=== PATIENT | female | born 1955 | race Caucasian/White ===

== ENCOUNTER 2018-04-15 09:19 | Outpatient (CLI) | payer MEDICARE, MEDICAID, SELFPAY ==
[2018-04-15 10:59] LABS: VALPROIC ACID 54.8 ug/mL (50-100)
[2018-04-16 16:45] LABS: Lamotrigine 11.2 mcg/mL (2.5 - 15.0)
== END 2018-04-15 09:39 ==
PROVIDERS: PCP Internal Medicine; Visit Provider Internal Medicine
DX: G40.909 Epilepsy, unspecified, not intractable, without status epilepticus (principal); Z51.81 Encounter for therapeutic drug level monitoring
CPT/HCPCS: 36415; 80175; 80164

== ENCOUNTER 2018-04-30 10:49 | Outpatient (CLI) | payer MEDICARE, MEDICAID, SELFPAY | END 2018-04-30 11:09 | PROVIDERS: PCP Internal Medicine; Visit Provider Orthopaedic Surgery | DX: M25.562 Pain in left knee (principal); M17.12 Unilateral primary osteoarthritis, left knee | CPT/HCPCS: 20610; 99213; J1040 ==

== ENCOUNTER 2018-04-30 13:37 | Outpatient (CLI) | payer MEDICARE, MEDICAID, SELFPAY ==
--- NOTE | 2018-04-30 11:13 | DI.RAD_ITS ---
SYMPTOM/DIAGNOSIS: LT KNEE PAIN, ? DJD LEFT KNEE: Three views. Comparison is made with 02/01/16. There is marked narrowing of the medial femoral tibial joint space. Subchondral sclerosis and small osteophytes are seen in the medial femorotibial joint. There are small osteophytes seen in the posterior patella. The bones are intact and normally mineralized. The soft tissues are unremarkable. IMPRESSION: Moderately severe degenerative changes of the left knee, most marked in the medial femoral tibial joint.
== END 2018-04-30 13:57 ==
PROVIDERS: PCP Internal Medicine; Visit Provider Orthopaedic Surgery
DX: M25.562 Pain in left knee (principal); M17.12 Unilateral primary osteoarthritis, left knee
CPT/HCPCS: 20610; 73562; 99213; J1040

== ENCOUNTER 2018-05-21 12:32 | Outpatient (CLI) | payer MEDICARE, MEDICAID, SELFPAY | END 2018-05-21 12:52 | PROVIDERS: PCP Internal Medicine; Visit Provider Orthopaedic Surgery | DX: M17.12 Unilateral primary osteoarthritis, left knee (principal); M25.562 Pain in left knee | CPT/HCPCS: 20610; 99213; J1040 ==

== ENCOUNTER 2018-08-17 09:14 | Outpatient (CLI) | payer MEDICARE, MEDICAID, SELFPAY | END 2018-08-17 09:34 | PROVIDERS: PCP Internal Medicine; Visit Provider Orthopaedic Surgery | DX: R69 Illness, unspecified (principal) ==

== ENCOUNTER 2018-08-17 10:18 | Outpatient (CLI) | payer MEDICARE, MEDICAID, SELFPAY ==
[2018-08-17 11:41] LABS: Abs Immature Grans 0.02 k/cumm (0.0-0.09); Absolute Basophil Count 0.07 k/cumm (0.0-0.2); Absolute Eosinophil Count 0.07 k/cumm (0.0-0.7); Absolute Lymphocyte Count 3.02 k/cumm (1.2-3.4); Absolute Monocyte Count 0.59 k/cumm (0.11-0.7); HCT 44.1 % (36.0-46.0); HGB 14.9 g/dL (12.0-15.5); Immature Grans % 0.3; Lymphocytes % 42.7; Mean Corp. HGB Concentration 33.8 g/dL (32.0-36.0); Mean Corpuscular Hemoglobin 32.4 pg (27.0-33.0); Mean Corpuscular Volume 95.9 fL (80-95); Mean Platelet Volume 12.1 fL (8.0-11.0); Monocytes % 8.3; Neutrophils % 46.7; Platelet Count 194 x1000/uL (130-400); RBC Distribution Width 15.2 % (11.7-14.6); White Blood Cell Count 7.07 k/cumm (4.4-10.8)
[2018-08-17 11:54] LABS: Bilirubin Negative (Negative); Blood Small (Negative); Clarity Clear; Glucose Negative (Negative); Ketones Negative (Negative); Leukocyte Esterase Small (Negative); Nitrite Negative (Negative); Urobilinogen 0.2 EU/dL (Up TO 0.2)
[2018-08-17 12:07] LABS: Bacteria Rare HPF (Negative); C & S Indicated? Yes; Casts Negative LPF (Negative); Crystals Negative HPF (Negative); Epithelial Cells Few HPF (Negative); Mucus Negative (Negative); Other Cells Few Renal (Negative)
[2018-08-17 12:37] LABS: Anion Gap 13.6 mmol/L (3-11); BUN 16 mg/dL (7-18); CO2 26.4 mmol/L (21.0-32.0); CREATININE 0.87 mg/dL (0.55-1.02); Chloride 103 mmol/L (98-107); Glucose 96 mg/dL (70-100); Potassium 4.4 mmol/L (3.5-5.1); Sodium 143 mmol/L (136-145)
== END 2018-08-17 10:38 ==
PROVIDERS: PCP Internal Medicine; Visit Provider Orthopaedic Surgery
DX: M25.562 Pain in left knee (principal); M17.12 Unilateral primary osteoarthritis, left knee; Z13.1 Encounter for screening for diabetes mellitus; Z01.818 Encounter for other preprocedural examination; G40.909 Epilepsy, unspecified, not intractable, without status epilepticus; Z79.899 Other long term (current) drug therapy
CPT/HCPCS: 36415; 80051; 82947; 84520; NC OV; 81003; 81015; 82565; 85025; 87086; 93005; 93010

== ENCOUNTER 2018-08-26 05:39 | Inpatient (IN) | payer MEDICARE, MEDICAID, SELFPAY ==
--- NOTE | 2018-08-17 14:07 | PDOC.CMPRO ---
- If Service Date Differs Date of service: 08/17/18 Time of Service: 14:07 Care Management Progress Note Eloise is a 62 year old female that is having a left total knee on 08/26/2018. CM met with Eloise at her preop appointment. Eloise is alert and engaged during CM assessment. Eloise likes to walk in the summer she has been unable to enjoy walking as much due to discomfort in her left knee. Eloise states she has family and friend support when she is discharged. She has had both outpatient PT at [facility], and home health PT in the past she is not sure which one she will choose post surgery. She uses [facility] for transportation and will need transportation coordinated at time of discharge. She lives in a basement floor apartment with no stairs. She does not have a walker she states she is unsure that a walker could be navigated in and out of the bathroom in her apartment. Eloise does not have advance directives she would like to complete them while she is inpatient. Of note Eloise reports that she has epilepsy and on on anticonvulsants medications.
[2018-08-26] VITALS (13 sets, daily range): BP systolic 84–113; BP diastolic 48–69; PULSE 63–87; RESP 16–18; TEMP 35.3–37.8; O2SAT 93–100
[2018-08-26] MEDS: Lactated Ringers 1,000 ML 80 ML IV ×3 (06:39→11:05)
[2018-08-26] MEDS: Bupivacaine LIPOSOME/PF 133 MG/10 ML VIAL IJ (07:22)
[2018-08-26] MEDS: Bupivacaine 0.5% Pres-Free 30 ML VIAL (07:22)
[2018-08-26] MEDS: Hydrogen Peroxide 3% 480 ML BTL (09:35)
--- NOTE | 2018-08-26 11:43 | ROE_ITS ---
REPORT OF OPERATIVE PROCEDURE DATE OF PROCEDURE August 26, 2018 PREOPERATIVE DIAGNOSES Osteoarthritis of the left knee, medial compartment arthritis. POSTOPERATIVE DIAGNOSES Osteoarthritis of the left knee, medial compartment arthritis. PROCEDURE Left total knee arthroplasty, cemented. SURGEON Bob Turner M.D. SHEET CATCHER Jenn Porter PA-C ANESTHETIC Left femoral nerve blockade, followed by spinal by Chrissie Riojas CRNA PREP ChloraPrep. INDICATIONS This patient is well known to me. She is status post previous left hip hemiarthroplasty for femoral n rona fracture. She was treated for medial compartment arthritis of her left knee. She did not respond to conservative treatment including corticosteroid injections, as well as viscosupplementation. Radi ographs showed primarily medial compartment arthritis. Because of failure of conservative treatment, I recommended total knee arthroplasty. The patient does not drive and has to be able to ambulate to et her groceries and for her activities of daily living. She does not have any stairs to climb at [facility]. I reviewed with the patient the planned procedure, including the risks and benefits, and she under stood and wished to proceed. DESCRIPTION OF PROCEDURE The patient was seen in the Day Surgery area, and the procedure was reviewed with her and she underst ood and wished to proceed. I marked her left leg. She had no questions. She had no family members colleen t she wished I contact after the surgery. The patient underwent a left femoral nerve blockade by Keri Riojas CRNA, followed by spinal anesthesia, both were done without difficulty. A Cody catheter was inserted under sterile technique. Her urine was grossly clear. She received 1 gram of Ancef as a prophylactic antibiotic. A pneumatic tourniquet was applied to the left proximal thigh. After preppin g and draping the entire lower extremity from the toes to the groin, the tourniquet was inflated afte r application of sterile bandages and elevation of the limb for 2 minutes for gravity drainage. The t ourniquet was inflated to 360 mmHg. The standard anterior approach for total knee arthroplasty was used. The skin and subcutaneous tissue s were incised and hemostasis was controlled by electrocautery. Incision was carried down through th e knee, and a medial parapatellar arthrotomy was performed. A copious amount of joint fluid was encou ntered. The patella was everted and the knee flexed 90 degrees. There was arthritis of the medial com partment down to subchondral bone. There were medial osteophytes along the medial tibial plateau and the medial femoral condyle. There were early osteophytes forming over the lateral femoral condyle. Th e patellofemoral joint just showed some moderate chondromalacia. Because of the patient's relatively small stature, I was concerned that I would not be able to get a press fit condylar size 2 prosthesis in her because her bones might be too small. This was based on evaluation of preoperative x-rays. Carlos rojas, I was able to verify the size of the tibial plateau with a sterile ruler and compared that to the prosthesis and it looked like that would fit; this was shown to be the case. However, in order to make sure that the components would fit the tibial cut was made first. This was done using an truck manager al alignment jig after doing the subperiosteal release of the medial collateral ligament for the mild varus deformity. I then used a 3-degree posterior sloped cutting guide on the tibia after using the external alignment jig and resected the proximal tibia. I was able to fit the size 2 tibial plateau p rosthesis in place in its trial form and it showed good containment by bone and no overlap. I then pr oceeded with standard Pressfit condylar arthroplasty using distal femoral resection using the intrame dullary guide jessy and a 6-degree valgus bushing on the femur. Approximately 9 mm of distal femur wer e resected. The size 2 component had the most appropriate fit. Anterior and posterior cuts were made, as well as chamfer cuts. The cuts were adjusted slightly and the trial prosthesis fit well. Prior t o making the femoral cuts, the ACL had been resected. Medial and lateral menisci were also resected. Next, trial tibial components were placed and instrumentation was used to create a channel in the sup erior surface of the tibial plateau for the rotating platform. Trial reduction was done with some dif ficulty and minor adjustments in the tension of the PCL and the medial collateral ligament, but I was satisfied with the stability with a size 2 femoral component, size 2 tibial rotating platform compon ent and 10-mm rotating platform polyethylene component. The patella was measured with a caliper and its maximum thickness was 21 millimeters. Combination of a cutting guide and freehand technique was used to resect the articular surface of the patella. It wa s felt that a 32-mm tripronged patellar component would have the most appropriate fit. Fixation lug h oles were drilled in the patella and trial reduction was satisfactory restoring patellar thickness to 21.5 millimeters. All extraneous debris was removed from the knee and the tibial plateau was irrigat ed with pulsatile jet lavage saline. Peroxide soaked sponges were then placed. of Methylmethacrylate containing gentamicin was mixed in a vacuum chamber and the size 2 tibial rotating platform tray was placed. Standard pressurization techniques were utilized and extraneous cement was removed. Cement wa s allowed to cure with the trial femoral and tibial poly eth trays placed. After making sure there wa s no extraneous cement, a second batch of Methylmethacrylate was mixed after the first batch cured a nd the femoral and patellar components were cemented in place. Again, standard pressurization techniq ues were employed and extraneous cement was removed. After the second batch of Methylmethacrylate cur ed, search was made to make sure that there was no extraneous cement or extravasation of cement in th e posterior aspect of the knee. Final components were then placed to make sure that the knee was stab le. This was again a size 2 femur, size 2 tibial plateau and a 10-mm rotating platform tibial tray wi th a 32-mm patellar component. At this point, the tourniquet was deflated. Hemostasis was under contr ol. The wound was then irrigated with a Betadine irrigation protocol using dilute Betadine 17.5 cc a nd 500 cc of saline was placed in the knee. This was done over the course of 3 minutes. The wound was then irrigated with 1000 cc of sterile saline and pulsatile jet lavage technique. The medial parapat ellar arthrotomy was closed with the quad tendon closed in two layers. This was accomplished with sut ures of #1-Vicryl. The peritenon was repaired with #2-0 Vicryl. Subcutaneous tissues were repaired wi th #2-0 Vicryl. Tranexamic acid 3 grams and 100 cc of saline were placed intraarticularly into the kn ee to minimize blood loss. Subcutaneous closure was accomplished with #2-0 Vicryl stitches and then s taples. Estimated blood loss was 50 cc. No blood was replaced intraoperatively. The wound was dressed with Xe roform gauze, 4x4s, ABD Pad, a 6-inch conforming gauze bandage, followed by two 6-inch Hakeem wraps, a C frida/Cuff and a commercial knee immobilizer. The patient had good capillary refill and no evidence of any neurovascular complications. She was taken to the Recovery Room in satisfactory condition tolerat ing the procedure well.
--- NOTE | 2018-08-26 11:47 | DI.RAD_ITS ---
SYMPTOMS/DIAGNOSIS: LT TKA ARTHROPLASTY FOR MEDIAL COMPARTMENT ARTHRO PORTABLE LEFT KNEE: The patient is status post placement of a total left knee prosthesis. The lateral view is somewhat limited due to overlying soft tissues and knee brace. The alignment appears satisfactory. Anterior skin kamari are seen.
[2018-08-26] MEDS: POTASSIUM CHLORIDE/0.9% NACL 1,000 ML 100 MEQ IV (12:26)
--- NOTE | 2018-08-26 13:36 | NUR.NOTE ---
Nursing Note: 1121: pt arrives from pacu via stretcher to room 212. pt moved via hover mat to bed. pt is alert/oriented. pt has cryo cuff with knee immobilizer in place. pt had spinal; area benign at this time. pt hr is regular, LS are clear, active bs at this time. pt reports bm this am. pt scds in place. teds in place. iv in RH patent. perry draining clear yellow urine. see vs for further information
[2018-08-26] MEDS: HYDROcodone 5/Acetaminophen 325 TAB PO ×2 (14:26→19:45)
[2018-08-26] MEDS: Divalproex 250 MG TABEC PO (19:45)
[2018-08-26] MEDS: lamoTRIgine 100 MG TAB PO (19:45)
[2018-08-26] MEDS: Normal Saline Flush 10 ML SYR IV (23:11)
[2018-08-27] VITALS (8 sets, daily range): BP systolic 101–146; BP diastolic 59–73; PULSE 66–78; RESP 17–18; TEMP 37.3–37.9; O2SAT 92–95
[2018-08-27] MEDS: Normal Saline Flush 10 ML SYR IV (01:44)
[2018-08-27] MEDS: POTASSIUM CHLORIDE/0.9% NACL 1,000 ML 75 MEQ IV ×2 (01:45→17:49)
[2018-08-27] MEDS: HYDROcodone 5/Acetaminophen 325 TAB PO ×5 (03:09→21:19)
[2018-08-27 06:47] LABS: HCT 35.3 % (36.0-46.0); HGB 12.1 g/dL (12.0-15.5); Mean Corp. HGB Concentration 34.3 g/dL (32.0-36.0); Mean Corpuscular Hemoglobin 32.6 pg (27.0-33.0); Mean Corpuscular Volume 95.1 fL (80-95); Mean Platelet Volume 12.5 fL (8.0-11.0); Platelet Count 153 x1000/uL (130-400); RBC 3.71 m/cumm (4.00-5.20); RBC Distribution Width 14.8 % (11.7-14.6); White Blood Cell Count 8.53 k/cumm (4.4-10.8)
[2018-08-27 07:00] LABS: Anion Gap 9.5 mmol/L (3-11); BUN 9 mg/dL (7-18); CO2 24.5 mmol/L (21.0-32.0); CREATININE 0.62 mg/dL (0.55-1.02); Calcium 7.8 mg/dL (8.5-10.1); Chloride 101 mmol/L (98-107); Glucose 113 mg/dL (70-100); Potassium 4.1 mmol/L (3.5-5.1); Sodium 135 mmol/L (136-145)
--- NOTE | 2018-08-27 08:02 | W.PM.PROGNOT ---
Date of Service Date of service: 08/27/18 Time of Service: 08:02 Assessment and Plan (1) Primary osteoarthritis of left knee: Current visit: No Status: Chronic Status post left total knee arthroplasty. Findings reviewed with the patient in detail. Pain control is an issue we will add ibuprofen to her pain medication. Despite her complaints of pain she does not appear in significant distress. Her blood count and electrolytes are satisfactory. Lovenox therapy will begin today Subjective Interval history since last seen: Nursing staff had difficulty in controlling the patient's pain last night despite morphine and oral hydrocodone. No chest pain pressure shortness of breath no nausea vomiting patient was unable to tolerate the CPM machine Exam Extrem Other: No neurovascular deficits noted of the left foot. Objective Objective Clinical Data: Abnormal lab results 08/27/18 08/27/18 Range/Units 06:25 06:25 RBC 3.71 L (4.00-5.20) m/cumm Hct 35.3 L (36.0-46.0) % MCV 95.1 H (80-95) fL RDW 14.8 H (11.7-14.6) % MPV 12.5 H (8.0-11.0) fL Sodium 135 L (136-145) mmol/L Glucose 113 H (70-100) mg/dL Calcium 7.8 L (8.5-10.1) mg/dL Vital Signs Temperature 99.5 F 08/27/18 03:30 Temperature Source Tympanic 08/27/18 03:30 Pulse 73 08/27/18 03:30 Pulse Rhythm Regular 08/27/18 00:15 Respiratory Rate 18 08/27/18 03:30 Respiratory Effort Non-Labored 08/27/18 00:15 Respiratory Depth Normal 08/27/18 00:15 Respiratory Pattern Normal 08/27/18 00:15 Blood Pressure 101/59 L 08/27/18 03:30 Pulse Oximetry 95 08/27/18 03:30 Respiratory End-tidal CO2 30 08/26/18 11:10 Oxygen Delivery Method Room Air 08/27/18 03:30 Oxygen Flow Rate 0 08/27/18 03:30 Pain Level 10 08/27/18 03:09 Intake & Output 08/26/18 08/26/18 08/27/18 11:59 23:59 11:59 Intake Total 1928.666 / 3438.666 1510 / 3438.666 730 / 730 Output Total 100 / 1500 1400 / 1500 1000 / 1000 Balance 1828.666 / 1938.666 110 / 1938.666 -270 / -270 Weight 94 lb 9.253 oz Intake: IV 1728.666 / 2698.666 970 / 2698.666 330 / 330 Oral 200 / 740 540 / 740 400 / 400 Output: Urine 100 / 1500 1400 / 1500 1000 / 1000 Other: Urine Color Yellow Yellow Urine Appearance Clear Clear Emesis Description None Laboratory Results WBC 8.53 k/cumm (4.4-10.8) 08/27/18 06:25 RBC 3.71 m/cumm (4.00-5.20) L 08/27/18 06:25 Hgb 12.1 g/dL (12.0-15.5) 08/27/18 06:25 Hct 35.3 % (36.0-46.0) L 08/27/18 06:25 MCV 95.1 fL (80-95) H 08/27/18 06:25 MCH 32.6 pg (27.0-33.0) 08/27/18 06:25 MCHC 34.3 g/dL (32.0-36.0) 08/27/18 06:25 RDW 14.8 % (11.7-14.6) H 08/27/18 06:25 Plt Count 153 x1000/uL (130-400) 08/27/18 06:25 MPV 12.5 fL (8.0-11.0) H 08/27/18 06:25 Sodium 135 mmol/L (136-145) L 08/27/18 06:25 Potassium 4.1 mmol/L (3.5-5.1) 08/27/18 06:25 Chloride 101 mmol/L (98-107) 08/27/18 06:25 Carbon Dioxide 24.5 mmol/L (21.0-32.0) 08/27/18 06:25 Anion Gap 9.5 mmol/L (3-11) 08/27/18 06:25 BUN 9 mg/dL (7-18) 08/27/18 06:25 Creatinine 0.62 mg/dL (0.55-1.02) 08/27/18 06:25 Estimated GFR/1.73 m2 >= 60.00 (mL/min/1.73m2) 08/27/18 06:25 Glucose 113 mg/dL (70-100) H 08/27/18 06:25 Calcium 7.8 mg/dL (8.5-10.1) L 08/27/18 06:25
--- NOTE | 2018-08-27 08:17 | PT.INIE ---
Date of service: 08/27/18 Time of Service: 07:45 PT Notes Inpatient Physical Therapy Evaluation Date: August Referring Doctor: Dr. Turner PT Orders: PT CONSULT: s/p left total knee arthroplasty. CPM and cryocuff protocols. Up in chair today, weight bearing as tolerated left with walker. Precautions: Fall Precautions Patient Profile/Admitting Diagnosis: Patient is a 62-year-old female who underwent left total knee replacement performed by Dr. Turner August 26. Orders received today for up in chair, weightbearing as tolerated with walker. CPM and Cryo/Cuff protocols. PMHX: Left total hip replacement, left total shoulder replacement, osteoporosis, history of epilepsy with last seizure July 2017. Social History/Home Situation: Lives alone single level dwelling with no stairs entering or no stairs in the dwelling. Current Functional Limitations: Ambulation, squatting, bed mobility, transfers sit to stand, limitations with sleep due to pain Equipment Owned/DME: None. Patient reports she will unlikely be able to use a walker at home due to the outline of her home particularly with her hallway being narrow. She did discuss preoperatively with case management utilization of crutches. At this point we will focus on front wheeled walker training progressing towards crutch training as tolerable. Subjective: Patient reports that she is holding up fairly well. Had a difficult night last night secondary to pain in her left knee. She is agreeable to PT consult. Finds a Cryo/Cuff to be annoying. Is looking forward to getting up out of bed. Admits she has not use the CPM very much secondary to pain. Objective: General Observation: Pleasant female who has compression garments on her right lower extremity, IV in the dorsum of her right hand and catheter. Seen lying in bed with head of bed at 30 degrees. She has Hakeem wrap around the left lower extremity mid thigh to mid jolley. Incision is not inspected. Mental Status: Alert and orientated x3 Person Pl. and time Pain: 10/10. Locates her pain to be globally throughout the knee primarily anterior and medially. ROM: Right Upper Extremity: Right glenohumeral joint upper extremity flexion and abduction grossly full pain-free. Elbow flexion extension within normal limits wrist and hand within normal limits. Left Upper Extremity: Significantly limited glenohumeral joint range of motion status post total shoulder replacement. Active flexion 45-50 degrees active assistive lead to 60. Abduction 35 degrees active, 45 active assistive. Elbow flexion extension, wrist and hand active range of motion within normal limits Right Lower Extremity: Right hip and knee active range of motion within normal limits in all planes pain-free. Range of motion within normal limits Left Lower Extremity: Left hip flexion 100 degrees tested in sitting. Active assistive abduction in supine 35-40 degrees. Knee extension lacks 15 degrees. Knee flexion 35-40 degrees with pain, active assistive to 50 degrees. Ankle inversion, eversion, plantar and dorsiflexion within functional limits. Strength: Right Upper Extremity: Grossly 4+/5 throughout right upper extremity glenohumeral joint flexion, abduction, bicep and tricep. 5/5 frame changer. Left Upper Extremity: Glenohumeral joint flexion and abduction 3-/5. Elbow flexion and extension 4/5. 5/5 frame changer. Right Lower Extremity: Flexion and abduction 4/5. She is able to perform a straight leg raise with 0 degree lag. Quads 4+/5, hamstrings 4/5. Ankle inversion and eversion 4/5, plantar flexion and dorsiflexion 4+/5. Left Lower Extremity: Patient is able to perform straight leg raise with 15 degree lag. Hip flexion 4-/5 hip abduction 4/5. Quadriceps resistance strength test not performed. Hamstring 3+/5 with pain. Sensation: Patient reports intact sensation light touch throughout bilateral lower extremities Bed Mobility/Transfers: Supine to sit: Head of bed 30 degrees min assist x1 Sit to stand: Min assist x1 to front wheeled walker. Verbal cues needed for hand placement avoiding grabbing front wheeled walker for transfer to stand. Stand to sit: Min assist x1 from front wheeled walker with verbal cues for hand placement on chair and assistance with left lower extremity. Bed mobility: Min assist x1 for assistance of left lower extremity Gait: Patient ambulated 5 feet with contact-guard in front wheeled walker. Verbal cues necessary for walker placement particularly with changing directions turning to sit in chair. Weightbearing as tolerated by patient's was hesitant to apply weight through her left lower extremity with toe-touch positioning. Verbal cues offered for flat foot initial contact. Following ambulation with transfer to chair evaluation was completed with patient left in chair eating her breakfast. Nursing was notified. Ther-Ex: Patient instructed in ankle pumps, glutes sets, quad sets and importance of range of motion to be done independently throughout the day when not in PT for flexion and extension with intolerance. Balance: Static Sitting: Normal Dynamic Sitting: Normal Static Standing: Fair Dynamic Standing: Fair Special Tests: Mobility Limitations Standardized Measure [facility] AM-PAC 6 clicks Basic Mobility Inpatient Short Form: Raw Score: 13 Standardized Score: 36.74 CMS Score: 64.91% CMS Modifier: CL Informed Consent/Education: Patient instructed in purpose of PT consult and plan of care. Assessment: Patient is a 62 year old female referred to physical therapy services with the diagnosis of status post left total knee replacement with history of ldft total shoulder replacement and left total hip replacement. Patient presents with clinical signs and symptoms consistent with this diagnosis, as demonstrated by the following impairment level findings: Mobility, motor function, muscle performance, range of motion, gait and functional mobility associated with left total knee replacement. Patient will require front wheeled walker for community ambulation purposes and functional transfers due to impaired balance and gait limitations. She has mobility limitation that impairs her ability to do activities related to daily living and puts the patient at further risk of injury. Will also require axillary crutches for in-home ambulation due to construct of dwelling limiting use of walker for ambulation short distances in her home. Impairments are contributing to the following functional limitations: AMPAC score. 64.91% Patient is assessed as a [] Low 03575 X Moderate 12791 [] High 35160 complexity based on the following: History: As per PMH Examination: As listed above Presentation: evolving Decision Making: moderate based on AMPAC score of 64.91% Goals: Goals X1 week 1. Supine-Sit: SBA 2. Sit-Supine: SBA 3. Sit-Stand: SBA to FWW 4. Stand-Sit: SBA from FWW 5. Bed-Chair: SBA with FWW 6. Chair-Bed: SBA with FWW 7. Gait: 150 feet standby assist with FWW 8. Independent with home exercise program Plan of Care/Treatment Plan: 1-2x/day, 7 days/week x 1 week. Plan of care has been reviewed with the PAD EXTRACTOR TENDER providing the service under Physical Therapy direction. Initiate Physical Therapy intervention for strengthening, bed mobility, transfers, gait, stairs, balance training, use of assistive device. DISCHARGE RECOMMENDATIONS: Discharge to home with home health PT services. TREATMENT CODE/TIME: Minutes direct one-on-one care for initial evaluation. 7:45. G Codes in the area mobility of walking and moving around: current status [id number] CL; projected status GP [id number]. Discharge status (if discharging) GP [id number] CL. Christian Chandra PT, DPT
--- NOTE | 2018-08-27 08:21 | IN_ITS ---
Date of service: 08/27/18 Time of Service: 07:45 PT Notes Inpatient Physical Therapy Evaluation Date: August Referring Doctor: Dr. Turner PT Orders: PT CONSULT: s/p left total knee arthroplasty. CPM and cryocuff protocols. Up in chair today, weight bearing as tolerated left with walker. Precautions: Fall Precautions Patient Profile/Admitting Diagnosis: Patient is a 62-year-old female who underwent left total knee replacement performed by Dr. Turner August 26. Orders received today for up in chair, weightbearing as tolerated with walker. CPM and Cryo/Cuff protocols. PMHX: Left total hip replacement, left total shoulder replacement, osteoporosis, history of epilepsy with last seizure July 2017. Social History/Home Situation: Lives alone single level dwelling with no stairs entering or no stairs in the dwelling. Current Functional Limitations: Ambulation, squatting, bed mobility, transfers sit to stand, limitations with sleep due to pain Equipment Owned/DME: None. Patient reports she will unlikely be able to use a walker at home due to the outline of her home particularly with her hallway being narrow. She did discuss preoperatively with case management utilization of crutches. At this point we will focus on front wheeled walker training progressing towards crutch training as tolerable. Subjective: Patient reports that she is holding up fairly well. Had a difficult night last night secondary to pain in her left knee. She is agreeable to PT consult. Finds a Cryo/Cuff to be annoying. Is looking forward to getting up out of bed. Admits she has not use the CPM very much secondary to pain. Objective: General Observation: Pleasant female who has compression garments on her right lower extremity, IV in the dorsum of her right hand and catheter. Seen lying in bed with head of bed at 30 degrees. She has Hakeem wrap around the left lower extremity mid thigh to mid jolley. Incision is not inspected. Mental Status: Alert and orientated x3 Person Pl. and time Pain: 10/10. Locates her pain to be globally throughout the knee primarily anterior and medially. ROM: Right Upper Extremity: Right glenohumeral joint upper extremity flexion and abduction grossly full pain-free. Elbow flexion extension within normal limits wrist and hand within normal limits. Left Upper Extremity: Significantly limited glenohumeral joint range of motion status post total shoulder replacement. Active flexion 45-50 degrees active assistive lead to 60. Abduction 35 degrees active, 45 active assistive. Elbow flexion extension, wrist and hand active range of motion within normal limits Right Lower Extremity: Right hip and knee active range of motion within normal limits in all planes pain-free. Range of motion within normal limits Left Lower Extremity: Left hip flexion 100 degrees tested in sitting. Active assistive abduction in supine 35-40 degrees. Knee extension lacks 15 degrees. Knee flexion 35-40 degrees with pain, active assistive to 50 degrees. Ankle inversion, eversion, plantar and dorsiflexion within functional limits. Strength: Right Upper Extremity: Grossly 4+/5 throughout right upper extremity glenohumeral joint flexion, abduction, bicep and tricep. 5/5 paper sales manager. Left Upper Extremity: Glenohumeral joint flexion and abduction 3-/5. Elbow flexion and extension 4/5. 5/5 paper sales manager. Right Lower Extremity: Flexion and abduction 4/5. She is able to perform a straight leg raise with 0 degree lag. Quads 4+/5, hamstrings 4/5. Ankle inversion and eversion 4/5, plantar flexion and dorsiflexion 4+/5. Left Lower Extremity: Patient is able to perform straight leg raise with 15 degree lag. Hip flexion 4-/5 hip abduction 4/5. Quadriceps resistance strength test not performed. Hamstring 3+/5 with pain. Sensation: Patient reports intact sensation light touch throughout bilateral lower extremities Bed Mobility/Transfers: Supine to sit: Head of bed 30 degrees min assist x1 Sit to stand: Min assist x1 to front wheeled walker. Verbal cues needed for hand placement avoiding grabbing front wheeled walker for transfer to stand. Stand to sit: Min assist x1 from front wheeled walker with verbal cues for hand placement on chair and assistance with left lower extremity. Bed mobility: Min assist x1 for assistance of left lower extremity Gait: Patient ambulated 5 feet with contact-guard in front wheeled walker. Verbal cues necessary for walker placement particularly with changing directions turning to sit in chair. Weightbearing as tolerated by patient's was hesitant to apply weight through her left lower extremity with toe-touch positioning. Verbal cues offered for flat foot initial contact. Following ambulation with transfer to chair evaluation was completed with patient left in chair eating her breakfast. Nursing was notified. Ther-Ex: Patient instructed in ankle pumps, glutes sets, quad sets and importance of range of motion to be done independently throughout the day when not in PT for flexion and extension with intolerance. Balance: Static Sitting: Normal Dynamic Sitting: Normal Static Standing: Fair Dynamic Standing: Fair Special Tests: Mobility Limitations Standardized Measure [facility] AM-PAC 6 clicks Basic Mobility Inpatient Short Form: Raw Score: 13 Standardized Score: 36.74 CMS Score: 64.91% CMS Modifier: CL Informed Consent/Education: Patient instructed in purpose of PT consult and plan of care. Assessment: Patient is a 62 year old female referred to physical therapy services with the diagnosis of status post left total knee replacement with history of ldft total shoulder replacement and left total hip replacement. Patient presents with clinical signs and symptoms consistent with this diagnosis, as demonstrated by the following impairment level findings: Mobility, motor function, muscle performance, range of motion, gait and functional mobility associated with left total knee replacement. Patient will require front wheeled walker for community ambulation purposes and functional transfers due to impaired balance and gait limitations. She has mobility limitation that impairs her ability to do activities related to daily living and puts the patient at further risk of injury. Will also require axillary crutches for in-h ome ambulation due to construct of dwelling limiting use of walker for ambulation short distances in her home. Impairments are contributing to the following functional limitations: AMPAC score. 64.91% Patient is assessed as a [] Low 55321 X Moderate 42829 [] High 59022 complexity based on the following: History: As per PMH Examination: As listed above Presentation: evolving Decision Making: moderate based on AMPAC score of 64.91% Goals: Goals X1 week 1. Supine-Sit: SBA 2. Sit-Supine: SBA 3. Sit-Stand: SBA to FWW 4. Stand-Sit: SBA from FWW 5. Bed-Chair: SBA with FWW 6. Chair-Bed: SBA with FWW 7. Gait: 150 feet standby assist with FWW 8. Independent with home exercise program Plan of Care/Treatment Plan: 1-2x/day, 7 days/week x 1 week. Plan of care has been reviewed with the GLASS CHECKER providing the service under Physical Therapy direction. Initiate Physical Therapy intervention for strengthening, bed mobility, transfers, gait, stairs, balance training, use of assistive device. DISCHARGE RECOMMENDATIONS: Discharge to home with home health PT services. TREATMENT CODE/TIME: Minutes direct one-on-one care for initial evaluation. 7:45. G Codes in the area mobility of walking and moving around: current status [id number] CL; projected status GP [id number]. Discharge status (if discharging) GP [id number] CL. Christian Chandra PT, DPT
[2018-08-27] MEDS: Thiamine 100 MG TAB PO (08:38)
[2018-08-27] MEDS: lamoTRIgine 100 MG TAB PO ×2 (08:38→19:56)
[2018-08-27] MEDS: Enoxaparin 30 MG/0.3 ML SYR SC ×2 (08:38→19:56)
[2018-08-27] MEDS: Pantoprazole 40 MG TABCR PO (08:38)
[2018-08-27] MEDS: Multivitamin w/Minerals TAB 1 TAB PO (08:38)
[2018-08-27] MEDS: Divalproex 250 MG TABEC PO ×2 (08:38→19:56)
[2018-08-27] MEDS: Docusate Sodium 100 MG CAP PO (08:38)
--- NOTE | 2018-08-27 11:24 | PHARADMIT ---
Addendum entered by Riaz Beltre III 08/28/18 14:16: Pharmacy Note Subjective Post-op day#2 total knee, weight bearing, shower, working with PT. Objective VS-OK pain:05/20, Labs-WNL, No BM yet Assessment Using [place] for pain Plan Working with PT towards discharge. Original Note: Admission Pharmacy Clinical Review DJD (L) KNEE Code Status Full Code Current Weight wgt-42.9 kg Renally Cleared and Narrow Therapeutic Index Meds CrCl~ 50 mL/min Meds-OK QTc Value / Action Taken QTc-388 na BP Control, Fever BP- 103/61 Tmax_ 37.8C Electrolytes reviewed Na- 135 K+4.1 DVT Prophylaxis Lovenox Opiate Usage / Scheduled Bowel Regimen Ordered Yes Yes Plt/SCr for Heparin / Enoxaparin Plts- 153 SCr-0.62 INR for Warfarin NA H/H stable, WBC/Bands H&H- 12.1/35.3 WBC- 8.53 Antibiotic appropriateness Ancef Cultures and Sensitivities NONE Surgical ABX d/c within 24 hr Yes DM control / Insulin Dosing BG- 113 Heart Failure (Check EF%) (SAHIL's, B-Block, Diuretics) NONE IV to PO Switch No Home Meds Reviewed Yes Home Meds Not Ordered B-Complex, Pediatric Gummies Comments
--- NOTE | 2018-08-27 12:23 | PDOC.CMIN ---
- If Service Date Differs Date of service: 08/27/18 Time of Service: 12:23 Care Management Initial Assess REASON FOR HOSPITALIZATION:: Total L Knee PAST MEDICAL HISTORY/PAST SURGICAL HISTORY:: Seizure disorder, HPV, osteoporosis, repaired left hip fracture, depressive disorder, atrophic vaginitis, alcohol abuse, seizure disorder, malnutrition, frequent falls, left humerus fracture, osteopenia, depression. 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 She states she has family and friends that are very supportive. She is normally independent with ADLs, she does not drive she lives in town in [place] and walks to her destinations. CURRENT FUNCTIONAL STATUS:: Eloise is alert and engaged with CM during assessment. She states she did have increased pain overnight however feels improved this morning. She does continue to have a Cody in place and IV. PT complete an initial assessment. ADVANCE DIRECTIVES:: None on file forms provided patient to review. Has patient been provided with information about the portal?: Yes Did the patient sign up for the portal?: No CODE STATUS:: Full Code INSURANCE COVERAGE / FINANCIAL ISSUES:: Medicare and Medicaid CURRENT HOME/COMMUNITY SERVICES/EQUIPMENT:: No current services at home, she does have a neurologist for epilepsy. PRIMARY CARE PHYSICIAN:: Dr.Susan Ramon POTENTIAL DISCHARGE NEEDS:: Follow-up appointment with provider, home health PT OT she will need a new [id number]. Eloise is requesting crutches not a FWW. This was communicated to PT PATIENT/FAMILY EDUCATION NEEDS:: Discharge education, follow-up plan of care, limitations, medications, self-management and asked me 3 discussion ANTICIPATED BARRIERS TO DISCHARGE:: None identified at this time TRANSPORTATION:: Via private car with friend vs RCT PLAN:: Eloise will remain inpatient postoperatively until medically ready to be discharged per provider. She will need a new [id number] for home health PT and OT. She will continue to receive services through PT and OT while inpatient. CM to continue to provide support to patient discharge planning.
--- NOTE | 2018-08-27 12:33 | INITIAL_ITS ---
- If Service Date Differs Date of service: 08/27/18 Time of Service: 12:23 Care Management Initial Assess REASON FOR HOSPITALIZATION:: Total L Knee PAST MEDICAL HISTORY/PAST SURGICAL HISTORY:: Seizure disorder, HPV, osteoporosis, repaired left hip fracture, depressive disorder, atrophic vaginitis, alcohol abuse, seizure disorder, malnutrition, frequent falls, left humerus fracture, osteopenia, depression. 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 She states she has family and friends that are very supportive. She is normally independent with ADLs, she does not drive she lives in town in [place] and walks to her destinations. CURRENT FUNCTIONAL STATUS:: Eloise is alert and engaged with CM during assessment. She states she did have increased pain overnight however feels improved this morning. She does continue to have a Cody in place and IV. PT complete an initial assessment. ADVANCE DIRECTIVES:: None on file forms provided patient to review. Has patient been provided with information about the portal?: Yes Did the patient sign up for the portal?: No CODE STATUS:: Full Code INSURANCE COVERAGE / FINANCIAL ISSUES:: Medicare and Medicaid CURRENT HOME/COMMUNITY SERVICES/EQUIPMENT:: No current services at home, she does have a neurologist for epilepsy. PRIMARY CARE PHYSICIAN:: Dr.Susan Ramon POTENTIAL DISCHARGE NEEDS:: Follow-up appointment with provider, home health PT OT she will need a new jzei-ie-nqan. Eloise is requesting crutches not a FWW. This was communicated to PT PATIENT/FAMILY EDUCATION NEEDS:: Discharge education, follow-up plan of care, limitations, medications, self-management and asked me 3 discussion ANTICIPATED BARRIERS TO DISCHARGE:: None identified at this time TRANSPORTATION:: Via private car with friend vs RCT PLAN:: Eloise will remain inpatient postoperatively until medically ready to be discharged per provider. She will need a new evao-jg-zady for home health PT and OT. She will continue to receive services through PT and OT while inpatient. CM to continue to provide support to patient discharge planning.
[2018-08-27] MEDS: Ibuprofen 400 MG TAB PO (13:52)
--- NOTE | 2018-08-27 15:12 | PT.INTREAT ---
Date of service: 08/27/18 Time of Service: 15:12 PT Notes Inpatient Physical Therapy Treatment Note [facility] Date: 08/27/18 PRECAUTIONS:Fall SUBJECTIVE: Eloise reports that she is experiencing numbness through her left lower extremity, she believes that the knee immobilizer is strapped on too tight. OBJECTIVE: After checking patient's knee immobilizer, I determined that the knee immobilizer was fitted properly to the patient and not too tight. Patient able to perform ankle pumps and coloring is noted to be normal and foot. Patient also indicates no numbness in foot. Nursing was alerted to patient complaint of lower extremity numbness. PAIN: Patient complained of 6 significant pain in left lower extremity with transfers and ther ex. BED MOBILITY/TRANSFERS Supine-sit: SBA with HOB at 40 degrees Sit-stand: CGA Stand-sit: CGA Bed-Chair: CGA GAIT Assistive Device: FWW Weight bearing: WBAT L Assist: CGA Distance: 10' + 20' x2 THEREX: Patient completed a lower extremity strengthening and stabilization program, as per flow sheet. Patient ends with cryocuff to left knee. ASSESSMENT: Patient tolerated session with complaints of significant left lower extremity pain. Patient was able to tolerate a progression in gait distance with FWW support and CGA. Patient would benefit from continued gait and transfer training as well as strengthening for improved mobility. PLAN: Continue with PTs POC TREATMENT CODE/TIME: 30 minutes; (9711 0 x 1, 9753 0 x 1)
[2018-08-28 05:16] VITALS: BP 122/71; PULSE 83; RESP 18; TEMP 37.6; O2SAT 95
[2018-08-28 07:01] LABS: HCT 35.1 % (36.0-46.0); Mean Corp. HGB Concentration 34.2 g/dL (32.0-36.0); Mean Corpuscular Hemoglobin 32.4 pg (27.0-33.0); Mean Corpuscular Volume 94.9 fL (80-95); Mean Platelet Volume 12.8 fL (8.0-11.0); Platelet Count 147 x1000/uL (130-400); RBC Distribution Width 14.7 % (11.7-14.6); White Blood Cell Count 9.66 k/cumm (4.4-10.8)
[2018-08-28] MEDS: POTASSIUM CHLORIDE/0.9% NACL 1,000 ML 75 MEQ IV (07:03)
[2018-08-28 07:12] LABS: Anion Gap 10.8 mmol/L (3-11); BUN 7 mg/dL (7-18); CO2 24.2 mmol/L (21.0-32.0); CREATININE 0.63 mg/dL (0.55-1.02); Calcium 8.7 mg/dL (8.5-10.1); Chloride 101 mmol/L (98-107); Glucose 97 mg/dL (70-100); Potassium 4.1 mmol/L (3.5-5.1); Sodium 136 mmol/L (136-145)
[2018-08-28] MEDS: HYDROcodone 5/Acetaminophen 325 TAB PO ×2 (07:47→12:22)
[2018-08-28] MEDS: Ibuprofen 400 MG TAB PO ×3 (07:48→20:43)
[2018-08-28 08:35] VITALS: BP 119/71; PULSE 78; RESP 20; TEMP 37.4; O2SAT 95
[2018-08-28] MEDS: Enoxaparin 30 MG/0.3 ML SYR SC ×2 (08:42→20:44)
[2018-08-28] MEDS: lamoTRIgine 100 MG TAB PO ×2 (08:43→20:44)
[2018-08-28] MEDS: Divalproex 250 MG TABEC PO ×2 (08:43→20:44)
[2018-08-28] MEDS: Multivitamin w/Minerals TAB 1 TAB PO (08:43)
[2018-08-28] MEDS: Pantoprazole 40 MG TABCR PO (08:43)
[2018-08-28] MEDS: Thiamine 100 MG TAB PO (08:43)
--- NOTE | 2018-08-28 09:24 | W.PM.PROGNOT ---
Date of Service Date of service: 08/28/18 Time of Service: 09:24 Assessment and Plan (1) Primary osteoarthritis of left knee: Current visit: No Status: Chronic 48 hours status post left cemented total knee arthroplasty with no apparent complications the patient has noticed already that when she is weightbearing the medial pain that she had before surgery is gone she does have the incisional pain that is still present she is eating well enough that I think we can safely discontinue her Cody catheter in her IV. She is encouraged to take in oral fluids. I think she can have a shower this afternoon this is reviewed and discussed with the patient and with the physical therapy who will supervise her shower. Her CBC is unremarkable and her electrolytes are also normal. Subjective Interval history since last seen: Patient seems to be in much less pain this morning. She is smiling. She seems happy that she could validate the source of her pain with her brother but by review of the intra-articular photographs of her knee arthritis. She has had reasonably good night she is eating her breakfast without difficulty. Exam Extrem Other: Left knee wound is carefully examined. The previous postoperative bandages are removed. There is some mild to moderate swelling. There is no evidence of any significant hemarthrosis. Suture line is intact with the kamari intact. There are no fracture blisters. New sterile bandages are applied. The Cryo/Cuff is recharged with ice water and we will continue with dynamic compression stockings along with the Cryo/Cuff. Objective Objective Clinical Data: Abnormal lab results 08/28/18 Range/Units 06:30 RBC 3.70 L (4.00-5.20) m/cumm Hct 35.1 L (36.0-46.0) % RDW 14.7 H (11.7-14.6) % MPV 12.8 H (8.0-11.0) fL Vital Signs Temperature 99.3 F 08/28/18 08:35 Temperature Source Tympanic 08/28/18 08:35 Pulse 78 08/28/18 08:35 Pulse Rhythm Regular 08/27/18 19:50 Respiratory Rate 20 08/28/18 08:35 Respiratory Effort Non-Labored 08/27/18 19:50 Respiratory Depth Normal 08/27/18 19:50 Respiratory Pattern Normal 08/27/18 19:50 Blood Pressure 119/71 08/28/18 08:35 Pulse Oximetry 95 08/28/18 08:35 Respiratory End-tidal CO2 30 08/26/18 11:10 Oxygen Delivery Method Room Air 08/28/18 08:35 Oxygen Flow Rate 0 08/28/18 08:35 Pain Level 3 08/28/18 08:43 Comment 08/27/18 07:45 Intake & Output 08/27/18 08/27/18 08/28/18 11:59 23:59 11:59 Intake Total 980 / 1980 1000 / 1980 992.5 / 992.5 Output Total 1150 / 2750 1600 / 2750 2300 / 2300 Balance -170 / -770 -600 / -770 -1307.5 / -1307.5 Intake: IV 330 / 1330 1000 / 1330 992.5 / 992.5 Oral 650 / 650 Output: Urine 1150 / 2750 1600 / 2750 2300 / 2300 Other: Urine Color Yellow Pale Pale Yellow Urine Appearance Clear Clear Clear Urine Odor None Voiding Methods Indwelling Catheter Laboratory Results WBC 9.66 k/cumm (4.4-10.8) 08/28/18 06:30 RBC 3.70 m/cumm (4.00-5.20) L 08/28/18 06:30 Hgb 12.0 g/dL (12.0-15.5) 08/28/18 06:30 Hct 35.1 % (36.0-46.0) L 08/28/18 06:30 MCV 94.9 fL (80-95) 08/28/18 06:30 MCH 32.4 pg (27.0-33.0) 08/28/18 06:30 MCHC 34.2 g/dL (32.0-36.0) 08/28/18 06:30 RDW 14.7 % (11.7-14.6) H 08/28/18 06:30 Plt Count 147 x1000/uL (130-400) 08/28/18 06:30 MPV 12.8 fL (8.0-11.0) H 08/28/18 06:30 Sodium 136 mmol/L (136-145) 08/28/18 06:30 Potassium 4.1 mmol/L (3.5-5.1) 08/28/18 06:30 Chloride 101 mmol/L (98-107) 08/28/18 06:30 Carbon Dioxide 24.2 mmol/L (21.0-32.0) 08/28/18 06:30 Anion Gap 10.8 mmol/L (3-11) 08/28/18 06:30 BUN 7 mg/dL (7-18) 08/28/18 06:30 Creatinine 0.63 mg/dL (0.55-1.02) 08/28/18 06:30 Estimated GFR/1.73 m2 >= 60.00 (mL/min/1.73m2) 08/28/18 06:30 Glucose 97 mg/dL (70-100) 08/28/18 06:30 Calcium 8.7 mg/dL (8.5-10.1) 08/28/18 06:30
--- NOTE | 2018-08-28 10:59 | PT.INTREAT ---
Date of service: 08/28/18 Time of Service: 10:59 PT Notes Inpatient Physical Therapy Treatment Note [facility] Date: 08/28/18 PRECAUTIONS: WBAT L, fall SUBJECTIVE: Patient reports that she is feeling better this morning, and that she is willing to participate in PT. OBJECTIVE: PAIN: Patient complained of left knee pain with ther ex BED MOBILITY/TRANSFERS Supine-sit: S Sit-stand: SBA Stand-sit: SBA GAIT Assistive Device: FWW Weight bearing: WBAT L Assist: CGA Distance: 120' Deviation: Cueing for FWW mechanics THEREX: Patient completed a lower extremity strengthening and stabilization program, as per flow sheet. ASSESSMENT: Patient tolerated session well, with complaints of left knee pain with ther ex only. Patient was able to tolerate a progression in gait distance with FWW support requiring cueing for FWW mechanics. Patient would benefit from continued gait and transfer training as well as strengthening for improved mobility and ability to perform daily functional tasks at a more independent level. PLAN: Continue with PTs POC TREATMENT CODE/TIME: 30 minutes; (9711 0 x 1, 9753 0 x 1)
--- NOTE | 2018-08-28 11:03 | PTTR_ITS ---
Date of service: 08/28/18 Time of Service: 10:59 PT Notes Inpatient Physical Therapy Treatment Note [facility] Date: 08/28/18 PRECAUTIONS: WBAT L, fall SUBJECTIVE: Patient reports that she is feeling better this morning, and that s he is willing to participate in PT. OBJECTIVE: PAIN: Patient complained of left knee pain with ther ex BED MOBILITY/TRANSFERS Supine-sit: S Sit-stand: SBA Stand-sit: SBA GAIT Assistive Device: FWW Weight bearing: WBAT L Assist: CGA Distance: 120' Deviation: Cueing for FWW mechanics THEREX: Patient completed a lower extremity strengthening and stabilization program, as per flow sheet. ASSESSMENT: Patient tolerated session well, with complaints of left knee pain with ther ex only. Patient was able to tolerate a progression in gait distance with FWW support requiring cueing for FWW mechanics. Patient would benefit from continued gait and transfer training as well as strengthening for improved mobility and ability to perform daily functional tasks at a more independent level. PLAN: Continue with PTs POC TREATMENT CODE/TIME: 30 minutes; (9711 0 x 1, 9753 0 x 1)
[2018-08-28 12:02] VITALS: BP 158/77; PULSE 84; RESP 20; TEMP 37.2; O2SAT 97
--- NOTE | 2018-08-28 14:14 | PDOC.CMPRO ---
- If Service Date Differs Date of service: 08/28/18 Time of Service: 14:14 Care Management Progress Note S/O: Eloise has been out of bed today she is ambulating with the assistance of a FWW. She states her pain is more manageable today. Per provider indwelling cath and IV will be removed today. Anticipate she may be discharged in the next 48 hours if she continues to progress with goals. She states her friend will bring her home at time of discharge. She wants RCT used as the last resort. A: Eloise is a 62 year old female admitted for total left knee. P:Eloise will remain inpatient postoperatively until medically ready to be discharged per provider.PT and OT recomends home health for PT/OT at time of discharge. She will need a new htzv-fu-jeqm for home health PT and OT. She will continue to receive services through PT and OT while inpatient. CM to continue to provide support to patient discharge planning.
--- NOTE | 2018-08-28 14:18 | CMPROGNOTE_ITS ---
- If Service Date Differs Date of service: 08/28/18 Time of Service: 14:14 Care Management Progress Note S/O: Eloise has been out of bed today she is ambulating with the assistance of a FWW. She states her pain is more manageable today. Per provider indwelling cath and IV will be removed today. Anticipate she may be discharged in the next 48 hours if she continues to progress with goals. She states her friend will bring her home at time of discharge. She wants RCT used as the last resort. A: Eloise is a 62 year old female admitted for total left knee. P:Eloise will remain inpatient postoperatively until medically ready to be discharged per provider.PT and OT recomends home health for PT/OT at time of discharge. She will need a new [id number]-[id number] for home health PT and OT. She will continue to receive services through PT and OT while inpatient. CM to continue to provide support to patient discharge planning.
[2018-08-28 15:24] VITALS: BP 121/68; PULSE 73; RESP 18; TEMP 37.4; O2SAT 97
--- NOTE | 2018-08-28 15:28 | PT.INTREAT ---
Date of service: 08/28/18 Time of Service: 15:28 PT Notes Inpatient Physical Therapy Treatment Note [facility] Date: 08/28/18 PRECAUTIONS: Fall, WBAT L SUBJECTIVE: Eloise reports that her knee is feeling sore this afternoon. OBJECTIVE: PAIN: Patient complains of left knee discomfort with ther ex and transfers. BED MOBILITY/TRANSFERS Supine-sit: I Sit-supine: I Sit-stand: SBA Stand-sit: SBA GAIT Assistive Device: FWW Weight bearing: WBAT L Assist: SBA Distance: 60' x2 Deviation: Cueing for FWW mechanics THEREX: Patient completed a an open chain lower extremity strengthening and stabilization program, as per flow sheet. Patient was able to perform active SLR x10. Patient's AAROM is 8-80 degrees with moderate overpressure into extension. ASSESSMENT: Patient tolerated session well with minimal c/o pain in L knee with ther ex and transfers. She was able to demonstrate active SLR exercise without knee immobilizer at this time. She would benefit from continued gait and transfer training as well as strengthening for improved mobility at a more independent level. PLAN: Crutch training tomorrow for at home use. TREATMENT CODE/TIME: 40 minutes; (01901b5, [id number])
[2018-08-28 19:05] VITALS: BP 121/73; PULSE 85; RESP 18; TEMP 37.2; O2SAT 94
[2018-08-29] VITALS (7 sets, daily range): BP systolic 101–133; BP diastolic 57–77; PULSE 82–100; RESP 16–18; TEMP 36.8–37.8; O2SAT 95–97
[2018-08-29] MEDS: HYDROcodone 5/Acetaminophen 325 TAB PO ×3 (04:10→18:29)
--- NOTE | 2018-08-29 08:16 | W.PM.PROGNOT ---
Date of Service Date of service: 08/29/18 Time of Service: 08:16 Assessment and Plan (1) Primary osteoarthritis of left knee: Current visit: No Status: Chronic Left total knee arthroplasty doing well. The patient is can be trying crutches today anticipate discharge in 48 hours. She has no other complaints we will continue with Lovenox DVT prophylaxis. We will switch to baby aspirin on discharge . Subjective Interval history since last seen: Patient is generally feeling well pain is become minimal. She has been able to ambulate with her walker and is ready to try crutches today. Exam Extrem Other: She has a mild effusion of her left knee. She has a scant amount of dried serous fluid on her gauze bandage. She seems comfortable. She is alert and oriented and pleased with her results thus far Objective Objective Clinical Data: Vital Signs Temperature 98.2 F 08/29/18 03:50 Temperature Source Tympanic 08/29/18 03:50 Pulse 88 08/29/18 03:50 Pulse Rhythm Regular 08/29/18 00:05 Respiratory Rate 16 08/29/18 03:50 Respiratory Effort Non-Labored 08/29/18 00:05 Respiratory Depth Normal 08/29/18 00:05 Respiratory Pattern Normal 08/29/18 00:05 Blood Pressure 120/77 08/29/18 03:50 Pulse Oximetry 95 08/29/18 03:50 Respiratory End-tidal CO2 30 08/26/18 11:10 Oxygen Delivery Method Room Air 08/29/18 03:50 Oxygen Flow Rate 0 08/29/18 03:50 Pain Level 0 08/29/18 03:50 Comment 08/27/18 07:45 Intake & Output 08/28/18 08/28/18 08/29/18 11:59 23:59 11:59 Intake Total 1351.25 / 1711.25 360 / 1711.25 Output Total 2950 / 3600 650 / 3600 300 / 300 Balance -1598.75 / -1888.75 -290 / -1888.75 -300 / -300 Intake: IV 1101.25 / 1101.25 Oral 250 / 610 360 / 610 Output: Urine 2950 / 3600 650 / 3600 300 / 300 Other: Urine Color Yellow Light Cara Urine Appearance Clear Clear Urine Odor None Comment voiding well in toilet Stool Size Moderate Stool Characteristics Soft Formed Brown Voiding Methods Toilet Toilet Laboratory Results WBC 9.66 k/cumm (4.4-10.8) 08/28/18 06:30 RBC 3.70 m/cumm (4.00-5.20) L 08/28/18 06:30 Hgb 12.0 g/dL (12.0-15.5) 08/28/18 06:30 Hct 35.1 % (36.0-46.0) L 08/28/18 06:30 MCV 94.9 fL (80-95) 08/28/18 06:30 MCH 32.4 pg (27.0-33.0) 08/28/18 06:30 MCHC 34.2 g/dL (32.0-36.0) 08/28/18 06:30 RDW 14.7 % (11.7-14.6) H 08/28/18 06:30 Plt Count 147 x1000/uL (130-400) 08/28/18 06:30 MPV 12.8 fL (8.0-11.0) H 08/28/18 06:30 Sodium 136 mmol/L (136-145) 08/28/18 06:30 Potassium 4.1 mmol/L (3.5-5.1) 08/28/18 06:30 Chloride 101 mmol/L (98-107) 08/28/18 06:30 Carbon Dioxide 24.2 mmol/L (21.0-32.0) 08/28/18 06:30 Anion Gap 10.8 mmol/L (3-11) 08/28/18 06:30 BUN 7 mg/dL (7-18) 08/28/18 06:30 Creatinine 0.63 mg/dL (0.55-1.02) 08/28/18 06:30 Estimated GFR/1.73 m2 >= 60.00 (mL/min/1.73m2) 08/28/18 06:30 Glucose 97 mg/dL (70-100) 08/28/18 06:30 Calcium 8.7 mg/dL (8.5-10.1) 08/28/18 06:30
[2018-08-29] MEDS: Divalproex 250 MG TABEC PO ×2 (09:17→19:32)
[2018-08-29] MEDS: Pantoprazole 40 MG TABCR PO (09:17)
[2018-08-29] MEDS: Enoxaparin 30 MG/0.3 ML SYR SC ×2 (09:17→19:32)
[2018-08-29] MEDS: Multivitamin w/Minerals TAB 1 TAB PO (09:17)
[2018-08-29] MEDS: lamoTRIgine 100 MG TAB PO ×2 (09:18→19:32)
[2018-08-29] MEDS: Thiamine 100 MG TAB PO (09:18)
[2018-08-29] MEDS: Ibuprofen 400 MG TAB PO ×2 (09:18→18:29)
--- NOTE | 2018-08-29 12:56 | PT.INTREAT ---
Date of service: 08/29/18 Time of Service: 12:56 PT Notes Inpatient Physical Therapy Treatment Note [facility] Date: 08/29/18 PRECAUTIONS:Fall, WBAT L LE SUBJECTIVE: Pt reports that she is somewhat nervous about using the crutches. OBJECTIVE: Supine-sit: SBA Sit-supine: SBA Sit-stand: CGA Stand-sit: CGA GAIT Assistive Device: Crutches Weight bearing: WBAT L LE Assist: CGA with vc's Distance: Bed to door x2 THEREX: Pt completed LE strengthening as per flow sheet in the supine and seated positions. Pt received PROM of the LE into knee flexion and extension. Pt was able to achieve approx 80-85 degrees knee flexion. ASSESSMENT: Pt tolerated today's session fairly well. Pt was nervous when ambulating with the crutches and somewhat shaky. Pt required mod vc's with ambulation. PLAN: Cont as per PT POC. TREATMENT CODE/TIME: 9:25-9:55 (30) RHONDA PASTOR
[2018-08-30] MEDS: HYDROcodone 5/Acetaminophen 325 TAB PO (02:18)
[2018-08-30 05:32] VITALS: BP 114/82; PULSE 99; RESP 18; TEMP 36.4; O2SAT 94
[2018-08-30 07:30] VITALS: BP 113/73; PULSE 92; RESP 20; TEMP 37.3; O2SAT 94
[2018-08-30] MEDS: Divalproex 250 MG TABEC PO ×2 (07:40→23:33)
[2018-08-30] MEDS: Ibuprofen 400 MG TAB PO (07:40)
[2018-08-30] MEDS: Docusate Sodium 100 MG CAP PO (07:40)
[2018-08-30] MEDS: Thiamine 100 MG TAB PO (07:40)
[2018-08-30] MEDS: lamoTRIgine 100 MG TAB PO ×2 (07:41→23:33)
[2018-08-30] MEDS: Enoxaparin 30 MG/0.3 ML SYR SC ×2 (07:41→23:33)
[2018-08-30] MEDS: Pantoprazole 40 MG TABCR PO (07:41)
[2018-08-30] MEDS: Multivitamin w/Minerals TAB 1 TAB PO (07:41)
--- NOTE | 2018-08-30 09:25 | W.PM.PROGNOT ---
Date of Service Date of service: 08/30/18 Time of Service: 09:25 Assessment and Plan (1) Primary osteoarthritis of left knee: Current visit: No Status: Chronic Total knee arthroplasty left side doing well. No unusual tell of elevation of temperature or blood pressure. Anticipate discharge home tomorrow Subjective Interval history since last seen: Currently doing well. She is walking the hallway with crutches and handling them well patient achieved 86 degrees of knee flexion yesterday Exam Extrem Other: No drainage on the bandage. No unusual swelling about the knee which has one single layer of gauze on it Objective Objective Clinical Data: Vital Signs Temperature 99.1 F 08/30/18 07:30 Temperature Source Tympanic 08/30/18 07:30 Pulse 92 H 08/30/18 07:30 Pulse Rhythm Regular 08/30/18 07:46 Respiratory Rate 20 08/30/18 07:30 Respiratory Effort Non-Labored 08/30/18 07:46 Respiratory Depth Normal 08/30/18 07:46 Respiratory Pattern Normal 08/30/18 07:46 Blood Pressure 113/73 08/30/18 07:30 Pulse Oximetry 94 L 08/30/18 07:30 Respiratory End-tidal CO2 30 08/26/18 11:10 Oxygen Delivery Method Room Air 08/30/18 07:30 Oxygen Flow Rate 0 08/30/18 07:30 Pain Level 2 08/30/18 07:40 Comment 08/27/18 07:45 Intake & Output 08/29/18 08/29/18 08/30/18 11:59 23:59 11:59 Intake Total 600 / 600 Output Total 300 / 700 400 / 700 775 / 775 Balance -300 / -100 200 / -100 -775 / -775 Intake: IV 0 / 0 Oral 600 / 600 Output: Urine 300 / 700 400 / 700 775 / 775 Other: Urine Color Yellow Pale Straw Urine Appearance Clear Clear Urine Odor Strong Comment reports voinding w/o difficulty hat in toilet for collection. Voiding Methods Toilet Toilet Laboratory Results WBC 9.66 k/cumm (4.4-10.8) 08/28/18 06:30 RBC 3.70 m/cumm (4.00-5.20) L 08/28/18 06:30 Hgb 12.0 g/dL (12.0-15.5) 08/28/18 06:30 Hct 35.1 % (36.0-46.0) L 08/28/18 06:30 MCV 94.9 fL (80-95) 08/28/18 06:30 MCH 32.4 pg (27.0-33.0) 08/28/18 06:30 MCHC 34.2 g/dL (32.0-36.0) 08/28/18 06:30 RDW 14.7 % (11.7-14.6) H 08/28/18 06:30 Plt Count 147 x1000/uL (130-400) 08/28/18 06:30 MPV 12.8 fL (8.0-11.0) H 08/28/18 06:30 Sodium 136 mmol/L (136-145) 08/28/18 06:30 Potassium 4.1 mmol/L (3.5-5.1) 08/28/18 06:30 Chloride 101 mmol/L (98-107) 08/28/18 06:30 Carbon Dioxide 24.2 mmol/L (21.0-32.0) 08/28/18 06:30 Anion Gap 10.8 mmol/L (3-11) 08/28/18 06:30 BUN 7 mg/dL (7-18) 08/28/18 06:30 Creatinine 0.63 mg/dL (0.55-1.02) 08/28/18 06:30 Estimated GFR/1.73 m2 >= 60.00 (mL/min/1.73m2) 08/28/18 06:30 Glucose 97 mg/dL (70-100) 08/28/18 06:30 Calcium 8.7 mg/dL (8.5-10.1) 08/28/18 06:30
--- NOTE | 2018-08-30 11:17 | PT.INTREAT ---
Date of service: 08/30/18 Time of Service: 08:30 PT Notes Inpatient Physical Therapy Treatment Note [facility] Date: 08/30/18 PRECAUTIONS:Fall, WBAT L LE SUBJECTIVE: Pt reports that she is feeling well. OBJECTIVE: Supine-sit: Independent Sit-supine: Independent Sit-stand: SBA Stand-sit: SBA GAIT Assistive Device: Crutches Weight bearing: WBAT L LE Assist: CGA with max cues for equipment management Distance: 100' THEREX: Pt completed LE strengthening as per flow sheet in the supine and seated positions. Pt received PROM of the LE into knee flexion and extension. Pt was able to achieve approx 80 degrees knee flexion. Introduced passive knee extension, which patient tolerated for 3 minutes. She was instructed in independent completion. ASSESSMENT: Patient was educated regarding positioning of the right knee, particularly to avoid sustained knee flexion when lying in bed. She demonstrated improved tolerance with ambulation with crutches today. PLAN: Cont as per PT POC. TREATMENT CODE/TIME: (30 minutes) 81716, [id number]
[2018-08-30 12:29] VITALS: BP 110/74; PULSE 80; RESP 18; TEMP 37.2; O2SAT 97
--- NOTE | 2018-08-30 15:25 | PDOC.CMPRO ---
- If Service Date Differs Date of service: 08/29/18 Care Management Progress Note S/O: Ambulating in hallway with walker. States he pain is under control. Shared before and after pictures of her knee. Talkative and in good spirits. A: Eloise is a 62 year old female admitted for total left knee. P: Eloise will return home with new services for PT/OT when medically cleared for discharge. Friend or [facility] to transport. Would prefer to have friend drive her home.
--- NOTE | 2018-08-30 15:27 | PDOC.CMPRO ---
Care Management Progress Note S/O: Eloise is resting in bed , watching TV. States she will go home using her crutches and not a walker because her hallway to the bathroom is too narrow for it to fit. Feels confident that she can manage the crutches. States he pain is under control. Will use ice packs instead of the cryocuff because it is too heavy for her to fill and carry at home. A: Eloise is a 62 year old female admitted for total left knee. P: Eloise will return home and said today that she would like to go to [facility] as an outpatient rather than have PT/OT. Sates she went there when her shoulder was repaired and will use [facility] to get to her appointments.
[2018-08-30 16:01] VITALS: BP 119/65; PULSE 101; RESP 17; TEMP 37.5; O2SAT 97
[2018-08-30 19:11] VITALS: BP 134/68; PULSE 99; RESP 18; TEMP 37.8; O2SAT 94
[2018-08-30 23:24] VITALS: BP 114/70; PULSE 98; RESP 18; TEMP 38; O2SAT 97
[2018-08-31 03:49] VITALS: BP 118/68; PULSE 95; RESP 18; TEMP 37.7; O2SAT 96
[2018-08-31] MEDS: Ibuprofen 400 MG TAB PO (03:52)
[2018-08-31 07:55] VITALS: BP 100/65; PULSE 92; RESP 18; TEMP 37; O2SAT 96
--- NOTE | 2018-08-31 09:01 | W.PM.PROGNOT ---
Date of Service Date of service: 08/31/18 Time of Service: 09:01 Assessment and Plan (1) Primary osteoarthritis of left knee: Current visit: No Status: Chronic Total knee arthroplasty left lower extremity doing well mild elevated temperature last night was down to 98.6 this morning. I do not see any signs to suggest an infection. Patient will be discharged home with home health nursing and aide services but will go to [facility] she will receive transportation via [facility]. Subjective Interval history since last seen: Patient is feeling well she is very anxious to go home she has had physical therapy this morning and has done well with that she is independently ambulatory with crutches because a walker would not fit in her hallway in her apartment she is going to go to [facility] for her PT. She will have home health looking in on her to make sure she is able to adapt to activities of daily living Exam Extrem Other: Patient has had no drainage from her knee incision. She has a very mild effusion. She has resolving ecchymosis about her proximal tibia which is normal. She has no cellulitis. Objective Objective Clinical Data: Vital Signs Temperature 98.6 F 08/31/18 07:55 Temperature Source Tympanic 08/31/18 07:55 Pulse 92 H 08/31/18 07:55 Pulse Rhythm Regular 08/31/18 01:20 Respiratory Rate 18 08/31/18 07:55 Respiratory Effort 08/31/18 01:20 Respiratory Depth Normal 08/31/18 01:20 Respiratory Pattern Normal 08/31/18 01:20 Blood Pressure 100/65 08/31/18 07:55 Pulse Oximetry 96 08/31/18 07:55 Respiratory End-tidal CO2 30 08/26/18 11:10 Oxygen Delivery Method Room Air 08/31/18 07:55 Oxygen Flow Rate 0 08/31/18 07:55 Pain Level 0 08/31/18 04:52 Comment 08/27/18 07:45 Intake & Output 08/30/18 08/30/18 08/31/18 11:59 23:59 11:59 Intake Total 240 / 480 240 / 480 Output Total 775 / 1725 950 / 1725 250 / 250 Balance -535 / -1245 -710 / -1245 -250 / -250 Intake: Oral 240 / 480 240 / 480 Output: Urine 775 / 1725 950 / 1725 250 / 250 Other: Urine Color Pale Straw Yellow Urine Appearance Clear Clear Voiding Methods Toilet Toilet Toilet Laboratory Results WBC 9.66 k/cumm (4.4-10.8) 08/28/18 06:30 RBC 3.70 m/cumm (4.00-5.20) L 08/28/18 06:30 Hgb 12.0 g/dL (12.0-15.5) 08/28/18 06:30 Hct 35.1 % (36.0-46.0) L 08/28/18 06:30 MCV 94.9 fL (80-95) 08/28/18 06:30 MCH 32.4 pg (27.0-33.0) 08/28/18 06:30 MCHC 34.2 g/dL (32.0-36.0) 08/28/18 06:30 RDW 14.7 % (11.7-14.6) H 08/28/18 06:30 Plt Count 147 x1000/uL (130-400) 08/28/18 06:30 MPV 12.8 fL (8.0-11.0) H 08/28/18 06:30 Sodium 136 mmol/L (136-145) 08/28/18 06:30 Potassium 4.1 mmol/L (3.5-5.1) 08/28/18 06:30 Chloride 101 mmol/L (98-107) 08/28/18 06:30 Carbon Dioxide 24.2 mmol/L (21.0-32.0) 08/28/18 06:30 Anion Gap 10.8 mmol/L (3-11) 08/28/18 06:30 BUN 7 mg/dL (7-18) 08/28/18 06:30 Creatinine 0.63 mg/dL (0.55-1.02) 08/28/18 06:30 Estimated GFR/1.73 m2 >= 60.00 (mL/min/1.73m2) 08/28/18 06:30 Glucose 97 mg/dL (70-100) 08/28/18 06:30 Calcium 8.7 mg/dL (8.5-10.1) 08/28/18 06:30
--- NOTE | 2018-08-31 09:05 | W.PM.HP.N ---
PFSH Medical History Abnormal Pap smear of cervix Osteoporosis Tobacco use Surgical History Arthroplasty of knee (06/07/16) Family History Mother Essential hypertension Hyperlipidemia Father CAD (coronary artery disease) Brother Essential hypertension Social History Smoking/Tobacco Use Status: Current every day Meds Home Medications Medication Instructions Recorded Confirmed Type calcium carbonate-vitamin D3 1 ea PO DAILY 02/25/14 08/26/18 History ibuprofen [Advil Liqui-Gel] 200 - 400 mg PO PRN PRN 06/03/16 08/17/18 History B complex-vitamin C-folic acid 400 mcg PO DAILY #60 cap 08/20/17 08/26/18 Rx pediatric multivitamin no.30 1 ea PO BID #100 tab.chew 08/20/17 08/26/18 Rx [Gummies Children Multivitamin] thiamine HCl (vitamin B1) 100 mg PO DAILY #60 cap 08/20/17 08/26/18 Rx divalproex [Depakote] 250 mg PO BID #180 tab-cap 04/10/18 08/26/18 Rx lamotrigine 100 mg tablet 100 mg PO BID #180 tab-cap 05/20/18 08/26/18 Rx Allergies Allergy/AdvReac Type Severity Reaction Status Date / Time No Known Allergies Allergy Unverified 08/26/18 06:12 Results Labs : 08/28/18 06:30 08/28/18 06:30 Last Vital Signs Temp 98.6 F 08/31/18 07:55 Pulse 92 H 08/31/18 07:55 Resp 18 08/31/18 07:55 BP 100/65 08/31/18 07:55 Pulse Ox 96 08/31/18 07:55
--- NOTE | 2018-08-31 09:08 | W.PM.DS.N ---
DS: Diagnosis Discharge Diagnosis (1) Primary osteoarthritis of left knee: Status: Chronic Discharge Plan Disposition Patient Disposition: HOME W/HOME HEALTH SERVICE Condition: Improving Discharge Details Reason For Visit: DJD (L) KNEE Admit Date/Time: 08/26/18 05:39 Admit Provider: Bob Turner Attending Provider: Bob Turner Primary Care Provider: Katerina Ramon Hospital Course Hospital Course: Patient's postoperative course was unremarkable. She was maintained on prophylactic intravenous antibiotics for 24 hours. She showed no evidence of a urinary tract infection even though her pre-operative UA was suggestive of some contamination. She was started on physical therapy weightbearing as tolerated on the left with a walker she did not tolerate the CPM for very long and this was discontinued. She made steady progress with physical therapy throughout her hospital course. Her Cody catheter was removed at 48 hours she had no dysuria or difficulty voiding she was able to shower at 48 hours without problems she was started on Lovenox prophylaxis against DVT 30 mg subcu twice daily. She had stable hemoglobin hematocrit and electrolyte studies postoperative. She will have home health nursing and home health aide services in her apartment she will go to [facility] for physical therapy Home Meds and New Rx's Prescriptions: New hydrocodone-acetaminophen 5-325 mg tablet 1 - 2 tab PO Q6H Qty: 18 RF: 0 No Action calcium carbonate-vitamin D3 1 EACH tablet 1 ea PO DAILY RF: 0 Gummies Children Multivitamin 1 EACH tablet,chewable 1 ea PO BID Qty: 100 RF: 6 B complex-vitamin C-folic acid 400 MCG tablet 400 mcg PO DAILY Qty: 60 RF: 0 thiamine HCl (vitamin B1) 100 MG tablet 100 mg PO DAILY Qty: 60 RF: 4 divalproex [Depakote] 250 MG tablet,delayed release (DR/EC) 250 mg PO BID Qty: 180 RF: 3 lamotrigine [Lamictal] 100 mg tablet 100 mg PO BID Qty: 180 RF: 4 ibuprofen [Advil Liqui-Gel] 200 MG capsule 200 - 400 mg PO PRN PRNRF: 0 Discharge Instructions Instructions: Total Knee Discharge Instructions Additional Instructions: Use your new knee. You may place her full weight upon it and use crutches for balance and prevent falls physical therapy will let you know when it safe to go without her crutches and use a cane in your right hand. Several times a day place a pillow underneath her right heel to promote extension and straightening of your left knee. Do your exercises on your own in addition to performing them with physical therapy. You may get your incision wet in the shower with soap and water. Pat it dry and and cover with gauze only as needed. Use ice as needed for pain control. Follow-up with physical therapy later this week had [facility]. Home health will be checking on you to make sure he has no questions about your medications or your wound. Follow-up with Dr. Turner in 1 week for staple removal. Take a baby aspirin (81 mg) twice daily for the next 2 weeks to prevent blood clot. Take Tylenol and ibuprofen for milder pain Tylenol can be taken at the same time as ibuprofen as they are are metabolized differently and are not crossed toxic. Take norco (hydrocodone 5/325mg) 1-2 every 4-6 hours for more serious pain. [facility] [place] amount [place]co that can be prescribed to 18 tablets. Care Plan Goals: New home health PT and OT. Please complete a face to face for new services. Stand Alone Forms: Nursing Discharge Form Referrals: ENZO Wood [OTHER] - 09/02/18 (Patient known to you s/p left total knee 08/26/18) Bob Turner MD [ [facility] STAFF PHYSICIAN] - 09/08/18 8:40 am Activity:: Activity as Tolerated Equipment/Supplies:: Crutches Diet:: As Tolerated Discharge Orders Discharge Orders: Discharge Order (Routine); Ordered 08/31/18 Ordered By: Bob Turner DS: Data Vitals/I&O Vitals and I&O: Vital Signs Temperature 98.6 F 08/31/18 07:55 Temperature Source Tympanic 08/31/18 07:55 Pulse 92 H 08/31/18 07:55 Pulse Rhythm Regular 08/31/18 01:20 Respiratory Rate 18 08/31/18 07:55 Respiratory Effort 08/31/18 01:20 Respiratory Depth Normal 08/31/18 01:20 Respiratory Pattern Normal 08/31/18 01:20 Blood Pressure 100/65 08/31/18 07:55 Pulse Oximetry 96 08/31/18 07:55 Respiratory End-tidal CO2 30 08/26/18 11:10 Oxygen Delivery Method Room Air 08/31/18 07:55 Oxygen Flow Rate 0 08/31/18 07:55 Pain Level 0 08/31/18 04:52 Comment 08/27/18 07:45 Intake & Output 08/30/18 08/30/18 08/31/18 11:59 23:59 11:59 Intake Total 240 / 480 240 / 480 Output Total 775 / 1725 950 / 1725 250 / 250 Balance -535 / -1245 -710 / -1245 -250 / -250 Intake: Oral 240 / 480 240 / 480 Output: Urine 775 / 1725 950 / 1725 250 / 250 Other: Urine Color Pale Straw Yellow Urine Appearance Clear Clear Voiding Methods Toilet Toilet Toilet PFSH Medical History Abnormal Pap smear of cervix Osteoporosis Tobacco use Surgical History Arthroplasty of knee (06/07/16) Family History Mother Essential hypertension Hyperlipidemia Father CAD (coronary artery disease) Brother Essential hypertension Social History Smoking/Tobacco Use Status: Current every day
--- NOTE | 2018-08-31 09:23 | PDOC.CMDIS ---
LACE Index Scoring Tool - Questions: Length of Stay (in days): 4 - 6 Acuity (Admit via E.D.?): No E.D. Visits: 2 - Answers: Total Score: 6 Risk of Readmission: Low Risk Care Management Discharge Reason for Hospitalization: Total L Knee Discharge Plan: Eloise will return home when ready per MD-she will have new orders for [facility]/RN/PT/OT. Eloise will follow up with surgical services as well as her other current providers in the community. She will transport via private vehicle with her niece. Patient/Family Education Needs: Review of discharge instructions, discuss Ask Me Three. Services Needed at Discharge: Home Health Care Services, Occupational Therapy, Physical Therapy
--- NOTE | 2018-08-31 09:26 | CMDISCH_ITS ---
LACE Index Scoring Tool - Questions: Length of Stay (in days): 4 - 6 Acuity (Admit via E.D.?): No E.D. Visits: 2 - Answers: Total Score: 6 Risk of Readmission: Low Risk Care Management Discharge Reason for Hospitalization: Total L Knee Discharge Plan: Eloise will return home when ready per MD-she will have new orders for [facility]/RN/PT/OT. Eloise will follow up with surgical services as well as her other current providers in the community. She will transport via private vehicle with her niece. Patient/Family Education Needs: Review of discharge instructions, discuss Ask Me Three. Services Needed at Discharge: Home Health Care Services, Occupational Therapy, Physical Therapy
[2018-08-31] MEDS: Enoxaparin 30 MG/0.3 ML SYR SC (09:39)
[2018-08-31] MEDS: Thiamine 100 MG TAB PO (09:40)
[2018-08-31] MEDS: Pantoprazole 40 MG TABCR PO (09:40)
[2018-08-31] MEDS: lamoTRIgine 100 MG TAB PO (09:40)
[2018-08-31] MEDS: Multivitamin w/Minerals TAB 1 TAB PO (09:40)
[2018-08-31] MEDS: Divalproex 250 MG TABEC PO (09:40)
--- NOTE | 2018-08-31 10:06 | HHF2F_ITS ---
1. Encounter Date and Reason I certify that LOIS TAY was seen by Bob Turner MD on 08/31/18 and that I had a [id number] encounter with this patient that meets the physician face to face encounter requirements. 2. Clinical Findings Supporting Skilled Need and Homebound Status I certify that home health services are medically necessary, include either intermittent intermediate and/or physical/speech therapy, and that this patient is homebound in that absences from the home require considerable and taxing effort and are infrequent or of short duration, or are attributable to the need to receive medical care. [X] (a) Attached documentation from encounter provides clinical findings supporting skilled need and homebound status (including what assistance patient requires to leave the home). The encounter with the patient was in whole, or in part, for the following medical condition, which is the primary reason for home health care: DJD (L) KNEE Residential:Thin white female with seizure disorder s/p left total knee arthroplasty 08/26/18 Patient prefers to begin physical therapy at [facility] check on safety at home and ADL's. Physical Therapy: Speech Therapy: Homebound: 3. Certification and Authentication I certify that I composed the above information based on my clinical judgement relating to this patient's medical condition and, if applicable, clinical findings communicated to me by the NPP or inpatient physician who performed the Home Health Referral. All further orders will be obtained through (Community Based Physician - PCP)
--- NOTE | 2018-08-31 10:25 | PT.INTREAT ---
Date of service: 08/31/18 Time of Service: 10:25 PT Notes Inpatient Physical Therapy Treatment Note [facility] Date: 08/31/18 PRECAUTIONS: Fall, WBAT L SUBJECTIVE: Patient states that she is feeling more comfortable using the crutches, she feels that she is at a point that she could discharged home safely. OBJECTIVE: PAIN: No complaints of pain BED MOBILITY/TRANSFERS Supine-sit: I with HOB flat Sit-stand: S Stand-sit: S GAIT Assistive Device: B axillary crutches Weight bearing: WBAT L Assist: CGA?SBA Distance: 150' Deviation: Cueing for crutches mechanics THEREX: Patient completed a LE strengthening and stabilization program, as per flow sheet. ASSESSMENT: Patient tolerated session well without complaint. She was able to tolerate a progression in gait distance with B axillary crutches, requiring cueing for safe mechanics and gait sequence. She would benefit from continued gait training and strengthening for improved gait duration tolerance. PLAN: As per primary PT TREATMENT CODE/TIME: 30 minutes; (31166x7, [id number])
--- NOTE | 2018-08-31 10:30 | PTTR_ITS ---
Date of service: 08/31/18 Time of Service: 10:25 PT Notes Inpatient Physical Therapy Treatment Note [facility] Date: 08/31/18 PRECAUTIONS: Fall, WBAT L SUBJECTIVE: Patient states that she is feeling more comfortable using the crutc hes, she feels that she is at a point that she could discharged home safely. OBJECTIVE: PAIN: No complaints of pain BED MOBILITY/TRANSFERS Supine-sit: I with HOB flat Sit-stand: S Stand-sit: S GAIT Assistive Device: B axillary crutches Weight bearing: WBAT L Assist: CGA?SBA Distance: 150' Deviation: Cueing for crutches mechanics THEREX: Patient completed a LE strengthening and stabilization program, as per flow sheet. ASSESSMENT: Patient tolerated session well without complaint. She was able to tolerate a progression in gait distance with B axillary crutches, requiring cueing for safe mechanics and gait sequence. She would benefit from continued gait training and strengthening for improved gait duration tolerance. PLAN: As per primary PT TREATMENT CODE/TIME: 30 minutes; ([id number], [id number])
[2018-08-31 12:00] VITALS: BP 138/51; PULSE 118; RESP 17; TEMP 37.2; O2SAT 98
--- NOTE | 2018-09-01 11:31 | PT.INDS ---
Date of service: 08/31/18 Time of Service: 11:31 PT Notes Date: September 01, 2018 Referring Doctor: Dr. Turner PT Orders: PT CONSULT: s/p left total knee arthroplasty. CPM and cryocuff protocols. Up in chair today, weight bearing as tolerated left with walker. Precautions: Fall Precautions Treatment Dates: 08/27/18 - 08/31/18 THIS DOCUMENT SERVES A SUMMARY OF CARE. NO PT SERVICES WERE PROVIDED ON THIS DATE. Patient Profile/Admitting Diagnosis: Patient is a 62-year-old female who underwent left total knee replacement performed by Dr. Turner August 26. Orders received today for up in chair, weightbearing as tolerated with walker. CPM and Cryo/Cuff protocols. She participated in skilled PT intervention 1-2x/day for 5 days, making gains in mobility and safety sufficient to allow for safe transition back home. PMHX: Left total hip replacement, left total shoulder replacement, osteoporosis, history of epilepsy with last seizure July 2017. Social History/Home Situation: Lives alone single level dwelling with no stairs entering or no stairs in the dwelling. Current Functional Limitations: Ambulation, squatting, bed mobility, transfers sit to stand, limitations with sleep due to pain Equipment Owned/DME: None. Patient reports she will unlikely be able to use a walker at home due to the outline of her home particularly with her hallway being narrow. She did discuss preoperatively with case management utilization of crutches. At this point we will focus on front wheeled walker training progressing towards crutch training as tolerable. Subjective: unable to obtain Objective: ROM: Right Upper Extremity: Right glenohumeral joint upper extremity flexion and abduction grossly full pain-free. Elbow flexion extension within normal limits wrist and hand within normal limits. Left Upper Extremity: Significantly limited glenohumeral joint range of motion status post total shoulder replacement. Active flexion 45-50 degrees active assistive lead to 60. Abduction 35 degrees active, 45 active assistive. Elbow flexion extension, wrist and hand active range of motion within normal limits Right Lower Extremity: Right hip and knee active range of motion within normal limits in all planes pain-free. Range of motion within normal limits Left Lower Extremity: Left hip flexion 100 degrees tested in sitting. Active assistive abduction in supine 35-40 degrees. Knee extension lacks 5 degrees. Knee flexion 80 degrees with pain. Ankle inversion, eversion, plantar and dorsiflexion within functional limits. Strength: Right Upper Extremity: Grossly 4+/5 throughout right upper extremity glenohumeral joint flexion, abduction, bicep and tricep. 5/5 clinical dental technician. Left Upper Extremity: Glenohumeral joint flexion and abduction 3-/5. Elbow flexion and extension 4/5. 5/5 clinical dental technician. Right Lower Extremity: Flexion and abduction 4/5. She is able to perform a straight leg raise with 0 degree lag. Quads 4+/5, hamstrings 4/5. Ankle inversion and eversion 4/5, plantar flexion and dorsiflexion 4+/5. Left Lower Extremity: Patient is able to perform straight leg raise without extension lag. Hip flexion 4-/5 hip abduction 4/5. Quadriceps resistance strength test not performed. Hamstring 3+/5 with pain. Bed Mobility/Transfers: Supine to sit: independent with HOB flat Sit to stand:supervision Stand to sit: supervision Bed mobility: supervision Gait: Patient ambulated 150' with bilat axillary crutches and SBA. Balance: Static Sitting: Normal Dynamic Sitting: Normal Static Standing: Fair Dynamic Standing: Fair Assessment: Patient is a 62 year old female referred to physical therapy services with the diagnosis of status post left total knee replacement with history of ldft total shoulder replacement and left total hip replacement. Patient participated in skilled PT intervention 1-2 times per day for 5 days, making significant gains in functional mobility, safety and independence. All rehab goals are met, patient was safe to return home. She was discharged home with home health PT 08/31/2018. Goals: Goals X1 week 1. Supine-Sit: SBA (MET) 2. Sit-Supine: SBA(MET) 3. Sit-Stand: SBA to FWW(MET) 4. Stand-Sit: SBA from FWW(MET) 5. Bed-Chair: SBA with FWW(MET) 6. Chair-Bed: SBA with FWW(MET) 7. Gait: 150 feet standby assist with FWW(MET with crutches) 8. Independent with home exercise program (MET) Plan of Care/Treatment Plan: d/c home with HH services DISCHARGE RECOMMENDATIONS: Discharge to home with home health PT services.
--- NOTE | 2018-09-01 11:38 | INDS_ITS ---
Date of service: 08/31/18 Time of Service: 11:31 PT Notes Date: September 01, 2018 Referring Doctor: Dr. Turner PT Orders: PT CONSULT: s/p left total knee arthroplasty. CPM and cryocuff protocols. Up in chair today, weight bearing as tolerated left with walker. Precautions: Fall Precautions Treatment Dates: 08/27/18 - 08/31/18 THIS DOCUMENT SERVES A SUMMARY OF CARE. NO PT SERVICES WERE PROVIDED ON THIS DATE. Patient Profile/Admitting Diagnosis: Patient is a 62-year-old female who underwent left total knee replacement performed by Dr. Turner August 26. Orders received today for up in chair, weightbearing as tolerated with walker. CPM and Cryo/Cuff protocols. She participated in skilled PT intervention 1-2x/day for 5 days, making gains in mobility and safety sufficient to allow for safe transition back home. PMHX: Left total hip replacement, left total shoulder replacement, osteoporosis, history of epilepsy with last seizure July 2017. Social History/Home Situation: Lives alone single level dwelling with no stairs entering or no stairs in the dwelling. Current Functional Limitations: Ambulation, squatting, bed mobility, transfers sit to stand, limitations with sleep due to pain Equipment Owned/DME: None. Patient reports she will unlikely be able to use a w alker at home due to the outline of her home particularly with her hallway being narrow. She did discuss preoperatively with case management utilization of crutches. At this point we will focus on front wheeled walker training progressing towards crutch training as tolerable. Subjective: unable to obtain Objective: ROM: Right Upper Extremity: Right glenohumeral joint upper extremity flexion and abduction grossly full pain-free. Elbow flexion extension within normal limits wrist and hand within normal limits. Left Upper Extremity: Significantly limited glenohumeral joint range of motion status post total shoulder replacement. Active flexion 45-50 degrees active assistive lead to 60. Abduction 35 degrees active, 45 active assistive. Elbow flexion extension, wrist and hand active range of motion within normal limits Right Lower Extremity: Right hip and knee active range of motion within normal limits in all planes pain-free. Range of motion within normal limits Left Lower Extremity: Left hip flexion 100 degrees tested in sitting. Active assistive abduction in supine 35-40 degrees. Knee extension lacks 5 degrees. Knee flexion 80 degrees with pain. Ankle inversion, eversion, plantar and dorsiflexion within functional limits. Strength: Right Upper Extremity: Grossly 4+/5 throughout right upper extremity glenohumeral joint flexion, abduction, bicep and tricep. 5/5 windows desktop engineer. Left Upper Extremity: Glenohumeral joint flexion and abduction 3-/5. Elbow flexion and extension 4/5. 5/5 windows desktop engineer. Right Lower Extremity: Flexion and abduction 4/5. She is able to perform a straight leg raise with 0 degree lag. Quads 4+/5, hamstrings 4/5. Ankle inversion and eversion 4/5, plantar flexion and dorsiflexion 4+/5. Left Lower Extremity: Patient is able to perform straight leg raise without extension lag. Hip flexion 4-/5 hip abduction 4/5. Quadriceps resistance strength test not performed. Hamstring 3+/5 with pain. Bed Mobility/Transfers: Supine to sit: independent with HOB flat Sit to stand:supervision Stand to sit: supervision Bed mobility: supervision Gait: Patient ambulated 150' with bilat axillary crutches and SBA. Balance: Static Sitting: Normal Dynamic Sitting: Normal Static Standing: Fair Dynamic Standing: Fair Assessment: Patient is a 62 year old female referred to physical therapy services with the diagnosis of status post left total knee replacement with history of ldft total shoulder replacement and left total hip replacement. Patient participated in skilled PT intervention 1-2 times per day for 5 days, making significant gains in functional mobility, safety and independence. All rehab goals are met, patient was safe to return home. She was discharged home with home health PT 08/31/2018. Goals: Goals X1 week 1. Supine-Sit: SBA (MET) 2. Sit-Supine: SBA(MET) 3. Sit-Stand: SBA to FWW(MET) 4. Stand-Sit: SBA from FWW(MET) 5. Bed-Chair: SBA with FWW(MET) 6. Chair-Bed: SBA with FWW(MET) 7. Gait: 150 feet standby assist with FWW(MET with crutches) 8. Independent with home exercise program (MET) Plan of Care/Treatment Plan: d/c home with HH services DISCHARGE RECOMMENDATIONS: Discharge to home with home health PT services.
== END 2018-08-31 11:50 | disposition home health service (06) | DRG 470 ==
LOC: PDS 10:31 → MS 10:54
PROVIDERS: Admitting Provider Orthopaedic Surgery; PCP Internal Medicine; Visit Provider Orthopaedic Surgery
PROC: 0SRD0J9 Replacement of Left Knee Joint with Synthetic Substitute, Cemented, Open Approach (ICD-10-PCS; CPT 27447; principal; 2018-08-26 07:30)
DX: M17.12 Unilateral primary osteoarthritis, left knee (principal); M25.562 Pain in left knee; Z96.652 Presence of left artificial knee joint; G89.18 Other acute postprocedural pain; F17.210 Nicotine dependence, cigarettes, uncomplicated; G40.909 Epilepsy, unspecified, not intractable, without status epilepticus
CPT/HCPCS: 27447; 36415; 76942; 80048; 85027; 97110; 97162; 97530; NC; 73560; E0114; J0690; J1650; J1885; J2250; J2405; J3010; L1830

== ENCOUNTER → 2018-09-08 08:43 | Outpatient (BNVA) | payer MEDICARE, MEDICAID, SELFPAY | PROVIDERS: PCP Internal Medicine; Referring Provider Internal Medicine; Visit Provider Orthopaedic Surgery | DX: Z47.1 Aftercare following joint replacement surgery (principal); Z96.652 Presence of left artificial knee joint; M17.12 Unilateral primary osteoarthritis, left knee | CPT/HCPCS: 99211 ==

== ENCOUNTER → 2018-10-01 10:12 | Outpatient (BNVA) | payer MEDICARE, MEDICAID, SELFPAY | PROVIDERS: PCP Internal Medicine; Referring Provider Internal Medicine; Visit Provider Orthopaedic Surgery | DX: Z47.1 Aftercare following joint replacement surgery (principal); Z96.652 Presence of left artificial knee joint; M17.12 Unilateral primary osteoarthritis, left knee ==

== ENCOUNTER → 2018-12-31 13:52 | Outpatient (BNVA) | payer MEDICARE, MEDICAID, SELFPAY | PROVIDERS: PCP Internal Medicine; Referring Provider Internal Medicine; Visit Provider Orthopaedic Surgery | DX: Z47.1 Aftercare following joint replacement surgery (principal); Z96.652 Presence of left artificial knee joint | CPT/HCPCS: 99211; 99212 ==

== ENCOUNTER 2019-02-24 01:00 | Outpatient (CLI) | payer MEDICARE, MEDICAID, SELFPAY ==
[2019-02-24 12:35] LABS: Abs Immature Grans 0.01 k/cumm (0.0-0.09); Absolute Basophil Count 0.09 k/cumm (0.0-0.2); Absolute Eosinophil Count 0.12 k/cumm (0.0-0.7); Absolute Lymphocyte Count 3.56 k/cumm (1.2-3.4); Absolute Monocyte Count 0.55 k/cumm (0.11-0.7); Absolute Neutrophil Count 4.43 k/cumm (1.2-6.7); Eosinophils % 1.4; HCT 42.2 % (36.0-46.0); HGB 14.3 g/dL (12.0-15.5); Immature Grans % 0.1; Lymphocytes % 40.6; Mean Corp. HGB Concentration 33.9 g/dL (32.0-36.0); Mean Corpuscular Hemoglobin 32.1 pg (27.0-33.0); Mean Corpuscular Volume 94.8 fL (80-95); Mean Platelet Volume 12.3 fL (8.0-11.0); Monocytes % 6.3; Neutrophils % 50.6; Platelet Count 225 x1000/uL (130-400); RBC 4.45 m/cumm (4.00-5.20); RBC Distribution Width 15.2 % (11.7-14.6); White Blood Cell Count 8.76 k/cumm (4.4-10.8)
[2019-02-24 12:39] LABS: VALPROIC ACID 67.6 ug/mL (50-100)
[2019-02-24 13:14] LABS: ALT 18 U/L (12-78); AST 14 U/L (15-37); Albumin 3.9 g/dL (3.4-5.0); Alkaline Phosphatase 77 U/L (46-116); Anion Gap 11.1 mmol/L (3-11); BUN 16 mg/dL (7-18); Bilirubin, Total 0.3 mg/dL (0.2-1.0); CO2 26.9 mmol/L (21.0-32.0); CREATININE 0.74 mg/dL (0.55-1.02); Calcium 9.6 mg/dL (8.5-10.1); Chloride 103 mmol/L (98-107); Glucose 95 mg/dL (70-100); Potassium 4.5 mmol/L (3.5-5.1); Sodium 141 mmol/L (136-145); Total Protein 7.1 g/dL (6.4-8.2)
[2019-02-25 16:20] LABS: Lamotrigine 14.2 mcg/mL (2.5 - 15.0)
== END 2019-02-24 01:20 ==
PROVIDERS: PCP Internal Medicine; Visit Provider Internal Medicine
DX: G40.909 Epilepsy, unspecified, not intractable, without status epilepticus (principal); Z51.81 Encounter for therapeutic drug level monitoring; Z79.899 Other long term (current) drug therapy; M81.0 Age-related osteoporosis without current pathological fracture
CPT/HCPCS: 36415; 80053; 80175; 80164; 85025

== ENCOUNTER 2019-03-04 01:27 | Outpatient (CLI) | payer MEDICARE, MEDICAID, SELFPAY ==
--- NOTE | 2019-03-04 12:07 | DI.RAD_ITS ---
SYMPTOMS/DIAGNOSIS: OSTEOPOROSIS, M81.0 DEXA SCAN WITH NAFISA: Comparison is made with exams from 2012 and 2016. The NAFISA image shows no evidence of compression fractures. The bone mineral density measurements of the lumbar spine correspond to a total T score of -1.8, consistent with osteopenia. This corresponds to a 4.2% increase when compared with 2016 and a 2.5% decrease when compared with 2011. The bone mineral density measurements of the right hip correspond to a total T score of -2.4 and a femoral neck T score of -3.0, in the osteoporotic range. This is a slight decrease of 3.5%. The bone mineral density measurements of the left forearm correspond to a T score of the distal third of -1.5. The total T score is -2.7. There has been no significant change in forearm bone density when compared with 2016; however, there has been an 11.6% decrease when compared with 2011. IMPRESSION: Osteopenia of the lumbar spine and left forearm. Osteoporosis of the right hip.
== END 2019-03-04 01:47 ==
PROVIDERS: PCP Internal Medicine; Visit Provider Internal Medicine
DX: M81.0 Age-related osteoporosis without current pathological fracture (principal); M85.832 Other specified disorders of bone density and structure, left forearm; M85.88 Other specified disorders of bone density and structure, other site
CPT/HCPCS: 77080

== ENCOUNTER 2020-02-16 03:28 | Outpatient (CLI) | payer MEDICARE, MEDICAID, SELFPAY ==
[2020-02-16 12:36] LABS: Abs Immature Grans 0.01 k/cumm (0.0-0.09); Absolute Basophil Count 0.08 k/cumm (0.0-0.2); Absolute Lymphocyte Count 3.38 k/cumm (1.2-3.4); Absolute Monocyte Count 0.69 k/cumm (0.11-0.7); Absolute Neutrophil Count 3.49 k/cumm (1.2-6.7); Eosinophils % 1.3; HCT 44.8 % (36.0-46.0); Immature Grans % 0.1 %; Lymphocytes % 43.6; Mean Corp. HGB Concentration 33.5 g/dL (32.0-36.0); Mean Corpuscular Hemoglobin 31.3 pg (27.0-33.0); Mean Corpuscular Volume 93.3 fL (80-95); Mean Platelet Volume 12.4 fL (8.0-11.0); Monocytes % 8.9; Neutrophils % 45.1; Platelet Count 257 x1000/uL (130-400); RBC Distribution Width 14.8 % (11.7-14.6); White Blood Cell Count 7.75 k/cumm (4.4-10.8)
[2020-02-16 12:48] LABS: ALT 17 U/L (14-59); AST 23 U/L (15-37); Albumin 4.2 g/dL (3.4-5.0); Alkaline Phosphatase 90 U/L (46-116); Anion Gap 17.8 mmol/L (3-11); BUN 15 mg/dL (7-18); Bilirubin, Total 0.5 mg/dL (0.2-1.0); CO2 21.2 mmol/L (21.0-32.0); CREATININE 1.03 mg/dL (0.55-1.02); Calcium 10.2 mg/dL (8.5-10.1); Chloride 102 mmol/L (98-107); Estimated GFR 54.12 (mL/min/1.73m2); Glucose 84 mg/dL (74-106); Sodium 141 mmol/L (136-145); Total Protein 7.3 g/dL (6.4-8.2)
[2020-02-16 12:50] LABS: VALPROIC ACID 76.2 ug/mL (50-100)
[2020-02-17 16:20] LABS: Lamotrigine 15.3 mcg/mL (2.5 - 15.0)
== END 2020-02-16 03:48 ==
PROVIDERS: PCP Nurse Practitioner; Visit Provider Nurse Practitioner
DX: R50.9 Fever, unspecified (principal); G40.909 Epilepsy, unspecified, not intractable, without status epilepticus; Z51.81 Encounter for therapeutic drug level monitoring; Z79.899 Other long term (current) drug therapy
CPT/HCPCS: 36415; 80053; 80175; 80164; 85025

== ENCOUNTER 2020-03-13 09:54 | Outpatient (REF) | payer MEDICARE, MEDICAID, SELFPAY ==
--- NOTE | 2020-03-13 09:45 | PAPFT_PTH ---
PATIENT: Eloise Mata LOC: [facility] U#:[id number] AGE/SX: 64/F ROOM: RE03/13/[address]: Foster Courtney MD : 1955 BED: DIS: 03/13/2020 SPEC #: [id number] RECD: 03/13/20 12:55 STATUS: CHAVEZ MERCEDES #: [id number] OLIVIA: 03/13/20 09:[address]: Foster Courtney DEPT: [facility] Cytology RECD BY: Yue Charlton ENTERED: 03/13/20 12:57 SP TYPE: PAPFT OTHR DR: Jessica Choudhary, PhD BROADCAST PRODUCER Tissues: 1 - CX/ENDOCX FOR PAP SMEARS Procedures: PAP THIN PREP/UVM Screening HPV DNA PROBE Comments: [id number]
== END 2020-03-13 10:14 ==
LOC: LBN 09:54
PROVIDERS: PCP Nurse Practitioner; Visit Provider Obstetrics & Gynecology
DX: R87.810 Cervical high risk human papillomavirus (HPV) DNA test positive (principal)
CPT/HCPCS: 88142; 87624

== ENCOUNTER 2020-03-16 13:51 | Outpatient (REF) | payer MEDICARE, MEDICAID, SELFPAY ==
[2020-03-16 19:47] LABS: Calculated LDL 158 mg/dL (<100); Cholesterol 245 mg/dL (<200); HDL Cholesterol 66 mg/dL (40-60); Triglyceride 109 mg/dL (<150)
== END 2020-03-16 14:11 ==
LOC: LBN 13:51
PROVIDERS: PCP Nurse Practitioner; Visit Provider Nurse Practitioner
DX: E46 Unspecified protein-calorie malnutrition (principal)
CPT/HCPCS: 80061

== ENCOUNTER 2021-03-22 16:15 | Outpatient (REF) | payer MEDICARE, MEDICAID, SELFPAY ==
--- NOTE | 2021-03-22 16:00 | PAPFT_PTH ---
PATIENT: Eloise Mata LOC: [facility] U#:[id number] AGE/SX: 65/F ROOM: RE03/22/[address]: Aubree Monterroso : 1955 BED: DIS: 03/22/2021 SPEC #: [id number] RECD: 03/22/21 17:29 STATUS: CHAVEZ LONG #: [id number] OLIVIA: 03/22/21 16:[address]: Aubree Monterroso DEPT: [facility] Cytology RECD BY: Yue Charlton ENTERED: 03/22/21 17:30 SP TYPE: PAPFT OTHR DR: Jessica Choudhary, PhD MACHINE STEMMER Tissues: 1 - CX/ENDOCX FOR PAP SMEARS Procedures: PAP THIN PREP/UVM Screening HPV DNA PROBE Comments: [id number]
== END 2021-03-22 16:16 | disposition home or self-care (01) ==
LOC: LBN 16:15
PROVIDERS: PCP Nurse Practitioner; Visit Provider Obstetrics & Gynecology Gynecology
DX: Z12.4 Encounter for screening for malignant neoplasm of cervix (principal); Z87.42 Personal history of other diseases of the female genital tract; Z11.51 Encounter for screening for human papillomavirus (HPV); Z01.419 Encounter for gynecological examination (general) (routine) without abnormal findings
CPT/HCPCS: 88142; 87624

== ENCOUNTER 2021-05-03 13:19 | Emergency (ER) | payer MEDICARE, MEDICAID, SELFPAY ==
[2021-05-03 13:31] VITALS: BP 108/68; PULSE 79; RESP 14; TEMP 37.1; O2SAT 98
--- NOTE | 2021-05-03 13:45 | DI.CT_ITS ---
Exam(s) CT HEAD WO EXAM: CT HEAD WO CLINICAL HISTORY: seizure, frontal headache, ?hit head during seizur. TECHNIQUE: Imaging Protocol: Axial computed tomography images with coronal and sagittal reformatted images were created and reviewed COMPARISON: CT HEAD WITHOUT CONTRAST from 08/08/2017 FINDINGS: There are no skull fractures nor fluid in the visualized paranasal sinuses. There is no evidence of intracranial hemorrhage, mass effect, or shift of midline structures. There are no extra-axial fluid collections. The ventricles are not enlarged or shifted and there is no blo od within the ventricular system nor within the basal cisterns. Again noted is impressive symmetrical atrophy of the cerebellar hemispheres, unchanged. Milder atrop hy in the supra tentorial region is unchanged. IMPRESSION: Atrophy as described above. This is most prominent in the posterior fossa-cerebellar hemispheres, si milar to previous. No acute intracranial findings. No significant change compared to the prior CT scan of July 2017 . RADIATION DOSE DELIVERED: 579.49mGy.cm Total DLP DATA REPOSITORY: All CT scans at this facility are submitted to the National Radiology Data Registry (NRDR) Dose Index Registry (DIR) with the [employer] ([employer]). RADIATION OPTIMIZATION: All CT scans at this facility use at least one of these dose optimization te chniques: automated exposure control; mA and/or kV adjustment per patient size (includes targeted exa ms where dose is matched to clinical indication); or iterative reconstruction.
[2021-05-03 14:04] LABS: Abs Immature Grans 0.03 10^3/uL (0.0-0.06); Absolute Eosinophil Count 0.06 10^3/uL (0.0-0.7); Absolute Lymphocyte Count 2.17 10^3/uL (1.2-3.4); Absolute Monocyte Count 0.76 10^3/uL (0.1-0.8); Basophils % 0.9; Eosinophils % 0.5; HGB 13.6 g/dL (11.2-15.7); Immature Grans % 0.3; Lymphocytes % 18.7; MCH 31.8 pg (27.0-33.0); MCHC 33.2 % (32.0-36.0); MCV 95.8 fL (80-95); MPV 11.4 fL (8.0-11.0); Monocytes % 6.5; Neutrophils % 73.1; Nucleated RBC 0 %; Platelet Count 230 10^3/uL (130-400); RBC 4.28 10^6/uL (3.93-5.22); RDW 14.5 % (11.7-14.6); RDW-SD 50.8 fL; WBC 11.63 10^3/uL (4.4-10.8)
[2021-05-03 14:16] LABS: ALT 19 U/L (14-59); AST 19 U/L (15-37); Albumin 3.6 g/dL (3.4-5.0); Alkaline Phosphatase 81 U/L (46-116); Anion Gap 10.6 mmol/L (3-11); BUN 20 mg/dL (7-18); Bilirubin, Total 0.2 mg/dL (0.2-1.0); CO2 25.4 mmol/L (21.0-32.0); CREATININE 0.9 mg/dL (0.55-1.02); Calcium 8.9 mg/dL (8.5-10.1); Chloride 107 mmol/L (98-107); Glucose 101 mg/dL (74-106); Potassium 4.1 mmol/L (3.5-5.1); Sodium 143 mmol/L (136-145); Total Protein 7.2 g/dL (6.4-8.2)
[2021-05-03 14:17] LABS: VALPROIC ACID 34.5 ug/mL
[2021-05-03] MEDS: Acetaminophen 325 MG TAB 650 MG PO (14:18)
[2021-05-03] MEDS: Divalproex 250 MG TABEC PO (16:02)
--- NOTE | 2021-05-03 16:15 | W.ED.GENAD ---
Discharge Plan Disposition Patient Disposition: HOME Condition: Stable Discharge Details Clinical Impression: Seizure, Hematuria Primary Care Provider: Jessica Choudhary ED Provider: Reinaldo Kurtz Home Meds and New Rx's Prescriptions: New nitrofurantoin monohyd/m-cryst [Macrobid] 100 mg capsule 100 mg PO Q12H 5 Days Qty: 9 RF: 0 Continued cyanocobalamin (vitamin B-12) [Vitamin B-12] 500 mcg tablet 500 mcg PO DAILY RF: 0 divalproex [Depakote] 250 mg tablet,delayed release (DR/EC) 250 mg PO BID Qty: 180 RF: 4 lamotrigine [Lamictal] 100 mg tablet 100 mg PO BID Qty: 180 RF: 4 calcium carbonate-vitamin D3 1 EACH tablet 1 ea PO DAILY RF: 0 thiamine HCl (vitamin B1) 100 MG tablet 100 mg PO DAILY Qty: 60 RF: 4 ibuprofen [Advil Liqui-Gel] 200 MG capsule 200 - 400 mg PO PRN PRNRF: 0 Discharge Instructions Instructions: Urinary Tract Infection in Women (ED), Hematuria (ED), Recurrent Seizures in Adults (ED) Additional Instructions: Your urinalysis had 10-20 red blood cells and 5-10 white blood cells. You have been started on macorbid (antibiotic) to treat for possible urinary tract infection. Please followup with your doctor for followup testing. Be sure to discuss results from ED visit today. Please follow-up with your neurologist tomorrow. Your valproic acid level (depakote level) is low at 34.5. Be sure to discuss this with your doctor. Return to the ER immediately for any worsening or new concerning symptoms. Do not operate motorvehicle or heavy machinery until cleared by your doctor. Referrals: Jessica Choudhary, NEIL [Primary Care Provider] - Discharge Data Discharge Date/Time-TO BE ENTERED AT DEPARTURE: 05/03/21 18:00 Medical Decision Making 65-year-old female with history of epilepsy here after generalized tonic-clonic seizure. Patient now mentating well with no neurologic deficits. Patient states that she has been compliant with her medication and seizure disorder has been well controlled. Her last seizure was over a year ago. She does follow with neurology at [facility]. Patient did hit her head presumably on the counter which she was seated does have some mild frontal headache. CT the head was obtained to assess for acute traumatic injury and interpreted by radiology no acute process. Labs reviewed and Depakote level noted be subtherapeutic. She was given additional dose of Depakote 250mg. Patient observed in the emergency department and had no recurrent seizure activity. She remained stable. I spoke with on-call neurologist at [facility] and discussed ED presentation course and question of medication dosing adjustments should be made. She did not feel medication should be adjusted at this time and recommended outpatient follow-up. Urinalysis was reviewed to assess for urinary tract infection as recommended by neurology. Urinalysis does reveal 10-20 RBCs and 5-10 WBCs with trace leukocyte esterase. I will initiate treatment with nitrofurantoin for possible UTI. Plan was discussed with the patient. She was instructed to not drive or operate machinery until cleared to do so. Discharge instructions were reviewed with the patient. Lab Data Lab results reviewed: Yes I reviewed the patient's lab results. HPI General Mode of arrival: EMS. Date/Time Provider Initiated Documentation: 05/03/21 13:46. Limitations to Documentation: no limitations. Information obtained by: patient and EMS. HPI Narrative: 65-year-old female with history of epilepsy here after seizure. Patient was at the [employer] had an unprovoked witnessed generalized tonic-clonic seizure just prior to arrival. Patient notes she is compliant with her medications. No recent fever. She drinks alcohol socially twice a week. History limited secondary to patient inability to recall seizure. She remembers coming to with EMS. Patient does note mild frontal headache and believes she hit her head on a counter where she was seated during seizure. Related Data Home Medications Medication Instructions Recorded Confirmed calcium carbonate-vitamin D3 1 ea PO DAILY 02/25/14 05/03/21 ibuprofen [Advil Liqui-Gel] 200 - 400 mg PO PRN PRN 06/03/16 05/03/21 thiamine HCl (vitamin B1) 100 mg PO DAILY #60 cap 08/20/17 05/03/21 cyanocobalamin (vitamin B-12) 500 500 mcg PO DAILY 02/27/21 05/03/21 mcg tablet divalproex 250 mg tablet,delayed 250 mg PO BID #180 tab-cap 02/27/21 05/03/21 release lamotrigine 100 mg tablet 100 mg PO BID #180 tab-cap 02/27/21 05/03/21 nitrofurantoin monohyd/m-cryst 100 mg PO Q12H 5 Days #9 cap 05/03/21 [Macrobid] Previous Rx's Medication Instructions Recorded thiamine HCl (vitamin B1) 100 mg PO DAILY #60 cap 08/20/17 divalproex 250 mg tablet,delayed 250 mg PO BID #180 tab-cap 02/27/21 release lamotrigine 100 mg tablet 100 mg PO BID #180 tab-cap 02/27/21 nitrofurantoin monohyd/m-cryst 100 mg PO Q12H 5 Days #9 cap 05/03/21 [Macrobid] Allergies Allergy/AdvReac Type Severity Reaction Status Date / Time No Known Allergies Allergy Verified 05/03/21 14:14 General Stated Complaint: Seizure MARISABEL: 3 Review of Systems All systems reviewed & are unremarkable except as noted in HPI and below Constitutional Constitutional: Denies fever(s) and Denies headache(s) ENT Ears, Nose, Mouth, and Throat: Denies vertigo and Denies headache(s) Musculoskeletal Musculoskeletal: Denies numbness and Denies tingling Neurologic Neurologic: Denies abnormal speech, Denies vertigo, Denies headache(s), Denies numbness, Denies sensory deficit and Denies tingling [facility] Medical History (Updated 05/03/21 @ 17:34 by Reinaldo Kurtz MD) Alcohol abuse (07/30/13) Alcoholism stopped drinking 2017 Cervical high 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 Hx of + HPV with nl Pap. 2014. Colpo ECC ? LGSIL. 2020. Pap/HPV. Nl/Neg. Recommended repeat in 2021. Hip fracture, left (01/27/14) 2013 Osteoporosis Seizure disorder Diagnosed at age 8, on two antiseizue medications. We will check her levels of antiseizure medication. No seizure for 2 years. Tobacco use several Fx from falls. DEXA -2.3 Surgical History Arthroplasty of knee (06/07/16) LEFT/DR. HORTON History of left hip replacement History of left shoulder replacement Family History Mother , 81 Essential hypertension Hyperlipidemia Father , 61 CAD (coronary artery disease) Brother Essential hypertension Social History (Updated 04/08/21 @ 10:07 by Aubree Monterroso MD) Smoking/Tobacco Use Status: Current every day Tobacco Type: cigarettes Quit status: not considering quitting Second Hand Exposure: Yes Smoking risk assessment performed?: Yes Alcohol Intake: former Drug use: Never Caregiver/Support person: No Household members: none and other Details: not in relationship Housing: apartment Number of Children: 0 Communication Needs: None Do you need help understanding health information?: Rarely Pets and animals: No Sexually active: No Do you think of yourself as: straight/heterosexual Current gender identity: female What is your relationship status?: How often do you talk on the phone with friends or family?: once per week Panel score (0-1 are the most socially isolated patients): 0 What type of physical activity do you participate in: walking Duration: > 90 minutes/day Frequency: daily Seatbelt use: always Drive intox or ride w/intox meals on wheels driver: No Do you feel safe in your relationship?: Yes Exam Const General: cooperative and no acute distress HENMT Head: normocephalic and atraumatic Mouth: moist mucous membranes Eyes Alignment and Position: alignment normal Conjunctivae: normal conjunctivae Sclera: normal sclerae Pupils: PERRL EOM: EOM intact bilaterally Neck Neck: full ROM, trachea midline and supple Resp Auscultation: clear to auscultation bilaterally, no rales, no rhonchi and no wheezes Cardio Rate: regular rate and not tachycardic Rhythm: regular rhythm GI Palpation: soft, not firm, no guarding, no masses, not rigid and nontender Back/Spine/Pelvis Cervical Spine: normal cervical lordosis, cervical ROM normal and No cervical spinal tenderness Skin General skin exam: no rashes or lesions noted Neuro General: patient alert, patient awake, patient oriented x3 and tone normal Cranial Nerves: PERRL, accommodation normal, EOM intact bilaterally, no nystagmus, facial strength normal, tongue midline, able to rotate head bilaterally and able to elevate shoulders bilaterally Cognition: normal cognition Speech: speech normal Gait: normal gait Motor: strength 5/5 throughout Sensory Exam: no sensory deficits noted Extrem General: no edema Psych Appearance: grossly normal Mental Status: mental status grossly normal Speech and Movement: speech and movement normal Course Vital Signs Vital signs: Vital Signs Temperature 37.1 C 05/03/21 13:31 Pulse 79 05/03/21 13:31 Respiratory Rate 14 05/03/21 13:31 Blood Pressure 108/68 05/03/21 13:31 Pulse Oximetry 98 05/03/21 13:31 Temperature 37.1 C 05/03/21 13:31 Temperature Source Skin 05/03/21 13:31 Pulse 79 05/03/21 13:31 Respiratory Rate 14 05/03/21 13:31 Respiratory Effort Non-Labored 05/03/21 14:19 Respiratory Depth Normal 05/03/21 14:19 Respiratory Pattern Normal 05/03/21 14:19 Blood Pressure 108/68 05/03/21 13:31 Blood Pressure Position Supine 05/03/21 13:31 Pulse Oximetry 98 05/03/21 13:31 Oxygen Delivery Method Room Air 05/03/21 13:31 Oxygen Flow Rate 0 05/03/21 13:31 Pain Level 7 05/03/21 13:31 Lab/Test Results Lab/Test Results: Laboratory Tests Range/Units 05/03/21 05/03/21 05/03/21 13:50 13:50 13:50 WBC (4.4-10.8) 10^3/uL 11.63 H RBC (3.93-5.22) 10^6/uL 4.28 Hgb (11.2-15.7) g/dL 13.6 Hct (36.0-46.0) % 41.0 MCV (80-95) fL 95.8 H MCH (27.0-33.0) pg 31.8 MCHC (32.0-36.0) % 33.2 RDW (11.7-14.6) % 14.5 Plt Count (130-400) 10^3/uL 230 MPV (8.0-11.0) fL 11.4 H Immature Gran % 0.3 Neutrophils % 73.1 Lymphocytes % 18.7 Monocytes % 6.5 Eosinophils % 0.5 Basophils % 0.9 Nucleated RBC % % 0 Absolute Neutrophils (1.2-6.7) 10^3/uL 8.50 H Absolute Lymphocytes (1.2-3.4) 10^3/uL 2.17 Absolute Monocytes (0.1-0.8) 10^3/uL 0.76 Absolute Eosinophils (0.0-0.7) 10^3/uL 0.06 Absolute Basophils (0.0-0.2) 10^3/uL 0.10 Sodium (136-145) mmol/L 143 Potassium (3.5-5.1) mmol/L 4.1 Chloride (98-107) mmol/L 107 Carbon Dioxide (21.0-32.0) mmol/L 25.4 Anion Gap (3-11) mmol/L 10.6 BUN (7-18) mg/dL 20 H Creatinine (0.55-1.02) mg/dL 0.9 Estimated GFR/1.73 m2 (mL/min/1.73m2) >= 60.00 Glucose (74-106) mg/dL 101 Calcium (8.5-10.1) mg/dL 8.9 Total Bilirubin (0.2-1.0) mg/dL 0.2 AST (15-37) U/L 19 ALT (14-59) U/L 19 Alkaline Phosphatase (46-116) U/L 81 Total Protein (6.4-8.2) g/dL 7.2 Albumin (3.4-5.0) g/dL 3.6 Valproic Acid ( - 150) ug/mL 34.5
[2021-05-03 17:12] LABS: Bilirubin Negative (Negative); Blood Moderate (Negative); Clarity Clear (Clear); Glucose Negative (Negative); Ketones Negative (Negative); Leukocyte Esterase Trace (Negative); Nitrite Negative (Negative); Specific Gravity >= 1.030 (1.005-1.025); Urobilinogen 0.2 EU/dL (Up TO 0.2); pH 5.5 (5-8)
[2021-05-03 17:19] LABS: Bacteria Moderate HPF (Negative); C & S Indicated? Yes; Casts Negative LPF (Negative); Crystals Negative HPF (Negative); Epithelial Cells Few HPF (Negative); Mucus Negative (Negative)
[2021-05-03] MEDS: MacroBID 100 MG CAP PO (17:49)
[2021-05-03 17:58] VITALS: BP 113/65; PULSE 66; RESP 17; TEMP 37.2; O2SAT 93
[2021-05-05 17:03] LABS: Lamotrigine 7.6 mcg/mL (2.5 - 15.0)
== END 2021-05-03 18:00 | disposition home or self-care (01) ==
PROVIDERS: Emergency Provider Student in an Organized Health Care Education/Training Program; PCP Nurse Practitioner
DX: G40.802 Other epilepsy, not intractable, without status epilepticus (principal); R51.9 Headache, unspecified; R31.9 Hematuria, unspecified
CPT/HCPCS: 36415; 80053; 80175; 99284; 70450; 80164; 81003; 81015; 85025; 87086; 99285

== ENCOUNTER 2021-06-07 01:16 | Outpatient (CLI) | payer MEDICARE, MEDICAID, SELFPAY ==
--- NOTE | 2021-06-07 09:30 | DI.DEXA_ITS ---
Exam(s) XR DEXA BONE DENSITY W/WO NAFISA EXAM: XR DEXA BONE DENSITY W/WO NAFISA CLINICAL HISTORY: OSTEOPOROSIS, M81.0 TECHNIQUE: Routine DEXA evaluation of the lumbar spine, hip, or forearm. COMPARISON: Prior DEXA scan February 2019 FINDINGS: Performed on a HoloEmbanet unit. Lateral image: No compression fracture evident. Lumbar Spine total T-score: -1.8 . This is identical to the February 2019 reading Hip total T-score:-2.4 . This also identical to the February 2019 reading Independent reading at the level of the femoral neck yields at T-score of -3.2.Minus 3.2. I note colleen t she had a fracture in the opposite-left hip in 2012 Forearm total T-score: -3.4 IMPRESSION: Bone mineral density measures in the osteoporosis range. Fracture risk is high. Note: Any spine fracture indicates 5x risk for subsequent spine fracture and 2x risk for subsequent h ip fracture. World Health Organization criteria for BMD interpretation classify patients: Normal...... T- Score at or above -1.0 Osteopenic... T- Score between -1.0 and -2.5 Osteoporosis... T-Score at or below -2.5
== END 2021-06-07 01:36 ==
PROVIDERS: PCP Nurse Practitioner; Visit Provider Nurse Practitioner
DX: M81.0 Age-related osteoporosis without current pathological fracture (principal); Z13.820 Encounter for screening for osteoporosis
CPT/HCPCS: 77080

== ENCOUNTER → 2022-03-04 02:00 | Outpatient (CLI) | payer MEDICARE, MEDICAID, SELFPAY ==
--- NOTE | 2022-03-04 07:45 | DI.RAD_ITS ---
Exam(s) XR HIP RT COMPLETE AP PELVIS EXAM: XR HIP RT COMPLETE AP PELVIS CLINICAL HISTORY: hip pain RT, M25.551. TECHNIQUE: 2D digital imaging was performed. COMPARISON: CR THORACIC SPINE from 01/02/2018 FINDINGS: Two views No evidence of pelvic nor hip fracture. Left hip prosthesis noted. Advanced degenerative changes in the right hip. Moderate-advanced narrowing of the hip joint space. Also marginal osteophytes in th e femoral head. Bone density is normal. No osseous lesions IMPRESSION: Degenerative changes right hip. DATA REPOSITORY: RADIATION DOSE DELIVERED:
== END ==
PROVIDERS: PCP Nurse Practitioner; Visit Provider Nurse Practitioner
DX: M25.551 Pain in right hip (principal); M16.11 Unilateral primary osteoarthritis, right hip
CPT/HCPCS: 73502

== ENCOUNTER 2022-06-18 11:10 | Emergency (ER) | payer MEDICARE, MEDICAID, SELFPAY ==
[2022-06-18] VITALS (23 sets, daily range): BP systolic 123–133; BP diastolic 66–80; PULSE 64–81; RESP 14–21; TEMP 36.8; O2SAT 92–99
--- NOTE | 2022-06-18 11:30 | DI.CT_ITS ---
Exam(s) CT HEAD FACIAL WO EXAM: CT HEAD FACIAL WO CLINICAL HISTORY: fall, lac left maxilla. TECHNIQUE: Imaging Protocol: Axial computed tomography images with coronal and sagittal reformatted images were created and reviewed COMPARISON: CT CT HEAD WO from 05/03/2021 FINDINGS: The examination is limited due to patient motion artifact. CT Head: Ventricles and Extra axial spaces: Normal in size and morphology for the patient's age. Hemorrhage: None. Cerebral parenchyma: No acute territorial infarct. There is an unchanged right basal gangliar calcif ication. Midline shift: None. Brainstem/Cerebellum: Normal. Calvarium: Normal. Visualized Paranasal sinuses/Mastoids: Clear. Soft Tissues: Mild soft tissue swelling is seen overlying the left frontal bone. CT Face: Facial Bones: No definite fracture is noted in facial bones. Sinuses and Mastoids: Unremarkable. Globes, extraocular muscles, optic nerves and retrobulbar fat: Normal. Upper aerodigestive tract: Normal. Mandible and bilateral temporomandibular joints: Normal. Soft tissues: There is soft tissue swelling over the left face and forehead. IMPRESSION: 1. No acute intracranial process. 2. No acute facial fracture. 3. Findings were discussed with Dr. Kurtz at 12:35 p.m. on 06/18/2022. RADIATION DOSE DELIVERED: 1,065.59mGy.cm Total DLP DATA REPOSITORY: All CT scans at this facility are submitted to the National Radiology Data Registry (NRDR) Dose Index Registry (DIR) with the [employer] (ACR). RADIATION OPTIMIZATION: All CT scans at this facility use at least one of these dose optimization te chniques: automated exposure control; mA and/or kV adjustment per patient size (includes targeted exa ms where dose is matched to clinical indication); or iterative reconstruction.
--- NOTE | 2022-06-18 11:30 | DI.RAD_ITS ---
Exam(s) XR SHOULDER LT COMPLETE 2+V EXAM: XR SHOULDER LT COMPLETE 2+V CLINICAL HISTORY: trauma, fall. TECHNIQUE: 2D digital imaging was performed of the left shoulder. Four images were obtained. AP, G rashey, Y-view and axillary views were obtained. COMPARISON: CR LEFT SHOULDER COMPLETE from 06/21/2014 CR LEFT SHOULDER 1 VIEW from 07/15/2014 CR RIGHT SHOULDER COMPLETE from 08/16/2014 FINDINGS: BONES: No acute fracture is present. No bony destructive lesion is seen. JOINTS: The patient has a left shoulder prosthesis. There is again seen superior subluxation of the head of the prosthesis relative to the glenoid. This was present on the examination from 08/16/2014. There is an old healed proximal humeral fracture. Degenerative changes are seen at the acromioclavic ular joint. SOFT TISSUE: Normal. IMPRESSION: 1. No acute abnormality. 2. Findings were discussed with Dr. Kurtz at 12:35 p.m. on 06/18/2022. DATA REPOSITORY: RADIATION DOSE DELIVERED:
--- NOTE | 2022-06-18 11:35 | ED.GENADUL_ITS ---
Discharge Plan Disposition Patient Disposition: HOME Condition: Stable Discharge Details Clinical Impression: Seizure, Face lacerations, Abrasion of face, Contusion of left shoulder Primary Care Provider: Kandice Olvera ED Provider: Reinaldo Kurtz Home Meds and New Rx's Prescriptions: New divalproex 500 mg tablet,delayed release (DR/EC) 500 mg PO BID Qty: 30 0RF Continued lamotrigine [Lamictal] 100 mg tablet 100 mg PO BID Qty: 180 4RF calcium carbonate-vitamin D3 1 EACH tablet 1 ea PO DAILY thiamine HCl (vitamin B1) 100 MG tablet 100 mg PO DAILY Qty: 60 4RF Discontinued divalproex [Depakote] 250 mg tablet,delayed release (DR/EC) 250 mg PO BID Qty: 180 4RF Discharge Instructions Instructions: Skin Adhesive Care (ED), Recurrent Seizures in Adults (ED), Facial Laceration (ED) Additional Instructions: Please follow-up with your neurologist. Call today to schedule timely follow- up. No driving or operating heavy machinery until cleared by your neurologist. Your divalproex dose should be increased to 500 mg twice a day. Your next dose should be this evening. You should have a trough valproic acid level drawn on Friday, June 21, 2022. Be sure to discuss this level with your neurologist. Please contact your primary care physician to arrange follow-up. Return to the ER immediately for any worsening or new concerning symptoms. Medical Decision Making 1207 --66-year-old female with history of epilepsy here after loss of consciousness and fall, presents secondary to seizure, with trauma to her face and left shoulder. Patient has been taking antiepileptics as prescribed. I will send Depakote and lamotrigine levels. Consider acute life-threatening intracranial traumatic hemorrhage and facial fracture. Plan to obtain CT imaging. Consider left shoulder fracture.-Pain x- ray. Nursing to cleanse wounds and I will reassess -patient may need primary closure. Tetanus up-to-date. 1345 -- Labs reviewed Depakote level subtherapeutic. Plan to give additional dose of divalproex 250 mg. I will call in consult with the patient's neurologist, Dr. Avila. CT of the head and facial bones interpreted by radiology as negative. Shoulder x-ray interpreted by radiology as negative for acute injury, no change from prior. Suspect facial and left shoulder contusions. I recommended left shoulder sling and patient declined noting she has sling at home and plans to use. 1429 --I spoke with [place] [facility] [place] course, she recommends increasing dose of divalproex to 500mg BID. She recommends having trough level drawn in a few days and following up with Dr. Avila. All results were discussed with the patient. Patient was encouraged to follow- up with neurology. She was instructed to not operate heavy machinery or drive until cleared we discussed need for follow-up outpatient labs. Usual customary discharge instructions were otherwise reviewed with the patient. Lab Data Lab results reviewed: Yes I reviewed the patient's lab results. Labs: Laboratory Tests Range/Units 06/18/22 06/18/22 06/18/22 11:45 11:45 11:45 WBC (4.4-10.8) 10^3/uL 11.35 H RBC (3.93-5.22) 10^6/uL 4.81 Hgb (11.2-15.7) g/dL 15.3 Hct (36.0-46.0) % 46.2 H MCV (80-95) fL 96 H MCH (27.0-33.0) pg 31.8 MCHC (32.0-36.0) % 33.1 RDW (11.7-14.6) % 13.5 Plt Count (130-400) 10^3/uL 220 MPV (8.0-11.0) fL 11.4 H Sodium (136-145) mmol/L 140 Potassium (3.5-5.1) mmol/L 3.8 Chloride (98-107) mmol/L 105 Carbon Dioxide (21.0-32.0) mmol/L 23.7 Anion Gap (3-11) mmol/L 11.3 H BUN (7-18) mg/dL 13 Creatinine (0.55-1.02) mg/dL 0.7 Est GFR (CKD-EPI 2020) (mL/min/1.73m2) 95.92 Glucose (74-106) mg/dL 102 Calcium (8.5-10.1) mg/dL 9.4 Total Bilirubin (0.2-1.0) mg/dL 0.3 AST (15-37) U/L 29 ALT (14-59) U/L 16 Alkaline Phosphatase (46-116) U/L 119 H Troponin I (<or=60) ng/L Total Protein (6.4-8.2) g/dL 7.8 Albumin (3.4-5.0) g/dL 3.9 Valproic Acid ( - 150) ug/mL 4.5 Range/Units 06/18/22 11:45 WBC (4.4-10.8) 10^3/uL RBC (3.93-5.22) 10^6/uL Hgb (11.2-15.7) g/dL Hct (36.0-46.0) % MCV (80-95) fL MCH (27.0-33.0) pg MCHC (32.0-36.0) % RDW (11.7-14.6) % Plt Count (130-400) 10^3/uL MPV (8.0-11.0) fL Sodium (136-145) mmol/L Potassium (3.5-5.1) mmol/L Chloride (98-107) mmol/L Carbon Dioxide (21.0-32.0) mmol/L Anion Gap (3-11) mmol/L BUN (7-18) mg/dL Creatinine (0.55-1.02) mg/dL Est GFR (CKD-EPI 2020) (mL/min/1.73m2) Glucose (74-106) mg/dL Calcium (8.5-10.1) mg/dL Total Bilirubin (0.2-1.0) mg/dL AST (15-37) U/L ALT (14-59) U/L Alkaline Phosphatase (46-116) U/L Troponin I (<or=60) ng/L < 50 Total Protein (6.4-8.2) g/dL Albumin (3.4-5.0) g/dL Valproic Acid ( - 150) ug/mL HPI General Mode of arrival: ambulatory . Date/Time Provider Initiated Documentation: 06/18/22 11:33 . Limitations to Documentation: no limitations and altered mental status . Information obtained by: patient . HPI Narrative: 66-year-old female with history of epilepsy presents with chief complaint of left shoulder pain after syncopal episode with fall presumed secondary to seizure. History limited secondary to altered mental status during the episode. Patient notes she was feeling fine and lost consciousness and fell to the ground striking her face and left shoulder. This occurred earlier this morning. She is unsure how long she was unconscious. Patient denies neck pain. Denies chest pain, pelvic pain and abdominal pain. Related Data Home Medications Medication Instructions Recorded Confirmed calcium carbonate 600 mg-vitamin 1 ea PO DAILY 02/25/14 06/18/22 D3 5 mcg (200 unit) tablet thiamine HCl (vitamin B1) 100 mg 100 mg PO DAILY #60 caps 08/20/17 06/18/22 tablet lamotrigine 100 mg tablet 100 mg PO BID #180 tab-caps 02/27/21 06/18/22 (Lamictal) divalproex 500 mg tablet,delayed 500 mg PO BID #30 tabs 06/18/22 release Previous Rx's Medication Instructions Recorded thiamine HCl (vitamin B1) 100 mg 100 mg PO DAILY #60 caps 08/20/17 tablet lamotrigine 100 mg tablet 100 mg PO BID #180 tab-caps 02/27/21 (Lamictal) divalproex 500 mg tablet,delayed 500 mg PO BID #30 tabs 06/18/22 release Allergies Allergy/AdvReac Type Severity Reaction Status Date / Time No Known Allergies Allergy Verified 06/18/22 11:20 General Stated Complaint: Trauma MARISABEL: 2 Review of Systems All systems reviewed & are unremarkable except as noted in HPI and below Constitutional Constitutional: Denies headache(s) ENT Ears, Nose, Mouth, and Throat: Denies headache(s) Cardiovascular Cardiovascular: Denies chest pain Gastrointestinal Gastrointestinal: Denies abdominal pain Musculoskeletal Musculoskeletal: Reports as per HPI Neurologic Neurologic: Denies headache(s) PFSH All Active Problems (Updated 06/18/22 @ 13:50 by Reinaldo Kurtz MD) Seizure (Acute) Face lacerations (Acute) Abrasion of face (Acute) Contusion of left shoulder (Acute) Right hip pain (Acute) 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 Hx of + HPV with nl Pap. 2015. Colpo ECC ? LGSIL. 2020. Pap/HPV. Nl/Neg. Recommended repeat in 2021. Seizure disorder (Chronic) Diagnosed at age 8, on two antiseizure medications. [place] [facility] [place]. stable but with breakthrough seizure 2020 Osteoporosis (Acute 01/27/14) 2013 T score -2.3 left hip 2019 R hip osteoporosis. Osteopenia spine + wrist. Depressive disorder (Acute 07/30/13) Underweight (Chronic) BMI 17 to 18. Tobacco use disorder (Chronic) From age 14 until present, greater than 50 pack years. Falls frequently (Chronic) Medical History (Updated 06/18/22 @ 13:50 by Reinaldo Kurtz MD) Alcohol abuse (07/30/13) Alcoholism stopped drinking 2017 Atrophic vaginitis (02/07/14) Hip fracture, left (01/27/14) 2013 Osteoporosis Tobacco use several Fx from falls. DEXA -2.3 Surgical History Arthroplasty of knee (06/07/16) LEFT/DR. HORTON History of left hip replacement History of left shoulder replacement Family History Mother , 81 Essential hypertension Hyperlipidemia Father , 61 CAD (coronary artery disease) Brother Essential hypertension Social History (Updated 04/08/21 @ 10:07 by Aubree Monterrsoo MD) Smoking/Tobacco Use Status: Current every day Tobacco Type: cigarettes Quit status: not considering quitting Second Hand Exposure: Yes Smoking risk assessment performed?: Yes Alcohol Intake: former Drug use: Never Caregiver/Support person: No Household members: none and other Details: not in relationship Housing: apartment Number of Children: 0 Communication Needs: None Do you need help understanding health information?: Rarely Pets and animals: No Sexually active: No Do you think of yourself as: straight/heterosexual Current gender identity: female What is your relationship status?: How often do you talk on the phone with friends or family?: once per week Panel score (0-1 are the most socially isolated patients): 0 What type of physical activity do you participate in: walking Duration: > 90 minutes/day Frequency: daily Seatbelt use: always Drive intox or ride w/intox food mobile driver: No Do you feel safe at home: Yes Do you feel safe in your relationship?: Yes Exam Const General: cooperative HENMT Face and sinus: abrasion (nose and left cheek), no crepitus, laceration (laceration infraorbital, left forehead with no active bleeding) and tenderness on the left maxilla Mouth: moist mucous membranes Eyes Pupils: PERRL EOM: EOM intact bilaterally Neck Neck: trachea midline, supple and nontender Resp Auscultation: clear to auscultation bilaterally, no rales, no rhonchi and no wheezes Cardio Rate: regular rate and not tachycardic Rhythm: regular rhythm GI Palpation: soft, not firm, no guarding, no masses, not rigid and nontender Skin General skin exam: no rashes or lesions noted Neuro General: patient alert, patient awake and tone normal Cognition: normal cognition Speech: speech normal Motor: strength 5/5 throughout Sensory Exam: no sensory deficits noted Extrem General: no edema Psych Appearance: grossly normal Mental Status: mental status grossly normal Course Vital Signs Vital signs: Vital Signs Temperature 36.8 C 06/18/22 11:15 Pulse 80 06/18/22 11:15 Respiratory Rate 18 06/18/22 11:15 Blood Pressure 123/79 06/18/22 11:15 Pulse Oximetry 96 06/18/22 11:15 Temperature 36.8 C 06/18/22 11:15 Temperature Source Oral 06/18/22 11:15 Pulse 80 06/18/22 11:15 Respiratory Rate 18 06/18/22 11:15 Respiratory Effort Non-Labored 06/18/22 11:21 Blood Pressure 123/79 06/18/22 11:15 Blood Pressure Position Sitting 06/18/22 11:15 Pulse Oximetry 96 06/18/22 11:15 Oxygen Delivery Method Room Air 06/18/22 11:15 Oxygen Flow Rate 0 06/18/22 11:15 Pain Level 2 06/18/22 11:15
[2022-06-18 11:54] LABS: HCT 46.2 % (36.0-46.0); HGB 15.3 g/dL (11.2-15.7); MCH 31.8 pg (27.0-33.0); MCHC 33.1 % (32.0-36.0); MCV 96 fL (80-95); MPV 11.4 fL (8.0-11.0); Platelet Count 220 10^3/uL (130-400); RBC 4.81 10^6/uL (3.93-5.22); RDW 13.5 % (11.7-14.6); RDW-SD 48.3 fL; WBC 11.35 10^3/uL (4.4-10.8)
--- NOTE | 2022-06-18 12:00 | RT.EKG_ITS ---
APPROVED REPORT Exam: Resting ECG Reason for Exam: syncope Patient Location: E HR:65 bpm ECG Measurements Heart Rate 65 AXIS OK 138 P 59 QRSd 59 QRS 65 QT 384 T 63 QTc 400 Conclusion Sinus arrhythmia...V-rate 53- 77, variation>10% Anteroseptal infarct, age indeterminate...Q >35mS, T neg, V1-V2
[2022-06-18 12:10] LABS: ALT 16 U/L (14-59); AST 29 U/L (15-37); Albumin 3.9 g/dL (3.4-5.0); Alkaline Phosphatase 119 U/L (46-116); Anion Gap 11.3 mmol/L (3-11); BUN 13 mg/dL (7-18); Bilirubin, Total 0.3 mg/dL (0.2-1.0); CO2 23.7 mmol/L (21.0-32.0); CREATININE 0.7 mg/dL (0.55-1.02); Calcium 9.4 mg/dL (8.5-10.1); Chloride 105 mmol/L (98-107); Estimated GFR 95.92 (mL/min/1.73m2); Glucose 102 mg/dL (74-106); Potassium 3.8 mmol/L (3.5-5.1); Sodium 140 mmol/L (136-145); Total Protein 7.8 g/dL (6.4-8.2)
[2022-06-18 12:11] LABS: VALPROIC ACID 4.5 ug/mL
[2022-06-18] MEDS: Divalproex 250 MG TABEC PO (13:04)
[2022-06-18 13:26] LABS: Troponin I < 50 ng/L (<or=60)
[2022-06-20 13:22] LABS: Lamotrigine 2.7 mcg/mL (3.0-15.0)
== END 2022-06-18 14:47 | disposition home or self-care (01) ==
PROVIDERS: Emergency Provider Student in an Organized Health Care Education/Training Program; PCP Nurse Practitioner Family
DX: S00.31XA Abrasion of nose, initial encounter (principal); S01.112A Laceration without foreign body of left eyelid and periocular area, initial encounter; S40.012A Contusion of left shoulder, initial encounter; G40.909 Epilepsy, unspecified, not intractable, without status epilepticus; W19.XXXA Unspecified fall, initial encounter
CPT/HCPCS: 80053; 80175; 85027; 93005; 99284; 70450; 70486; 73030; 80164; 84484; 93010; 99285

== ENCOUNTER 2022-06-21 11:00 | Outpatient (CLI) | payer MEDICARE, MEDICAID, SELFPAY ==
[2022-06-21 11:51] LABS: VALPROIC ACID < 3 ug/mL
== END 2022-06-21 11:01 | disposition home or self-care (01) ==
LOC: LBO 11:02
PROVIDERS: PCP Nurse Practitioner Family; Visit Provider Student in an Organized Health Care Education/Training Program
DX: R56.9 Unspecified convulsions (principal); Z79.899 Other long term (current) drug therapy; Z51.81 Encounter for therapeutic drug level monitoring
CPT/HCPCS: 36415; 80164

== ENCOUNTER → 2022-09-09 14:45 | Outpatient (BNVA) | payer MEDICARE, MEDICAID, SELFPAY | PROVIDERS: PCP Nurse Practitioner Family; Referring Provider Nurse Practitioner; Visit Provider Student in an Organized Health Care Education/Training Program | DX: M16.11 Unilateral primary osteoarthritis, right hip (principal) | CPT/HCPCS: 99213 ==

== ENCOUNTER 2022-09-12 01:58 | Outpatient (CLI) | payer MEDICARE, MEDICAID, SELFPAY ==
--- NOTE | 2022-09-12 08:15 | DI.RAD_ITS ---
Exam(s) RF JOINT INJECTION FLUORO GUID EXAM: RF JOINT INJECTION FLUORO GUID CLINICAL HISTORY: R HIP INJ UNDER FLUORO,rt hip pain, m25.551. TECHNIQUE: 2D and realtime digital imaging was performed. COMPARISON: No exams were available for comparison FINDINGS: Fluoroscopy was provided for Dr. Upton for guidance with performing a right hip injection. Please see procedure note for details. Fluoro time: 7seconds RADIATION DOSE DELIVERED: geeta Chavez=0.258 mGy
[2022-09-12] MEDS: Bupivacaine 0.5% Pres-Free 10 ML VIAL IJ (15:18)
[2022-09-12] MEDS: methylPREDNISolone ACETATE 80 MG/ML VIAL IM (15:18)
--- NOTE | 2022-09-12 15:27 | W.PROCNOTE ---
Date of service: 09/12/22 Time of Service: 15:27 Procedure Note Date of procedure: 09/12/22 Procedure: Right Hip Injection with Fluoroscopic Guidance Surgeon/Proceduralist/Physician: Castro Upton Procedure Diagnosis: Right Hip Osteoarthritis Procedure Indications: eloise has had persistent pain of the RIGHT hip and groin. Noninvasive measures have been tried. To serve as both diagnostic and therapeutic, an injection under fluoroscopy was recommended. I had discussed the risks of the procedure and the patient elected to proceed. Procedure Description: Eloise was greeted in the flouroscopy room. The correct side was identified and the consent was reviewed with the patient and signed. The patient was then placed in the supine position on the fluoroscopy table. The RIGHT hip was then prepped with Chloraprep. The anterolateral injection starting point was identiifed by bony landmarks and fluoroscopy. The skin and soft tissue in the tract of the injection was anesthetized with 1% Lidocaine. A spinal needle was then inserted deep into the hip joint at the level of the lateral femoral neck under fluoroscopic guidance. A small amount of Omnipaque solution was injected to confirm intraarticular placement. Once confirmed, the hip was injected with 5cc of 0.5% Bupivicaine and 80mg of Depo-Medrol. A bandaid was placed on the injection site. The patient tolerated the procedure well and noted improvement in pre-injection pain.
== END 2022-09-12 02:18 ==
LOC: DI 01:58
PROVIDERS: PCP Nurse Practitioner Family; Visit Provider Student in an Organized Health Care Education/Training Program
DX: M25.551 Pain in right hip (principal)
CPT/HCPCS: 20610; 77002; J1040

== ENCOUNTER → 2022-10-21 15:07 | Outpatient (BNVA) | payer MEDICARE, MEDICAID, SELFPAY | PROVIDERS: PCP Nurse Practitioner Family; Referring Provider Nurse Practitioner Family; Visit Provider Student in an Organized Health Care Education/Training Program | DX: M16.11 Unilateral primary osteoarthritis, right hip (principal) | CPT/HCPCS: 99213 ==

== ENCOUNTER 2022-11-03 17:30 | Inpatient (IN) | payer MEDICARE, MEDICAID, SELFPAY ==
[2022-11-03] VITALS (33 sets, daily range): BP systolic 66–101; BP diastolic 30–77; PULSE 79–139; RESP 11–37; TEMP 37.1; O2SAT 91–99
--- NOTE | 2022-11-03 17:30 | RT.EKG_ITS ---
APPROVED REPORT Exam: Resting ECG Reason for Exam: altered Mental Status Patient Location: E HR:97 bpm ECG Measurements Heart Rate 97 AXIS MI 133 P 77 QRSd 60 QRS 75 QT 342 T 74 QTc 434 Conclusion Sinus rhythm...normal P axis, V-rate 60- 99 Ventricular premature complex...V complex w/ short R-R interval Aberrant conduction of SV complex(es)...aberrant shape, MI 80-220 Anteroseptal infarct, age indeterminate...Q >35mS, T neg, V1-V2
--- NOTE | 2022-11-03 18:00 | DI.CT_ITS ---
Exam(s) CT HEAD CERVICAL SPINE WO EXAM: CT HEAD CERVICAL SPINE WO CLINICAL HISTORY: altered mental status, found at bottom of stairs. TECHNIQUE: Imaging Protocol: Axial computed tomography images with coronal and sagittal reformatted images were created and reviewed COMPARISON: CT CT HEAD FACIAL WO from 06/18/2022 FINDINGS: Head CT Ventricles and Extra axial spaces: Normal in size and morphology for the patient's age. Hemorrhage: None. Cerebral parenchyma: Mild atrophy. Mild white matter changes of small vessel disease. Midline shift: None. Brainstem/Cerebellum: Cerebellar atrophy. Calvarium: Normal. Visualized Paranasal sinuses/Mastoids: Clear. Cervical Spine CT BONES: Vertebral body heights are maintained. Scoliosis versus patient positioning. There is no evid ence of acute fracture. 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 Severe degenerative disc changes and facet degenerative changes are seen . SOFT TISSUES: No paraspinal hematoma. The airway appears intact. No pneumothorax is seen at the lung apices. IMPRESSION: Head CT: No acute abnormality. C-spine CT: Degenerative changes, no acute abnormality. RADIATION DOSE DELIVERED: 1,109.7mGy.cm Total DLP DATA REPOSITORY: All CT scans at this facility are submitted to the National Radiology Data Registry (NRDR) Dose Index Registry (DIR) with the [employer] (ACR). RADIATION OPTIMIZATION: All CT scans at this facility use at least one of these dose optimization te chniques: automated exposure control; mA and/or kV adjustment per patient size (includes targeted exa ms where dose is matched to clinical indication); or iterative reconstruction.
[2022-11-03] MEDS: Normal Saline 500 ML IV (18:06)
[2022-11-03] MEDS: levETIRAcetam 1,000 MG in Normal Saline 100 ML 400 MG IVPB (18:10)
[2022-11-03 18:15] LABS: Abs Immature Grans 0.13 10^3/uL (0.0-0.06); Absolute Neutrophil Count 19.35 10^3/uL (1.2-6.7); Basophils % 0.6; Eosinophils % 1.4; HCT 47.6 % (36.0-46.0); HGB 15.9 g/dL (11.2-15.7); Immature Grans % 0.6; Lymphocytes % 4.6; MCHC 33.4 % (32.0-36.0); MCV 93 fL (80-95); MPV 12.1 fL (8.0-11.0); Monocytes % 4.1; Neutrophils % 88.7; Platelet Count 231 10^3/uL (130-400); RBC 5.13 10^6/uL (3.93-5.22); RDW 14.3 % (11.7-14.6); RDW-SD 49.3 fL; WBC 21.81 10^3/uL (4.4-10.8)
[2022-11-03 18:20] LABS: Absolute Basophil Count 0.13 10^3/uL (0.0-0.2); Absolute Eosinophil Count 0.31 10^3/uL (0.0-0.7); Absolute Monocyte Count 0.89 10^3/uL (0.1-0.8)
--- NOTE | 2022-11-03 18:20 | ED.GENADUL_ITS ---
Discharge Plan Disposition Patient Disposition: Admit to [facility] Discharge Details Chief Complaint: AMS/LOC Clinical Impression: Seizure, Postictal confusion, Pneumonitis, Acute dehydration, DYLAN (acute kidney injury), Acute hypernatremia, Lactic acidosis Primary Care Provider: Kandice Olvera ED Provider: Reinaldo Kurtz Home Meds and New Rx's Prescriptions: No Action lamotrigine [Lamictal] 100 mg tablet 100 mg PO BID Qty: 180 4RF calcium carbonate-vitamin D3 1 EACH tablet 1 ea PO DAILY thiamine HCl (vitamin B1) 100 MG tablet 100 mg PO DAILY Qty: 60 4RF divalproex 500 mg tablet,delayed release (DR/EC) 500 mg PO BID Qty: 30 0RF Medical Decision Making 1911 --66-year-old female with history of epilepsy, prior history of alcoholism, found altered at the bottom of her stairs. Patient remains altered at this time. No signs of trauma. Patient is hypotensive. She appears hypovolemic. I am administering IV fluid bolus. Consider acute life-threatening intracranial traumatic hemorrhage. Plan to obtain CT of the head. Given altered mental status, unreliable exam, potential for significant mechanism of injury, will obtain CT of the chest, abdomen pelvis to assess for acute intra-abdominal and intrathoracic traumatic injury. Suspect generalized seizure and now postictal state. Patient has been noncompliant with antiepileptics in the past. Per medical record, patient is supposed to be taking lamotrigine and valproic acid. Valproic acid level noted to be subtherapeutic. I have given Keppra 1 g IV. Patient having involuntary dry heaving. I will give Zofran 4 mg IV and Ativan 0.5 mg IV. Screening EKG was reviewed and interpreted by me: Please see report, sinus rhythm 97 bpm, some artifact is noted, nondiagnostic. Labs reviewed: Leukocytosis noted. Elevated lactate. Suspect secondary to seizure but consider infectious etiology. Urinalysis is negative. Patient denies headache. Patient is afebrile. I will check blood cultures and obtain CT chest. -- CT of the chest was interpreted by radiology: FINDINGS: Lungs: Minor multilobar ground-glass opacities most pronounced in the lower lobes. Subcentimeter left upper lobe pulmonary nodule. Follow-up as per institutional protocol. Pleural spaces: No pneumothorax. No pleural effusion. Heart: No cardiomegaly. No pericardial effusion. Lymph nodes: No enlarged lymph nodes. Vasculature: No aortic aneurysm.? Bones/joints: Left glenohumeral arthroplasty, intact as visualized. Soft tissues: No suspicious lesions.? IMPRESSION: 1. ? No acute findings. 2. ? Minor multilobar ground-glass opacities most pronounced in the lower lobes.? Consider pneumonitis, a minor atypical infection or other endobronchial process. 3. ? Additional findings as described. -- CT of the abdomen and pelvis was interpreted by radiology: FINDINGS: Liver: No mass. Gallbladder and bile ducts: No calcified stones. No ductal dilation. Pancreas: No ductal dilation. No masses.? Spleen: No splenomegaly or focal lesions. Adrenal glands: Thickened adrenal glands without measurable nodules, likely hypertrophy. Kidneys and ureters: Benign-appearing renal cysts and probable cysts. No renal masses or hydronephrosis bilaterally. Stomach and bowel: No obstruction. No mucosal thickening. Appendix: No evidence of appendicitis. Intraperitoneal space: No free air. No significant fluid collection. Vasculature: Atherosclerosis. No aortic aneurysm. Lymph nodes: No significantly enlarged lymph nodes. Urinary bladder: The urinary bladder is distended. No urinary bladder wall thickening. Reproductive: Unremarkable as visualized. Bones/joints: Left hip hemiarthroplasty, intact as visualized. Benign-appearing probable bone island in the right ischium. No acute fracture or subluxation. Soft tissues: No suspicious lesions.? IMPRESSION: 1. ? No acute findings. 2. ? Additional findings as described. -- CT of the head was interpreted by radiology: IMPRESSION: No acute intracranial findings. -- CT of the cspine was interpreted by radiology: IMPRESSION: No cervical spine fracture. --Patient was reassessed and hemodynamically slightly improved after 1L IV fluid. Heart rate in the 90s. Systolic blood pressure in the 90s. Patient remains altered. Plan to hospitalize for altered mental status, concern for seizure secondary to epilepsy and noncompliance with antiepileptic therapy. Consider also pneumonia given leukocytosis and CT findings. Patient is afebrile but does have low supplemental oxygen need. Patient saturating in the low to mid 90s RA. We will send blood cultures. Initiate coverage for possible pneumonia with ceftriaxone 1 g and azithromycin 500 mg IV. I called and spoke with the hospitalist, Dr. Lacey, discussed ED presentation and course, he will admit the patient. Lab Data Lab results reviewed: Yes I reviewed the patient's lab results. Labs: 11/03/22 19:10 Blood Blood Culture - Pending 11/03/22 19:00 Blood Blood Culture - Pending Laboratory Tests Range/Units 11/03/22 11/03/22 11/03/22 17:40 17:40 17:40 WBC (4.4-10.8) 10^3/uL 21.81 H RBC (3.93-5.22) 10^6/uL 5.13 Hgb (11.2-15.7) g/dL 15.9 H Hct (36.0-46.0) % 47.6 H MCV (80-95) fL 93 MCH (27.0-33.0) pg 31.0 MCHC (32.0-36.0) % 33.4 RDW (11.7-14.6) % 14.3 Plt Count (130-400) 10^3/uL 231 MPV (8.0-11.0) fL 12.1 H Immature Gran % 0.6 Neutrophils % 88.7 Lymphocytes % 4.6 Monocytes % 4.1 Eosinophils % 1.4 Basophils % 0.6 Nucleated RBC % (0.0-0.3) % 0.0 Absolute Neutrophils (1.2-6.7) 10^3/uL 19.35 H Absolute Lymphocytes (1.2-3.4) 10^3/uL 1.00 L Absolute Monocytes (0.1-0.8) 10^3/uL 0.89 H Absolute Eosinophils (0.0-0.7) 10^3/uL 0.31 Absolute Basophils (0.0-0.2) 10^3/uL 0.13 VBG Lactate (0.6-1.4) mmol/L Sodium (136-145) mmol/L 146 H Potassium (3.5-5.1) mmol/L 3.9 Chloride (98-107) mmol/L 108 H Carbon Dioxide (21.0-32.0) mmol/L 22.5 Anion Gap (3-11) mmol/L 15.5 H BUN (7-18) mg/dL 16 Creatinine (0.55-1.02) mg/dL 1.2 H Est GFR (CKD-EPI 2020) (mL/min/1.73m2) 50.23 Glucose (74-106) mg/dL 113 H Calcium (8.5-10.1) mg/dL 9.5 Total Bilirubin (0.2-1.0) mg/dL 0.3 AST (15-37) U/L 30 ALT (14-59) U/L 22 Alkaline Phosphatase (46-116) U/L 155 H Total Protein (6.4-8.2) g/dL 7.9 Albumin (3.4-5.0) g/dL 3.9 TSH (0.36-3.74) uIU/mL 2.14 Urine Color (Yellow) Urine Clarity (Clear) Urine pH (5-8) Ur Specific [place] (1.005-1.025) Urine Protein (Negative) mg/dL Urine Ketones (Negative) mg/dL Urine Blood (Negative) Urine Nitrite (Negative) Urine Bilirubin (Negative) Urine Urobilinogen (Up to 0.2) mg/dL Ur Leukocyte Esterase (Negative) Urine RBC (0-2) HPF Urine WBC (0-5) HPF Ur Epithelial Cells (Negative) HPF Urine Crystals (Negative) HPF Urine Bacteria (Negative) HPF Urine Mucus (Negative) Ur Culture Indicated? Urine Glucose (Negative) mg/dL Urine Opiates Screen (Negative) Urine Methadone Screen (Negative) Ur Barbiturates Screen (Negative) Valproic Acid ( - 150) ug/mL < 3 Ur Tricyclics Screen (Negative) Ur Amphetamines Screen (Negative) U Benzodiazepines Scrn (Negative) Urine Cocaine Screen (Negative) Ur THC Screen (Negative) Ethyl Alcohol (<10) mg/dL < 3.0 COVID-19 Source SARS-CoV-2 (PCR) (Negative) Patient ABO/Rh Antibody Screen Range/Units 11/03/22 11/03/22 11/03/22 18:25 18:25 18:40 WBC (4.4-10.8) 10^3/uL RBC (3.93-5.22) 10^6/uL Hgb (11.2-15.7) g/dL Hct (36.0-46.0) % MCV (80-95) fL MCH (27.0-33.0) pg MCHC (32.0-36.0) % RDW (11.7-14.6) % Plt Count (130-400) 10^3/uL MPV (8.0-11.0) fL Immature Gran % Neutrophils % Lymphocytes % Monocytes % Eosinophils % Basophils % Nucleated RBC % (0.0-0.3) % Absolute Neutrophils (1.2-6.7) 10^3/uL Absolute Lymphocytes (1.2-3.4) 10^3/uL Absolute Monocytes (0.1-0.8) 10^3/uL Absolute Eosinophils (0.0-0.7) 10^3/uL Absolute Basophils (0.0-0.2) 10^3/uL VBG Lactate (0.6-1.4) mmol/L 2.3 H* Sodium (136-145) mmol/L Potassium (3.5-5.1) mmol/L Chloride (98-107) mmol/L Carbon Dioxide (21.0-32.0) mmol/L Anion Gap (3-11) mmol/L BUN (7-18) mg/dL Creatinine (0.55-1.02) mg/dL Est GFR (CKD-EPI 2020) (mL/min/1.73m2) Glucose (74-106) mg/dL Calcium (8.5-10.1) mg/dL Total Bilirubin (0.2-1.0) mg/dL AST (15-37) U/L ALT (14-59) U/L Alkaline Phosphatase (46-116) U/L Total Protein (6.4-8.2) g/dL Albumin (3.4-5.0) g/dL TSH (0.36-3.74) uIU/mL Urine Color (Yellow) Yellow Urine Clarity (Clear) Clear Urine pH (5-8) 6.0 Ur Specific [place] (1.005-1.025) >= 1.030 H Urine Protein (Negative) mg/dL 100 H Urine Ketones (Negative) mg/dL Negative Urine Blood (Negative) Moderate H Urine Nitrite (Negative) Negative Urine Bilirubin (Negative) Negative Urine Urobilinogen (Up to 0.2) mg/dL 0.2 Ur Leukocyte Esterase (Negative) Negative Urine RBC (0-2) HPF 5-10 H Urine WBC (0-5) HPF 0-2 Ur Epithelial Cells (Negative) HPF Rare Urine Crystals (Negative) HPF Negative Urine Bacteria (Negative) HPF Rare Urine Mucus (Negative) Trace Ur Culture Indicated? No Urine Glucose (Negative) mg/dL Negative Urine Opiates Screen (Negative) Negative Urine Methadone Screen (Negative) Negative Ur Barbiturates Screen (Negative) Negative Valproic Acid ( - 150) ug/mL Ur Tricyclics Screen (Negative) Negative Ur Amphetamines Screen (Negative) Negative U Benzodiazepines Scrn (Negative) Negative Urine Cocaine Screen (Negative) Negative Ur THC Screen (Negative) Negative Ethyl Alcohol (<10) mg/dL COVID-19 Source SARS-CoV-2 (PCR) (Negative) Patient ABO/Rh Antibody Screen Range/Units 11/03/22 11/03/22 18:40 20:17 WBC (4.4-10.8) 10^3/uL RBC (3.93-5.22) 10^6/uL Hgb (11.2-15.7) g/dL Hct (36.0-46.0) % MCV (80-95) fL MCH (27.0-33.0) pg MCHC (32.0-36.0) % RDW (11.7-14.6) % Plt Count (130-400) 10^3/uL MPV (8.0-11.0) fL Immature Gran % Neutrophils % Lymphocytes % Monocytes % Eosinophils % Basophils % Nucleated RBC % (0.0-0.3) % Absolute Neutrophils (1.2-6.7) 10^3/uL Absolute Lymphocytes (1.2-3.4) 10^3/uL Absolute Monocytes (0.1-0.8) 10^3/uL Absolute Eosinophils (0.0-0.7) 10^3/uL Absolute Basophils (0.0-0.2) 10^3/uL VBG Lactate (0.6-1.4) mmol/L Sodium (136-145) mmol/L Potassium (3.5-5.1) mmol/L Chloride (98-107) mmol/L Carbon Dioxide (21.0-32.0) mmol/L Anion Gap (3-11) mmol/L BUN (7-18) mg/dL Creatinine (0.55-1.02) mg/dL Est GFR (CKD-EPI 2020) (mL/min/1.73m2) Glucose (74-106) mg/dL Calcium (8.5-10.1) mg/dL Total Bilirubin (0.2-1.0) mg/dL AST (15-37) U/L ALT (14-59) U/L Alkaline Phosphatase (46-116) U/L Total Protein (6.4-8.2) g/dL Albumin (3.4-5.0) g/dL TSH (0.36-3.74) uIU/mL Urine Color (Yellow) Urine Clarity (Clear) Urine pH (5-8) Ur Specific [place] (1.005-1.025) Urine Protein (Negative) mg/dL Urine Ketones (Negative) mg/dL Urine Blood (Negative) Urine Nitrite (Negative) Urine Bilirubin (Negative) Urine Urobilinogen (Up to 0.2) mg/dL Ur Leukocyte Esterase (Negative) Urine RBC (0-2) HPF Urine WBC (0-5) HPF Ur Epithelial Cells (Negative) HPF Urine Crystals (Negative) HPF Urine Bacteria (Negative) HPF Urine Mucus (Negative) Ur Culture Indicated? Urine Glucose (Negative) mg/dL Urine Opiates Screen (Negative) Urine Methadone Screen (Negative) Ur Barbiturates Screen (Negative) Valproic Acid ( - 150) ug/mL Ur Tricyclics Screen (Negative) Ur Amphetamines Screen (Negative) U Benzodiazepines Scrn (Negative) Urine Cocaine Screen (Negative) Ur THC Screen (Negative) Ethyl Alcohol (<10) mg/dL COVID-19 Source Nasal/Nares SARS-CoV-2 (PCR) (Negative) Negative Patient ABO/Rh A Positive Antibody Screen NEGATIVE HPI General Mode of arrival: EMS . Date/Time Provider Initiated Documentation: 11/03/22 17:47 . Limitations to Documentation: altered mental status . Information obtained by: patient and EMS . HPI Narrative: 66-year-old female with history of epilepsy, alcoholism noted in the past, here with altered mental status. History review of systems limited secondary to altered mental status. Patient apparently found by bystander at the base of her stairs. EMS were called and found the patient altered. IV was established by EMS and Zofran 4 mg IV was given. EMS note patient has remained alert and minimally responsive. Related Data Home Medications Medication Instructions Recorded Confirmed calcium carbonate 600 mg-vitamin 1 ea PO DAILY 02/25/14 10/22/22 D3 5 mcg (200 unit) tablet thiamine HCl (vitamin B1) 100 mg 100 mg PO DAILY #60 caps 08/20/17 10/22/22 tablet lamotrigine 100 mg tablet 100 mg PO BID #180 tab-caps 02/27/21 10/22/22 (Lamictal) divalproex 500 mg tablet,delayed 500 mg PO BID #30 tabs 06/18/22 10/22/22 release Previous Rx's Medication Instructions Recorded thiamine HCl (vitamin B1) 100 mg 100 mg PO DAILY #60 caps 08/20/17 tablet lamotrigine 100 mg tablet 100 mg PO BID #180 tab-caps 02/27/21 (Lamictal) divalproex 500 mg tablet,delayed 500 mg PO BID #30 tabs 06/18/22 release Allergies Allergy/AdvReac Type Severity Reaction Status Date / Time No Known Allergies Allergy Verified 10/21/22 15:20 General Stated Complaint: AMS/LOC MARISBAEL: 3 Review of Systems Unobtainable due to mental status PFSH All Active Problems Degenerative joint disease of right hip (Acute) Intra-articular injection: 09/12/2022 Right hip pain (Acute) 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 Hx of + HPV with nl Pap. 2014. Colpo ECC ? LGSIL. 2020. Pap/HPV. Nl/Neg. Recommended repeat in 2021. Seizure disorder (Chronic) Diagnosed at age 8, on two antiseizure medications. [place] [facility] [place]. stable but with breakthrough seizure 2020 Osteoporosis (Acute 01/27/14) 2013 T score -2.3 left hip 2018 R hip osteoporosis. Osteopenia spine + wrist. Depressive disorder (Acute 07/30/13) Underweight (Chronic) BMI 17 to 18. Tobacco use disorder (Chronic) From age 14 until present, greater than 50 pack years. Falls frequently (Chronic) Medical History Alcohol abuse (07/30/13) Alcoholism stopped drinking 2017 Atrophic vaginitis (02/07/14) Hip fracture, left (01/27/14) 2013 Osteoporosis Tobacco use several Fx from falls. DEXA -2.3 Surgical History Arthroplasty of knee (06/07/16) LEFT/DR. HORTON History of left hip replacement History of left shoulder replacement Family History Mother , 81 Essential hypertension Hyperlipidemia Father , 61 CAD (coronary artery disease) Brother Essential hypertension Social History Smoking/Tobacco Use Status: Current every day Tobacco Type: cigarettes Quit status: not considering quitting Second Hand Exposure: Yes Smoking risk assessment performed?: Yes Alcohol Intake: former Drug use: Never Caregiver/Support person: No Household members: none and other Details: not in relationship Housing: apartment Number of Children: 0 Communication Needs: None Do you need help understanding health information?: Rarely Pets and animals: No Sexually active: No Do you think of yourself as: straight/heterosexual Current gender identity: female What is your relationship status?: How often do you talk on the phone with friends or family?: once per week Panel score (0-1 are the most socially isolated patients): 0 What type of physical activity do you participate in: walking Duration: > 90 minutes/day Frequency: daily Seatbelt use: always 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 Do you feel safe at home: Yes Do you feel safe in your relationship?: Yes Exam Const General: cooperative and disheveled Nutritional Appearance: cachectic Orientation: awake Limitations: altered mental status [facility] Head: normocephalic and atraumatic Mouth: mucous membranes dry Eyes Conjunctivae: normal conjunctivae Sclera: normal sclerae Neck Neck: trachea midline and supple Resp Auscultation: clear to auscultation bilaterally, no rales, no rhonchi and no wheezes Cardio Rate: regular rate and not tachycardic Rhythm: regular rhythm GI Palpation: soft, not firm, no guarding, no masses, not rigid and nontender Auscultation: normal bowel sounds Skin General skin exam: no rashes or lesions noted Neuro General: patient alert, patient awake and tone normal Cognition: abnormal cognition Speech: other (slurred) Motor: other (Inna) Other: following commands Extrem General: no edema Psych Appearance: grossly normal Course Vital Signs Vital signs: Vital Signs Temperature 37.1 C 11/03/22 17:39 Pulse 90 11/03/22 17:39 Respiratory Rate 20 11/03/22 17:39 Blood Pressure 101/56 L 11/03/22 17:39 Pulse Oximetry 99 11/03/22 17:39 Temperature 37.1 C 11/03/22 17:39 Temperature Source Tympanic 11/03/22 17:39 Pulse 90 11/03/22 17:39 Respiratory Rate 20 11/03/22 18:02 Respiratory Effort Normal 11/03/22 18:02 Respiratory Depth Normal 11/03/22 18:02 Respiratory Pattern Normal 11/03/22 18:02 Blood Pressure 101/56 L 11/03/22 17:39 Blood Pressure Position Supine 11/03/22 17:39 Pulse Oximetry 99 11/03/22 17:39 Oxygen Delivery Method Nasal Cannula 11/03/22 17:39 Oxygen Flow Rate 4 11/03/22 17:39
[2022-11-03] MEDS: Ondansetron 4 MG/2 ML VIAL IVP (18:27)
--- NOTE | 2022-11-03 18:30 | DI.CT_ITS ---
Exam(s) CT CHEST/ABD/PEL W EXAM: CT CHEST/ABD/PEL W CLINICAL HISTORY: ? trauma, altered at bottom of stairs, ?seizure. TECHNIQUE: Imaging Protocol: Axial computed tomography images with coronal and sagittal reformatted images were created and reviewed CONTRAST MATERIAL: Intravenous: Omnipaque 350 Contrast volume:100 ml Oral: / no COMPARISON: CR THORACIC SPINE from 01/02/2018 CR XR HIP RT AP LAT ONLY from 11/04/2022 FINDINGS: Exam is limited by respiratory motion and patient arm placement, creating artifact. CHEST: Tracheobronchial tree: Patent where visualized. Pulmonary parenchyma: Patchy ground-glass opacities greater at the lung bases. 4 millimeter maximal dimension left upper lobe nodule peripherally. Likely granuloma. No consolidation or dominant measu rable mass. Pleura: No effusion or pneumothorax. Lymph nodes: Within normal limits. Aorta: Thoracic portion non-dilated. Heart: Normal size. No pericardial effusion. Bones: Unremarkable for age. Left shoulder prosthesis. No lytic or blastic lesions.No compression f ractures. No visible rib fractures. ABDOMEN: Liver: Normal density. No measurable mass. Gallbladder and biliary tract: No radiodense calculus or dilation. Pancreas: Normal density, no abnormal calcifications or inflammatory process. Spleen: Normal. Kidneys: Normal size, contour and axis. No radiodense stones or obstructive uropathy. Renal cysts. No follow-up recommended. No suspicious masses seen. Adrenal glands: Thickened adrenal glands, consistent with adrenal hypertrophy. Aorta: Abdominal portion non-dilated. Lymph nodes: Within normal limits. Soft tissues: Unremarkable. PELVIS: Bladder: Symmetric distention, no gross wall thickening. Bowel: No obstruction or bowel wall thickening. Peritoneal cavity: No ascites, collection or mesenteric inflammatory response. Bones: Left hip prosthesis. Advanced degenerative changes right hip. Reproductive organs: Within normal limits. IMPRESSION: Bilateral ground-glass opacities consistent with pneumonitis. No posttraumatic abnormalities identif ied. No acute abnormality in the abdomen or pelvis.. RADIATION DOSE DELIVERED: 726.71mGy.cm Total DLP DATA REPOSITORY: All CT scans at this facility are submitted to the National Radiology Data Registry (NRDR) Dose Index Registry (DIR) with the [employer] (ACR). RADIATION OPTIMIZATION: All CT scans at this facility use at least one of these dose optimization te chniques: automated exposure control; mA and/or kV adjustment per patient size (includes targeted exa ms where dose is matched to clinical indication); or iterative reconstruction.
[2022-11-03 18:33] LABS: Bilirubin Negative (Negative); Blood Moderate (Negative); Clarity Clear (Clear); Glucose Negative (Negative); Ketones Negative (Negative); Leukocyte Esterase Negative (Negative); Nitrite Negative (Negative); Specific Gravity >= 1.030 (1.005-1.025); Urobilinogen 0.2 mg/dL (Up to 0.2)
[2022-11-03 18:34] LABS: VALPROIC ACID < 3 ug/mL
[2022-11-03] MEDS: LORazepam 2 MG/ML VIAL 0.5 MG IVP (18:36)
[2022-11-03] MEDS: Normal Saline 500 ML 1000 ML IV (18:37)
[2022-11-03 18:40] LABS: Bacteria Rare HPF (Negative); C & S Indicated? No; Crystals Negative HPF (Negative); Epithelial Cells Rare HPF (Negative); Mucus Trace (Negative); WBC 0-2 HPF (0-5)
[2022-11-03 18:41] LABS: ALT 22 U/L (14-59); AST 30 U/L (15-37); Albumin 3.9 g/dL (3.4-5.0); Alkaline Phosphatase 155 U/L (46-116); Anion Gap 15.5 mmol/L (3-11); BUN 16 mg/dL (7-18); Bilirubin, Total 0.3 mg/dL (0.2-1.0); CO2 22.5 mmol/L (21.0-32.0); CREATININE 1.2 mg/dL (0.55-1.02); Calcium 9.5 mg/dL (8.5-10.1); Chloride 108 mmol/L (98-107); Estimated GFR 50.23 (mL/min/1.73m2); Glucose 113 mg/dL (74-106); Potassium 3.9 mmol/L (3.5-5.1); Sodium 146 mmol/L (136-145); TSH (W/Ref FT4) 2.14 uIU/mL (0.36-3.74); Total Protein 7.9 g/dL (6.4-8.2)
[2022-11-03 18:44] LABS: *AMPHETAMINES SCREEN URINE Negative (Negative); *BARBITURATES SCREEN URINE Negative (Negative); *BENZODIAZEPINES SCREEN URINE Negative (Negative); Cannabinoids THC Negative (Negative); Cocaine Screen,Urine Negative (Negative); METHADONE URINE SCREEN Negative (Negative); OPIATES URINE SCREEN Negative (Negative)
[2022-11-03 18:48] LABS: Tricyclic Antidepressants Negative (Negative)
[2022-11-03 18:49] LABS: Lactate 2.3 mmol/L (0.6-1.4)
[2022-11-03 19:01] LABS: ETHANOL BLOOD < 3.0 mg/dL (<10)
[2022-11-03] MEDS: Normal Saline - Diluent 50 ML VIAL IJ (19:07)
[2022-11-03] MEDS: Omnipaque 350 MG/ML 100 ML BTL IJ (19:07)
--- NOTE | 2022-11-03 19:48 | DI.VRAD_ITS ---
PROCEDURE INFORMATION: Exam: CT Head Without Contrast Exam date and time: 11/03/2022 7:09 PM Age: 66 years old Clinical indication: Altered mental status/memory loss; Patient HX: AMS, found at bottom of stairs, ? trauma, ? seizure TECHNIQUE: Imaging protocol: Computed tomography of the head without contrast. COMPARISON: CT HEAD FACIAL WO 06/18/2022 12:05 PM FINDINGS: Brain: Atrophy and chronic appearing white matter changes. No edema or hemorrhage. Cerebral ventricles: Ex vacuo dilation of the ventricular system. Paranasal sinuses: No acute sinusitis. Mastoid air cells: No mastoid effusion. Bones/joints: No acute fracture. Soft tissues: No suspicious lesions. IMPRESSION: No acute intracranial findings. PROCEDURE INFORMATION: Exam: CT Cervical Spine Without Contrast Exam date and time: 11/03/2022 7:09 PM Age: 66 years old Clinical indication: Altered mental status/memory loss; Patient HX: AMS, found at bottom of stairs, ? trauma, ? seizure TECHNIQUE: Imaging protocol: Computed tomography of the cervical spine without contrast. COMPARISON: CT CERVICAL SPINE WITHOUT CONTRA 01/02/2018 2:17 PM FINDINGS: Bones/joints: The bones appear mildly demineralized for age. No acute fracture or subluxation. Chronic ankylosis at C4-C5 levels. Multilevel degenerative changes with multilevel neural foraminal and central canal stenosis. Lungs: No consolidation. Soft tissues: No suspicious lesions. IMPRESSION: No cervical spine fracture. Dictated and Authenticated by: Victorina Dey MD. Ordering:FABBY Najera MD
--- NOTE | 2022-11-03 20:04 | DI.VRAD_ITS ---
PROCEDURE INFORMATION: Exam: CT Chest With Contrast; Diagnostic Exam date and time: 11/03/2022 7:28 PM Age: 66 years old Clinical indication: Other: ? Trauma, found at bottom of stairs; Patient HX: ? Trauma, altered at bottom of stairs, ? seizure TECHNIQUE: Imaging protocol: Diagnostic computed tomography of the chest with contrast. 3D rendering (Not supervised by radiologist): MIP and/or 3D reconstructed images were created by the technologist. COMPARISON: [place] PORTABLE CHEST ONE VIEW 08/08/2017 4:23 PM FINDINGS: Lungs: Minor multilobar ground-glass opacities most pronounced in the lower lobes. Subcentimeter left upper lobe pulmonary nodule. Follow-up as per institutional protocol. Pleural spaces: No pneumothorax. No pleural effusion. Heart: No cardiomegaly. No pericardial effusion. Lymph nodes: No enlarged lymph nodes. Vasculature: No aortic aneurysm. Bones/joints: Left glenohumeral arthroplasty, intact as visualized. Soft tissues: No suspicious lesions. IMPRESSION: 1. No acute findings. 2. Minor multilobar ground-glass opacities most pronounced in the lower lobes. Consider pneumonitis, a minor atypical infection or other endobronchial process. 3. Additional findings as described. PROCEDURE INFORMATION: Exam: CT Abdomen And Pelvis With Contrast Exam date and time: 11/03/2022 7:28 PM Age: 66 years old Clinical indication: Other: ? Trauma, found at bottom of stairs; Patient HX: ? Trauma, altered at bottom of stairs, ? seizure TECHNIQUE: Imaging protocol: Computed tomography of the abdomen and pelvis with contrast. 3D rendering (Not supervised by radiologist): MIP and/or 3D reconstructed images were created by the technologist. COMPARISON: CR XR HIP RT COMPLETE AP PELVIS 03/04/2022 10:44 AM FINDINGS: Liver: No mass. Gallbladder and bile ducts: No calcified stones. No ductal dilation. Pancreas: No ductal dilation. No masses. Spleen: No splenomegaly or focal lesions. Adrenal glands: Thickened adrenal glands without measurable nodules, likely hypertrophy. Kidneys and ureters: Benign-appearing renal cysts and probable cysts. No renal masses or hydronephrosis bilaterally. Stomach and bowel: No obstruction. No mucosal thickening. Appendix: No evidence of appendicitis. Intraperitoneal space: No free air. No significant fluid collection. Vasculature: Atherosclerosis. No aortic aneurysm. Lymph nodes: No significantly enlarged lymph nodes. Urinary bladder: The urinary bladder is distended. No urinary bladder wall thickening. Reproductive: Unremarkable as visualized. Bones/joints: Left hip hemiarthroplasty, intact as visualized. Benign-appearing probable bone island in the right ischium. No acute fracture or subluxation. Soft tissues: No suspicious lesions. IMPRESSION: 1. No acute findings. 2. Additional findings as described. Dictated and Authenticated by: Victorina Dey MD. Ordering:FABBY Najera MD
[2022-11-03 20:22] LABS: Source Nasal/Nares
[2022-11-03 20:57] LABS: COVID-19 PCR Negative (Negative)
[2022-11-03] MEDS: cefTRIAXone 1 GM/50 ML BAG IVPB (21:37)
[2022-11-03] MEDS: AZITHROMYCIN 500 MG in Normal Saline 250 ML 250 MG IVPB (21:50)
--- NOTE | 2022-11-03 22:21 | NUR.NOTE ---
Nursing Note: Pt awake, a/ox1 (name only), pt yelling help repeatedly. Pt attempting to sit up and climb out of bed. Admission physician at bedside for evaluation.
--- NOTE | 2022-11-03 22:41 | HPE_ITS ---
Date of service: 11/03/22 Time of Service: 22:41 Assessment and Plan Assessment and plan (1) Seizure disorder: Start date: 10/06/22 Status: Chronic Assessment and plan: This is a 66-year-old lady who appears to be noncompliant with her medical therapy with low levels of medications and her bloodstream and a negative urine drug screen with a history of alcohol use though this is not on her problem list but this was obtained by ED physician. She denies recent drinking. She was postictal for an extended period of time in the ED and appeared dehydrated with pneumonia. She did respond to IV hydration and started to awaken and has had no further seizure activity. She was given 1 g of Keppra IV. She is a full code. She will be observed as inpatient with reinitiation of antiseptics and treated for her acute problems. (2) Pneumonia: Start date: 11/03/22 Status: Acute Assessment and plan: Seen on CT of the chest bibasilar groundglass appearing infiltrates with patient on IV Rocephin and Zithromax for community-acquired pneumonia. She is hypoxic but has no fever. She does have an elevated WBC but was not severely the hypotensive or tachycardic. She did not appear septic. She will be converted to oral therapy for treatment of this problem prior to discharge. (3) Acute hypernatremia: Start date: 11/03/22 Status: Acute Assessment and plan: Mild hyponatremia with patient appears dehydrated with slightly elevated creatinine from baseline. IV fluid resuscitation with D5 half-normal now after receiving normal saline boluses in the ED. Follow-up lab. Adjust IV fluid to lab and encourage oral hydration. (4) Tobacco use disorder: Status: Chronic Assessment and plan: Nicotine supplement to be offered to patient. Nebulizers as needed. Follow-up imaging as indicated. History of Present Illness History of Present Illness Chief Complaint: Patient found at home by a neighbor with altered mental status Narrative: This is a 66-year-old female patient who lives alone but has family who lives locally and have not been seeing her recently with patient brought to the ED after being found by neighbor at the bottom of her stairs near her apartment with no apparent injury but having altered mental status and confused. She does have history of seizure disorder and was not having active seizures at the time she was found but was apparently postictal and remained so in the ED through most of her evaluation. When I saw the patient she awakened and asked where she was and seemed slightly confused but appeared to be coming around. She does smoke tobacco and states that she does take her meds but does not remember taking her meds or eating a meal on the day of admission. She does complain of pain but has not focalizing and there were no apparent injuries by physical exam performed by the ED physician and nurse in the ED. Imaging was negative for any acute fractures though she does have a left shoulder and left knee replacement with well-healed scars. She is very thin and appears malnourished and at the time of exam and appeared dry with some lab indicating some dehydration with e levated sodium and creatinine from her baseline. The patient was awake and wanting to eat and drink and will be given her meals. Her levels for measurable serum levels of her seizure medications appeared to be low. There is a question of compliance. There is also question of whether the patient drinks alcohol routinely though her liver functions were not elevated and she did have a negative alcohol screen and as well as denies alcohol recently. She will be observed for withdrawal because of this history. She is a full code with no other indication of CODE STATUS with no documentation of COLST on her chart. Review of Systems Narrative: 13 point review of systems otherwise unrevealing or unobtainable with patient slightly confused and just coming out of postictal state. 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 Hx of + HPV with nl Pap. 2015. [facility] ECC ? LGSIL. 2020. Pap/HPV. Nl/Neg. Recommended repeat in 2021. Seizure disorder (Chronic) Diagnosed at age 8, on two antiseizure medications. [place] [facility] [place]. stable but with breakthrough seizure 2020 Osteoporosis (Acute 01/27/14) 2013 T score -2.3 left hip 2019 R hip osteoporosis. Osteopenia spine + wrist. Depressive disorder (Acute 07/30/13) Underweight (Chronic) BMI 17 to 18. Tobacco use disorder (Chronic) From age 14 until present, greater than 50 pack years. Falls frequently (Chronic) Medical History Alcohol abuse (07/30/13) Alcoholism stopped drinking 2017 Atrophic vaginitis (02/07/14) Hip fracture, left (01/27/14) 2012 Osteoporosis Tobacco use several Fx from falls. DEXA -2.3 Surgical History Arthroplasty of knee (06/07/16) LEFT/DR. HORTON History of left hip replacement History of left shoulder replacement Family History Mother , 81 Essential hypertension Hyperlipidemia Father , 61 CAD (coronary artery disease) Brother Essential hypertension Social History Smoking/Tobacco Use Status: Current every day Tobacco Type: cigarettes Quit status: not considering quitting Second Hand Exposure: Yes Smoking risk assessment performed?: Yes Alcohol Intake: former Drug use: Never Caregiver/Support person: No Household members: none and other Details: not in relationship Housing: apartment Number of Children: 0 Communication Needs: None Do you need help understanding health information?: Rarely Pets and animals: No Sexually active: No Do you think of yourself as: straight/heterosexual Current gender identity: female What is your relationship status?: How often do you talk on the phone with friends or family?: once per week Panel score (0-1 are the most socially isolated patients): 0 What type of physical activity do you participate in: walking Duration: > 90 minutes/day Frequency: daily Seatbelt use: always 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 Do you feel safe at home: Yes Do you feel safe in your relationship?: Yes Meds Allergies and Home Medications Allergies Allergy/AdvReac Type Severity Reaction Status Date / Time No Known Allergies Allergy Verified 10/21/22 15:20 Home Medications Medication Instructions Recorded Confirmed Type calcium carbonate 600 mg-vitamin 1 ea PO DAILY 02/25/14 10/22/22 History D3 5 mcg (200 unit) tablet thiamine HCl (vitamin B1) 100 mg 100 mg PO DAILY #60 caps 08/20/17 10/22/22 Rx tablet lamotrigine 100 mg tablet 100 mg PO BID #180 tab-caps 02/27/21 10/22/22 Rx (Lamictal) divalproex 500 mg tablet,delayed 500 mg PO BID #30 tabs 06/18/22 10/22/22 Rx release Exam Narrative Exam Narrative: General: Patient appears older than stated age, cachectic appearing, alert and oriented at least to person and place but not to time or purpose. She is in no acute distress. She does intermittently state that she is in pain but is not able to focalize where she hurts. HEENT: Normocephalic, eyes with pupils equal and react to light symmetrically, extraocular movement tact and sclera anicteric. Oropharynx with dry mucosa and patient appears edentulous. Neck: Supple without JVD. Back: Kyphotic without CVA tenderness but patient not cooperating with full exam. Lungs: Fair aeration with decreased aeration at both bases but no focalizing rales or rhonchi. No expiratory wheeze. No increased expiratory phase. Breast: Exam deferred. Heart: Regular rate and rhythm with distant heart sounds. No murmurs or gallops appreciated. No rubs. Abdomen: Scaphoid contour with no palpable hepatosplenomegaly. Bowel sounds positive all quadrants. No focalizing tenderness or guarding. Genitalia/rectal: Exam deferred. Extremities: Well-healed scar over left shoulder and left knee from previous arthroplasties. Patient has bony enlargement as with osteoarthritis but no joint swelling and no redness or increased warmth to touch of the joints. Fair range of motion. Muscle wasting diffusely. Good capillary refill. No clubbing or cyanosis. No peripheral edema. Skin: Pale, warm and dry with decreased turgor. Neuro: Cranial nerves II through XII gross intact, no focalizing motor deficits. No tremor. No seizure activity and tone appears normal. Psych: Flattened affect with depressed mood. No abnormal thought processes. Remote and recent memory not testable with patient only intermittently able to focus being postictal and just starting to awaken. Results Imaging Imaging Studies: Exam: CT Chest With Contrast; Diagnostic Exam date and time: 11/03/2022 7:28 PM Age: 66 years old Clinical indication: Other: ? Trauma, found at bottom of stairs; Patient HX: ? Trauma, altered at bottom of stairs, ? seizure TECHNIQUE: Imaging protocol: Diagnostic computed tomography of the chest with contrast. 3D rendering (Not supervised by radiologist): MIP and/or 3D reconstructed images were created by the technologist. COMPARISON: DE PORTABLE CHEST ONE VIEW 08/08/2017 4:23 PM FINDINGS: Lungs: Minor multilobar ground-glass opacities most pronounced in the lower lobes. Subcentimeter left upper lobe pulmonary nodule. Follow-up as per institutional protocol. Pleural spaces: No pneumothorax. No pleural effusion. Heart: No cardiomegaly. No pericardial effusion. Lymph nodes: No enlarged lymph nodes. Vasculature: No aortic aneurysm.? Bones/joints: Left glenohumeral arthroplasty, intact as visualized. Soft tissues: No suspicious lesions.? IMPRESSION: 1. ? No acute findings. 2. ? Minor multilobar ground-glass opacities most pronounced in the lower lobes.? Consider pneumonitis, a minor atypical infection or other endobronchial process. 3. ? Additional findings as described. Exam: CT Abdomen And Pelvis With Contrast Exam date and time: 11/03/2022 7:28 PM Age: 66 years old Clinical indication: Other: ? Trauma, found at bottom of stairs; Patient HX: ? Trauma, altered at bottom of stairs, ? seizure TECHNIQUE: Imaging protocol: Computed tomography of the abdomen and pelvis with contrast. 3D rendering (Not supervised by radiologist): MIP and/or 3D reconstructed images were created by the technologist. COMPARISON: CR XR HIP RT COMPLETE AP PELVIS 03/04/2022 10:44 AM FINDINGS: Liver: No mass. Gallbladder and bile ducts: No calcified stones. No ductal dilation. Pancreas: No ductal dilation. No masses.? Spleen: No splenomegaly or focal lesions. Adrenal glands: Thickened adrenal glands without measurable nodules, likely hypertrophy. Kidneys and ureters: Benign-appearing renal cysts and probable cysts. No renal masses or hydronephrosis bilaterally. Stomach and bowel: No obstruction. No mucosal thickening. Appendix: No evidence of appendicitis. Intraperitoneal space: No free air. No significant fluid collection. Vasculature: Atherosclerosis. No aortic aneurysm. Lymph nodes: No significantly enlarged lymph nodes. Urinary bladder: The urinary bladder is distended. No urinary bladder wall thickening. Reproductive: Unremarkable as visualized. Bones/joints: Left hip hemiarthroplasty, intact as visualized. Benign-appearing probable bone island in the right ischium. No acute fracture or subluxation. Soft tissues: No suspicious lesions.? IMPRESSION: 1. ? No acute findings. 2. ? Additional findings as described. Dictated and Authenticated by: Victorina Dey MD. Exam: CT Head Without Contrast Exam date and time: 11/03/2022 7:09 PM Age: 66 years old Clinical indication: Altered mental status/memory loss; Patient HX: AMS, found at bottom of stairs, ? trauma, ? seizure TECHNIQUE: Imaging protocol: Computed tomography of the head without contrast. COMPARISON: CT HEAD FACIAL WO 06/18/2022 12:05 PM FINDINGS: Brain: Atrophy and chronic appearing white matter changes. No edema or hemorrhage. Cerebral ventricles: Ex vacuo dilation of the ventricular system. Paranasal sinuses: No acute sinusitis. Mastoid air cells: No mastoid effusion. Bones/joints: No acute fracture. Soft tissues: No suspicious lesions.? IMPRESSION: No acute intracranial findings. Exam: CT Cervical Spine Without Contrast Exam date and time: 11/03/2022 7:09 PM Age: 66 years old Clinical indication: Altered mental status/memory loss; Patient HX: AMS, found at bottom of stairs, ? trauma, ? seizure TECHNIQUE: Imaging protocol: Computed tomography of the cervical spine without contrast. COMPARISON: CT CERVICAL SPINE WITHOUT CONTRA 01/02/2018 2:17 PM FINDINGS: Bones/joints: The bones appear mildly demineralized for age. No acute fracture or subluxation. Chronic ankylosis at C4-C5 levels. Multilevel degenerative changes with multilevel neural foraminal and central canal stenosis. Lungs: No consolidation.? Soft tissues: No suspicious lesions.? IMPRESSION: No cervical spine fracture. Dictated and Authenticated by: Victorina Dey MD. Labs 11/03/22 17:40 11/03/22 17:40 Labs: Laboratory Results - last 24 hr 11/03/22 11/03/22 11/03/22 17:40 17:40 17:40 WBC 21.81 H RBC 5.13 Hgb 15.9 H Hct 47.6 H MCV 93 MCH 31.0 MCHC 33.4 RDW 14.3 Plt Count 231 MPV 12.1 H Immature Gran % 0.6 Neutrophils % 88.7 Lymphocytes % 4.6 Monocytes % 4.1 Eosinophils % 1.4 Basophils % 0.6 Nucleated RBC % 0.0 Absolute Neutrophils 19.35 H Absolute Lymphocytes 1.00 L Absolute Monocytes 0.89 H Absolute Eosinophils 0.31 Absolute Basophils 0.13 VBG Lactate Sodium 146 H Potassium 3.9 Chloride 108 H Carbon Dioxide 22.5 Anion Gap 15.5 H BUN 16 Creatinine 1.2 H Est GFR (CKD-EPI 2020) 50.23 Glucose 113 H Calcium 9.5 Total Bilirubin 0.3 AST 30 ALT 22 Alkaline Phosphatase 155 H Total Protein 7.9 Albumin 3.9 TSH 2.14 Urine Color Urine Clarity Urine pH Ur Specific Crosby Urine Protein Urine Ketones Urine Blood Urine Nitrite Urine Bilirubin Urine Urobilinogen Ur Leukocyte Esterase Urine RBC Urine WBC Ur Epithelial Cells Urine Crystals Urine Bacteria Urine Mucus Ur Culture Indicated? Urine Glucose Urine Opiates Screen Urine Methadone Screen Ur Barbiturates Screen Valproic Acid < 3 Ur Tricyclics Screen Ur Amphetamines Screen U Benzodiazepines Scrn Urine Cocaine Screen Ur THC Screen Ethyl Alcohol < 3.0 COVID-19 Source SARS-CoV-2 (PCR) Patient ABO/Rh Antibody Screen 11/03/22 11/03/22 11/03/22 18:25 18:25 18:40 WBC RBC Hgb Hct MCV MCH MCHC RDW Plt Count MPV Immature Gran % Neutrophils % Lymphocytes % Monocytes % Eosinophils % Basophils % Nucleated RBC % Absolute Neutrophils Absolute Lymphocytes Absolute Monocytes Absolute Eosinophils Absolute Basophils VBG Lactate 2.3 H* Sodium Potassium Chloride Carbon Dioxide Anion Gap BUN Creatinine Est GFR (CKD-EPI 2020) Glucose Calcium Total Bilirubin AST ALT Alkaline Phosphatase Total Protein Albumin TSH Urine Color Yellow Urine Clarity Clear Urine pH 6.0 Ur Specific Crosby >= 1.030 H Urine Protein 100 H Urine Ketones Negative Urine Blood Moderate H Urine Nitrite Negative Urine Bilirubin Negative Urine Urobilinogen 0.2 Ur Leukocyte Esterase Negative Urine RBC 5-10 H Urine WBC 0-2 Ur Epithelial Cells Rare Urine Crystals Negative Urine Bacteria Rare Urine Mucus Trace Ur Culture Indicated? No Urine Glucose Negative Urine Opiates Screen Negative Urine Methadone Screen Negative Ur Barbiturates Screen Negative Valproic Acid Ur Tricyclics Screen Negative Ur Amphetamines Screen Negative U Benzodiazepines Scrn Negative Urine Cocaine Screen Negative Ur THC Screen Negative Ethyl Alcohol COVID-19 Source SARS-CoV-2 (PCR) Patient ABO/Rh Antibody Screen 11/03/22 11/03/22 18:40 20:17 WBC RBC Hgb Hct MCV MCH MCHC RDW Plt Count MPV Immature Gran % Neutrophils % Lymphocytes % Monocytes % Eosinophils % Basophils % Nucleated RBC % Absolute Neutrophils Absolute Lymphocytes Absolute Monocytes Absolute Eosinophils Absolute Basophils VBG Lactate Sodium Potassium Chloride Carbon Dioxide Anion Gap BUN Creatinine Est GFR (CKD-EPI 2020) Glucose Calcium Total Bilirubin AST ALT Alkaline Phosphatase Total Protein Albumin TSH Urine Color Urine Clarity Urine pH Ur Specific Crosby Urine Protein Urine Ketones Urine Blood Urine Nitrite Urine Bilirubin Urine Urobilinogen Ur Leukocyte Esterase Urine RBC Urine WBC Ur Epithelial Cells Urine Crystals Urine Bacteria Urine Mucus Ur Culture Indicated? Urine Glucose Urine Opiates Screen Urine Methadone Screen Ur Barbiturates Screen Valproic Acid Ur Tricyclics Screen Ur Amphetamines Screen U Benzodiazepines Scrn Urine Cocaine Screen Ur THC Screen Ethyl Alcohol COVID-19 Source Nasal/Nares SARS-CoV-2 (PCR) Negative Patient ABO/Rh A Positive Antibody Screen NEGATIVE Last Vital Signs Temp 37.1 C 11/03/22 17:39 Pulse 90 11/03/22 19:00 Resp 12 11/03/22 19:03 BP 98/56 L 11/03/22 19:00 Pulse Ox 95 11/03/22 19:10 Time Spent Time spent with Patient: >75 minutes Time was spent: preparing to see the patient(eg.review tests), obtaining and/or reviewing separately otained hiistory, ordering medications,tests, procedures, referring, communicating with other health interior plant caretaker, indepentently interpreting results and care coordination
[2022-11-04] VITALS (87 sets, daily range): BP systolic 83–113; BP diastolic 45–88; PULSE 64–98; RESP 9–32; TEMP 37.2–37.3; O2SAT 87–99
--- NOTE | 2022-11-04 | DI.RAD_ITS ---
Exam(s) XR HIP RT AP LAT ONLY EXAM: XR HIP RT AP LAT ONLY CLINICAL HISTORY: hip pain and gait disturbance.. TECHNIQUE: 2D digital imaging was performed. Two views COMPARISON: CR XR DEXA BONE DENSITY W/WO NAFISA from 06/07/2021 CR XR HIP RT COMPLETE AP PELVIS from 03/04/2022 FINDINGS: BONES: No acute fracture is present. No bony destructive lesion is seen. JOINTS: No dislocation present. Severe degenerative changes of the hip with joint space narrowing an d prominent periarticular spurring. SOFT TISSUE: Contrast in urinary bladder related to CT scan from the previous day. IMPRESSION: Advanced degenerative changes of the right hip.. DATA REPOSITORY: RADIATION DOSE DELIVERED:
[2022-11-04 00:36] LABS: PHOSPHORUS 3.9 mg/dL (2.6-4.7)
[2022-11-04 01:13] LABS: Anion Gap 10.6 mmol/L (3-11); BUN 12 mg/dL (7-18); CO2 23.4 mmol/L (21.0-32.0); Calcium 8.3 mg/dL (8.5-10.1); Chloride 109 mmol/L (98-107); Estimated GFR 62.52 (mL/min/1.73m2); Glucose 99 mg/dL (74-106); Potassium 3.8 mmol/L (3.5-5.1); Sodium 143 mmol/L (136-145)
[2022-11-04] MEDS: Acetaminophen 325 MG TAB PO (01:14)
[2022-11-04] MEDS: LORazepam 1 MG TAB PO/SL ×2 (01:15→13:23)
[2022-11-04] MEDS: DEXTROSE 5%-0.45% SALINE 1,000 ML 125 ML IV ×3 (01:19→17:24)
[2022-11-04 06:50] LABS: HCT 38.4 % (36.0-46.0); MCHC 33.9 % (32.0-36.0); MCV 92 fL (80-95); MPV 11.5 fL (8.0-11.0); Platelet Count 204 10^3/uL (130-400); RBC 4.19 10^6/uL (3.93-5.22); RDW 14.4 % (11.7-14.6); RDW-SD 48.6 fL; WBC 12.91 10^3/uL (4.4-10.8)
[2022-11-04 06:58] LABS: Prothrombin Time 10.3 sec (9.3-11.0)
[2022-11-04 07:21] LABS: ALT 26 U/L (14-59); AST 69 U/L (15-37); Albumin 2.9 g/dL (3.4-5.0); Alkaline Phosphatase 105 U/L (46-116); Anion Gap 8.2 mmol/L (3-11); BUN 11 mg/dL (7-18); Bilirubin, Total 0.4 mg/dL (0.2-1.0); CO2 23.8 mmol/L (21.0-32.0); CREATININE 0.8 mg/dL (0.55-1.02); Calcium 8.1 mg/dL (8.5-10.1); Chloride 109 mmol/L (98-107); Estimated GFR 81.72 (mL/min/1.73m2); Glucose 109 mg/dL (74-106); Magnesium 1.9 mg/dL (1.8-2.4); Potassium 3.3 mmol/L (3.5-5.1); Sodium 141 mmol/L (136-145); Total Protein 5.9 g/dL (6.4-8.2)
[2022-11-04] MEDS: Enoxaparin 40 MG/0.4 ML SYR SC (10:13)
[2022-11-04] MEDS: Divalproex 500 MG TABEC PO (12:03)
[2022-11-04] MEDS: lamoTRIgine 100 MG TAB PO (12:05)
[2022-11-04] MEDS: Thiamine 100 MG TAB PO (12:06)
[2022-11-04] MEDS: Multivitamin TAB 1 TAB PO (12:06)
[2022-11-04] MEDS: Folic Acid 1 MG TAB PO (12:08)
--- NOTE | 2022-11-04 15:17 | PGE_ITS ---
Date of Service Date of service: 11/04/22 Time of Service: 15:17 Assessment and Plan Assessment and plan (1) Seizure disorder: Start date: 10/06/22 Status: Chronic Assessment and plan: This is a 66-year-old lady who appears to be noncompliant with her medical therapy. Negative urine drug screen including alcohol. She has a history of alcohol use though this is not on her problem list but this was obtained by ED physician. She endorses drinking beer but doesn't quantify how much or how often. She was thought to be possibly post-ictal in the ED. She is still fatigued appearing and scoring up to 12 on CIWA protocol. Questionably in alcohol withdrawal. She was given keppra in the ED. She will now be continued on Depakote and Lamictal without addition of keppra. No EEG available today, or Fri. No seizure activity noted since admission. (2) Pneumonia: Start date: 11/03/22 Status: Acute Assessment and plan: Seen on CT of the chest bibasilar groundglass appearing infiltrates. Cont IV Rocephin and Zithromax for community-acquired pneumonia. She is no longer hypoxic. Afebrile. WBC count improved from 21 to 12. (3) Acute hypernatremia: Start date: 11/03/22 Status: Acute Assessment and plan: IV fluid resuscitation with D5 half-normal initiated after receiving normal saline boluses in the ED. Now corrected. (4) Tobacco use disorder: Status: Chronic Assessment and plan: Nicotine supplement to be offered to patient. Nebulizers as needed. (5) Right hip pain: Status: Acute Assessment and plan: H/O left hip hemiarthroplasty. Now has right hip pain. CT abd/pelvis in ED did not show any fx but did not image distally enough to see enough of the femur. Plain films or right hip ordered. Toradol 15mg IV x 1. Acetaminophen prn. (6) Alcoholism: Assessment and plan: Pt is currently a very poor historian. Her chart states she stopped drinking in 2018. Today, she states she drinks beer. Doesn't quantify or say how often Cont CIWA protocol. Lowered the Ativan doses given for moderate scores. Cont thiamine and folate. (7) Hypokalemia: Status: Acute Assessment and plan: Replete and monitor. Subjective Subjective Patient reports: afebrile; denies diarrhea, vomiting or shortness of breath Interval history since last seen: Pt is fatigued appearing. Looks at me when I speak but doesn't answer questions this AM. Later in the day she was more alert and would answer simple questions with delayed response. When walking to the commode she favored the right LE, limped and c/o hip pain. Exam Narrative Exam Narrative: General: Patient appears older than stated age, cachectic appearing. Groans intermittently this AM but would not indicate if she was in pain. Late in day, stated right pain hurt. HEENT: Normocephalic, eyes with pupils equal. Sclera clear. Lungs: Doesn't take deep breaths on demand. Clear. Nonlaboed. Heart: Regular rate and rhythm with distant heart sounds. No murmurs Abdomen: NT, ND. +BS Extremities: Well-healed scar over left shoulder and left knee from previous arthroplasties. Patient has bony enlargement as with osteoarthritis but no joint swelling and no redness or increased warmth to touch of the joints. Fair range of motion. Muscle wasting diffusely. Good capillary refill. No clubbing or cyanosis. No peripheral edema. Skin: Pale, warm and dry with decreased turgor. No rashes. Neuro: Cranial nerves II through XII gross intact, no focalizing motor deficits. No tremor. No seizure activity and tone appears normal. Psych: Flattened affect Objective Last Vital Signs Temp 37.3 C 11/04/22 08:15 Pulse 84 11/04/22 11:31 Resp 23 11/04/22 11:32 BP 85/64 L 11/04/22 11:31 Pulse Ox 99 11/04/22 11:29 Laboratory Results - last 24 hr 11/03/22 11/03/22 11/03/22 17:40 17:40 17:40 WBC 21.81 H RBC 5.13 Hgb 15.9 H Hct 47.6 H MCV 93 MCH 31.0 MCHC 33.4 RDW 14.3 Plt Count 231 MPV 12.1 H Immature Gran % 0.6 Neutrophils % 88.7 Lymphocytes % 4.6 Monocytes % 4.1 Eosinophils % 1.4 Basophils % 0.6 Nucleated RBC % 0.0 Absolute Neutrophils 19.35 H Absolute Lymphocytes 1.00 L Absolute Monocytes 0.89 H Absolute Eosinophils 0.31 Absolute Basophils 0.13 PT INR VBG Lactate Sodium 146 H Potassium 3.9 Chloride 108 H Carbon Dioxide 22.5 Anion Gap 15.5 H BUN 16 Creatinine 1.2 H Est GFR (CKD-EPI 2020) 50.23 Glucose 113 H Calcium 9.5 Phosphorus Magnesium Total Bilirubin 0.3 AST 30 ALT 22 Alkaline Phosphatase 155 H Troponin I Total Protein 7.9 Albumin 3.9 TSH 2.14 Urine Color Urine Clarity Urine pH Ur Specific [place] Urine Protein Urine Ketones Urine Blood Urine Nitrite Urine Bilirubin Urine Urobilinogen Ur Leukocyte Esterase Urine RBC Urine WBC Ur Epithelial Cells Urine Crystals Urine Bacteria Urine Mucus Ur Culture Indicated? Urine Glucose Urine Opiates Screen Urine Methadone Screen Ur Barbiturates Screen Valproic Acid < 3 Ur Tricyclics Screen Ur Amphetamines Screen U Benzodiazepines Scrn Urine Cocaine Screen Ur THC Screen Ethyl Alcohol < 3.0 COVID-19 Source SARS-CoV-2 (PCR) Patient ABO/Rh Antibody Screen 11/03/22 11/03/22 11/03/22 18:25 18:25 18:40 WBC RBC Hgb Hct MCV MCH MCHC RDW Plt Count MPV Immature Gran % Neutrophils % Lymphocytes % Monocytes % Eosinophils % Basophils % Nucleated RBC % Absolute Neutrophils Absolute Lymphocytes Absolute Monocytes Absolute Eosinophils Absolute Basophils PT INR VBG Lactate 2.3 H* Sodium Potassium Chloride Carbon Dioxide Anion Gap BUN Creatinine Est GFR (CKD-EPI 2020) Glucose Calcium Phosphorus Magnesium Total Bilirubin AST ALT Alkaline Phosphatase Troponin I Total Protein Albumin TSH Urine Color Yellow Urine Clarity Clear Urine pH 6.0 Ur Specific [place] >= 1.030 H Urine Protein 100 H Urine Ketones Negative Urine Blood Moderate H Urine Nitrite Negative Urine Bilirubin Negative Urine Urobilinogen 0.2 Ur Leukocyte Esterase Negative Urine RBC 5-10 H Urine WBC 0-2 Ur Epithelial Cells Rare Urine Crystals Negative Urine Bacteria Rare Urine Mucus Trace Ur Culture Indicated? No Urine Glucose Negative Urine Opiates Screen Negative Urine Methadone Screen Negative Ur Barbiturates Screen Negative Valproic Acid Ur Tricyclics Screen Negative Ur Amphetamines Screen Negative U Benzodiazepines Scrn Negative Urine Cocaine Screen Negative Ur THC Screen Negative Ethyl Alcohol COVID-19 Source SARS-CoV-2 (PCR) Patient ABO/Rh Antibody Screen 11/03/22 11/03/22 11/04/22 18:40 20:17 00:16 WBC RBC Hgb Hct MCV MCH MCHC RDW Plt Count MPV Immature Gran % Neutrophils % Lymphocytes % Monocytes % Eosinophils % Basophils % Nucleated RBC % Absolute Neutrophils Absolute Lymphocytes Absolute Monocytes Absolute Eosinophils Absolute Basophils PT INR VBG Lactate Sodium 143 Potassium 3.8 Chloride 109 H Carbon Dioxide 23.4 Anion Gap 10.6 BUN 12 Creatinine 1.0 Est GFR (CKD-EPI 2020) 62.52 Glucose 99 Calcium 8.3 L Phosphorus Magnesium Total Bilirubin AST ALT Alkaline Phosphatase Troponin I Total Protein Albumin TSH Urine Color Urine Clarity Urine pH Ur Specific [place] Urine Protein Urine Ketones Urine Blood Urine Nitrite Urine Bilirubin Urine Urobilinogen Ur Leukocyte Esterase Urine RBC Urine WBC Ur Epithelial Cells Urine Crystals Urine Bacteria Urine Mucus Ur Culture Indicated? Urine Glucose Urine Opiates Screen Urine Methadone Screen Ur Barbiturates Screen Valproic Acid Ur Tricyclics Screen Ur Amphetamines Screen U Benzodiazepines Scrn Urine Cocaine Screen Ur THC Screen Ethyl Alcohol COVID-19 Source Nasal/Nares SARS-CoV-2 (PCR) Negative Patient ABO/Rh A Positive Antibody Screen NEGATIVE 11/04/22 11/04/22 11/04/22 00:16 06:35 06:35 WBC 12.91 H RBC 4.19 Hgb 13.0 D Hct 38.4 MCV 92 MCH 31.0 MCHC 33.9 RDW 14.4 Plt Count 204 MPV 11.5 H Immature Gran % Neutrophils % Lymphocytes % Monocytes % Eosinophils % Basophils % Nucleated RBC % Absolute Neutrophils Absolute Lymphocytes Absolute Monocytes Absolute Eosinophils Absolute Basophils PT INR VBG Lactate Sodium 141 Potassium 3.3 L Chloride 109 H Carbon Dioxide 23.8 Anion Gap 8.2 BUN 11 Creatinine 0.8 Est GFR (CKD-EPI 2020) 81.72 Glucose 109 H Calcium 8.1 L Phosphorus 3.9 Magnesium 1.9 Total Bilirubin 0.4 AST 69 H ALT 26 Alkaline Phosphatase 105 Troponin I Total Protein 5.9 L Albumin 2.9 L TSH Urine Color Urine Clarity Urine pH Ur Specific [place] Urine Protein Urine Ketones Urine Blood Urine Nitrite Urine Bilirubin Urine Urobilinogen Ur Leukocyte Esterase Urine RBC Urine WBC Ur Epithelial Cells Urine Crystals Urine Bacteria Urine Mucus Ur Culture Indicated? Urine Glucose Urine Opiates Screen Urine Methadone Screen Ur Barbiturates Screen Valproic Acid Ur Tricyclics Screen Ur Amphetamines Screen U Benzodiazepines Scrn Urine Cocaine Screen Ur THC Screen Ethyl Alcohol COVID-19 Source SARS-CoV-2 (PCR) Patient ABO/Rh Antibody Screen 11/04/22 11/04/22 06:35 14:17 WBC RBC Hgb Hct MCV MCH MCHC RDW Plt Count MPV Immature Gran % Neutrophils % Lymphocytes % Monocytes % Eosinophils % Basophils % Nucleated RBC % Absolute Neutrophils Absolute Lymphocytes Absolute Monocytes Absolute Eosinophils Absolute Basophils PT 10.3 INR 1.0 VBG Lactate Sodium Potassium Chloride Carbon Dioxide Anion Gap BUN Creatinine Est GFR (CKD-EPI 2020) Glucose Calcium Phosphorus Magnesium Total Bilirubin AST ALT Alkaline Phosphatase Troponin I Cancelled Total Protein Albumin TSH Urine Color Urine Clarity Urine pH Ur Specific [place] Urine Protein Urine Ketones Urine Blood Urine Nitrite Urine Bilirubin Urine Urobilinogen Ur Leukocyte Esterase Urine RBC Urine WBC Ur Epithelial Cells Urine Crystals Urine Bacteria Urine Mucus Ur Culture Indicated? Urine Glucose Urine Opiates Screen Urine Methadone Screen Ur Barbiturates Screen Valproic Acid Ur Tricyclics Screen Ur Amphetamines Screen U Benzodiazepines Scrn Urine Cocaine Screen Ur THC Screen Ethyl Alcohol COVID-19 Source SARS-CoV-2 (PCR) Patient ABO/Rh Antibody Screen Time Spent with Patient Time Spent with Patient: 35-49 minutes Time was spent: preparing to see the patient(eg.review tests), obtaining and/or reviewing separately otained hiistory, ordering medications,tests, procedures, referring, communicating with other health career representative and indepentently interpreting results
[2022-11-04] MEDS: Ketorolac 15 MG/ML VIAL IVP (15:47)
[2022-11-04] MEDS: Normal Saline 500 ML IV (15:48)
[2022-11-04] MEDS: Normal Saline Flush 10 ML SYR IVP (15:48)
--- NOTE | 2022-11-04 16:40 | PHA.REVIEW2 ---
Pharmacy Admission Review - Admission Clinical Review (Last Reviewed 11/04/22 @ 00:17 by Jeanmarie Lacey) Hypokalemia (Acute) Acute hypernatremia (Acute) Pneumonia (Acute 08/21/13) Right hip pain (Acute) No Known Allergies Allergy (Verified 10/21/22 15:20) Resuscitation Status Full Code Height 5 ft Weight 37 kg - Renal Dosing Renal Dosing: BUN 11 mg/dL (7-18) 11/04/22 06:35 Creatinine 0.8 mg/dL (0.55-1.02) 11/04/22 06:35 Medications needing adjustments: Reviewed (Crcl ~32.3 mL/min current meds okay) - Anticoagulation Anticoagulation: Hgb 13.0 g/dL (11.2-15.7) D 11/04/22 06:35 Hct 38.4 % (36.0-46.0) 11/04/22 06:35 Plt Count 204 10^3/uL (130-400) 11/04/22 06:35 INR 1.0 (0.9-1.1) 11/04/22 06:35 Creatinine 0.8 mg/dL (0.55-1.02) 11/04/22 06:35 DVT Prophylaxis: Reviewed Medications: Enoxaparin Therapeutic Anticoagulation: N/A - Opiate Usage Evaluate Pain Scale/Pains Meds: N/A - Relevant Labs Sodium 141 mmol/L (136-145) 11/04/22 06:35 Potassium 3.3 mmol/L (3.5-5.1) L 11/04/22 06:35 Chloride 109 mmol/L (98-107) H 11/04/22 06:35 Phosphorus 3.9 mg/dL (2.6-4.7) 11/04/22 00:16 Magnesium 1.9 mg/dL (1.8-2.4) 11/04/22 06:35 Electrolytes, C-Reactive P, ESR: Reviewed (K+ 3.3 no replacement ordered yet but provider is aware) - DM Control DM Control: Glucose 109 mg/dL (74-106) H 11/04/22 06:35 DM Control: N/A (No DM noted in pt's medical history, no A1c on file.) - Cardiac Review Cardiac Review: Troponin I Cancelled 11/04/22 14:17 BP, HR, EF%: Reviewed (BP has been a bit low most of admission so far) - Qtc Review QTc: Reviewed (QTc 434) - IV to PO Switch IV Medications: Reviewed - Home Meds Home Med List reviewed: Reviewed (home meds have not been verified. Two are OTC the other two are from prescriptions entered by a [facility] provider and filled within the past 4 months, but concern for non-compliance noted in ED note.) Relevent Home Meds Not ordered & why?: all meds listed on home med list are currently ordered - Current meds Current Medication Order Review: Reviewed - Comments Comments/Follow Ups: Watch BP, K+, labs, culture results and for med changes (possible renal dose adjustments) Antibiotic Review - Pharmacy Antibiotic Review Pharmacy Antibiotic Activity: C/S review (BC pending), Reviewed, no change (Ceftriaxone and azithromycin ordered for pneumonia.)
--- NOTE | 2022-11-04 16:53 | PDOC.CMIN ---
- If Service Date Differs Date of service: 11/04/22 Time of Service: 16:53 Care Management Initial Assess REASON FOR HOSPITALIZATION:: Seizure disorder uncontrolled, pneumonia PAST MEDICAL HISTORY/PAST SURGICAL HISTORY:: Medical History . Alcohol abuse (07/30/13). Alcoholism. stopped drinking 2017. Atrophic vaginitis (02/07/14). Hip fracture, left (01/27/14). 2012. Osteoporosis. Tobacco use. several Fx from falls. DEXA -2.3. Surgical History . Arthroplasty of knee (06/07/16). LEFT/DR. HORTON. History of left hip replacement. 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 She states she has family and friends that are very supportive. She is normally independent with ADLs, she does not drive she lives in town in [place] and walks to her destinations. CURRENT FUNCTIONAL STATUS:: Remains on CIWA protocol for ETOH withdrawal; confused. Has patient been provided with info about the portal/API?: Yes Did the patient sign up for the portal?: No CODE STATUS:: Full Code INSURANCE COVERAGE / FINANCIAL ISSUES:: Medicare. Medicaid PRIMARY CARE PHYSICIAN:: Kandice Olvera ANTICIPATED BARRIERS TO DISCHARGE:: None identified at this time. TRANSPORTATION:: Via private vehicle with family. PLAN:: Eloise continues to be closely monitored and treated per MD. She remains on CIWA protocol, CM continues to follow.
[2022-11-04] MEDS: cefTRIAXone 1 GM/50 ML BAG IVPB (21:38)
[2022-11-04] MEDS: AZITHROMYCIN 500 MG in Normal Saline 250 ML 250 MG IVPB (22:14)
[2022-11-05 00:01] VITALS: BP 91/49; PULSE 66; PULSE 68; RESP 21
[2022-11-05] MEDS: Divalproex 500 MG TABEC PO ×2 (00:30→08:03)
[2022-11-05] MEDS: lamoTRIgine 100 MG TAB PO ×2 (00:30→08:03)
[2022-11-05] MEDS: DEXTROSE 5%-0.45% SALINE 1,000 ML 125 ML IV (04:37)
[2022-11-05] MEDS: Normal Saline 500 ML IV (04:45)
[2022-11-05 05:29] LABS: Abs Immature Grans 0.02 10^3/uL (0.0-0.06); Absolute Basophil Count 0.07 10^3/uL (0.0-0.2); Absolute Eosinophil Count 0.07 10^3/uL (0.0-0.7); Absolute Lymphocyte Count 2.75 10^3/uL (1.2-3.4); Absolute Monocyte Count 0.45 10^3/uL (0.1-0.8); Absolute Neutrophil Count 2.37 10^3/uL (1.2-6.7); Basophils % 1.2; Eosinophils % 1.2; HCT 36.5 % (36.0-46.0); HGB 12.2 g/dL (11.2-15.7); Immature Grans % 0.3; Lactate 1.4 mmol/L (0.6-1.4); MCH 31.1 pg (27.0-33.0); MCHC 33.4 % (32.0-36.0); MCV 93 fL (80-95); MPV 11.9 fL (8.0-11.0); Monocytes % 7.9; Neutrophils % 41.4; Platelet Count 160 10^3/uL (130-400); RBC 3.92 10^6/uL (3.93-5.22); RDW 14.6 % (11.7-14.6); RDW-SD 50.5 fL; WBC 5.73 10^3/uL (4.4-10.8)
[2022-11-05 05:48] LABS: ALT 28 U/L (14-59); AST 84 U/L (15-37); Albumin 2.2 g/dL (3.4-5.0); Alkaline Phosphatase 82 U/L (46-116); Anion Gap 7.8 mmol/L (3-11); BUN 5 mg/dL (7-18); Bilirubin, Total 0.2 mg/dL (0.2-1.0); CO2 22.2 mmol/L (21.0-32.0); CREATININE 0.7 mg/dL (0.55-1.02); Calcium 7.7 mg/dL (8.5-10.1); Chloride 114 mmol/L (98-107); Estimated GFR 95.92 (mL/min/1.73m2); Glucose 79 mg/dL (74-106); Potassium 3.6 mmol/L (3.5-5.1); Sodium 144 mmol/L (136-145); Total Protein 4.9 g/dL (6.4-8.2)
[2022-11-05] MEDS: Thiamine 100 MG TAB PO (08:03)
[2022-11-05] MEDS: Acetaminophen 500 MG TAB PO ×2 (08:03→13:35)
[2022-11-05] MEDS: Multivitamin TAB 1 TAB PO (08:03)
[2022-11-05] MEDS: Folic Acid 1 MG TAB PO (08:03)
[2022-11-05] MEDS: Calcium 600mg/Vit D 200U TAB 1 TAB PO (08:03)
[2022-11-05] MEDS: Lidocaine 5% Patch 1 PATCH TP (08:04)
--- NOTE | 2022-11-05 08:20 | PDOC.CMPRO ---
- If Service Date Differs Date of service: 11/05/22 Time of Service: 08:20 Care Management Progress Note S/O: Eloise remains in the ICU on CIWA protocol for ETOH withdrawal, CM continues to follow. A: 66 year old female admitted to [facility] 11/03/22 for seizure disorder uncontrolled, pneumonia P: Eloise continues to be closely monitored and treated per MD. She remains on CIWA protocol, CM continues to follow.
[2022-11-05] MEDS: Enoxaparin 40 MG/0.4 ML SYR SC (09:48)
--- NOTE | 2022-11-05 10:20 | W.NUTCONSULT ---
Date of service: 11/05/22 Time of Service: 10:20 Nutritional Consult ASSESSMENT: Eloise admitted to ICU with PNA, alcohol withdrawl, hx of etoh and tobacco abuse, seizure disorder and malnutrition. BMI:15.9 appears to be baseline for her per medical chart review. Started on regular meal plan today, completed 100% of breakfast. Estimated Needs: [id number] kcal, 45-55 g protein, 1600 ml fluid Currently meeting nutrient needs for weight regain. NUTRITIONAL DIAGNOSIS: chronic malnutrition as evidenced by baseline weight and BMI > 16 INTERVENTION: continue regular meal plan MONITORING AND EVALUATION: po intake, labs, weight Time Spent in Nutritional Counseling and Treatment: 0
[2022-11-05 10:50] VITALS: BP 122/72; PULSE 72; RESP 20; TEMP 36.2; O2SAT 96
[2022-11-05 10:55] VITALS: PULSE 72
--- NOTE | 2022-11-05 12:51 | PT.INIE ---
Date of service: 11/05/22 Time of Service: 11:13 PT Notes Visit Reasons: Seizure Disorder Uncontrolled, Pneumonia Physical Therapy Inpatient Initial Evaluation Date: Referring Doctor: Terry Spears MD PT Orders: PT CONSULT: Eval/Treat Precautions: Fall. Standard. Activity as tolerated. Seizure precautions. Patient Profile/Admitting Diagnosis: Eloise is a 66-year-old female who presented to the ED on 11/03/2022 with [id number] mental status. She is admitted to the ICu for monitoringof seizure disorder, PNA, acute hyponatremia, and tobacco use disorder. PMHX: All Active Problems? 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 Hx of + HPV with nl Pap. 2014. Colpo ECC ? LGSIL. 2020. Pap/HPV. Nl/Neg. Recommended repeat in 2021. Seizure disorder (Chronic) Diagnosed at age 8, on two antiseizure medications. [place] [facility] [place]. Treviño. stable but with breakthrough seizure 2020 Osteoporosis (Acute 01/27/14) 2013 T score -2.3 left hip 2019 R hip osteoporosis. Osteopenia spine + wrist. Depressive disorder (Acute 07/30/13) Underweight (Chronic) BMI 17 to 18.Tobacco use disorder (Chronic) From age 14 until present, greater than 50 pack years. Falls frequently (Chronic) Medical History? Alcohol abuse (07/30/13) Alcoholism stopped drinking 2018Atrophic vaginitis (02/07/14) Hip fracture, left (01/27/14) 2013 Osteoporosis Tobacco use several Fx from falls. DEXA -2.3 Surgical History? Arthroplasty of knee (06/07/16) LEFT/DR. HORTON History of left hip replacement History of left shoulder replacement Social History/Home Situation: Lives lone in a private home. Unsure of accuracy of home situation report due to persistent confusion. Equipment Owned/DME: has emergency alert device. Patient states that she has canes and crutches at home that she can use. Adamant about not needing the walker eventhough she appeared unstable without it. Subjective: Anxious about what happened with her glasses and her emergency alert device. Objective: General Observation: Seated on bedside chair. On telemetry monitoring. Nurse student Crystal and Kvng present during evaluation. Mental Status: Alert and oriented as to person and place. Report of home situation and responses to interview questions are conflicting and inconsistent. Pain: minimal L shoulder pain with overhead activities Vital Signs: WNL as closely monitored via tele ROM: Right Upper Extremity: Shoulder Flexion WFL. Shoulder abduction WFL. Elbow flexion WFL. Wrist flexion WFL. Functional opening and closing of hand WFL. Left Upper Extremity: Shoulder Flexion allows up to 90 degrees only due to chronic LOM from shoulder arthroplasty. Shoulder abduction allows up to 90 degrees only due to chronic LOM from shoulder arthroplasty. Elbow flexion WFL. Wrist flexion WFL. Functional opening and closing of hand WFL. Right Lower Extremity: Hip flexion WFL. Hip abduction WFL. Knee flexion WFL. Ankle dorsiflexion WFL. Ankle plantarflexion WFL. Left Lower Extremity: Hip flexion WFL. Hip abduction WFL. Knee flexion WFL. Ankle dorsiflexion WFL. Ankle plantarflexion WFL. Strength: Right Upper Extremity: Shoulder flexors 4-/5. Shoulder abductors 4-/5. Elbow flexors 4-/5. Elbow extensors 4-/5. Regulatory Associate strong. Left Upper Extremity: Shoulder flexors 3-/5. Shoulder abductors 3-/5. Elbow flexors 4-/5. Elbow extensors 4-/5. Regulatory Associate strong. Right Lower Extremity: Hip flexors 4-/5. Hip abductors 4-/5. Knee flexors 4-/5. Knee extensors 4-/5. Ankle dorsiflexors 4-/5. Ankle plantarflexors 4-/5. Left Lower Extremity: Hip flexors 4-/5. Hip abductors 4-/5. Knee flexors 4-/5. Knee extensors 4-/5. Ankle dorsiflexors 4-/5. Ankle plantarflexors 4-/5. Bed Mobility/Transfers: Sit to stand contact guard assist Stand to sit contact guard assist Gait: Instructed patient with level surface ambulation of 300 feet requiring stand by assist. Perla decreased. Step height decreased. Step length decreased. A lot more stable with the FWW than without it. MOderate to maximal verbal cueing needed for walker management and safe gait mechanics. Balance: Static Sitting: Normal Dynamic Sitting: Normal Static Standing: Fair Dynamic Standing: Fair Special Tests: Mobility Limitations Standardized Measure [facility] AM-PAC 6 clicks Basic Mobility Inpatient Short Form: Raw Score: 22 CMS Score: 21% deficit Informed Consent/Education: Patient was instructed in purpose of PT consult and plan of care. Agreeable to proceed with established PT POC to achieve personal goals. Assessment: Unsure of what patient has for baseline cognitively. Refusing the FWW stating that she does not have enough space fot it at home. Patient presents with clinical signs and symptoms consistent with current/admitting diagnoses that have resulted to mobility limitations, gait instability, generalized weakness, and overall ADL decline as demonstrated by the following impairment level findings: 1. Decreased strength to L shoulder major muscle groups (chronic) 2. Impaired sitting/standing balance 3. Impaired activity tolerance 4. Limitation of joint range of motion in L shoulder (chronic) 5. Impulsive 6. Impaired safety awareness Impairments are contributing to the following functional limitations: 1. Difficulty with ambulation without assistive device 2. Increased completion time for mobility ADL performance 3. Increased risk for falls Patient is assessed as a [id number] moderate complexity based on the following: History: [id number] with past medical history as indicated above Examination: Demonstrable impairment in strength, balance, and mobility level with underlying impairments and functional limitations as exhibited above as well as deficit score of % utilizing the [facility] Mobility Inpatient Short Form Presentation: Evolving Decision Makin moderate complexity Goals: N/A. Patient to be discharged this afternoon with community services available as she is admant about going home. Plan of Care/Treatment Plan: N/A. Patient to be discharged this afternoon with community services available as she is admant about going home. DISCHARGE RECOMMENDATIONS: [] Home with no services [] [] Home with services [specify] [] Home with outpatient PT [] [] SNF for continued rehabilitation [] [] Regulatory Consultant Care [] [] SNF versus LTC based on ability to participate and progress [] [X] PT vs SNF based on availability of community resources due to patient's impaired safety awareness TREATMENT CODE/TIME: 84988 x 20 minutes, 35034 x 21 minutes beginning at 11:13 AM. Thank you for the opportunity to participate in the care of this patient. Tiffany Conway PT, DPT, CLT [facility] [place], [place]
--- NOTE | 2022-11-05 14:19 | DSE_ITS ---
Date of service: 11/05/22 Time of Service: 14:19 DS: Diagnosis Discharge Diagnosis (1) Seizure disorder: Status: Chronic Asessment and Plan: The day after admission patient gradually became more alert and was able to take her medications. Her lamictal level was pending at time of d/c. She had no seizure activity during this admission. Will continue her usual home meds. (2) Pneumonia: Status: Acute Asessment and Plan: She received 2 doses of Rocephin and azithromycin. She requires no supplemental O2. No dyspnea. Minimal cough. No fever. WBC count normalized. Home on cefpodoxime 200mg BID for 5 more days. (3) Acute hypernatremia: Status: Acute Asessment and Plan: Resolved with hydration. (4) Tobacco use disorder: Status: Chronic Asessment and Plan: Nicotine replacement product administered. (5) Right hip pain: Status: Acute Asessment and Plan: Xray showed significant degenerative arthritic changes. She has had a right hip hemiarthroplasty by Dr Upton. Suggested she make an appt with him if her pain persists. (6) Alcoholism: Asessment and Plan: She endorses drinking beer but doesn't quantify how much. She did score on CIWA monitoring. Her presentation may not have been secondary to a seizure and pneumonia but possibly pneumonia and Etoh withdrawal. She will be receiving nursing and they can monitor for signs/symptoms of alcohol abuse disorder. (7) Hypokalemia: Status: Acute Asessment and Plan: Corrected. Discharge Plan Disposition Patient Disposition: Home W/Home Health Services Condition: Improving Discharge Details Reason For Visit: Seizure Disorder Uncontrolled, Pneumonia Admit Date/Time: 11/03/22 23:01 Admit Provider: Jeanmarie Lacey Attending Provider: Jeanmarie Lacey Primary Care Provider: Kandice Olvera Hospital Course Hospital Course: This is a 66-year-old female patient who lives alone but has family who lives locally and have not been seeing her recently with patient brought to the ED after being found by neighbor at the bottom of her stairs near her apartment w ith no apparent injury but having altered mental status / confused.? She does have history of seizure disorder and was not having active seizures at the time she was found and was possibly postictal and remained so in the ED through most of her evaluation.? When hospitalist saw the patient she awakened and asked where she was and seemed slightly confused but appeared to be coming around.? She does smoke tobacco and states that she does take her meds but does not remember taking her meds or eating a meal on the day of admission.? She does complain of pain but has not focalizing and there were no apparent injuries by physical exam performed by the ED physician and nurse in the ED.? Imaging was negative for any acute fractures though she does have a left shoulder and left knee replacement with well-healed scars.? She is very thin and appears malnourished and at the time of exam and appeared dry with some lab indicating some dehydration with elevated sodium and creatinine from her baseline.? The patient was awake and wanting to eat and drink and will be given her meals.?There is also question of whether the patient drinks alcohol routinely though her liver functions were not elevated and she did have a negative alcohol screen and as well as denies alcohol recently.? She will be observed for withdrawal because of this history.? She is a full code with no other indication of CODE STATUS with no documentation of COLST on her chart. See Diagnosis PCP f/u in 1 week Home Meds and New Rx's Prescriptions: New cefpodoxime 200 mg tablet 200 mg PO BID Qty: 10 0RF Rx Instructions: must administer with a meal/food First dose 11/06/22 Continued lamotrigine [Lamictal] 100 mg tablet 100 mg PO BID Qty: 180 4RF calcium carbonate-vitamin D3 1 EACH tablet 1 ea PO DAILY thiamine HCl (vitamin B1) 100 MG tablet 100 mg PO DAILY Qty: 60 4RF divalproex 500 mg tablet,delayed release (DR/EC) 500 mg PO BID Qty: 30 0RF Discharge Instructions Activity:: Activity as Tolerated Equipment/Supplies:: Has cane Diet:: As Tolerated DS: Summary Time Spent with Patient providing and/or coordinating discharge services: Greater than 30 minutes Status at Discharge Functional status at discharge: uses cane/walker Overall status at discharge: patient is progressing back to baseline Mental Status: mental status grossly normal Speech and Movement: speech clear Mood: congruent mood Affect: normal affect Exam Narrative Exam Narrative: General: Patient appears older than stated age. Sitting in chair eating breakfast. HEENT: Normocephalic, eyes with pupils equal. Sclera clear. Lungs: Clear. Nonlabored. Heart: Regular rate and rhythm with distant heart sounds. No murmurs Abdomen: NT, ND. +BS Extremities: Mild left foot with nonpitting edema of dorsum. No calf tenderness. Skin: No rashes/lesions. Neuro: Cranial nerves II through XII gross intact, no focalizing motor deficits. No tremor. No seizure activity and tone appears normal. Psych: Affect appropriate. Verbally slow to respond. Fund of knowledge limited. Psych Mental Status: mental status grossly normal Speech and Movement: speech clear Mood: congruent mood Affect: normal affect DS: Data Vitals/I&O Vitals and I&O: Vital Signs Temperature 36.2 C L 11/05/22 10:50 Temperature Source Temporal Artery Scan 11/05/22 10:50 Pulse 72 11/05/22 10:55 Pulse Rhythm Regular 11/05/22 09:37 Pulse 68 11/05/22 00:01 Respiratory Rate 20 11/05/22 10:50 Respiratory Effort Normal 11/05/22 09:37 Respiratory Depth Normal 11/05/22 09:37 Respiratory Pattern Normal 11/05/22 09:37 Blood Pressure 122/72 11/05/22 10:50 Blood Pressure Mean 59 11/05/22 00:01 Blood Pressure Position Supine 11/04/22 00:50 Pulse Oximetry 96 11/05/22 10:50 Oxygen Delivery Method Room Air 11/05/22 10:50 Oxygen Flow Rate 0 11/05/22 10:50 Pain Level 0 11/05/22 10:50 Intake & Output 11/04/22 11/05/22 11/05/22 23:59 11:59 23:59 Intake Total 2028.167 / 4634.167 1800.833 / 1800.833 Output Total 1575 / 1575 Balance 2028.167 / 4334.167 225.833 / 225.833 Intake: IV 2028.167 / 4414.167 1420.833 / 1420.833 Oral 380 / 380 Output: Urine 1575 / 1575 Other: Urine Color Yellow Urine Appearance Clear Clear Urine Odor Normal Voiding Methods Bedside Commode Data Completed and Pending Labs on day of discharge: Labs from last 24 hours 11/05/22 11/05/22 11/05/22 05:15 05:15 05:15 WBC 5.73 RBC 3.92 L Hgb 12.2 Hct 36.5 MCV 93 MCH 31.1 MCHC 33.4 RDW 14.6 Plt Count 160 MPV 11.9 H Immature Gran % 0.3 Neutrophils % 41.4 Lymphocytes % 48.0 Monocytes % 7.9 Eosinophils % 1.2 Basophils % 1.2 Nucleated RBC % 0.0 Absolute Neutrophils 2.37 Absolute Lymphocytes 2.75 Absolute Monocytes 0.45 Absolute Eosinophils 0.07 Absolute Basophils 0.07 VBG Lactate 1.4 Sodium 144 Potassium 3.6 Chloride 114 H Carbon Dioxide 22.2 Anion Gap 7.8 BUN 5 L Creatinine 0.7 Est GFR (CKD-EPI 2020) 95.92 Glucose 79 Calcium 7.7 L Total Bilirubin 0.2 AST 84 H ALT 28 Alkaline Phosphatase 82 Troponin I Total Protein 4.9 L Albumin 2.2 L 11/04/22 14:17 WBC RBC Hgb Hct MCV MCH MCHC RDW Plt Count MPV Immature Gran % Neutrophils % Lymphocytes % Monocytes % Eosinophils % Basophils % Nucleated RBC % Absolute Neutrophils Absolute Lymphocytes Absolute Monocytes Absolute Eosinophils Absolute Basophils VBG Lactate Sodium Potassium Chloride Carbon Dioxide Anion Gap BUN Creatinine Est GFR (CKD-EPI 2020) Glucose Calcium Total Bilirubin AST ALT Alkaline Phosphatase Troponin I Cancelled Total Protein Albumin Preliminary micro results at discharge 11/03/22 19:10 Blood Culture - Preliminary Blood NO GROWTH 24 HOURS 11/03/22 19:00 Blood Culture - Preliminary Blood NO GROWTH 24 HOURS PFSH All Active Problems Hypokalemia (Acute) Acute hypernatremia (Acute) Pneumonia (Acute 08/21/13) Degenerative joint disease of right hip (Acute) Intra-articular injection: 09/12/2022 Right hip pain (Acute) 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 Hx of + HPV with nl Pap. 2015. Colpo ECC ? LGSIL. 2020. Pap/HPV. Nl/Neg. Recommended repeat in 2021. Seizure disorder (Chronic) Diagnosed at age 8, on two antiseizure medications. [place] [facility] [place]. stable but with breakthrough seizure 2020 Osteoporosis (Acute 01/27/14) 2013 T score -2.3 left hip 2019 R hip osteoporosis. Osteopenia spine + wrist. Depressive disorder (Acute 12/20/13) Underweight (Chronic) BMI 17 to 18. Tobacco use disorder (Chronic) From age 14 until present, greater than 50 pack years. Falls frequently (Chronic) Medical History Alcohol abuse (07/30/13) Alcoholism stopped drinking 2017 Atrophic vaginitis (02/07/14) Hip fracture, left (01/27/14) 2013 Osteoporosis Tobacco use several Fx from falls. DEXA -2.3 Surgical History Arthroplasty of knee (06/07/16) LEFT/DR. HORTON History of left hip replacement History of left shoulder replacement Family History Mother , 81 Essential hypertension Hyperlipidemia Father , 61 CAD (coronary artery disease) Brother Essential hypertension Social History Smoking/Tobacco Use Status: Current every day Tobacco Type: cigarettes Quit status: not considering quitting Second Hand Exposure: Yes Smoking risk assessment performed?: Yes Alcohol Intake: former Drug use: Never Caregiver/Support person: No Household members: none and other Details: not in relationship Housing: apartment Number of Children: 0 Communication Needs: None Do you need help understanding health information?: Rarely Pets and animals: No Sexually active: No Do you think of yourself as: straight/heterosexual Current gender identity: female What is your relationship status?: How often do you talk on the phone with friends or family?: once per week Panel score (0-1 are the most socially isolated patients): 0 What type of physical activity do you participate in: walking Duration: > 90 minutes/day Frequency: daily Seatbelt use: always Drive 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
--- NOTE | 2022-11-05 14:42 | PDOC.HHF2F_ITS ---
Home Health Referral Home Health Orders Clinical synopsis of why skilled professionals are needed: Pt presented with altered mental status / lethargy when found on ground. No injuries noted on exam or xrays. + finding of pneumonia. Alcohol withdrawal vs breakthrough seizure with prolonged postictal state; favoring the former. Improved the day after admission. Medical diagnosis necessitation home health referral: Pneumonia. Etoh abuse disorder FTT as an adult Seizure disorder. Registered Nurse: Check all that apply Instruct on new or changed medication(s)/assess compliance: Ordered Physical Therapist: Check all that apply Increase strength & endurance for safe mobility at home: Ordered Home safety evaluation and teaching/gait training including stair management (if applicable): Ordered Occupational Therapist: Upper extremity strengthening, range and motion: Ordered Traffic Analyst: Assist with community resources: Ordered Home Bound Status Requires the aid of supportive device (check all that apply): Cane Assistance of another person (Describe assistance and medical necessity): Requires assist of another person outside of familiar surroundings in home; gait instability, weakness. Describe why leaving home would require a considerable and taxing effort: Safety Concerns: describe (Has had falls including one that caused a hip fx. ) Encounter Date and Reason: I certify that a FTF encounter for this patient was performed on November 05, 2022 and that such encounter was related to the primary reason the patient requires home health services. The encounter was conducted in the following manner: * By me as the certifying physician, CHIEF COMMERCIAL OFFICER, PA or * By an inpatient physician, CHIEF COMMERCIAL OFFICER or PA during an inpatient stay who communicated findings to me, Certification And Authentication I certify that I composed the above information based on my clinical judgment relating to this patient's medical condition and, if applicable, clinical findings communicated to me by the NPP or inpatient physician who performed the FTF encounter. Name of Provider that will be monitoring home health services: Terry Spears
--- NOTE | 2022-11-05 16:11 | PDOC.CMDIS ---
- If Service Date Differs Date of service: 11/05/22 Time of Service: 16:11 LACE Index Scoring Tool - Questions: Length of Stay (in days): 2 Acuity (Admit via E.D.?): Yes E.D. Visits: 1 - Answers: Total Score: 6 Risk of Readmission: Low Risk Care Management Discharge Reason for Hospitalization: Seizure disorder uncontrolled, pneumonia Discharge Plan: Eloise will return home once medically cleared with new home health orders including RN/PT/OT/ENDOCRINOLOGY PHYSICIAN per MD. CM faxed orders to [facility] for notification. Eloise will transport with her brother Slade who arrived with pictures of her apartment and concerns about her living conditions. Eloise, now stable and alert and oriented per provider is able to make her own decisions, CM encouraged Slade to discuss concerns directly with Eloise when requested to coordinate additional services. CM offered additional support to Eloise if agreeable. Patient/Family Education Needs: Review discharge instructions, discuss Ask Me Three. Services Needed at Discharge: Home Health Care Services
--- NOTE | 2022-11-05 16:15 | NUR.NOTE ---
Nursing Note: Eloise's brother, Slade, is concerned about Eloise's safety at home r/t clutter and obstacles in the home environment. Eloise and I discussed if she wanted information about help with houskeeping or anything similar. Eloise states, why? It won't do me any good. Asked, why makes you say that? Eloise states, people don't appreciate my housekeeping. Told Eloise maybe she could get some help with that; asked if she was interested in at least seeing what resources were available to her. Pt states, no. Told pt I hear her, but asked pt if there was a particular reason she didn't want the information. She states that there is no particular reason. Discussed that her family was just concerned about her safety and we want to help if she is willing to accept. Left conversation open by stating we may be able to connect her to resources if she changes her mind and reiterated this sentiment as she was getting in her brother's vehicle at discharge.
[2022-11-06 12:48] LABS: Lamotrigine <0.2 mcg/mL (3.0-15.0)
== END 2022-11-05 16:15 | disposition home health service (06) | DRG 100 ==
LOC: ER 23:55 → ICU 11-04 00:46
PROVIDERS: Family Medicine; Admitting Provider Family Medicine; Emergency Provider Student in an Organized Health Care Education/Training Program; PCP Nurse Practitioner Family; Visit Provider Family Medicine
DX: G40.909 Epilepsy, unspecified, not intractable, without status epilepticus (principal); J18.9 Pneumonia, unspecified organism; E87.0 Hyperosmolality and hypernatremia; N17.9 Acute kidney failure, unspecified; E87.20 Acidosis, unspecified; Z68.1 Body mass index [BMI] 19.9 or less, adult; F10.239 Alcohol dependence with withdrawal, unspecified; E46 Unspecified protein-calorie malnutrition; E87.6 Hypokalemia; E86.0 Dehydration; Z91.14 Patient's other noncompliance with medication regimen; R09.02 Hypoxemia; M16.11 Unilateral primary osteoarthritis, right hip; M81.0 Age-related osteoporosis without current pathological fracture; F32.A Depression, unspecified; F17.210 Nicotine dependence, cigarettes, uncomplicated; R29.6 Repeated falls; Z91.81 History of falling; W19.XXXA Unspecified fall, initial encounter
CPT/HCPCS: 36415; 36416; 74177; 80048; 80053; 80175; 80307; 82962; 85027; 86850; 86900; 86901; 87040; 87635; 93005; 96361; 96365; 96366; 96368; 96375; 97162; 97530; 99285; J1650; 70450; 71260; 72125; 73502; 80164; 80320; 81003; 81015; 83605; 83735; 84100; 84443; 84484; 85025; 85610; 93010; 99223; 99233; 99239; J0456; J0696; J1885; J1953; J2060; J2405; J3490

== ENCOUNTER 2023-03-31 13:49 | Outpatient (CLI) | payer MEDICARE, MEDICAID, SELFPAY ==
--- NOTE | 2023-03-31 13:45 | DI.RAD_ITS ---
Exam(s) XR HIP RT COMPLETE AP PELVIS EXAM: XR HIP RT COMPLETE AP PELVIS CLINICAL HISTORY: right hip pain. TECHNIQUE: 2D digital imaging was performed of the right hip. Two images were obtained. AP pelvis a nd lateral right hip views were obtained. COMPARISON: CR XR HIP RT COMPLETE AP PELVIS from 03/04/2022 CR XR HIP RT AP LAT ONLY from 11/04/2022 FINDINGS: BONES: No acute fracture is present. No bony destructive lesion is seen. JOINTS: No dislocation present. The patient has a prior left hip prosthesis. There are marked degene rative changes seen in the right hip characterized by joint space narrowing and osteophytes. SOFT TISSUE: Normal. IMPRESSION: Marked degenerative changes of the right hip. DATA REPOSITORY: RADIATION DOSE DELIVERED:
== END 2023-03-31 13:50 | disposition home or self-care (01) ==
LOC: DIORS 13:49
PROVIDERS: PCP Nurse Practitioner Family; Referring Provider Nurse Practitioner Family; Visit Provider Physician Assistant
DX: M16.11 Unilateral primary osteoarthritis, right hip (principal)
CPT/HCPCS: 99213; 73502

== ENCOUNTER 2023-05-12 03:56 | Outpatient (CLI) | payer MEDICARE, SELFPAY ==
[2023-05-12 13:47] LABS: HCT 43.3 % (36.0-46.0); HGB 14.9 g/dL (11.2-15.7); MCHC 34.4 % (32.0-36.0); MCV 96 fL (80-95); MPV 11.4 fL (8.0-11.0); Platelet Count 199 10^3/uL (130-400); RBC 4.51 10^6/uL (3.93-5.22); RDW 15.6 % (11.7-14.6); RDW-SD 55.5 fL; WBC 7.12 10^3/uL (4.4-10.8)
[2023-05-12 14:40] LABS: BUN 13 mg/dL (7-18); CREATININE 0.8 mg/dL (0.55-1.02); Calcium 9.4 mg/dL (8.5-10.1); Chloride 105 mmol/L (98-107); Estimated GFR 81.21 (mL/min/1.73m2); Glucose 102 mg/dL (74-106); Potassium 4.2 mmol/L (3.5-5.1); Sodium 139 mmol/L (136-145)
== END 2023-05-12 03:57 | disposition home or self-care (01) ==
LOC: LBO 03:56
PROVIDERS: PCP Nurse Practitioner Family; Visit Provider Student in an Organized Health Care Education/Training Program
DX: M16.11 Unilateral primary osteoarthritis, right hip (principal); M25.551 Pain in right hip; Z01.818 Encounter for other preprocedural examination; Z01.812 Encounter for preprocedural laboratory examination
CPT/HCPCS: 36415; 80048; 85027

== ENCOUNTER 2023-05-21 07:59 | Observation (INO) | payer MEDICARE, MEDICAID, SELFPAY ==
--- NOTE | 2023-05-20 08:37 | NUR.NOTE ---
Nursing Note:Spoke with patient pre-op, multiple times about arrival time and instructions. Pt. has called back an additonal 6x in regards to surgical date and time. This RN also informed surgeon of concerns with patient: she doesn't seems to recall what I tell her well in regards to what time to be here and where to go and what meds to take DOS, and she seems to ramble on about things that have no relevance...she said her brother is staying with her but initially, but then she said he is just coming with her, so I am not sure if she fully understands everything? suggested I talk to her Brother Slade Mata, which this RN called and gave all instructions to brother as well. He also informed me, that he is not staying with her, because her house is such a mess there are things everywhere (fall risk), and that he will not bring her to his house because he stated she gets ugly, and we've tried to help her and she's just not a very nice person. I told Slade that she mentioned something about a friend staying, and he said she's burned alot of bridges so that is more than likely a lie. He stated he thinks it would be in her best interest to admit her for a few days. Surgeon informed. stated he would admit her if she is agreeable, patient notified. Pt. called back again, this RN stated: mentioned to her about staying overnight, sounded at first she would do it...now she is saying she wants to come home and that her insurance won't pay for that it runs out at the end of the month...I told her that she has to have somebody with her post-op, and our policy is until she has things set up post-op she runs the risk of possible postponement until she does. and she said she doesnt have room in her apt. So i told her id tell you all this and you may want to call her and see what she wants to do. notified and contacted patient directly, stated: I spoke with her and she'll stay overnight. Anesthesia, and DSU ([facility]) also made aware of situation.
--- NOTE | 2023-05-20 10:16 | NUR.NOTE ---
Addendum entered by Hank Bunn 05/20/23 10:19: Emely stated they will revisit the possibility of services for patient that she may qualify for, as this has been addressed previously. Original Note: Reached out to care management in regards to concerns with patients memory, and possible safety concerns about her living on her own. Spoke with Emely Santos, who will reach out to patients Brother Slade Legacy (on HIPPA) and Nursing Note:
[2023-05-21] VITALS (15 sets, daily range): BP systolic 73–140; BP diastolic 43–77; PULSE 48–73; RESP 15–18; TEMP 35–37; O2SAT 94–99; BMI 14.4
--- NOTE | 2023-05-21 07:26 | W.PM.DSUDISC ---
Date of service: 05/21/23 Time of Service: 07:26 Discharge Plan Disposition Patient Disposition: Home Condition: Good Discharge Details Reason For Visit: R THR Attending Provider: Castro Upton Primary Care Provider: Kandice Olvera Home Meds and New Rx's Prescriptions: New celecoxib 200 mg capsule 200 mg PO BID Qty: 60 0RF aspirin 81 mg tablet,delayed release (DR/EC) 81 mg PO BID Qty: 60 0RF acetaminophen 500 mg tablet 1,000 mg PO TID Qty: 90 3RF pantoprazole 40 mg tablet,delayed release (DR/EC) 40 mg PO DAILY Qty: 30 0RF dexamethasone 4 mg tablet 4 mg PO DAILY Qty: 2 0RF oxycodone 5 mg tablet 5 mg PO Q4H MDD 6 tabs PRN (Reason: pain) Qty: 20 0RF Continued lamotrigine [Lamictal] 100 mg tablet 100 mg PO BID Qty: 180 4RF calcium carbonate-vitamin D3 1 EACH tablet 1 ea PO DAILY thiamine HCl (vitamin B1) 100 MG tablet 100 mg PO DAILY Qty: 60 4RF divalproex 500 mg tablet,delayed release (DR/EC) 500 mg PO BID Qty: 30 0RF Discharge Instructions Additional Instructions: Total Hip Discharge Instructions Activity: The most important activity is to walk. You should try to take short walks a few times a day. You have no restrictions on movement or positioning, but do not try to force what you do. You will find some stiffness and weakness with hip flexion (lifting your knee). Do not try to strengthen this too early, continue to practice walking and stairs and this will come. - Outpatient physical therapy can be helpful to help return you to a normal gait and improve your flexibility and strength. This can start around 2 weeks. For some patients, it?s not necessary. Usually this is determined at the time of discharge or at the first post-operative visit. - You should wear the SALMA hose on both legs for 2 weeks. Dressing: Keep the surgical dressing in place for at least one week. After the first week it may be removed and replace with light gauze and tape or nothing. It may get wet after 3 days but avoid soaking the dressing. If it gets wet, just lightly pat dry. It is important to always keep some gauze between skin folds, especially when you are sitting. Spend some time with the wound exposed when you are lying flat as the incision does wrinkle onto itself. Medications: - You should take Tylenol and an anti-inflammatory Celebrex as your primary pain control medications. If the Celebrex is too expensive or not covered, please call the office for another alternative (Advil/Ibuprofen or Naproxen/Aleve). - You have been prescribed a stronger pain medication Oxycodone for breakthrough pain, take as needed as prescribed. - You have also been prescribed a stomach acid reduction agent Pantoprozole to help reduce stomach acid and reflux. - You have also been prescribed Decadron to help with post-operative nausea and pain. You will take this for two days starting tomorrow. - You will be taking Aspirin 81mg twice a day for DVT prevention unless instructed otherwise. - If you have constipation you should take Colace or Miralax (both [id number]). It takes most people 3-4 days to have a bowel movement. Follow-up: 2 weeks If you have any acute concerns or questions, please do not hesitate to contact the office at [phone]. You may contact Dr. Upton with any questions after hours through the hospital at [phone] or on his cell phone at [phone]. Referrals: Castro Upton MD [ [facility] STAFF PHYSICIAN] - Equipment/Supplies: Walker Activity:: Activity as Tolerated Shower/Bathe:: 72 hours Diet:: As Tolerated
[2023-05-21] MEDS: Acetaminophen 500 MG TAB 1000 MG PO (09:32)
[2023-05-21] MEDS: Celecoxib 200 MG CAP 400 MG PO (09:33)
--- NOTE | 2023-05-21 09:45 | DI.RAD_ITS ---
Exam(s) XR HIP RT IN OR EXAM: XR HIP RT IN OR CLINICAL HISTORY: SURGERY. TECHNIQUE: 2D and realtime digital imaging was performed. COMPARISON: CR XR HIP RT COMPLETE AP PELVIS from 03/31/2023 FINDINGS: Hard copy image shows post placement of a hip prosthesis. The alignment appears satisfactory Please see procedure note for details. Fluoro time: 36.6seconds RADIATION DOSE DELIVERED: Ka,r=1.7 mGy
--- NOTE | 2023-05-21 09:53 | W.ANESPRE ---
General Info Date of Service Date Performed: 05/21/23 Height: 5 ft Weight: 33.5 kg Body Mass Index (BMI): 14.4 Surgical Procedure: Operation Date: 05/21/23 11:35 Proposed Procedure Side Surgeon p Hip Total Hip Anterior w/Dual Mobility, Bimentum, Corail Right Castro Upton MD Actual Procedure Side Surgeon p Hip Total Hip Anterior w/Dual Mobility, Bimentum, Corail Right Castro Upton MD Pre-Op Diagnosis Post-Op Diagnosis R THR R THR Meds Allergies and Home Medications Allergies Allergy/AdvReac Type Severity Reaction Status Date / Time No Known Allergies Allergy Verified 05/21/23 08:36 Home Medication Medication Instructions Recorded calcium carbonate 600 mg-vitamin 1 ea PO DAILY 02/25/14 D3 5 mcg (200 unit) tablet thiamine HCl (vitamin B1) 100 mg 100 mg PO DAILY #60 caps 08/20/17 tablet lamotrigine 100 mg tablet 100 mg PO BID #180 tab-caps 02/27/21 (Lamictal) divalproex 500 mg tablet,delayed 500 mg PO BID #30 tabs 06/18/22 release acetaminophen 500 mg tablet 1,000 mg PO TID #90 tabs 05/21/23 aspirin 81 mg tablet,delayed 81 mg PO BID #60 tabs 05/21/23 release celecoxib 200 mg capsule 200 mg PO BID #60 caps 05/21/23 dexamethasone 4 mg tablet 4 mg PO DAILY #2 tabs 05/21/23 oxycodone 5 mg tablet 5 mg PO Q4H PRN pain #20 tabs 05/21/23 pantoprazole 40 mg tablet,delayed 40 mg PO DAILY #30 tabs 05/21/23 release Current Visit Medications: Current Medications Generic Name Dose Route Start Last Admin Trade Name Freq PRN Reason Stop Dose Admin Acetaminophen 1,000 mg 05/21/23 06:00 05/21/23 09:32 Acetaminophen 500 Mg Tab PO 05/21/23 16:00 1,000 mg PREOP ANDREA Administration Acetaminophen 1,000 mg 05/21/23 07:24 Acetaminophen 500 Mg Tab PO 06/20/23 07:23 TID PRN PRN Analgesia Celecoxib 400 mg 05/21/23 06:00 05/21/23 09:33 Celecoxib 200 Mg Cap PO 05/21/23 16:00 400 mg PREOP ANDREA Administration Docusate Sodium 100 mg 05/21/23 07:24 Docusate Sodium 100 Mg Cap PO 06/20/23 07:23 BID PRN PRN Constipation Tranexamic Acid 1,000 mg/ 60 mls @ 360 mls/hr 05/21/23 06:00 Sodium Chloride IV 05/21/23 16:00 PREOP ANDREA Ringer's Solution 1,000 mls @ 80 mls/hr 05/21/23 06:00 IV 06/19/23 23:59 INFUSION ANDREA Cefazolin Sodium/Dextrose 1 gm in 50 mls @ 100 mls/hr 05/21/23 06:00 Ancef Duplex IVPB 05/21/23 18:00 PREOP ANDREA IV Miscellaneous Supplies 1 each 05/21/23 06:00 Iv Access IV 06/19/23 23:59 DIRECTED ANDREA Ondansetron HCl 4 mg 05/21/23 07:24 Ondansetron 4 Mg/2 Ml Vial IVP 06/20/23 07:23 Q6H PRN PRN Nausea Oxycodone HCl 0 mg 05/21/23 07:24 Oxycodone 5 Mg Tab PO 06/20/23 07:23 Q3H PRN PRN Pain Polyethylene Glycol 17 gm 05/21/23 07:24 Polyethylene Glycol 3350 17 Gm Packet PO 06/20/23 07:23 BID PRN PRN Constipation Sodium Chloride 0 ml 05/21/23 06:00 Normal Saline Flush 10 Ml Syr IV 06/19/23 23:59 PRN PRN Sodium Chloride 0 ml 05/21/23 06:00 Normal Saline 10 Ml Vial IJ 06/19/23 23:59 DIRECTED PRN Sterile Water 0 ml 05/21/23 06:00 Water,Injection,Sterile 10 Ml Vial IJ 06/19/23 23:59 DIRECTED PRN PFSH Active Problems Active Problems: Problem Status Onset Code Seizure disorder G40.909 Underweight R63.6 Tobacco use disorder Z72.0 Falls frequently R29.6 Pneumonia 08/21/13 J18.9 Cervical high risk human papillomavirus (HPV) DNA test positive 03/27/17 R87.810 Depressive disorder 07/30/13 F32.9 Osteoporosis 01/27/14 M81.0 Right hip pain M25.551 Degenerative joint disease of right hip M16.11 Medical History Medical History Alcohol abuse (07/30/13) Alcoholism stopped drinking 2018 Atrophic vaginitis (02/07/14) Hip fracture, left (01/27/14) 2012 Hx of seizure disorder Grand-mal seizures-last one was 01/2023. Last saw Dr. Hudson Greco 2022 per pt Osteoporosis Tobacco use several Fx from falls. DEXA -2.3 Surgical History Surgical History Arthroplasty of knee (06/07/16) LEFT/DR. HORTON History of left hip replacement History of left shoulder replacement Tobacco Smoking/Tobacco Use Status: Current every day Tobacco Type: cigarettes Smoking cigarettes per day: 20 Second hand exposure: Yes Alcohol Alcohol Intake: former Substance Use Substance use: Never Vital Signs and Lab Results Vital Signs Most Recent Vital Signs in EMR: Most Recent Vital Signs Temp Pulse Resp BP Pulse Ox 36.7 C 73 18 108/77 95 05/21/23 08:56 05/21/23 08:56 05/21/23 08:56 05/21/23 08:56 05/21/23 08:56 Lab Results Blood Type / Crossmatch: No Data to Display Complete Blood Count: White Blood Count 7.12 10^3/uL (4.4-10.8) 05/12/23 13:41 Red Blood Count 4.51 10^6/uL (3.93-5.22) 05/12/23 13:41 Hemoglobin 14.9 g/dL (11.2-15.7) 05/12/23 13:41 Hematocrit 43.3 % (36.0-46.0) 05/12/23 13:41 Platelet Count 199 10^3/uL (130-400) 05/12/23 13:41 Complete Metabolic Panel: Sodium 139 mmol/L (136-145) 05/12/23 13:41 Potassium 4.2 mmol/L (3.5-5.1) 05/12/23 13:41 Chloride 105 mmol/L (98-107) 05/12/23 13:41 Carbon Dioxide 25.0 mmol/L (21.0-32.0) 05/12/23 13:41 BUN 13 mg/dL (7-18) 05/12/23 13:41 Creatinine 0.8 mg/dL (0.55-1.02) 05/12/23 13:41 Est GFR (CKD-EPI 2020) 81.21 (mL/min/1.73m2) 05/12/23 13:41 Calcium 9.4 mg/dL (8.5-10.1) 05/12/23 13:41 Glucose 102 mg/dL (74-106) 05/12/23 13:41 Liver Function Panel: No Data to Display Coagulation Panel: No Data to Display Cardiac Panel: No Data to Display Arterial Blood Gas: No Data to Display Venous Blood Gas: No Data to Display Pancreas Panel: No Data to Display Thyroid Panel: No Data to Display Infectious Disease: No Data to Display Blood Cultures: No Data to Display Toxicology Panel: No Data to Display Imaging and Studies Imaging and Studies Study information below may be from another EMR and interpreted by another provider. Please see original notes in EMR for more complete details. EKG Summary: 11/03/2022: Exam: Resting ECG Reason for Exam: altered Mental Status Patient Location: E HR:97 bpm ECG Measurements Heart Rate 97 AXIS OR 133 P 77 QRSd 60 QRS 75 QT 342 T74 QTc 434 Conclusion Sinus rhythm...normal P axis, V-rate 60- 99 Ventricular premature complex...V complex w/ short R-R interval Aberrant conduction of SV complex(es)...aberrant shape, OR 80-220 Anteroseptal infarct, age indeterminate...Q >35mS, T neg, V1-V2 Anesthesia Assessment and Plan Anesthesia History Personal History: No History of Anesthesia Complications Family History: No Family History of Anesthesia Complications Exercise Tolerance Exercise Tolerance: Metabolic Equivalents>4 Pertinent Negatives Pertinent Negatives: No Symptoms of GERD Cardiac & Pulmonary Exam Cardiac Exam: Normal S1/S2 Heart Sounds Pulmonary Exam: Clear Bilateral Breath Sounds Implantable Cardiac Device Does patient have a Pacemaker or an ICD?: No Airway Exam Known Difficult Airway: No Mallampati Class: 1 Mouth Opening: Normal (> 3cm) Thyromental Distance: Greater than 3 cm Neck Range of Motion: Full ROM Neck Circumference: Normal Teeth Condition: Generalized Poor Dentition and Edentulous (Bottom) ASA Classification ASA Score: ASA 2 Emergency Case?: No NPO Status NPO Status: NPO Clears >2 hours, Solids >8 hours Anesthesia Plan Resuscitation Status: Full Code Anesthesia Technique: Spinal Anesthesia Airway Planned: Natural Airway Monitors Used: Standard Monitors
[2023-05-21] MEDS: Lactated Ringers 1,000 ML 80 ML IV (09:55)
[2023-05-21] MEDS: ceFAZolin 1 GM/50 ML BAG IVPB ×3 (11:10→17:58)
[2023-05-21] MEDS: ePHEDrine 25 MG/5 ML Syringe IVP ×2 (13:14→13:33)
--- NOTE | 2023-05-21 13:40 | W.ANESPOSTOP ---
Postoperative Evaluation Date, Time and Location Date Performed: 05/21/23 Time Performed: 13:35 Patient Location: Day Surgery Unit Vital Signs Most Recent Imported Vital Signs: Most Recent Vital Signs Temp Pulse Resp BP Pulse Ox 37.0 C 59 L 17 106/66 96 05/21/23 13:38 05/21/23 13:38 05/21/23 13:38 05/21/23 13:38 05/21/23 13:38 Pain Score Most Recent Pain Score: Most Recent Pain Score Pain Level 0 05/21/23 13:38 Assessment Mental Status: Awake (Alert & Oriented to Patient Baseline) Airway and Respiratory Function: Patent airway with normal (patient baseline) respiratory exam Cardiovascular Function: Hemodynamically Stable Hydration Status: Adequately Hydrated Nausea & Vomiting: No Nausea or Vomiting Pain: Pt. Denies Any Pain Peripheral Nerve Block: Patient did not receive a nerve block
--- NOTE | 2023-05-21 14:05 | W.PM.OP ---
Date of service: 05/21/23 Time of Service: 11:30 Operative Note Operative Note DATE OF PROCEDURE: 05/21/23 PRE-OP DIAGNOSIS: Right Hip Osteoarthritis POST-OP DIAGNOSIS: same PROCEDURE: Right Anterior Total Hip Arthroplasty with Intraoperative Navigation SURGEON: Castro Upton RETURNS PROCESSOR: Jaskaran Swartz ANESTHESIA TYPE: Spinal Refer to Anesthesia Record ESTIMATED BLOOD LOSS: 50 PATHOLOGY: none sent TOURNIQUET TIME: 0 COMPLICATIONS: None Patient was transported to: PACU Patient's condition: stable Implants: 1. Depuy Bimentum Dual Mobility Acetabular Component, 47mm 2. Depuy Corail Standard 125 degre Collared Femoral Stem, Size 12 3. Depuy Altrx Ceramic Femoral Head, Size 28+5mm 4. Depuy Bimentum Dual Mobility Liner, [id number] Indications: I have seen Eloise in clinic for symptoms of hip arthritis, confirmed with radiographic findings. She has exhausted nonoperative methods and was having significant limitations in daily function and desired better function and less pain. I discussed the technical details of a hip replacement. I explained the risks of the procedure to include, but not limited to, bleeding, infection, pain, stiffness, fracture, damage to nerves and vessels, damage to muscles and tendons, loosening, instability, leg length inequality, need for repeat procedure, blood clot and cardiopulmonary demise. Despite these risks, Eloise elected to proceed. Findings: There was significant signs of arthritis throughout the hip. Procedure Description: Eloise was greeted in the preoperative holding area where the correct side was identified and marked. The consent was reviewed with the patient and signed. The history and physical was updated. All questions were answered. She was taken back to the operating room. A spinal anesthestic was then administered. The feet were wrapped with cast padding and Coban and then placed into the boot liners and then into the boots. Care was taken to protect the skin and make sure the heels were fully down and the boots were stable. The patient was then positioned onto the HANA table. Both legs were held in a neutral position. SCDs were applied. The patient was then slid down onto a peroneal post. Prophylactic antibiotics in the form of Cefazolin were administered. 1g of Tranxemic Acid was given intravenously within 30 minutes of incision. The right leg was then prepped with Chloraprep and draped in a standard fashion. A second prep with Chloraprep was performed prior to placement of a shower-curtain type drape with Iodine impregnated skin protection. A timeout to confirm correct identity, side and site, procedure, allergies, anesthesia, and medical concerns was performed. An obliquely oriented incision was made starting lateral to the ASIS and running distal over the Tensor Fascia Shira (TFL) muscle belly toward the fibular head, approximately 10cm. The skin and soft tissue was dissected sharply, through Annalisa?s fascia, and to the fascia of the TFL. With the fascia and superior border of the IT band identified, the fascia was incised with a new knife just above any perforators from the IT band. The TFL muscle belly was bluntly dissected away from the fascia and moved laterally. The fat between TFL and rectus was identified to ensure the dissection was not within the TFL. Blunt dissection created space between abductors and the capsule and retractor was placed over the lateral femoral neck. The fibers of the rectus femoris tendon were identified and these were freed from the anterior capsule. A second cobra retractor was placed around the medial femoral neck. The TFL was further retracted laterally to show the deep fascia. Careful dissection through this layer identified three main crossing vessels of the lateral femoral circumflex. These were cauterized in multiple locations and then cut without any noticeable bleeding. The TFL was further released bluntly from the deep fascia to expose anterior hip capsule and fat The Bruce orthopaedic retractor was then placed beneath the TFL and against sartorius and medial soft tissues to protect and retract the soft tissues. A T-capsulotomy was then performed starting at the superior lateral acetabulum and moving distally to the intertrochanteric ridge. These capsular flaps were tagged with a No. 1 Ethibond and elevated from within. The capsular flaps were released to the shoulder of the lateral neck and to the lesser trochanter to give excellent visualization of the proximal femur. A neck osteotomy was performed using an oscillating saw based on preoperative templates. This cut started in the shoulder and of the lateral neck and exited medially. The saw was at all times directed medially to avoid injury to the greater trochanter. Gross traction was applied to the leg and the osteotomy opened. The femoral head was removed with a corkscrew, making sure to protect the TFL on its exit. Traction was released after head removal. This was measured on the back table to determine the starting reamer size. Portions of the rectus obscuring visualization were minimally elevated off the superior acetabulum. An anterior retractor was placed over the anterior wall between capsule and labrum and attached to the Gripper retraction system. The femur was rotated to 90 degrees and medial capsule was fully released until the lesser trochanter was palpable and visible; the femur was returned to 30 degrees. A posterior retractor was placed similarly between capsule and labrum. This provided excellent visualization. The contents of the cotyloid fossa were removed with electrocautery and the labrum was removed with a knife. There was a notable floor osteophyte. There was significant chondromalacia of the superior acetabulum. Acetabular reaming began with a 43mm reamer. This first reaming was directed anterior to posterior and medial to get down to the true floor. This was inspected and reamed until the true floor was reached. The anterior retractor was then released and entry and exit was provided by traction on the capsular flaps. I then reamed sequentially up to a 47mm reamer where good fit was obtained. The larger reamers were oriented based on anatomical reference of the anterior and lateral womack to ensure proper abduction and anteversion. Positioning and size was confirmed with the fluoroscopy. A 47mm Bimentum dual mobility acetabular component was selected. The acetabulum was reamed around the periphery with the selected acetabular size to prevent a rim fit. The deep tissues were irrigated. The acetabular component was then impacted in a position of about 40-45 degrees of abduction and 15-20 degrees of anteversion, using the patient?s anatomy as the ultimate landmark. Fluoroscopy was used to confirm this. There was excellent assistant to the dean of the acetabular component and the inserting handle was removed. A portion of the pedro-articular cocktail was then injected around the acetabulum into the capsule and periosteum. This cocktail consisted of 123mg of Ropivacaine, 0.25mg of Epinephrine, 0.04mg of Clonidine, and 15mg of Ketorolac, diluted to 50cc. The leg was rotated to 120 degrees. Any remaining medial capsule was released until the lesser trochanter was easily palpable. A retractor was placed medially. The lateral capsule was further released into the shoulder to allow access to the greater trochanter. A Lopez retractor was placed over the greater trochanter which allowed the trochanter to flip in front of the capsule for excellent exposure. The leg was brought down into maximal extension and 20 degrees of adduction while ensuring there was no impingement on the acetabulum. Any remnant capsule within the trochanter was released. Piriformis and obturator externis were identified and protected. There was excellent access to the proximal femur. The lateral neck remnant was removed with a rongeur. A blunt canal probe was used to identify the canal and trajectory for later broaching. A box osteotome initiated the broach course. A small curved rasp and a curved curette were used to work laterally. Broaching then began with a size 8 Corail broach. This was inserted manually around the trochanter and into the canal before mallet blows. The broach was seated to a few millimeters below the cut level based on the neck cut and the preoperative template. Sequential broaching was continued with the [employer] pneumatic broaching device until a tight fit was obtained with good rotational control of the femur. A trial standard 125 degree neck was inserted along with a +5 trial head. The leg was brought out of extension and adduction and then reduced with traction and internal rotation. The leg was stable anteriorly in a position of 30 degrees of extension and 90 degrees of external rotation. Fluoroscopy was used to ensure there was no fracture and the stem was seated well. Leg lengths were checked with an AP pelvis and pelvic reference points. [employer] navigation system was used to confirm appropriate positioning and leg length and offset. Once content with the desired offset and leg lengths, the leg was brought back into extension, external rotation and adduction. The periosteum and surrounding tissue was injected with remaining portion of the pedro-articular cocktail. The proximal femur was irrigated as well as the deep tissues. The Depuy Corail standard 125 degree collared stem, size 12, was then manually inserted into the proximal femur making sure to control rotation. It was then malleted into position with light blows, giving breaks to allow bone expansion and decrease risk of fracture. The selected Depuy Altrx Ceramic Head, size 28+5mm, was then inserted into a [employer] Bimentum [id number] liner. This was then placed onto the clean and dry trunnion and secured with impaction onto the tapered fit. The leg was brought back out of extension and adduction and reduced with traction and internal rotation. Stability was confirmed with no shuck at 90 degrees of external rotation and 30 degrees of extension. No impingement through range of motion arc. Final x-ray images were obtained with fluoroscopy to confirm adequate positioning and no intraoperative fracture. The deep tissues were thoroughly irrigated with Surgiphor, betadine solution. This was allowed to sit in the wound for 3 minutes before being thoroughly irrigated out with normal saline. The capsule was then reapproximated with the previously placed Ethibond sutures. The TFL fascia was finally closed with a No. 2 Stratafix, barbed suture. Deep tissues were then reapproximated with 0 Vicryl and a running 2-0 Vicryl. The skin was closed with a running 4-0 Monocryl in a subcuticular fashion. This was reinforced with skin glue. A Mepilex silver dressing was applied. At the end of the case, all counts were correct. Eloise was transferred to the hospital bed without difficulty and suffering no apparent complication. Eloise has a good prognosis. Physical therapy will start today and without restrictions, weight-bearing as tolerated. Aspirin 81mg BID will be used for DVT prophylaxis.
--- NOTE | 2023-05-21 16:18 | IN_ITS ---
Date of service: 05/21/23 Time of Service: 16:18 PT Notes Visit Reasons: R THR Physical Therapy Inpatient Initial Evaluation Date: 05/21/2023 Referring Doctor:? PRABHU David PT Orders: PT CONSULT: S/P Ortho Surgery Precautions: Fall. Standard. WBAT on the R LE with AD.? Seizure-prone. Patient Profile/Admitting Diagnosis:? Eloise is a 67-year-old female with degenerative joint disease of the right hip and status post right anterior total hip arthroplasty on postoperative day 0. PMHX: All Active Problems? 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 Hx of + HPV with nl Pap. 2014. Colpo ECC ? LGSIL. 2020. Pap/HPV. Nl/Neg. Recommended repeat in 2021. Seizure disorder (Chronic) Diagnosed at age 8, on two antiseizure medications. follows [facility] [place]. Treviño. stable but with breakthrough seizure 2020 Osteoporosis (Acute 01/27/14) 2013 T score -2.3 left hip 2019 R hip osteoporosis. Osteopenia spine + wrist. Depressive disorder (Acute 07/30/13) Underweight (Chronic) BMI 17 to 18. Tobacco use disorder (Chronic) From age 14 until present, greater than 50 pack years. Falls frequently (Chronic) Medical History? Alcohol abuse (07/30/13) Alcoholism stopped drinking 2017 Atrophic vaginitis (02/07/14) Hip fracture, left (01/27/14) 2013 Osteoporosis Tobacco use several Fx from falls. DEXA -2.3 Surgical History? Arthroplasty of knee (06/07/16) LEFT/DR. HORTON History of left hip replacement History of left shoulder replacement Social History/Home Situation: Lives lone in a private home.? Has a brother who lives in [place] who is involved with care. Niece is a physical therapist. Equipment Owned/DME: Has emergency alert device.? Patient states that she has canes and crutches at home that she can use.? Adamant about not needing the walker even though she appeared unstable without it. Subjective: Agreed to use walker for this first walk but would like to stick with the crutches tomorrow morning. Objective: General Observation: Supine in bed. IV access through L UE. Low BMI. Mental Status: Alert and oriented as to person, place , and time.? Pain: 1-2/10 in the R hip at rest and with weight bearing. Vital Signs: High 90s systolically and low 70s diastolically ROM: Right Lower Extremity: Hip flexion WFL. Hip abduction WFL. Knee flexion WFL. Ankle dorsiflexion WFL. Ankle plantarflexion WFL. Left Lower Extremity: Hip flexion WFL. Hip abduction WFL. Knee flexion WFL. Ankle dorsiflexion WFL. Ankle plantarflexion WFL. Strength: Right Lower Extremity: Hip flexors 4-/5. Hip abductors 4-/5. Knee flexors 4-/5. Knee extensors 4-/5. Ankle dorsiflexors 4-/5. Ankle plantarflexors 4-/5. Left Lower Extremity: Hip flexors 4/5. Hip abductors 4/5. Knee flexors 4/5. Knee extensors 4-/5. Ankle dorsiflexors 4-/5. Ankle plantarflexors 4-/5. Bed Mobility/Transfers: Sit to stand minimal assist with FWW, cues for hand placement given Stand to sit minimal assist with FWW, cues for hand placement given Gait: Facilitated safe performance of short in-room ambulation of 20 feet before sitting on bedside chair for supper using FWW with contact guard assist. No LOB. No increase in pain report. Step height and length asymmetric. Balance: Static Sitting: Normal Dynamic Sitting: Normal Static Standing: Fair Dynamic Standing: Fair Special Tests: Mobility Limitations Standardized Measure [facility]-PAC 6 clicks Basic Mobility Inpatient Short Form: Raw Score: 22? CMS Score: 21% deficit? ? ? Informed Consent/Education:? Patient was instructed in purpose of PT consult and plan of care. Agreeable to proceed with established PT POC to achieve personal goals. Assessment: Patient presents with clinical signs and symptoms consistent with cur rent/admitting diagnoses that have resulted to mobility limitations, gait instability, generalized weakness, and overall ADL decline as demonstrated by the following impairment level findings: 1.? Decreased strength to R hip major muscle group 2.? Impaired sitting/standing balance 3.? Impaired activity tolerance 4.? Impulsive 5.? Impaired safety awareness Impairments are contributing to the following functional limitations: 1.? Difficulty with ambulation without assistive device 2.? Increased completion time for mobility ADL performance 3.? Increased risk for falls Patient is assessed as a 46213 moderate complexity based on the following: History: 67-year-old?female with past medical history as indicated above Examination: Demonstrable impairment in strength, balance, and mobility level with underlying impairments and functional limitations as exhibited above as well as deficit score of 47% utilizing the [facility] Mobility Inpatient Short Form Presentation: Evolving Decision Makin moderate complexity Goals: Goals X1 week 1. Supine-Sit independent 2. Sit-Supine independent 3. Sit-Stand independent 4. Stand-Sit independent 5. Bed-Chair independent 6. Chair-Bed independent 7. Independent gait on level surface with use of least bilateral axillary crutches for at least 300 feet without report of pain nor dyspnea 8. Independent with home exercise program 9. Good static and dynamic standing balance/tolerance Plan of Care/Treatment Plan: 1-2x/day, 7 days/week x 1 week. Plan of care has been reviewed with the FIELD MARKETING ASSOCIATE providing the service under Physical Therapy direction. Initiate Physical Therapy intervention for pain management as needed, strengthening, bed mobility, transfers, gait, stairs, balance training, and use of assistive device. DISCHARGE RECOMMENDATIONS: [] ? Home with no services [] [] ? Home with services [specify] [] ? Home with outpatient PT [] [] ? SNF for continued rehabilitation [] [] ? Baggage Agent Supervisor Care [] [] ? SNF versus LTC based on ability to participate and progress [] [X]? PT vs SNF based on availability of community resources due to patient's impaired safety awareness TREATMENT CODE/TIME: 13724 x 20 minutes,? 29768 x 10 minutes beginning at 16:18 and 16:55 PM. Thank you for the opportunity to participate in the care of this patient. Tiffany Conway PT, DPT, CLT [facility] [place], [place]
[2023-05-21] MEDS: Divalproex 500 MG TABEC PO (19:39)
[2023-05-21] MEDS: Normal Saline Flush 10 ML SYR IV (19:40)
[2023-05-21] MEDS: lamoTRIgine 100 MG TAB PO (19:40)
[2023-05-22] MEDS: ceFAZolin 1 GM/50 ML BAG IVPB ×2 (01:11→10:15)
[2023-05-22] MEDS: Normal Saline Flush 10 ML SYR IV ×2 (01:12→10:14)
[2023-05-22 03:37] VITALS: BP 120/73; PULSE 64; RESP 16; TEMP 36.6; O2SAT 96
[2023-05-22] MEDS: Acetaminophen 500 MG TAB 1000 MG PO (03:40)
[2023-05-22 03:42] VITALS: BP 82/40
[2023-05-22] MEDS: Normal Saline 500 ML 1000 ML IV (03:52)
[2023-05-22 06:10] VITALS: BP 90/55; PULSE 64
[2023-05-22 07:20] VITALS: BP 90/50; PULSE 64; RESP 17; TEMP 36.7; O2SAT 95
[2023-05-22 07:35] VITALS: BP 90/50; PULSE 64; RESP 17; TEMP 36.7; O2SAT 94
[2023-05-22] MEDS: Divalproex 500 MG TABEC PO (08:24)
[2023-05-22] MEDS: Thiamine 100 MG TAB PO (08:24)
[2023-05-22] MEDS: lamoTRIgine 100 MG TAB PO (08:24)
--- NOTE | 2023-05-22 09:43 | PTTR_ITS ---
Date of service: 05/22/23 Time of Service: 09:13 PT Notes Visit Reasons: R THR Inpatient Physical Therapy Treatment Note [facility] Date: 05/22/23 PRECAUTIONS: Fall, standard, activity as tolerated, WBAT with AD LLE SUBJECTIVE: Patient reports feeling ok, slept ok, regrets forgetting her own crutches at home. OBJECTIVE: Supine in bed with all 4 side rails up and a protective mat between each set of side rails and patient's sleeping surface. SALMA stockings on bilaterally. Agreeable to therapy. PAIN: none reported initially, until reviewing exercises. BED MOBILITY/TRANSFERS Rolling L/R: independent Supine-sit: independent Sit-supine: independent Sit-stand: CGA Stand-sit: SBA Bed-Chair: CGA Chair-bed: CGA Gait Training ([id number]): Direct one-on-one instruction and skilled instruction in: [x] employing an assistive device [x] modified weight-bearing status [x] movement sequencing [x] turning and movement with proper form [x] Provided verbal cues for equipment management and technique [x] Provided instruction in gait pattern [] Patient education regarding pacing and breathing techniques to maximize activity tolerance? GAIT? Assistive Device: bilateral axillary crutches? Weight bearing: WBAT LLE with AD Assist: CGA and max verbal cues ? Distance:? 75 feet ? 2ND TREATMENT: 30 feet? Deviation: Patient has reportedly used axillary crutches previously, however, patient requires max verbal cues for appropriate gait sequence. Wants to use TTWB rather than WBAT - repeated verbal cues to facilitate appropriate heel strike, repeated verbal cues for step-through gait pattern with crutches alongside operative leg. 2ND TREATMENT: Patient much better coordinated, moving crutches with operative leg, adequate heel strike 90% of the time. ?Therapeutic Exercises ([id number]): Direct one-on-one instruction in therapeutic e xercises to develop strength, endurance, range of motion and flexibility. ? Exercises: HEP established and reviewed with patient as follows: * Glute Sets 3x10 with 3 second hold * heel slides 3x10 - verbal and tactile cues to facilitate maximum pain-free ROM * seated marching 3x10 * seated LAQ's 3x10 * ankle pumps 3x10 Provided skilled instruction in proper exercise performance Provided skilled manual cues to facilitate proper muscle recruitment and/or form. ASSESSMENT: Patient requires further gait training before she can be safely discharged. 2ND TREATMENT: Patient appears to ambulate safely. PLAN: Continue gait training with patient until medically cleared for discharge. D/C with orders for HHPT if possible to ensure safe gait sequence at home. TREATMENT CODE/TIME: 29 minutes beginning at 9:13 and 12 minutes beginning at 11:00 for a total of 41 minutes today
--- NOTE | 2023-05-22 09:55 | DSE_ITS ---
Date of service: 05/22/23 Time of Service: 09:55 DS: Diagnosis Discharge Diagnosis (1) History of total right hip replacement: Status: Acute (2) Arthritis of right hip: Status: Acute Discharge Plan Disposition Patient Disposition: Home Condition: Good Discharge Details Reason For Visit: R THR Admit Date/Time: 05/21/23 07:59 Admit Provider: Castro Upton Attending Provider: Castro Upton [facility] Course: Patient was admitted to the medical/surgical floor following the procedure. The surgery was tolerated well without any notable medical, surgical, or anesthetic complications. Mobilization began postoperatively. She was voiding spontaneously. Vitals were stable. Physical therapy worked with the patient and was cleared for discharge home. No acute medical issues. Pain was controlled on oral regimen. Home Meds and New Rx's Prescriptions: New celecoxib 200 mg capsule 200 mg PO BID Qty: 60 0RF aspirin 81 mg tablet,delayed release (DR/EC) 81 mg PO BID Qty: 60 0RF acetaminophen 500 mg tablet 1,000 mg PO TID Qty: 90 3RF pantoprazole 40 mg tablet,delayed release (DR/EC) 40 mg PO DAILY Qty: 30 0RF dexamethasone 4 mg tablet 4 mg PO DAILY Qty: 2 0RF oxycodone 5 mg tablet 5 mg PO Q4H MDD 6 tabs PRN (Reason: pain) Qty: 20 0RF Continued lamotrigine [Lamictal] 100 mg tablet 100 mg PO BID Qty: 180 4RF calcium carbonate-vitamin D3 1 EACH tablet 1 ea PO DAILY thiamine HCl (vitamin B1) 100 MG tablet 100 mg PO DAILY Qty: 60 4RF divalproex 500 mg tablet,delayed release (DR/EC) 500 mg PO BID Qty: 30 0RF Discharge Instructions Additional Instructions: Total Hip Discharge Instructions Activity: The most important activity is to walk. You should try to take short walks a few times a day. You have no restrictions on movement or positioning, but do not try to force what you do. You will find some stiffness and weakness with hip flexion (lifting your knee). Do not try to strengthen this too early, continue to practice walking and stairs and this will come. - Outpatient physical therapy can be helpful to help return you to a normal gait and improve your flexibility and strength. This can start around 2 weeks. For some patients, it?s not necessary. Usually this is determined at the time of discharge or at the first post-operative visit. - You should wear the SALMA hose on both legs for 2 weeks. Dressing: Keep the surgical dressing in place for at least one week. After the first week it may be removed and replace with light gauze and tape or nothing. It may get wet after 3 days but avoid soaking the dressing. If it gets wet, just lightly pat dry. It is important to always keep some gauze between skin folds, especially when you are sitting. Spend some time with the wound exposed when you are lying flat as the incision does wrinkle onto itself. Medications: - You should take Tylenol and an anti-inflammatory Celebrex as your primary pain control medications. If the Celebrex is too expensive or not covered, please call the office for another alternative (Advil/Ibuprofen or Naproxen/Aleve). - You have been prescribed a stronger pain medication Oxycodone for breakthrough pain, take as needed as prescribed. - You have also been prescribed a stomach acid reduction agent Pantoprozole to help reduce stomach acid and reflux. - You have also been prescribed Decadron to help with post-operative nausea and pain. You will take this for two days starting tomorrow. - You will be taking Aspirin 81mg twice a day for DVT prevention unless instructed otherwise. - If you have constipation you should take Colace or Miralax (both [id number]). It takes most people 3-4 days to have a bowel movement. Follow-up: 2 weeks If you have any acute concerns or questions, please do not hesitate to contact the office at [phone]. You may contact Dr. Upton with any questions after hours through the hospital at [phone] or on his cell phone at [phone]. Referrals: Castro Upton MD [ [facility] STAFF PHYSICIAN] - Activity:: Activity as Tolerated Equipment/Supplies:: Crutches Diet:: As Tolerated Discharge Orders Discharge Orders: Discharge Order (Routine); Ordered 05/22/23 Ordered By: Castro Upton DS: Summary Time Spent with Patient providing and/or coordinating discharge services: Less than 30 minutes Status at Discharge Functional status at discharge: uses cane/walker Overall status at discharge: patient is progressing back to baseline Mental Status: mental status grossly normal Speech and Movement: speech and movement normal Mood: congruent mood Affect: normal affect Exam Narrative Exam Narrative: Sitting up in the bed. No acute distress. Alert orient x3. Right hip shows a clean dry and intact dressing. She is able tolerate internal and external rotation without significant pain. She endorses full sensation over the femoral site nerve distribution. Intact ankle dorsiflexion, plantarflexion, EHL, FHL. Psych Mental Status: mental status grossly normal Speech and Movement: speech and movement normal Mood: congruent mood Affect: normal affect DS: Data Vitals/I&O Vitals and I&O: Vital Signs Temperature 36.7 C 05/22/23 07:35 Temperature Source Tympanic 05/22/23 07:35 Pulse 64 05/22/23 07:35 Pulse Rhythm Regular 05/22/23 07:20 Respiratory Rate 17 05/22/23 07:35 Respiratory Effort Normal, Non-Labored 05/22/23 07:20 Respiratory Depth Normal 05/22/23 07:20 Respiratory Pattern Normal 05/22/23 07:20 Blood Pressure 90/50 L 05/22/23 07:35 Pulse Oximetry 94 05/22/23 07:35 Oxygen Delivery Method Room Air 05/22/23 07:35 Oxygen Flow Rate 0 05/22/23 07:35 Pain Level 3 05/22/23 07:35 Comment right hip pain 05/22/23 03:37 Intake & Output 05/21/23 05/21/23 05/22/23 11:59 23:59 11:59 Intake Total / 2170 2059 290 / 290 Output Total 50 / 50 Balance 0 2009 290 / 290 Weight 33.5 kg 44.476 kg Intake: IV 110 / 1210 1100 / 1210 50 / 50 Oral 960 / 960 240 / 240 Output: Estimated Blood Loss 50 / 50 Other: Urine Color Yellow Light Cara Urine Appearance Clear Clear Urine Odor None None Comment pt has no voided states they dont need to at this time unmeasured Emesis Description None Voiding Methods Toilet Toilet PFSH All Active Problems Arthritis of right hip (Acute) History of total right hip replacement (Acute 05/21/23) Seizure disorder (Chronic) Diagnosed at age 8, on two antiseizure medications. follows [facility] [place] Dr. Treviño. stable but with breakthrough seizure 2020 Underweight (Chronic) BMI 17 to 18. Tobacco use disorder (Chronic) From age 14 until present, greater than 50 pack years. 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 Hx of + HPV with nl Pap. 2014. Colpo ECC ? LGSIL. 2020. Pap/HPV. Nl/Neg. Recommended repeat in 2021. Depressive disorder (Acute 07/30/13) Osteoporosis (Acute 01/27/14) 2013 T score -2.3 left hip 2018 R hip osteoporosis. Osteopenia spine + wrist. Medical History Hx of seizure disorder Grand-mal seizures-last one was 01/2023. Last saw Dr. Treviño Summer 2022 per pt Hip fracture, left (01/27/14) 2012 Atrophic vaginitis (02/07/14) Alcohol abuse (07/30/13) Tobacco use several Fx from falls. DEXA -2.3 Osteoporosis Alcoholism stopped drinking 2017 Surgical History History of left shoulder replacement History of left hip replacement Arthroplasty of knee (06/07/16) LEFT/DR. HORTON Family History Mother , 81 Essential hypertension Hyperlipidemia Father , 61 CAD (coronary artery disease) Brother Essential hypertension Social History Smoking/Tobacco Use Status: Current every day Tobacco Type: cigarettes Quit status: not considering quitting Second Hand Exposure: Yes Smoking risk assessment performed?: Yes Alcohol Intake: former Drug use: Never Caregiver/Support person: No Household members: none and other Details: not in relationship Housing: apartment Number of Children: 0 Communication Needs: None Do you need help understanding health information?: Rarely Pets and animals: No Sexually active: No Do you think of yourself as: straight/heterosexual Current gender identity: female What is your relationship status?: How often do you talk on the phone with friends or family?: once per week Panel score (0-1 are the most socially isolated patients): 0 What type of physical activity do you participate in: walking Duration: > 90 minutes/day Frequency: daily Seatbelt use: always Drive intox or ride w/intox cpr ambulance driver: No Do you feel safe at home: Yes Do you feel safe in your relationship?: Yes Additional Social history: lives alone basement floor-MD notified for post op as well as anesthesia. Time Spent with Patient Time Spent with Patient: <45 minutes Time was spent: ordering medications,tests, procedures, indepentently interpreting results, counseling the patient and care coordination
[2023-05-22 11:23] VITALS: BP 90/55; PULSE 72; RESP 17; TEMP 36.1; O2SAT 98
== END 2023-05-22 12:17 | disposition home or self-care (01) ==
LOC: SUR 07:59 → MS 14:33
PROVIDERS: Admitting Provider Student in an Organized Health Care Education/Training Program; PCP Nurse Practitioner Family; Visit Provider Student in an Organized Health Care Education/Training Program
PROC: (CPT 27130; principal; 2023-05-21 11:15)
DX: M16.11 Unilateral primary osteoarthritis, right hip (principal); F17.210 Nicotine dependence, cigarettes, uncomplicated; M81.0 Age-related osteoporosis without current pathological fracture; F32.A Depression, unspecified; R29.6 Repeated falls; G40.909 Epilepsy, unspecified, not intractable, without status epilepticus; R63.6 Underweight; Z68.1 Body mass index [BMI] 19.9 or less, adult
CPT/HCPCS: 27130; 20985; C1776; 97110; 97116; 97162; 97530; NC; 73501; G0378; J0690; J2001; J2405

== ENCOUNTER 2023-06-05 11:38 | Outpatient (CLI) | payer MEDICARE, MEDICAID, SELFPAY ==
--- NOTE | 2023-06-05 11:15 | DI.RAD_ITS ---
Exam(s) XR HIP RT COMPLETE AP PELVIS EXAM: XR HIP RT COMPLETE AP PELVIS INDICATION: 1ST POST OP R MORAIMA. COMPARISON: CR XR HIP RT COMPLETE AP PELVIS from 03/31/2023 XA XR HIP RT IN OR from 05/21/2023 TECHNIQUE: 2D digital imaging was performed. Two views. FINDINGS: There has been no change in the alignment of the bilateral hip prostheses. There are no abnormal ant[place] rounding bony lucencies. DATA REPOSITORY: RADIATION DOSE DELIVERED:
== END 2023-06-05 11:39 | disposition home or self-care (01) ==
LOC: DIORS 11:38
PROVIDERS: PCP Nurse Practitioner Family; Visit Provider Physician Assistant
DX: Z96.641 Presence of right artificial hip joint (principal); Z47.1 Aftercare following joint replacement surgery
CPT/HCPCS: 73502

== ENCOUNTER 2023-06-18 17:18 | Emergency (ER) | payer MEDICARE, MEDICAID, SELFPAY ==
[2023-06-18 17:24] VITALS: BP 133/77; PULSE 82; RESP 20; TEMP 36.7; O2SAT 95
--- NOTE | 2023-06-18 17:40 | W.ED.GENAD ---
Discharge Plan Disposition Patient Disposition: Home Condition: Stable Discharge Details Clinical Impression: Seizure Primary Care Provider: Kandice Olvera ED Provider: Adenike Mansfield Home Meds and New Rx's Prescriptions: Continued lamotrigine [Lamictal] 100 mg tablet 100 mg PO BID Qty: 180 4RF calcium carbonate-vitamin D3 1 EACH tablet 1 ea PO DAILY thiamine HCl (vitamin B1) 100 MG tablet 100 mg PO DAILY Qty: 60 4RF oxycodone 5 mg tablet 5 mg PO Q4H MDD 6 tabs PRN (Reason: pain) Qty: 20 0RF celecoxib 200 mg capsule 200 mg PO BID Qty: 60 0RF aspirin 81 mg tablet,delayed release (DR/EC) 81 mg PO BID Qty: 60 0RF acetaminophen 500 mg tablet 1,000 mg PO TID Qty: 90 3RF pantoprazole 40 mg tablet,delayed release (DR/EC) 40 mg PO DAILY Qty: 30 0RF divalproex 500 mg tablet,delayed release (DR/EC) 500 mg PO BID Qty: 30 0RF Discharge Instructions Instructions: Recurrent Seizures in Adults (ED) Additional Instructions: please check with your primary care provider regarding your valporic acid level. your lamictal level is still pending and you can discuss with primary care provider when available. take all your medication as prescribed. Referrals: Kandice Olvera NP [Primary Care Provider] - Medical Decision Making Presents for reports of a seizure lasting approximately 2 to 3 minutes with known seizure history. She arrives at her baseline. Vital signs are stable think is reasonable to obtain levels of her antiseizure medication basic electrolytes kidney function CBC and if remains stable can be discharged home. This vital signs remained stable with no seizure activity. She remains at her baseline Lab Data Lab results reviewed: Yes I reviewed the patient's lab results. Lab results narrative: lab Laboratory Tests Range/Units 06/18/23 17:55 WBC (4.4-10.8) 10^3/uL 9.02 RBC (3.93-5.22) 10^6/uL 4.39 Hgb (11.2-15.7) g/dL 14.2 Hct (36.0-46.0) % 42.6 MCV (80-95) fL 97 H MCH (27.0-33.0) pg 32.3 MCHC (32.0-36.0) % 33.3 RDW (11.7-14.6) % 15.0 H Plt Count (130-400) 10^3/uL 218 MPV (8.0-11.0) fL 10.4 Immature Gran % 0.1 Neutrophils % 62.2 Lymphocytes % 27.2 Monocytes % 6.7 Eosinophils % 2.7 Basophils % 1.1 Nucleated RBC % (0.0-0.3) % 0.0 Absolute Neutrophils (1.2-6.7) 10^3/uL 5.62 Absolute Lymphocytes (1.2-3.4) 10^3/uL 2.45 Absolute Monocytes (0.1-0.8) 10^3/uL 0.60 Absolute Eosinophils (0.0-0.7) 10^3/uL 0.24 Absolute Basophils (0.0-0.2) 10^3/uL 0.10 Sodium (136-145) mmol/L 142 Potassium (3.5-5.1) mmol/L 3.8 Chloride (98-107) mmol/L 105 Carbon Dioxide (21.0-32.0) mmol/L 25.9 Anion Gap (3-11) mmol/L 11.1 H BUN (7-18) mg/dL 18 Creatinine (0.55-1.02) mg/dL 0.7 Est GFR (CKD-EPI 2020) (mL/min/1.73m2) 95.32 Glucose (74-106) mg/dL 108 H Calcium (8.5-10.1) mg/dL 9.4 Valproic Acid ( - 150) ug/mL 16.5 HPI General Mode of arrival: ambulatory. Date/Time Provider Initiated Documentation: 06/18/23 17:23. Limitations to Documentation: no limitations. Information obtained by: patient. HPI Narrative: Patient presents for evaluation of a seizure that occurred approximately 5 PM lasting 2 to 3 minutes according to the witness. She was visiting her friend sitting in her kitchen when she all of a sudden stiffened up and started shaking. Her friend helped her to the ground so there was no fall or injury. She was not incontinent of bowel or bladder. She did not bite her tongue. After about 3 minutes she did stop moving but was confused. The confusion did concern the bystander who brought her in for evaluation. By the time she arrives here she is awake alert oriented with no complaints. She states she has not had an illness. She had a hip replacement 3 weeks ago and has been recovering well from that. There have been no changes to her medications. She denies missing any doses of her antiseizure medication. She states that she typically will have about 1 breakthrough seizure annually Related Data Home Medications Medication Instructions Recorded Confirmed calcium carbonate 600 mg-vitamin 1 ea PO DAILY 02/25/14 06/05/23 D3 5 mcg (200 unit) tablet thiamine HCl (vitamin B1) 100 mg 100 mg PO DAILY #60 caps 08/20/17 06/05/23 tablet lamotrigine 100 mg tablet 100 mg PO BID #180 tab-caps 02/27/21 06/05/23 (Lamictal) divalproex 500 mg tablet,delayed 500 mg PO BID #30 tabs 06/18/22 06/05/23 release acetaminophen 500 mg tablet 1,000 mg (2 x 500 mg) PO TID #90 05/21/23 06/05/23 tabs aspirin 81 mg tablet,delayed 81 mg PO BID #60 tabs 05/21/23 06/05/23 release celecoxib 200 mg capsule 200 mg PO BID #60 caps 05/21/23 06/05/23 pantoprazole 40 mg tablet,delayed 40 mg PO DAILY #30 tabs 05/21/23 06/05/23 release oxycodone 5 mg tablet 5 mg PO Q4H PRN pain #20 tabs 05/25/23 06/05/23 Previous Rx's Medication Instructions Recorded thiamine HCl (vitamin B1) 100 mg 100 mg PO DAILY #60 caps 08/20/17 tablet lamotrigine 100 mg tablet 100 mg PO BID #180 tab-caps 02/27/21 (Lamictal) divalproex 500 mg tablet,delayed 500 mg PO BID #30 tabs 06/18/22 release acetaminophen 500 mg tablet 1,000 mg (2 x 500 mg) PO TID #90 05/21/23 tabs aspirin 81 mg tablet,delayed 81 mg PO BID #60 tabs 05/21/23 release celecoxib 200 mg capsule 200 mg PO BID #60 caps 05/21/23 pantoprazole 40 mg tablet,delayed 40 mg PO DAILY #30 tabs 05/21/23 release oxycodone 5 mg tablet 5 mg PO Q4H PRN pain #20 tabs 05/25/23 Allergies Allergy/AdvReac Type Severity Reaction Status Date / Time No Known Allergies Allergy Verified 06/05/23 11:24 General Stated Complaint: Seizure MARISABEL: 3 Review of Systems All systems reviewed & are unremarkable except as noted in HPI and below PFSH All Active Problems (Updated 06/18/23 @ 18:49 by Adenike Mansfield, NEIL) Seizure (Acute) History of total right hip replacement (Acute 05/21/23) Seizure disorder (Chronic) Diagnosed at age 8, on two antiseizure medications. follows [facility] Dr. Treviño. stable but with breakthrough seizure 2020 Underweight (Chronic) BMI 17 to 18. Tobacco use disorder (Chronic) From age 14 until present, greater than 50 pack years. 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 Hx of + HPV with nl Pap. 2014. Colpo ECC ? LGSIL. 2020. Pap/HPV. Nl/Neg. Recommended repeat in 2021. Depressive disorder (Acute 07/30/13) Osteoporosis (Acute 01/27/14) 2013 T score -2.3 left hip 2019 R hip osteoporosis. Osteopenia spine + wrist. Medical History Hx of seizure disorder Grand-mal seizures-last one was 01/2023. Last saw Dr. Treviño Summer 2022 per pt Hip fracture, left (01/27/14) 2012 Atrophic vaginitis (02/07/14) Alcohol abuse (07/30/13) Tobacco use several Fx from falls. DEXA -2.3 Osteoporosis Alcoholism stopped drinking 2017 Surgical History History of left shoulder replacement History of left hip replacement Arthroplasty of knee (06/07/16) LEFT/DR. HORTON Family History Mother , 81 Essential hypertension Hyperlipidemia Father , 61 CAD (coronary artery disease) Brother Essential hypertension Social History Smoking/Tobacco Use Status: Current every day Tobacco Type: cigarettes Quit status: not considering quitting Second Hand Exposure: Yes Smoking risk assessment performed?: Yes Alcohol Intake: former Drug use: Never Caregiver/Support person: No Household members: none and other Details: not in relationship Housing: apartment Number of Children: 0 Communication Needs: None Do you need help understanding health information?: Rarely Pets and animals: No Sexually active: No Do you think of yourself as: straight/heterosexual Current gender identity: female What is your relationship status?: How often do you talk on the phone with friends or family?: once per week Panel score (0-1 are the most socially isolated patients): 0 What type of physical activity do you participate in: walking Duration: > 90 minutes/day Frequency: daily Seatbelt use: always Drive 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 Do you feel safe at home: Yes Do you feel safe in your relationship?: Yes Exam Const General: cooperative, comfortable, no acute distress and frail appearing (older than stated age) Nutritional Appearance: thin Orientation: alert, awake and oriented x3 HENWY Head: normal to inspection, normocephalic and atraumatic Face and sinus: normal facial exam Mouth: oral mucosae normal Chest Chest: normal inspection of the chest Resp Effort & Inspection: normal respiratory effort Cardio Rate: regular rate Rhythm: regular rhythm GI Inspection: normal to inspection Palpation: soft and nontender Skin Rashes: no rashes Neuro General: patient alert, patient awake and patient oriented x3 Extrem General: normal to inspection and full ROM Course Vital Signs Vital signs: Vital Signs Temperature 36.7 C 06/18/23 17:24 Pulse 82 06/18/23 17:24 Respiratory Rate 20 06/18/23 17:24 Blood Pressure 133/77 06/18/23 17:24 Pulse Oximetry 95 06/18/23 17:24 Temperature 36.7 C 06/18/23 17:24 Temperature Source Temporal Artery Scan 06/18/23 17:24 Pulse 82 06/18/23 17:24 Respiratory Rate 20 06/18/23 17:24 Blood Pressure 133/77 06/18/23 17:24 Blood Pressure Position Sitting 06/18/23 17:24 Pulse Oximetry 95 06/18/23 17:24 Oxygen Delivery Method Room Air 06/18/23 17:24 Oxygen Flow Rate 0 06/18/23 17:24
[2023-06-18 18:04] LABS: Abs Immature Grans 0.01 10^3/uL (0.0-0.06); Absolute Eosinophil Count 0.24 10^3/uL (0.0-0.7); Absolute Lymphocyte Count 2.45 10^3/uL (1.2-3.4); Absolute Neutrophil Count 5.62 10^3/uL (1.2-6.7); Basophils % 1.1; Eosinophils % 2.7; HCT 42.6 % (36.0-46.0); HGB 14.2 g/dL (11.2-15.7); Immature Grans % 0.1; Lymphocytes % 27.2; MCH 32.3 pg (27.0-33.0); MCHC 33.3 % (32.0-36.0); MCV 97 fL (80-95); MPV 10.4 fL (8.0-11.0); Monocytes % 6.7; Neutrophils % 62.2; Platelet Count 218 10^3/uL (130-400); RBC 4.39 10^6/uL (3.93-5.22); RDW-SD 54.2 fL; WBC 9.02 10^3/uL (4.4-10.8)
[2023-06-18 18:13] LABS: Anion Gap 11.1 mmol/L (3-11); BUN 18 mg/dL (7-18); CO2 25.9 mmol/L (21.0-32.0); CREATININE 0.7 mg/dL (0.55-1.02); Calcium 9.4 mg/dL (8.5-10.1); Chloride 105 mmol/L (98-107); Estimated GFR 95.32 (mL/min/1.73m2); Glucose 108 mg/dL (74-106); Potassium 3.8 mmol/L (3.5-5.1); Sodium 142 mmol/L (136-145)
[2023-06-18 18:24] LABS: VALPROIC ACID 16.5 ug/mL
[2023-06-18 19:10] VITALS: BP 140/77; PULSE 81; RESP 20; O2SAT 96
[2023-06-21 12:02] LABS: Lamotrigine 5.3 mcg/mL (3.0-15.0)
== END 2023-06-18 19:21 | disposition home or self-care (01) ==
PROVIDERS: Emergency Provider Nurse Practitioner Acute Care; PCP Nurse Practitioner Family
DX: G40.909 Epilepsy, unspecified, not intractable, without status epilepticus (principal); F17.210 Nicotine dependence, cigarettes, uncomplicated; Z79.82 Long term (current) use of aspirin; Z79.899 Other long term (current) drug therapy
CPT/HCPCS: 80048; 80175; 99283; 80164; 85025; 99282

== ENCOUNTER → 2023-07-14 10:34 | Outpatient (BNVA) | payer MEDICARE, SELFPAY | PROVIDERS: PCP Nurse Practitioner Family; Visit Provider Student in an Organized Health Care Education/Training Program | DX: Z47.1 Aftercare following joint replacement surgery (principal); Z96.641 Presence of right artificial hip joint ==

== ENCOUNTER → 2023-08-25 13:12 | Outpatient (BNVA) | payer MEDICARE, MEDICAID, SELFPAY | PROVIDERS: PCP Nurse Practitioner Family; Visit Provider Student in an Organized Health Care Education/Training Program | DX: Z47.1 Aftercare following joint replacement surgery (principal); Z96.641 Presence of right artificial hip joint ==

== ENCOUNTER 2023-11-05 18:59 | Emergency (ER) | payer MEDICARE, MEDICAID, SELFPAY ==
[2023-11-05] VITALS (48 sets, daily range): BP systolic 102–148; BP diastolic 53–77; PULSE 72–79; RESP 13–29; TEMP 36.4; O2SAT 92
--- NOTE | 2023-11-05 18:45 | RT.EKG_ITS ---
APPROVED REPORT Exam: Resting ECG Reason for Exam: Passed Out Patient Location: E HR:74 bpm ECG Measurements Heart Rate 74 AXIS AL 139 P 54 QRSd 61 QRS 71 QT 350 T 59 QTc 388 Conclusion Sinus rhythm...normal P axis, V-rate 60- 99 Normal Electrocardiogram
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
--- NOTE | 2023-11-05 19:15 | DI.CT_ITS ---
Exam(s) CT CHEST W EXAM: CT CHEST W CLINICAL HISTORY: unresponsive event; right lat chest wall tendernes TECHNIQUE: Imaging Protocol: Axial computed tomography images with coronal and sagittal reformatted images were created and reviewed CONTRAST MATERIAL: Intravenous: Omnipaque 350Contrast volume:70 mL. COMPARISON: CT CT CHEST/ABD/PEL W from 11/03/2022 FINDINGS: The examination is limited due to patient motion artifact.. Tracheobronchial tree: Patent where visualized. Pulmonary parenchyma: There is a small nodular peripheral infiltrate in the posterior aspect of the l eft lower lobe. This may reflect small airways infection or inflammation. No focal consolidating in filtrates are present. There is scarring or atelectasis in the lung bases. There is a stable 3 mm n odule in the right lower lobe (series 3, image 326). There is a new 4 mm nodule in the posterior asp ect of the right upper lobe (series 3, image 284). There is a new 3 mm nodule more superiorly in the posterior aspect of the right upper lobe (series 3, image 231). There is a stable 4 mm nodule in th e lateral aspect of the left upper lobe (series 3, image 221). Mediastinum and Maribel: No dominant adenopathy or fluid collection. The esophagus is unremarkable. Thyroid gland: Unremarkable. Pleura: No effusion or pneumothorax. Heart: The heart is not dilated. No coronary artery calcifications are seen. No pericardial effusion. Aorta: Thoracic aorta non-dilated. No evidence of dissection. Pulmonary arteries: Due to the timing of the bolus, pulmonary artery evaluation is suboptimal for ling luation of pulmonary emboli. No large central pulmonary embolus is present. Upper abdomen: Stable bilateral adrenal nodularity. Lymph nodes: Within normal limits. Bones: Within normal limits for the patient's age. A left shoulder prosthesis is partially imaged. Tubes, Catheters, and Lines: Soft tissues: Unremarkable. IMPRESSION: 1. No acute pulmonary process. 2. Bilateral pulmonary infiltrates. This may reflect infectious or inflammatory process. Please cor relate clinically. 3. New pulmonary nodules as described above. A follow-up CT scan of the chest in 12 months is recomm ended for re-evaluation. RADIATION DOSE DELIVERED: Total DLP DATA REPOSITORY: All CT scans at this facility are submitted to the National Radiology Data Registry (NRDR) Dose Index Registry (DIR) with the [employer] (ACR). RADIATION OPTIMIZATION: All CT scans at this facility use at least one of these dose optimization te chniques: automated exposure control; mA and/or kV adjustment per patient size (includes targeted exa ms where dose is matched to clinical indication); or iterative reconstruction.
[2023-11-05 19:33] LABS: Lactate 3.3 mmol/L (0.6-1.4)
[2023-11-05 19:43] LABS: Anion Gap 9.8 mmol/L (3-11); BUN 22 mg/dL (7-18); CO2 28.2 mmol/L (21.0-32.0); CREATININE 0.8 mg/dL (0.55-1.02); Calcium 9.2 mg/dL (8.5-10.1); Chloride 106 mmol/L (98-107); Estimated GFR 81.21 (mL/min/1.73m2); Glucose 93 mg/dL (74-106); Magnesium 1.9 mg/dL (1.8-2.4); Potassium 3.8 mmol/L (3.5-5.1); Sodium 144 mmol/L (136-145)
[2023-11-05 19:45] LABS: Abs Immature Grans 0.02 10^3/uL (0.0-0.06); Absolute Eosinophil Count 0.09 10^3/uL (0.0-0.7); Absolute Lymphocyte Count 2.63 10^3/uL (1.2-3.4); Absolute Monocyte Count 0.86 10^3/uL (0.1-0.8); Absolute Neutrophil Count 5.31 10^3/uL (1.2-6.7); Basophils % 1.1; HCT 42.4 % (36.0-46.0); HGB 14.4 g/dL (11.2-15.7); Immature Grans % 0.2; Lymphocytes % 29.2; MCV 97 fL (80-95); MPV 10.8 fL (8.0-11.0); Monocytes % 9.5; Platelet Count 218 10^3/uL (130-400); RBC 4.36 10^6/uL (3.93-5.22); RDW 15.9 % (11.7-14.6); WBC 9.01 10^3/uL (4.4-10.8)
[2023-11-05 20:13] LABS: VALPROIC ACID 16.2 ug/mL
[2023-11-05] MEDS: Normal Saline - Diluent 50 ML VIAL IJ (20:13)
[2023-11-05] MEDS: Omnipaque 350 MG/ML 100 ML BTL IJ (20:14)
[2023-11-05 20:25] LABS: Bilirubin Negative (Negative); Blood Large (Negative); Clarity Sl Cloudy (Clear); Glucose Negative (Negative); Ketones Negative (Negative); Leukocyte Esterase Negative (Negative); Nitrite Negative (Negative)
[2023-11-05 20:33] LABS: Bacteria Moderate HPF (Negative); Crystals Negative HPF (Negative); Epithelial Cells Few HPF (Negative); WBC 0-2 HPF (0-5)
[2023-11-05 20:34] LABS: C & S Indicated? No; Casts Negative LPF (Negative); Mucus Negative (Negative)
[2023-11-05] MEDS: VALPROATE SODIUM 500 MG in Normal Saline 50 ML 50 MG IVPB (22:05)
[2023-11-05] MEDS: Normal Saline Flush 10 ML SYR IVP (22:05)
--- NOTE | 2023-11-05 22:08 | DI.VRAD_ITS ---
PROCEDURE INFORMATION: Exam: CT Head Without Contrast Exam date and time: 11/05/2023 9:46 PM Age: 67 years old Clinical indication: Injury or trauma; Other: Unresponsive event, bruising to face; Blunt trauma (contusions or hematomas) TECHNIQUE: Imaging protocol: Computed tomography of the head without contrast. COMPARISON: CT HEAD CERVICAL SPINE WO 11/03/2022 7:09 PM FINDINGS: Brain: No acute intracranial hemorrhage, mass-effect, midline shift, or extra-axial collection is seen. The medrano white matter differentiation appears preserved. There is symmetric parenchymal volume loss. There is gross symmetric cerebellar atrophy, similar in appearance on the comparison exam from June 18, 2022, nonspecific but commonly seen as a result of chronic antiseizure medication. Cerebral ventricles: The ventricular system and basilar cisterns appear prominent but appropriate in size and configuration given the degree of parenchymal volume loss. Paranasal sinuses: The visualized paranasal sinuses appear well-aerated. Mastoid air cells: The mastoid air cells appear well-aerated. Auditory system: The middle ear cavities appear clear. Bones/joints: The bony calvarium appears intact. No depressed skull fracture is seen. Soft tissues: No gross focal scalp hematoma is seen. IMPRESSION: 1. No acute intracranial abnormality seen. 2. Symmetric parenchymal volume loss. 3. Gross symmetric cerebellar atrophy, similar in appearance on the comparison exam from June 18, 2022, nonspecific but commonly seen as a result of chronic antiseizure medication. Dictated and Authenticated by: Solo Villaseñor MD. Ordering:JAYDEN Hannah MD
--- NOTE | 2023-11-05 22:27 | DI.VRAD_ITS ---
PROCEDURE INFORMATION: Exam: CT Chest With Contrast; Diagnostic Exam date and time: 11/05/2023 9:50 PM Age: 67 years old Clinical indication: Injury or trauma; Blunt trauma (contusions or hematomas); Injury details: Unresponsive event; Right lat chest wall tenderness TECHNIQUE: Imaging protocol: Diagnostic computed tomography of the chest with contrast. 3D rendering (Not supervised by radiologist): MIP and/or 3D reconstructed images were created by the technologist. Contrast material: OMNI 350; Contrast volume: 70 ml; Contrast route: INTRAVENOUS (IV); COMPARISON: CT CHEST/ABD/PEL W 11/03/2022 7:28 PM FINDINGS: Tubes, catheters and devices: Left shoulder prosthesis noted. Lungs: Mild worsening of mixed interstitial and ground-glass opacity in the posterior right lower lobe. Mild reticulonodular infiltrate in the left lower lobe appears similar to previous. Lung volumes appear normal. Pleural spaces: Unremarkable. No pneumothorax. No pleural effusion. Heart: Unremarkable. No cardiomegaly. No pericardial effusion. Lymph nodes: Unremarkable. No enlarged lymph nodes. Vasculature: Unremarkable. No aortic aneurysm. Adrenal glands: Stable bilateral adrenal gland hyperplasia, greater on the left. Bones/joints: Mild degenerative disc changes throughout the thoracic spine. No vertebral body compression or acute fracture. Soft tissues: Unremarkable. IMPRESSION: 1. No definite acute posttraumatic changes in the chest. 2. Mild worsening of infiltrate versus atelectasis in the right lower lobe Dictated and Authenticated by: Gera Perez MD. Ordering:JAYDEN Hannah MD
[2023-11-05] MEDS: ACETAMINOPHEN 1,000 MG/100 ML BTL 400 MG IVPB (23:00)
[2023-11-05] MEDS: Lidocaine 5% Patch 1 PATCH TP (23:13)
[2023-11-06] VITALS (51 sets, daily range): BP systolic 96–130; BP diastolic 37–80; PULSE 54–86; RESP 20; TEMP 36.8; O2SAT 93–97
== END 2023-11-06 06:57 | disposition home or self-care (01) ==
PROVIDERS: Emergency Provider Emergency Medicine; PCP Nurse Practitioner Family
DX: G40.802 Other epilepsy, not intractable, without status epilepticus (principal); R89.2 Abnormal level of other drugs, medicaments and biological substances in specimens from other organs, systems and tissues; S20.211A Contusion of right front wall of thorax, initial encounter; S00.83XA Contusion of other part of head, initial encounter; R91.8 Other nonspecific abnormal finding of lung field; F17.210 Nicotine dependence, cigarettes, uncomplicated; W18.39XA Other fall on same level, initial encounter; Y93.89 Activity, other specified; Y92.89 Other specified places as the place of occurrence of the external cause
CPT/HCPCS: 36410; 80048; 82962; 93005; 96365; 99285; 70450; 71260; 80164; 81003; 81015; 83605; 83735; 85025; 93010; 99284; J0131; J3490

== ENCOUNTER 2024-01-24 12:56 | Emergency (ER) | payer MEDICARE, MEDICAID, SELFPAY ==
[2024-01-24] VITALS (28 sets, daily range): BP systolic 109–129; BP diastolic 51–71; PULSE 53–71; RESP 12–20; O2SAT 95–100
--- NOTE | 2024-01-24 13:15 | RT.EKG_ITS ---
APPROVED REPORT Exam: Resting ECG Reason for Exam: Lathargic Patient Location: E HR:51 bpm ECG Measurements Heart Rate 51 AXIS ND 137 P 82 QRSd 58 QRS 84 QT 404 T 82 QTc 372 Conclusion Sinus bradycardia...rate< 60 ST elevation, consider inferior injury...ST >0.08mV, II III aVF Narrow complex sinus bradycardia at a rate of 61. Normal axis. Mildly shortened QTc. New T wave in version in aVL. Mild upsloping inferior ST segment elevations. No ST segment depressions. Prominen t T waves appear similar to prior dated earlier this year. Inferior Q waves more pronounced. No acu te injury pattern.
[2024-01-24 13:51] LABS: Abs Immature Grans 0.01 10^3/uL (0.0-0.06); Absolute Basophil Count 0.07 10^3/uL (0.0-0.2); Absolute Eosinophil Count 0.04 10^3/uL (0.0-0.7); Absolute Lymphocyte Count 2.25 10^3/uL (1.2-3.4); Absolute Monocyte Count 0.61 10^3/uL (0.1-0.8); Absolute Neutrophil Count 4.07 10^3/uL (1.2-6.7); Eosinophils % 0.6 %; HCT 47.3 % (36.0-46.0); HGB 16.2 g/dL (11.2-15.7); Immature Grans % 0.1 %; Lymphocytes % 31.9 %; MCH 32.5 pg (27.0-33.0); MCHC 34.2 % (32.0-36.0); MCV 95 fL (80-95); MPV 11.7 fL (8.0-11.0); Monocytes % 8.7 %; Neutrophils % 57.7 %; Platelet Count 223 10^3/uL (130-400); RBC 4.99 10^6/uL (3.93-5.22); RDW 13.7 % (11.7-14.6); RDW-SD 47.9 fL; WBC 7.05 10^3/uL (4.4-10.8)
[2024-01-24 13:59] LABS: Ammonia 13 umol/L (11-32)
--- NOTE | 2024-01-24 14:00 | DI.RAD_ITS ---
Exam(s) XR HIP RT COMPLETE AP PELVIS EXAM: XR HIP RT COMPLETE AP PELVIS CLINICAL HISTORY: right hip. TECHNIQUE: 2D digital imaging was performed. Three images were obtained. AP pelvis and lateral hip views were obtained. COMPARISON: CR XR HIP RT COMPLETE AP PELVIS from 06/05/2023 FINDINGS: BONES: There are stable post operative changes of a bilateral hip replacements present. No fracture or dislocation. JOINTS: The orthopedic hardware is in good position. No evidence of hardware loosening. SOFT TISSUE: Normal. IMPRESSION: Stable bilateral hip replacements. No acute fracture or dislocation. DATA REPOSITORY: RADIATION DOSE DELIVERED:
[2024-01-24 14:07] LABS: ALT 22 U/L (14-59); AST 14 U/L (15-37); Albumin 3.8 g/dL (3.4-5.0); Alkaline Phosphatase 88 U/L (46-116); Anion Gap 9.9 mmol/L (3-11); BUN 21 mg/dL (7-18); Bilirubin, Total 0.5 mg/dL (0.2-1.0); CO2 27.1 mmol/L (21.0-32.0); CREATININE 0.9 mg/dL (0.55-1.02); Calcium 9.2 mg/dL (8.5-10.1); Chloride 103 mmol/L (98-107); Estimated GFR 70.07 (mL/min/1.73m2); Glucose 84 mg/dL (74-106); Magnesium 2.1 mg/dL (1.8-2.4); Potassium 4.5 mmol/L (3.5-5.1); Sodium 140 mmol/L (136-145); Total Protein 7.6 g/dL (6.4-8.2); Troponin I < 50 ng/L (< or =60)
--- NOTE | 2024-01-24 14:07 | DI.CT_ITS ---
Exam(s) CT HEAD WO EXAM: CT HEAD WO CLINICAL HISTORY: weakness. TECHNIQUE: Imaging Protocol: Axial computed tomography images with coronal and sagittal reformatted images were created and reviewed COMPARISON: CT CT HEAD CERVICAL SPINE WO from 11/03/[address] HEAD WO from 11/05/2023 FINDINGS: Ventricles and Extra axial spaces: Normal in size and morphology for the patient's age. Stable promin ent atrophy of the cerebellum is seen. Hemorrhage: None. Cerebral parenchyma: Areas of decreased attenuation in the white matter consistent with chronic micro vascular ischemic disease. No acute mass effect is identified. Midline shift: None. Brainstem/Cerebellum: Normal. Calvarium: Normal. Visualized Paranasal sinuses/Mastoids: Clear. Soft Tissues: Unremarkable. IMPRESSION: No acute intracranial process. RADIATION DOSE DELIVERED: Total DLP DATA REPOSITORY: All CT scans at this facility are submitted to the National Radiology Data Registry (NRDR) Dose Index Registry (DIR) with the [employer] ([employer]). RADIATION OPTIMIZATION: All CT scans at this facility use at least one of these dose optimization te chniques: automated exposure control; mA and/or kV adjustment per patient size (includes targeted exa ms where dose is matched to clinical indication); or iterative reconstruction.
[2024-01-24 14:08] LABS: ETHANOL BLOOD < 3.0 mg/dL (<10)
--- NOTE | 2024-01-24 14:08 | DI.RAD_ITS ---
Exam(s) XR CHEST 2V PA LATERAL EXAM: XR CHEST 2V PA LATERAL CLINICAL HISTORY: weakness, seizure TECHNIQUE: 2D digital imaging was performed of the chest. Two images were obtained. PA and lateral views were obtained. COMPARISON: CR PORTABLE CHEST ONE VIEW from 08/08/2017 CR THORACIC SPINE from 01/02/2018 FINDINGS: MEDIASTINUM: Normal. HEART: Normal. PULMONARY VASCULATURE: Normal. LUNGS: The lungs are hyperinflated. This is consistent with underlying COPD. No focal infiltrates a re present. Stable mild interstitial disease is seen in the lung bases, left greater than right. PLEURAL SPACE: No pleural effusion or pneumothorax. There are 2 linear areas overlying the left upper hemithorax which are felt to be external. Lung markings are seen to the lung apex. These are not f elt to represent a pneumothorax. BONE:Within normal limits for the patient's age. Postsurgical changes of a left shoulder replacement . OTHER FINDINGS:Normal. IMPRESSION: No definite acute pulmonary findings. DATA REPOSITORY: RADIATION DOSE DELIVERED:
--- NOTE | 2024-01-24 14:38 | DI.VRAD_ITS ---
PROCEDURE INFORMATION: Exam: CT Head Without Contrast Exam date and time: 01/24/2024 2:02 PM Age: 68 years old Clinical indication: Other: Weakness TECHNIQUE: Imaging protocol: Computed tomography of the head without contrast. Radiation optimization: All CT scans at this facility use at least one of these dose optimization techniques: automated exposure control; mA and/or kV adjustment per patient size (includes targeted exams where dose is matched to clinical indication); or iterative reconstruction. COMPARISON: CT HEAD WO 11/05/2023 9:46 PM FINDINGS: Brain: No acute intracranial hemorrhage, mass-effect, midline shift, or extra-axial collection is seen. The medrano white matter differentiation appears preserved. There is symmetric parenchymal volume loss. Prominent symmetric cerebellar atrophy, similar to November 05, 2023 and November 03, 2022 nonspecific but commonly seen as a result of chronic antiseizure medication. Cerebral ventricles: The ventricular system and basilar cisterns appear prominent but appropriate in size and configuration given the degree of parenchymal volume loss. Paranasal sinuses: The visualized paranasal sinuses appear well-aerated. Mastoid air cells: The mastoid air cells appear well-aerated. Auditory system: The middle ear cavities appear clear. Bones: The bony calvarium appears intact. No depressed skull fracture is seen. Soft tissues: No gross focal scalp hematoma is seen. IMPRESSION: 1. No acute intracranial abnormality seen. 2. Similar symmetric cerebellar atrophy, nonspecific but commonly seen as a result of chronic antiseizure medication. Dictated and Authenticated by: April Hathaway MD. Ordering:DENICE Turner MD
--- NOTE | 2024-01-24 14:40 | DI.VRAD_ITS ---
PROCEDURE INFORMATION: Exam: XR Chest Exam date and time: 01/24/2024 2:07 PM Age: 68 years old Clinical indication: Other: Weakness, seizure TECHNIQUE: Imaging protocol: Radiologic exam of the chest. Views: 2 views. COMPARISON: CT CHEST W 11/05/2023 9:50 PM FINDINGS: Lungs: Hyperinflation. Unchanged mild diffuse interstitial coarsening. No consolidation. Pleural spaces: Unremarkable. No pleural effusion. No pneumothorax. Heart/Mediastinum: Unremarkable. No cardiomegaly. Bones/joints: Post left shoulder arthroplasty. IMPRESSION: No acute process Dictated and Authenticated by: April Hathaway MD. Ordering:DENICE Turner MD
--- NOTE | 2024-01-24 14:42 | DI.VRAD_ITS ---
PROCEDURE INFORMATION: Exam: XR Right Hip Exam date and time: 01/24/2024 2:13 PM Age: 68 years old Clinical indication: Hip pain; Right hip; Patient HX: Seizure TECHNIQUE: Imaging protocol: Radiologic exam of the right hip. Views: 2 or 3 views hip with pelvis when performed. COMPARISON: CR XR HIP RT COMPLETE AP PELVIS 06/05/2023 11:32 AM FINDINGS: Bones/joints: No acute fracture or malalignment. Post bilateral total hip arthroplasties. No finding concerning for hardware complication. Mild degenerative change of the included lower lumbar spine. No agressive bone destruction. Exam somewhat limited by overlying air and stool filled bowel Soft tissues: Arterial vascular calcifications and phleboliths. IMPRESSION: No detectable acute fracture or malalignment. If concern for occult fracture, consider protected weight-bearing and if warranted, follow up CT or MRI. Dictated and Authenticated by: April Hathaway MD. Ordering:DENICE Turner MD
[2024-01-24 16:08] LABS: VALPROIC ACID < 3 ug/mL
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
[2024-01-24] MEDS: lamoTRIgine 100 MG TAB PO (16:39)
--- NOTE | 2024-01-24 16:56 | NUR.NOTE ---
Nursing Note: Pt was able to ambulate around the unit with no concerns
--- NOTE | 2024-01-24 16:57 | CMPROGNOTE_ITS ---
Date of service: 01/24/24 Time of Service: 16:57 Care Management Progress Note Progress Note Text Progress Note Text: Patient was seen in the ER this afternoon. Please see documentation. Neighbor is concerned that Eloise lives home alone. At this time, no medical reason to admit and patient wants to return home. Per chart review this seems to be a long standing issue. CM recommends New [facility] RN/PT/BILLET WORKER services and outreached to [facility] RN at [facility] for follow up.
[2024-01-24 17:23] LABS: Troponin I < 50 ng/L (< or =60)
== END 2024-01-24 17:23 | disposition home or self-care (01) ==
PROVIDERS: Physician Assistant; Emergency Provider Registered Nurse Emergency; PCP Nurse Practitioner Family
DX: R41.82 Altered mental status, unspecified (principal); G40.909 Epilepsy, unspecified, not intractable, without status epilepticus; R00.1 Bradycardia, unspecified; F17.210 Nicotine dependence, cigarettes, uncomplicated; Z96.643 Presence of artificial hip joint, bilateral
CPT/HCPCS: 36415; 80053; 82962; 93005; 99284; 70450; 71046; 73502; 80164; 80320; 82140; 83735; 84484; 85025; 93010

== ENCOUNTER 2024-03-10 16:43 | Emergency (ER) | payer MEDICARE, MEDICAID, SELFPAY ==
[2024-03-10] VITALS (38 sets, daily range): BP systolic 90–123; BP diastolic 49–90; PULSE 55–82; RESP 6–22; TEMP 36.6; O2SAT 93–99
--- NOTE | 2024-03-10 16:36 | RT.EKG_ITS ---
APPROVED REPORT Exam: Resting ECG Reason for Exam: [facility] Patient Location: E HR:72 bpm ECG Measurements Heart Rate 72 AXIS NV 134 P 62 QRSd 59 QRS 75 QT 368 T 72 QTc 403 Conclusion Sinus rhythm...normal P axis, V-rate 60- 99 Probable left atrial enlargement...P >50mS, <-0.10mV V1 Abnrm T, consider ischemia, anterolateral lds...T <-0.20mV, I aVL V2-V6 I have reviewed and interpreted ECG and agree with software generated interpretation. There are no significant changes compared to prior EKG performed on 01/24/2024 at 13:20.
--- NOTE | 2024-03-10 16:43 | DI.CT_ITS ---
Exam(s) CT HEAD CERV SPINE FACIAL WO EXAM: CT HEAD CERV SPINE FACIAL WO CLINICAL HISTORY: Fall, Confusion, Facial trauma. TECHNIQUE: Imaging Protocol: Axial computed tomography images with coronal and sagittal reformatted images were created and reviewed COMPARISON: CT CT HEAD WO from 01/24/2024 FINDINGS: The examination is limited due to patient motion artifact. CT Head: Ventricles and Extra axial spaces: Normal in size and morphology for the patient's age. Hemorrhage: None. Cerebral parenchyma: No acute territorial infarct. Midline shift: None. Brainstem/Cerebellum: Normal. Calvarium: Normal. Visualized Paranasal sinuses/Mastoids: Clear. Soft Tissues: Unremarkable. CT Face: Facial Bones: No definite fracture is noted in facial bones. Sinuses and Mastoids: Unremarkable. Globes, extraocular muscles, optic nerves and retrobulbar fat: Normal. Upper aerodigestive tract: Normal. Mandible and bilateral temporomandibular joints: Normal. Soft tissues: Normal. CT Cervical Spine: Bones: No acute fracture or subluxation. Age-appropriate degenerative changes are present. 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 There is straightening of the normal cervical lordosis. Soft Tissues: Unremarkable. IMPRESSION: 1. No acute intracranial process. 2. No acute fracture or subluxation in the cervical spine. 3. No acute facial fracture. RADIATION DOSE DELIVERED: Total DLP DATA REPOSITORY: All CT scans at this facility are submitted to the National Radiology Data Registry (NRDR) Dose Index Registry (DIR) with the [employer] (ACR). RADIATION OPTIMIZATION: All CT scans at this facility use at least one of these dose optimization te chniques: automated exposure control; mA and/or kV adjustment per patient size (includes targeted exa ms where dose is matched to clinical indication); or iterative reconstruction.
--- NOTE | 2024-03-10 16:45 | DI.CT_ITS ---
Exam(s) CT CHEST/ABD/PEL W EXAM: CT CHEST/ABD/PEL W CLINICAL HISTORY: Fall, AMS, Right hip pain TECHNIQUE: Imaging Protocol: Axial computed tomography images with coronal and sagittal reformatted images were created and reviewed CONTRAST MATERIAL: Intravenous: Omnipaque 350 contrast volume:100 mL Oral: No COMPARISON: CT HEAD WITHOUT CONTRAST from 01/28/[address] CHEST/ABD/PEL W from 11/03/[address] CHEST W from 11/05/2023 FINDINGS: CHEST: Tracheobronchial tree: Patent where visualized. Pulmonary parenchyma: No consolidation or dominant measurable mass. There is a stable 3-4 mm nodule i n the lateral aspect of the left upper lobe (series 13, image 232). There is a stable reticular nodu lar infiltrate in the left lower lobe. There is a new infiltrate seen in the right lower lobe. Ther e is a stable 3 mm nodule in the right upper lobe (series 13, image 260). The 4 mm nodule seen in th e posterior aspect of the right upper lobe is not visualized on the current examination. The nodule in the right lower lobe appears stable (series 13, image 359). No new nodules are seen. Visualized thyroid gland: Unremarkable. Mediastinum and Maribel: No dominant adenopathy or fluid collection. The esophagus is unremarkable. Pleura: No effusion or pneumothorax. Heart: The heart is not dilated. No coronary artery calcifications are seen. No pericardial effusion. Pulmonary arteries: No pulmonary emboli are identified. Aorta: Thoracic aorta non-dilated. No evidence of dissection. Lymph nodes: Within normal limits. Soft tissues: Unremarkable. Bones:Within normal limits for the patient's age. Left shoulder replacement. ABDOMEN: There is artifact in the pelvis due to the patient's bilateral total hip replacements. Eval uation of the urinary bladder, reproductive organs and rectosigmoid colon is limited. Liver: Normal density. No measurable mass. Portal, Superior Mesenteric, and Splenic Veins: Due to the timing of the bolus the veins are not well opacified. Gallbladder and Biliary Tract: There is a gallstone present. No biliary ductal dilatation is seen. Pancreas: Normal density, no abnormal calcifications or inflammatory process. Spleen: Normal. Adrenals: There are bilateral hypodense adrenal nodules most likely reflecting adrenal adenomas. The se are stable. Kidneys: Normal size, contour and axis. No radiodense stones or obstructive uropathy. Simple left doris al cysts. No follow-up is recommended. Abdominal Aorta: Abdominal portion non-dilated. Atherosclerotic calcification is seen. No evidence o f dissection. Bowel: There is wall thickening in loops of small bowel in the left abdomen. No evidence of bowel ob struction. No evidence of appendicitis. Peritoneal Cavity: No ascites, collection or mesenteric inflammatory response. No free air. Lymph Nodes: Within normal limits. Bones: Within normal limits for the patient's age. The patient has bilateral total hip replacements. There is a stable lucency in the left iliac bone. No periosteal reaction or soft tissue mass is se en. Soft Tissues: Unremarkable. PELVIS: Bladder: Nearly completely obscured due to artifact from the patient's bilateral total hip replacemen t. Reproductive Organs: Could not be visualized due to artifact. Lymph Nodes: Within normal limits. Bones: Within normal limits. IMPRESSION: 1. No acute pulmonary process. 2. Stable pulmonary nodules. No new pulmonary nodules. Follow-up CT scan in 12 months is recommende d for re-evaluation. 3. No acute abdominal or pelvic organ injury. 4. Thickened loops of small bowel in the left upper quadrant. This may represent an enteritis. Plea se correlate clinically. 5. Artifact in the pelvis due to the patient's bilateral total hip replacements. This obscures the u rinary bladder, rectosigmoid colon and reproductive organs. 6. Stable incidental findings in the abdomen and pelvis. 7. No definite acute fracture or dislocation. 8. Bilateral total hip replacements and a left shoulder replacement. RADIATION DOSE DELIVERED: Total DLP DATA REPOSITORY: All CT scans at this facility are submitted to the National Radiology Data Registry (NRDR) Dose Index Registry (DIR) with the [employer] (ACR). RADIATION OPTIMIZATION: All CT scans at this facility use at least one of these dose optimization te chniques: automated exposure control; mA and/or kV adjustment per patient size (includes targeted exa ms where dose is matched to clinical indication); or iterative reconstruction.
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
[2024-03-10 17:17] LABS: Abs Immature Grans 0.04 10^3/uL (0.0-0.06); Absolute Basophil Count 0.06 10^3/uL (0.0-0.2); Absolute Eosinophil Count 0.06 10^3/uL (0.0-0.7); Absolute Lymphocyte Count 2.24 10^3/uL (1.2-3.4); Absolute Monocyte Count 0.92 10^3/uL (0.1-0.8); Absolute Neutrophil Count 6.11 10^3/uL (1.2-6.7); Basophils % 0.6 %; Eosinophils % 0.6 %; HCT 45.3 % (36.0-46.0); Immature Grans % 0.4 %; Lymphocytes % 23.8 %; MCH 32.3 pg (27.0-33.0); MCHC 33.1 % (32.0-36.0); MCV 98 fL (80-95); MPV 11.6 fL (8.0-11.0); Monocytes % 9.8 %; Neutrophils % 64.8 %; Platelet Count 230 10^3/uL (130-400); RBC 4.64 10^6/uL (3.93-5.22); RDW 15.6 % (11.7-14.6); RDW-SD 55.7 fL; WBC 9.43 10^3/uL (4.4-10.8)
[2024-03-10 17:31] LABS: Prothrombin Time 10.1 sec (9.1-11.1)
[2024-03-10 17:35] LABS: Ammonia 29 umol/L (11-32)
[2024-03-10] MEDS: Normal Saline 500 ML IV ×2 (17:37→21:50)
[2024-03-10 17:38] LABS: ALT 12 U/L (14-59); AST 30 U/L (15-37); Albumin 3.9 g/dL (3.4-5.0); Alkaline Phosphatase 111 U/L (46-116); Anion Gap 14.7 mmol/L (3-11); BUN 14 mg/dL (7-18); Bilirubin, Total 0.43 mg/dL (0.2-1.0); CO2 24.3 mmol/L (21.0-32.0); CREATININE 0.8 mg/dL (0.55-1.02); Calcium 9.2 mg/dL (8.5-10.1); Chloride 107 mmol/L (98-107); Estimated GFR 80.71 (mL/min/1.73m2); Glucose 74 mg/dL (74-106); Magnesium 1.9 mg/dL (1.8-2.4); Potassium 4.6 mmol/L (3.5-5.1); Sodium 146 mmol/L (136-145); Total Protein 8.1 g/dL (6.4-8.2); Troponin I < 50 ng/L (< or =60)
[2024-03-10 17:39] LABS: ETHANOL BLOOD < 3.0 mg/dL (<10)
[2024-03-10 17:46] LABS: VALPROIC ACID < 3 ug/mL
[2024-03-10] MEDS: Omnipaque 350 MG/ML 100 ML BTL IJ (18:00)
[2024-03-10] MEDS: Normal Saline - Diluent 50 ML VIAL IJ (18:36)
[2024-03-10] MEDS: DIVALPROEX 500 MG, DIVALPROEX 250 MG 750 MG PO (19:28)
[2024-03-10] MEDS: Acetaminophen 325 MG TAB 650 MG PO (19:42)
[2024-03-10] MEDS: Tetracaine 0.5% 4 ML BTL (19:57)
[2024-03-10] MEDS: Fluorescein STRIPS 100/BOX 1 MG OP (19:57)
[2024-03-10] MEDS: Normal Saline Flush 10 ML SYR IVP (20:32)
[2024-03-10 20:37] LABS: Troponin I < 50 ng/L (< or =60)
[2024-03-10] MEDS: Erythromycin Ophth Oint 3.5 GM TUBE OS (21:22)
[2024-03-10] MEDS: lamoTRIgine 100 MG TAB PO (21:22)
--- NOTE | 2024-03-11 04:14 | NUTRITION ---
Referral to Care Management to refer to Home Health for services. Face to face paper in Care Management zachary with referral request.
[2024-03-13 11:44] LABS: Lamotrigine 1.7 mcg/mL (3.0-15.0)
== END 2024-03-10 22:15 | disposition home or self-care (01) ==
PROVIDERS: Emergency Provider Registered Nurse Emergency; PCP Nurse Practitioner Family
DX: S06.0X0A Concussion without loss of consciousness, initial encounter (principal); G40.909 Epilepsy, unspecified, not intractable, without status epilepticus; H11.32 Conjunctival hemorrhage, left eye; F17.210 Nicotine dependence, cigarettes, uncomplicated; W18.39XA Other fall on same level, initial encounter
CPT/HCPCS: 36415; 74177; 80053; 80175; 80307; 93005; 96360; 96361; 99285; 70450; 70486; 71260; 72125; 80164; 80320; 81003; 82140; 83735; 84484; 85025; 85610; 93010; 99284; J3490

== ENCOUNTER 2024-04-28 13:01 | Inpatient (IN) | payer MEDICARE, MEDICAID, SELFPAY ==
[2024-04-28] VITALS (74 sets, daily range): BP systolic 60–138; BP diastolic 36–76; PULSE 70–192; RESP 0–36; TEMP 37; O2SAT 88–100
--- NOTE | 2024-04-28 13:00 | RT.EKG_ITS ---
APPROVED REPORT Exam: Resting ECG Reason for Exam: seizure Patient Location: E HR:89 bpm ECG Measurements Heart Rate 89 AXIS MO 143 P 72 QRSd 67 QRS 76 QT 332 T 70 QTc 405 Conclusion Sinus rhythm...normal P axis, V-rate 60- 99 Probable left atrial enlargement...P >50mS, <-0.10mV V1 Probable left ventricular hypertrophy...multiple LVH criteria
--- NOTE | 2024-04-28 13:00 | DI.CT_ITS ---
Exam(s) CT HEAD WO EXAM: CT HEAD WO CLINICAL HISTORY: seizure. TECHNIQUE: Imaging Protocol: Axial computed tomography images with coronal and sagittal reformatted images were created and reviewed COMPARISON: CT CT HEAD CERV SPINE FACIAL WO from 03/10/2024 FINDINGS: Ventricles and Extra axial spaces: Normal in size and morphology for the degree of atrophy.. Hemorrhage: None. Cerebral parenchyma: No evidence of acute infarct or mass. Mild cerebral atrophy. Midline shift: None. Brainstem/Cerebellum: Stable cerebellar atrophy. Calvarium: Normal. Visualized Paranasal sinuses:Clear. Mastoids: Clear. Soft Tissues: Unremarkable. ORBITS: Unremarkable. PITUITARY: Not enlarged. IMPRESSION: No acute intracranial process. RADIATION DOSE DELIVERED: Total DLP DATA REPOSITORY: All CT scans at this facility are submitted to the National Radiology Data Registry (NRDR) Dose Index Registry (DIR) with the [employer] (ACR). RADIATION OPTIMIZATION: All CT scans at this facility use at least one of these dose optimization te chniques: automated exposure control; mA and/or kV adjustment per patient size (includes targeted exa ms where dose is matched to clinical indication); or iterative reconstruction.
[2024-04-28 13:48] LABS: Abs Immature Grans 0.03 10^3/uL (0.0-0.06); Absolute Basophil Count 0.12 10^3/uL (0.0-0.2); Absolute Eosinophil Count 0.04 10^3/uL (0.0-0.7); Absolute Lymphocyte Count 2.44 10^3/uL (1.2-3.4); Eosinophils % 0.3 %; HCT 44.8 % (36.0-46.0); HGB 14.7 g/dL (11.2-15.7); Immature Grans % 0.2 %; Lymphocytes % 20.3 %; MCH 32.5 pg (27.0-33.0); MCHC 32.8 % (32.0-36.0); MCV 99 fL (80-95); MPV 11.7 fL (8.0-11.0); Monocytes % 6.7 %; Neutrophils % 71.5 %; Platelet Count 235 10^3/uL (130-400); RBC 4.53 10^6/uL (3.93-5.22); RDW-SD 51.5 fL; WBC 12.01 10^3/uL (4.4-10.8)
[2024-04-28 13:49] LABS: Absolute Neutrophil Count 8.59 10^3/uL (1.2-6.7)
[2024-04-28 14:03] LABS: VALPROIC ACID < 3 ug/mL
[2024-04-28 14:15] LABS: Ammonia < 10 umol/L (11-32)
[2024-04-28 14:16] LABS: ALT 14 U/L (14-59); AST 27 U/L (15-37); Albumin 3.5 g/dL (3.4-5.0); Alkaline Phosphatase 121 U/L (46-116); Anion Gap 9.5 mmol/L (3-11); BUN 14 mg/dL (7-18); Bilirubin, Total 0.41 mg/dL (0.2-1.0); CO2 27.5 mmol/L (21.0-32.0); CREATININE 0.9 mg/dL (0.55-1.02); Calcium 9.3 mg/dL (8.5-10.1); Chloride 105 mmol/L (98-107); Creatine Kinase 230 U/L (26-192); Estimated GFR 70.07 (mL/min/1.73m2); Glucose 91 mg/dL (74-106); Lipase 82 U/L (16-77); Magnesium 2.1 mg/dL (1.8-2.4); Potassium 4.8 mmol/L (3.5-5.1); Sodium 142 mmol/L (136-145); TSH (W/Ref FT4) 2.12 uIU/mL (0.36-3.74); Total Protein 7.8 g/dL (6.4-8.2); Troponin I 24 ng/L (<or=51)
[2024-04-28] MEDS: LORazepam 2 MG/ML VIAL IVP (14:16)
[2024-04-28 14:18] LABS: ETHANOL BLOOD < 3.0 mg/dL (<10)
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
[2024-04-28 14:21] LABS: Procalcitonin < 0.1 ng/mL
[2024-04-28 14:39] LABS: Troponin I 44 ng/L (<or=51)
[2024-04-28] MEDS: Normal Saline 1,000 ML 1000 ML IV (14:58)
--- NOTE | 2024-04-28 15:30 | DI.RAD_ITS ---
Exam(s) XR PORTABLE CHEST AP EXAM: XR PORTABLE CHEST AP CLINICAL HISTORY: PNA? TECHNIQUE: 2D digital imaging was performed. COMPARISON: CR,XR XR CHEST 2V PA LATERAL from 01/24/[address] CHEST/ABD/PEL W from 03/10/2024 FINDINGS: Exam is limited by overlying monitoring leads. LUNGS: Patchy right lower lobe infiltrate. No pleural abnormality seen. HEART: Normal size. AORTA: Normal diameter. BONES: Unremarkable for age. Soft tissues: Unremarkable. IMPRESSION: Right lower lobe pneumonia. DATA REPOSITORY: RADIATION DOSE DELIVERED:
[2024-04-28] MEDS: MAGNESIUM SULFATE 8.12 MEQ, MULTIVITAMIN 10 ML, THIAMINE 100 MG, FOLIC ACID 1 MG in Nor... 168.867 MG IV (15:49)
--- NOTE | 2024-04-28 16:10 | W.EDPROG ---
Date of service: 04/28/24 Time of Service: 16:10 Medical Decision Making Care assumed from provider PRABHU Quintanilla please see their initial HPI, PE, and documentation. Discussed patient details and case and pending workup and disposition. Patient is hemodynamically stable, and alert and oriented. At the time of signout patient is sleeping, pending reevaluation and disposition. In short patient is a 68-year-old female with a history of alcoholism and seizures who is receiving Keppra. Lactate 4.0. And repeat troponin at 4. 1630: On patient reevaluation x-rays at bedside for portable. Patient sleeping, arousable by heavy stimulus. She is awake but still groggy at this time. Not quite ready to be dispositioned. 1731: Third troponin is 98 which is critically high, will order repeat EKG. Repeat EKG is normal sinus rhythm no ST elevation or signs of ischemia. Patient is not complaining of chest pain she does have a right lower lobe pneumonia. This could be demand ischemia we will order another 1 hour troponin to trend. Repeat troponin 92 is downtrending patient has no complaints of chest pain at this time. Patient remains groggy and sleeping sideways in stretcher upon my arrival into room, resituated in bed, patient awoke to verbal. I will page hospitalist due to the pneumonia, confusion, slight leukocytosis, seizure activity, and patient lives alone. CK is 230 at this time. Repeat lactate 1.4 after fluids. Hospitalist paged. 1999: Spoke with Dr. Martinez who agrees to accept patient for admission for possible aspiration pneumonia, seizure and elevated Trope. This text was generated using [employer] dictation system, please disregard any oddities of phrase or misspellings. Patient admitted and transferred up to floor. Medical Records Medical records reviewed: Yes I reviewed the patient's medical records. Imaging Data Radiologic Study: Imaging: X-Ray Radiologist's impression: EXAM: XR PORTABLE CHEST AP CLINICAL HISTORY: PNA? TECHNIQUE: 2D digital imaging was performed. COMPARISON: CR,XR XR CHEST 2V PA LATERAL from 01/24/[address] CHEST/ABD/PEL W from 03/10/2024 FINDINGS: Exam is limited by overlying monitoring leads. LUNGS: Patchy right lower lobe infiltrate. No pleural abnormality seen. HEART: Normal size. AORTA: Normal diameter. BONES: Unremarkable for age. Soft tissues: Unremarkable. IMPRESSION: Right lower lobe pneumonia. Lab Data Lab results reviewed: Yes I reviewed the patient's lab results. Labs: Laboratory Tests Range/Units 04/28/24 04/28/24 13:34 14:19 WBC (4.4-10.8) 10^3/uL 12.01 H RBC (3.93-5.22) 10^6/uL 4.53 Hgb (11.2-15.7) g/dL 14.7 Hct (36.0-46.0) % 44.8 MCV (80-95) fL 99 H MCH (27.0-33.0) pg 32.5 MCHC (32.0-36.0) % 32.8 RDW (11.7-14.6) % 14.0 Plt Count (130-400) 10^3/uL 235 MPV (8.0-11.0) fL 11.7 H Immature Gran % % 0.2 Neutrophils % % 71.5 Lymphocytes % % 20.3 Monocytes % % 6.7 Eosinophils % % 0.3 Basophils % % 1.0 Nucleated RBC % (0.0-0.3) % 0.0 Absolute Neutrophils (1.2-6.7) 10^3/uL 8.59 H Absolute Lymphocytes (1.2-3.4) 10^3/uL 2.44 Absolute Monocytes (0.1-0.8) 10^3/uL 0.80 Absolute Eosinophils (0.0-0.7) 10^3/uL 0.04 Absolute Basophils (0.0-0.2) 10^3/uL 0.12 VBG Lactate (0.6-1.4) mmol/L 4.0 H* Sodium (136-145) mmol/L 142 Potassium (3.5-5.1) mmol/L 4.8 Chloride (98-107) mmol/L 105 Carbon Dioxide (21.0-32.0) mmol/L 27.5 Anion Gap (3-11) mmol/L 9.5 BUN (7-18) mg/dL 14 Creatinine (0.55-1.02) mg/dL 0.9 Est GFR (CKD-EPI 2020) (mL/min/1.73m2) 70.07 Glucose (74-106) mg/dL 91 Calcium (8.5-10.1) mg/dL 9.3 Magnesium (1.8-2.4) mg/dL 2.1 Total Bilirubin (0.2-1.0) mg/dL 0.41 AST (15-37) U/L 27 ALT (14-59) U/L 14 Alkaline Phosphatase (46-116) U/L 121 H Ammonia (11-32) umol/L < 10 L Creatine Kinase (26-192) U/L 230 H Troponin I (<or=51) ng/L 24 44 Total Protein (6.4-8.2) g/dL 7.8 Albumin (3.4-5.0) g/dL 3.5 Lipase (16-77) U/L 82 H Procalcitonin ng/mL < 0.1 TSH (0.36-3.74) uIU/mL 2.12 Valproic Acid ( - 150) ug/mL < 3 Ethyl Alcohol (<10) mg/dL < 3.0 Quality:SDOH Health Related Social Needs: Health related social needs food insecurity, transpo insecurity Sign Out Sign Out Data: Sign Out Comment: Seizure, hx alcoholism- given Keppra, re-eval for dispo. Lactate 4.0, procal neg, CK elev - all likely due to seizure activity. Ct head neg CXR pending for PNA/aspiration r/o Last updated by Ronald Alba PA at 04/28/24 15:45 Discharge Plan Disposition Patient Disposition: [facility] Condition: Fair Discharge Details Clinical Impression: Aspiration pneumonia of right lower lobe, Seizure, Elevated troponin Admit Date/Time: 04/28/24 20:31 Admit Provider: Jeanmarie Lacey Attending Provider: Jeanmarie Lacey Primary Care Provider: Kandice Olvera ED Provider: Radha Power
[2024-04-28 17:18] LABS: Lactate 1.4 mmol/L (0.6-1.4)
[2024-04-28 17:24] LABS: Troponin I 98 ng/L (<or=51)
--- NOTE | 2024-04-28 17:30 | RT.EKG_ITS ---
APPROVED REPORT Exam: Resting ECG Reason for Exam: Repeat Patient Location: E HR:74 bpm ECG Measurements Heart Rate 74 AXIS SC 131 P 55 QRSd 58 QRS 66 QT 355 T 59 QTc 395 Conclusion Sinus rhythm...normal P axis, V-rate 60- 99 sinus rhtyhm, normal axis, normal intervals, non ischemic
[2024-04-28] MEDS: cefTRIAXone 1 GM/50 ML BAG IVPB (18:24)
[2024-04-28 18:44] LABS: Troponin I 92 ng/L (<or=51)
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
[2024-04-28 20:21] LABS: Bilirubin Negative (Negative); Blood Small (Negative); Clarity Clear (Clear); Glucose Negative (Negative); Ketones Negative (Negative); Leukocyte Esterase Negative (Negative); Nitrite Negative (Negative); Specific Gravity 1.025 (1.005-1.025); Urobilinogen 0.2 mg/dL (Up to 0.2); pH 6.5 (5-8)
[2024-04-28 20:28] LABS: Bacteria Negative HPF (Negative); C & S Indicated? No; Casts Negative LPF (Negative); Crystals Negative HPF (Negative); Epithelial Cells Negative HPF (Negative); Mucus Negative (Negative); WBC 0-2 HPF (0-5)
[2024-04-28 20:33] LABS: *AMPHETAMINES SCREEN URINE Negative (Negative); *BARBITURATES SCREEN URINE Negative (Negative); *BENZODIAZEPINES SCREEN URINE Positive (Negative); Cannabinoids THC Negative (Negative); Cocaine Screen,Urine Negative (Negative); METHADONE URINE SCREEN Negative (Negative); OPIATES URINE SCREEN Negative (Negative)
[2024-04-28 20:34] LABS: Tricyclic Antidepressants Negative (Negative)
--- NOTE | 2024-04-28 21:56 | W.PC.ACHO ---
Registration Status: Primary Language: Preferred Language: ED Information & Data Chief Complaint Seizure 04/28/24 14:21 Triage Note witnessed seizure, 10mg 04/28/24 13:02 Versed given by EMS Nasal airway in placed by EMS Medical / Surgical History (Last Reviewed 04/28/24 @ 20:07 by Jeanmarie Lacey) Hx of seizure disorder Hip fracture, left (01/27/14) Atrophic vaginitis (02/07/14) Tobacco use Osteoporosis Alcoholism (Last Reviewed 04/28/24 @ 20:07 by Jeanmarie Lacey) History of total right hip replacement (05/21/23) History of left shoulder replacement History of left hip replacement Arthroplasty of knee (06/07/16) Most Recent Vital Signs Temperature 37.0 C 04/28/24 21:42 Pulse 74 04/28/24 21:42 Pulse Rhythm Regular 04/28/24 21:42 Pulse 74 04/28/24 20:15 Respiratory Rate 16 04/28/24 21:42 Respiratory Effort Normal 04/28/24 21:42 Respiratory Depth Normal 04/28/24 21:42 Respiratory Pattern Normal 04/28/24 21:42 Blood Pressure 86/57 L 04/28/24 21:42 Blood Pressure Mean 73 04/28/24 20:15 Pulse Oximetry 97 04/28/24 21:42 Respiratory End-tidal CO2 21 04/28/24 14:50 Oxygen Delivery Method Room Air 04/28/24 21:42 Oxygen Flow Rate 0 04/28/24 21:42 Pain Level 0 04/28/24 21:42 Allergies No Known Allergies Allergy (Verified 04/28/24 16:45) Precautions Isolation Seizure precaution 04/28/24 13:48 IV IV Catheter Type [Right Diffusix Antecubital] IV Catheter Type [Left Diffusix Antecubital] IV Catheter Gauge [Right 20 Antecubital] IV Catheter Gauge [Left 20 Antecubital] Diet Orders Category Date Time Status Regular/Normal [DIET] Nutrition 04/29/24 Breakfast Ordered Diagnostics 04/28/24 04/28/24 04/28/24 Range/Units 22:30 20:10 18:20 WBC (4.4-10.8) 10^3/uL RBC (3.93-5.22) 10^6/uL Hgb (11.2-15.7) g/dL Hct (36.0-46.0) % MCV (80-95) fL MCH (27.0-33.0) pg MCHC (32.0-36.0) % RDW (11.7-14.6) % Plt Count (130-400) 10^3/uL MPV (8.0-11.0) fL Immature Gran % % Neutrophils % % Lymphocytes % % Monocytes % % Eosinophils % % Basophils % % Nucleated RBC % (0.0-0.3) % Absolute Neutrophils (1.2-6.7) 10^3/uL Absolute Lymphocytes (1.2-3.4) 10^3/uL Absolute Monocytes (0.1-0.8) 10^3/uL Absolute Eosinophils (0.0-0.7) 10^3/uL Absolute Basophils (0.0-0.2) 10^3/uL VBG Lactate (0.6-1.4) mmol/L Sodium (136-145) mmol/L Potassium (3.5-5.1) mmol/L Chloride (98-107) mmol/L Carbon Dioxide (21.0-32.0) mmol/L Anion Gap (3-11) mmol/L BUN (7-18) mg/dL Creatinine (0.55-1.02) mg/dL Est GFR (CKD-EPI 2020) (mL/min/1.73m2) Glucose (74-106) mg/dL Calcium (8.5-10.1) mg/dL Magnesium (1.8-2.4) mg/dL Total Bilirubin (0.2-1.0) mg/dL AST (15-37) U/L ALT (14-59) U/L Alkaline Phosphatase (46-116) U/L Ammonia (11-32) umol/L Creatine Kinase (26-192) U/L Troponin I Pending 92 H* (<or=51) ng/L Total Protein (6.4-8.2) g/dL Albumin (3.4-5.0) g/dL Lipase (16-77) U/L Procalcitonin ng/mL TSH (0.36-3.74) uIU/mL Urine Color Yellow (Yellow) Urine Clarity Clear (Clear) Urine pH 6.5 (5-8) Ur Specific Taylor 1.025 (1.005-1.025) Urine Protein Negative (Neg-Trace) mg/dL Urine Ketones Negative (Negative) mg/dL Urine Blood Small H (Negative) Urine Nitrite Negative (Negative) Urine Bilirubin Negative (Negative) Urine Urobilinogen 0.2 (Up to 0.2) mg/dL Ur Leukocyte Esterase Negative (Negative) Urine RBC 5-10 H (0-2) HPF Urine WBC 0-2 (0-5) HPF Ur Epithelial Cells Negative (Negative) HPF Urine Crystals Negative (Negative) HPF Urine Bacteria Negative (Negative) HPF Urine Casts Negative (Negative) LPF Urine Mucus Negative (Negative) Ur Culture Indicated? No Urine Glucose Negative (Negative) mg/dL Urine Opiates Screen Negative (Negative) Urine Methadone Screen Negative (Negative) Ur Barbiturates Screen Negative (Negative) Valproic Acid ( - 150) ug/mL Lamotrigine Ur Tricyclics Screen Negative (Negative) Levetiracetam Ur Amphetamines Screen Negative (Negative) U Benzodiazepines Scrn Positive A (Negative) Urine Cocaine Screen Negative (Negative) Ur THC Screen Negative (Negative) Ethyl Alcohol (<10) mg/dL 04/28/24 04/28/24 04/28/24 Range/Units 17:15 16:45 14:19 WBC (4.4-10.8) 10^3/uL RBC (3.93-5.22) 10^6/uL Hgb (11.2-15.7) g/dL Hct (36.0-46.0) % MCV (80-95) fL MCH (27.0-33.0) pg MCHC (32.0-36.0) % RDW (11.7-14.6) % Plt Count (130-400) 10^3/uL MPV (8.0-11.0) fL Immature Gran % % Neutrophils % % Lymphocytes % % Monocytes % % Eosinophils % % Basophils % % Nucleated RBC % (0.0-0.3) % Absolute Neutrophils (1.2-6.7) 10^3/uL Absolute Lymphocytes (1.2-3.4) 10^3/uL Absolute Monocytes (0.1-0.8) 10^3/uL Absolute Eosinophils (0.0-0.7) 10^3/uL Absolute Basophils (0.0-0.2) 10^3/uL VBG Lactate 1.4 (0.6-1.4) mmol/L Sodium (136-145) mmol/L Potassium (3.5-5.1) mmol/L Chloride (98-107) mmol/L Carbon Dioxide (21.0-32.0) mmol/L Anion Gap (3-11) mmol/L BUN (7-18) mg/dL Creatinine (0.55-1.02) mg/dL Est GFR (CKD-EPI 2020) (mL/min/1.73m2) Glucose (74-106) mg/dL Calcium (8.5-10.1) mg/dL Magnesium (1.8-2.4) mg/dL Total Bilirubin (0.2-1.0) mg/dL AST (15-37) U/L ALT (14-59) U/L Alkaline Phosphatase (46-116) U/L Ammonia (11-32) umol/L Creatine Kinase (26-192) U/L Troponin I 98 H* 44 (<or=51) ng/L Total Protein (6.4-8.2) g/dL Albumin (3.4-5.0) g/dL Lipase (16-77) U/L Procalcitonin ng/mL TSH (0.36-3.74) uIU/mL Urine Color (Yellow) Urine Clarity (Clear) Urine pH (5-8) Ur Specific Taylor (1.005-1.025) Urine Protein (Neg-Trace) mg/dL Urine Ketones (Negative) mg/dL Urine Blood (Negative) Urine Nitrite (Negative) Urine Bilirubin (Negative) Urine Urobilinogen (Up to 0.2) mg/dL Ur Leukocyte Esterase (Negative) Urine RBC (0-2) HPF Urine WBC (0-5) HPF Ur Epithelial Cells (Negative) HPF Urine Crystals (Negative) HPF Urine Bacteria (Negative) HPF Urine Casts (Negative) LPF Urine Mucus (Negative) Ur Culture Indicated? Urine Glucose (Negative) mg/dL Urine Opiates Screen (Negative) Urine Methadone Screen (Negative) Ur Barbiturates Screen (Negative) Valproic Acid ( - 150) ug/mL Lamotrigine Ur Tricyclics Screen (Negative) Levetiracetam Ur Amphetamines Screen (Negative) U Benzodiazepines Scrn (Negative) Urine Cocaine Screen (Negative) Ur THC Screen (Negative) Ethyl Alcohol (<10) mg/dL 04/28/24 04/28/24 Range/Units 13:34 13:07 WBC 12.01 H (4.4-10.8) 10^3/uL RBC 4.53 (3.93-5.22) 10^6/uL Hgb 14.7 (11.2-15.7) g/dL Hct 44.8 (36.0-46.0) % MCV 99 H (80-95) fL MCH 32.5 (27.0-33.0) pg MCHC 32.8 (32.0-36.0) % RDW 14.0 (11.7-14.6) % Plt Count 235 (130-400) 10^3/uL MPV 11.7 H (8.0-11.0) fL Immature Gran % 0.2 % Neutrophils % 71.5 % Lymphocytes % 20.3 % Monocytes % 6.7 % Eosinophils % 0.3 % Basophils % 1.0 % Nucleated RBC % 0.0 (0.0-0.3) % Absolute Neutrophils 8.59 H (1.2-6.7) 10^3/uL Absolute Lymphocytes 2.44 (1.2-3.4) 10^3/uL Absolute Monocytes 0.80 (0.1-0.8) 10^3/uL Absolute Eosinophils 0.04 (0.0-0.7) 10^3/uL Absolute Basophils 0.12 (0.0-0.2) 10^3/uL VBG Lactate 4.0 H* (0.6-1.4) mmol/L Sodium 142 (136-145) mmol/L Potassium 4.8 (3.5-5.1) mmol/L Chloride 105 (98-107) mmol/L Carbon Dioxide 27.5 (21.0-32.0) mmol/L Anion Gap 9.5 (3-11) mmol/L BUN 14 (7-18) mg/dL Creatinine 0.9 (0.55-1.02) mg/dL Est GFR (CKD-EPI 2020) 70.07 (mL/min/1.73m2) Glucose 91 (74-106) mg/dL Calcium 9.3 (8.5-10.1) mg/dL Magnesium 2.1 (1.8-2.4) mg/dL Total Bilirubin 0.41 (0.2-1.0) mg/dL AST 27 (15-37) U/L ALT 14 (14-59) U/L Alkaline Phosphatase 121 H (46-116) U/L Ammonia < 10 L (11-32) umol/L Creatine Kinase 230 H (26-192) U/L Troponin I 24 (<or=51) ng/L Total Protein 7.8 (6.4-8.2) g/dL Albumin 3.5 (3.4-5.0) g/dL Lipase 82 H (16-77) U/L Procalcitonin < 0.1 ng/mL TSH 2.12 (0.36-3.74) uIU/mL Urine Color (Yellow) Urine Clarity (Clear) Urine pH (5-8) Ur Specific Taylor (1.005-1.025) Urine Protein (Neg-Trace) mg/dL Urine Ketones (Negative) mg/dL Urine Blood (Negative) Urine Nitrite (Negative) Urine Bilirubin (Negative) Urine Urobilinogen (Up to 0.2) mg/dL Ur Leukocyte Esterase (Negative) Urine RBC (0-2) HPF Urine WBC (0-5) HPF Ur Epithelial Cells (Negative) HPF Urine Crystals (Negative) HPF Urine Bacteria (Negative) HPF Urine Casts (Negative) LPF Urine Mucus (Negative) Ur Culture Indicated? Urine Glucose (Negative) mg/dL Urine Opiates Screen (Negative) Urine Methadone Screen (Negative) Ur Barbiturates Screen (Negative) Valproic Acid < 3 ( - 150) ug/mL Lamotrigine Pending Ur Tricyclics Screen (Negative) Levetiracetam Pending Ur Amphetamines Screen (Negative) U Benzodiazepines Scrn (Negative) Urine Cocaine Screen (Negative) Ur THC Screen (Negative) Ethyl Alcohol < 3.0 (<10) mg/dL Intake and Output - 24 Hour Total 04/28/24 12:55 thru 04/28/24 21:42 Intake Total 1176.32 Output Total 15 Balance 1161.32 Weight 40.823 kg Intake: IV 1176.32 Output: Urine 15 Other: Urine Color Yellow Urine Appearance Clear Falls Risk Assessment History of Falls Previous History 04/28/24 21:42 Contributing Factors Confusion,Unstable 04/28/24 21:42 Ambulatory Aids Independent 04/28/24 21:42 Tubes/Lines W/no contributing factors 04/28/24 21:42 Gait Evaluation W/any additional score 04/28/24 21:42 Cognition Cognitive impairment 04/28/24 21:42 Fall Total Score 66 04/28/24 21:42 Level of Risk High Risk 04/28/24 21:42 Problems (Last Reviewed 04/28/24 @ 20:07 by Jeanmarie Lacey) Elevated troponin (Acute) Seizure (Acute) Tobacco use disorder (Chronic) Pneumonia (Acute 08/21/13) v v v v v v v v v Sending and/or Receiving Nurses: Please use comment section below to note any information pertinent to the patient hand-off not included above. Information / Comments: Patient brought in via EMS for witnessed seizure; patient with hx of ETOH and epilepsy. Patient received Versed via EMS; Lactate 4 in ED, trending down. Trop initially 98, trending down to 92. Being admitted for seizure, elevated Trop and possible aspiration pna. Patient receiving IV abx and banana bag currently hanging; IV in R antecubital. Patient was incontinent of urine and straight cathed ~8pm for UA. Patient is rousable but appears postdictal. Report received from: DOUG Velázquez RN
[2024-04-28 22:51] LABS: Troponin I 70 ng/L (<or=51)
--- NOTE | 2024-04-28 23:00 | RT.EKG_ITS ---
APPROVED REPORT Exam: Resting ECG Reason for Exam: elevated t Patient Location: I HR:68 bpm ECG Measurements Heart Rate 68 AXIS NH 134 P 57 QRSd 64 QRS 71 QT 392 T 67 QTc 417 Conclusion Sinus rhythm...normal P axis, V-rate 50- 99 Normal Electrocardiogram
[2024-04-28] MEDS: PIPERACILLIN/TAZO 3.375 GM in Normal Saline 50 ML IVPB (23:21)
[2024-04-29] VITALS (8 sets, daily range): BP systolic 76–106; BP diastolic 41–60; PULSE 59–70; RESP 14–18; TEMP 36.6–37.3; O2SAT 92–97
[2024-04-29] MEDS: PIPERACILLIN/TAZO 3.375 GM in Normal Saline 50 ML IVPB (04:25)
[2024-04-29] MEDS: Normal Saline 1,000 ML 125 ML IV ×2 (04:25→11:00)
[2024-04-29 06:53] LABS: HCT 37.9 % (36.0-46.0); HGB 12.5 g/dL (11.2-15.7); MCH 32.2 pg (27.0-33.0); MCV 98 fL (80-95); MPV 11.9 fL (8.0-11.0); Platelet Count 198 10^3/uL (130-400); RBC 3.88 10^6/uL (3.93-5.22); RDW 13.9 % (11.7-14.6); RDW-SD 50.4 fL; WBC 10.05 10^3/uL (4.4-10.8)
[2024-04-29 07:26] LABS: ALT 11 U/L (14-59); AST 15 U/L (15-37); Albumin 2.4 g/dL (3.4-5.0); Alkaline Phosphatase 95 U/L (46-116); Anion Gap 7.9 mmol/L (3-11); BUN 9 mg/dL (7-18); Bilirubin, Total 0.68 mg/dL (0.2-1.0); CO2 22.1 mmol/L (21.0-32.0); CREATININE 0.8 mg/dL (0.55-1.02); Calcium 8.1 mg/dL (8.5-10.1); Chloride 107 mmol/L (98-107); Estimated GFR 80.71 (mL/min/1.73m2); Glucose 88 mg/dL (74-106); PHOSPHORUS 3.3 mg/dL (2.6-4.7); Potassium 3.8 mmol/L (3.5-5.1); Sodium 137 mmol/L (136-145); Total Protein 5.6 g/dL (6.4-8.2)
[2024-04-29] MEDS: Enoxaparin 30 MG/0.3 ML SYR SC (08:29)
[2024-04-29] MEDS: Multivitamin TAB 1 TAB PO (08:29)
[2024-04-29] MEDS: Thiamine 100 MG TAB PO (08:29)
[2024-04-29] MEDS: Divalproex 250 MG TABEC 750 MG PO ×2 (08:29→19:49)
[2024-04-29] MEDS: Folic Acid 1 MG TAB PO (08:29)
[2024-04-29] MEDS: lamoTRIgine 100 MG TAB PO ×2 (08:29→19:49)
[2024-04-29] MEDS: Normal Saline Flush 10 ML SYR IVP (08:30)
--- NOTE | 2024-04-29 09:33 | W.PM.PROGNOT ---
Date of Service Date of service: 04/29/24 Time of Service: 09:33 Assessment and Plan Assessment and plan (1) Seizure: Start date: 04/28/24 Status: Acute Assessment and plan: on CIWA On depakote and lamictal - no further seizure after Keppra and cerebyx in ED - levels pending (2) Pneumonia: Start date: 04/28/24 Status: Acute Assessment and plan: On Zosyn with question of aspiration with recent seizure. Qualifiers: Aspiration pneumonia type: due to gastric secretions Laterality: right Lung location: lower lobe of lung Pneumonia type: aspiration pneumonia Qualified Code(s): J69.0 - Pneumonitis due to inhalation of food and vomit (3) Elevated troponin: Start date: 04/28/24 Status: Acute Assessment and plan: Resolve will stop trending Most likely d/t demand ischemia with her seizure (4) Alcoholism: Assessment and plan: Vague history as to the last use of alcohol -seizure activity can be from withdrawal. continue CIWA protocol with oral Ativan dosing if needed (5) Tobacco use disorder: Status: Chronic Assessment and plan: Continue NRT (6) Hypotension: Status: Acute Assessment and plan: LR boulus I liter for SBP 86 - DBP 50's transient improvement- remains asymptomatic orthos are negative Will continue to monitor Discussed with Dr. Lucas Subjective Subjective Patient reports: no new complaints, tolerating liquids well, tolerating a regular diet, voiding w/o difficulty, flatus and diarrhea; denies nausea, vomiting, shortness of breath or fever Exam Narrative Exam Narrative: Constitutional The patient is in bed comfortable without acute distress HENMT: Head is atraumatic, normocephalic, no lymphadenopathy. Facial structures with gaunted appearance Eyes: Well aligned, intact ROM Neck: Normal ROM, no meningeal signs Neuro:alert and oriented to self, knows she is at [facility]. No neurological focal deficit Resp: unlabored breathing, RLL crackles Cardio: regular rhythm, S1, S2, no murmur GI: Abdomen is not distended, soft and non tender, bowel sounds are present : Negative Costovertebral angle tenderness, no bladder distension Psych: RASS 0, congruent mood and normal affect. Objective Last Vital Signs Temp 37.3 C 04/29/24 07:45 Pulse 65 04/29/24 07:45 Resp 18 04/29/24 07:45 BP 85/56 L 04/29/24 07:45 Pulse Ox 97 04/29/24 07:45 Laboratory Results - last 24 hr 04/28/24 04/28/24 04/28/24 13:34 14:19 16:45 WBC 12.01 H RBC 4.53 Hgb 14.7 Hct 44.8 MCV 99 H MCH 32.5 MCHC 32.8 RDW 14.0 Plt Count 235 MPV 11.7 H Immature Gran % 0.2 Neutrophils % 71.5 Lymphocytes % 20.3 Monocytes % 6.7 Eosinophils % 0.3 Basophils % 1.0 Nucleated RBC % 0.0 Absolute Neutrophils 8.59 H Absolute Lymphocytes 2.44 Absolute Monocytes 0.80 Absolute Eosinophils 0.04 Absolute Basophils 0.12 VBG Lactate 4.0 H* Sodium 142 Potassium 4.8 Chloride 105 Carbon Dioxide 27.5 Anion Gap 9.5 BUN 14 Creatinine 0.9 Est GFR (CKD-EPI 2020) 70.07 Glucose 91 Calcium 9.3 Phosphorus Magnesium 2.1 Total Bilirubin 0.41 AST 27 ALT 14 Alkaline Phosphatase 121 H Ammonia < 10 L Creatine Kinase 230 H Troponin I 24 44 98 H* Total Protein 7.8 Albumin 3.5 Lipase 82 H Procalcitonin < 0.1 TSH 2.12 Urine Color Urine Clarity Urine pH Ur Specific [place] Urine Protein Urine Ketones Urine Blood Urine Nitrite Urine Bilirubin Urine Urobilinogen Ur Leukocyte Esterase Urine RBC Urine WBC Ur Epithelial Cells Urine Crystals Urine Bacteria Urine Casts Urine Mucus Ur Culture Indicated? Urine Glucose Urine Opiates Screen Urine Methadone Screen Ur Barbiturates Screen Valproic Acid < 3 Ur Tricyclics Screen Ur Amphetamines Screen U Benzodiazepines Scrn Urine Cocaine Screen Ur THC Screen Ethyl Alcohol < 3.0 04/28/24 04/28/24 04/28/24 17:15 18:20 20:10 WBC RBC Hgb Hct MCV MCH MCHC RDW Plt Count MPV Immature Gran % Neutrophils % Lymphocytes % Monocytes % Eosinophils % Basophils % Nucleated RBC % Absolute Neutrophils Absolute Lymphocytes Absolute Monocytes Absolute Eosinophils Absolute Basophils VBG Lactate 1.4 Sodium Potassium Chloride Carbon Dioxide Anion Gap BUN Creatinine Est GFR (CKD-EPI 2020) Glucose Calcium Phosphorus Magnesium Total Bilirubin AST ALT Alkaline Phosphatase Ammonia Creatine Kinase Troponin I 92 H* Total Protein Albumin Lipase Procalcitonin TSH Urine Color Yellow Urine Clarity Clear Urine pH 6.5 Ur Specific [place] 1.025 Urine Protein Negative Urine Ketones Negative Urine Blood Small H Urine Nitrite Negative Urine Bilirubin Negative Urine Urobilinogen 0.2 Ur Leukocyte Esterase Negative Urine RBC 5-10 H Urine WBC 0-2 Ur Epithelial Cells Negative Urine Crystals Negative Urine Bacteria Negative Urine Casts Negative Urine Mucus Negative Ur Culture Indicated? No Urine Glucose Negative Urine Opiates Screen Negative Urine Methadone Screen Negative Ur Barbiturates Screen Negative Valproic Acid Ur Tricyclics Screen Negative Ur Amphetamines Screen Negative U Benzodiazepines Scrn Positive A Urine Cocaine Screen Negative Ur THC Screen Negative Ethyl Alcohol 04/28/24 04/29/24 22:25 06:00 WBC 10.05 RBC 3.88 L Hgb 12.5 D Hct 37.9 MCV 98 H MCH 32.2 MCHC 33.0 RDW 13.9 Plt Count 198 MPV 11.9 H Immature Gran % Neutrophils % Lymphocytes % Monocytes % Eosinophils % Basophils % Nucleated RBC % Absolute Neutrophils Absolute Lymphocytes Absolute Monocytes Absolute Eosinophils Absolute Basophils VBG Lactate Sodium 137 Potassium 3.8 D Chloride 107 Carbon Dioxide 22.1 Anion Gap 7.9 BUN 9 Creatinine 0.8 Est GFR (CKD-EPI 2020) 80.71 Glucose 88 Calcium 8.1 L Phosphorus 3.3 Magnesium 2.0 Total Bilirubin 0.68 AST 15 ALT 11 L Alkaline Phosphatase 95 Ammonia Creatine Kinase Troponin I 70 H* Total Protein 5.6 L Albumin 2.4 L Lipase Procalcitonin TSH Urine Color Urine Clarity Urine pH Ur Specific [place] Urine Protein Urine Ketones Urine Blood Urine Nitrite Urine Bilirubin Urine Urobilinogen Ur Leukocyte Esterase Urine RBC Urine WBC Ur Epithelial Cells Urine Crystals Urine Bacteria Urine Casts Urine Mucus Ur Culture Indicated? Urine Glucose Urine Opiates Screen Urine Methadone Screen Ur Barbiturates Screen Valproic Acid Ur Tricyclics Screen Ur Amphetamines Screen U Benzodiazepines Scrn Urine Cocaine Screen Ur THC Screen Ethyl Alcohol Time Spent with Patient Time Spent with Patient: >50 minutes Time was spent: preparing to see the patient(eg.review tests), obtaining and/or reviewing separately otained hiistory, ordering medications,tests, procedures, referring, communicating with other health assurance services manager health care, indepentently interpreting results, counseling the patient and care coordination
[2024-04-29] MEDS: Lactated Ringers 1,000 ML 1000 ML IV (09:52)
[2024-04-29] MEDS: PIPERACILLIN/TAZO 2.25 GM in Normal Saline 50 ML IVPB ×3 (10:59→21:50)
[2024-04-29 11:55] LABS: MRSA PCR Negative (Negative)
--- NOTE | 2024-04-29 11:58 | PHACLINREV_ITS ---
Pharmacy Admission Review Admission Clinical Review Admission Pharmacy Review: Hypotension (Acute) Elevated troponin (Acute) Seizure (Acute) Pneumonia (Acute 08/21/13) No Known Allergies Allergy (Verified 04/28/24 16:45) Resuscitation Status Full Code Height 4 ft 11 in Weight 40.823 kg Pharmacy Admission Review Renal Dosing Renal Dosing: BUN 9 mg/dL (7-18) 04/29/24 06:00 Creatinine 0.8 mg/dL (0.55-1.02) 04/29/24 06:00 Medications needing adjustments: Intervened (CrCl 35.18 mL/min) List of meds needing interventions: Changed Zosyn dose from 3.375g q6h to 2.25g q6h due to CrCl <40 Anticoagulation Anticoagulation: Hgb 12.5 g/dL (11.2-15.7) D 04/29/24 06:00 Hct 37.9 % (36.0-46.0) 04/29/24 06:00 Plt Count 198 10^3/uL (130-400) 04/29/24 06:00 Creatinine 0.8 mg/dL (0.55-1.02) 04/29/24 06:00 DVT Prophylaxis: Reviewed Medications: Enoxaparin (30mg daily (BMI 18.2)) Relevant Labs Relevant Labs: Sodium 137 mmol/L (136-145) 04/29/24 06:00 Potassium 3.8 mmol/L (3.5-5.1) D 04/29/24 06:00 Chloride 107 mmol/L (98-107) 04/29/24 06:00 Phosphorus 3.3 mg/dL (2.6-4.7) 04/29/24 06:00 Magnesium 2.0 mg/dL (1.8-2.4) 04/29/24 06:00 Electrolytes, C-Reactive P, ESR: Reviewed Cardiac Review Cardiac Review: Troponin I 70 ng/L (<or=51) H* 04/28/24 22:25 Blood Pressure 88/50 1116 Blood Pressure 85/56 0745 Blood Pressure 90/54 0424 BP, HR, EF%: Reviewed (HR WNL) List meds needing interventions: Troponin trending down (98 - 92- 70) with repeat pending scheduled for today at 1735 QTc Review QTc: Reviewed (395 from 04/28/24) IV to PO Switch IV Medications: Reviewed (Zosyn) Home Meds Home Med List reviewed: Reviewed Medication adherence barriers identified?: Per H+P - patient reports non- compliance to seizure medications. Barriers unknown. Current Meds Current Medication Order Review: Reviewed Comments: Has order for PRN lorazepam - CIWA of 3 today Pharmacy Antibiotic Review Relevant Labs: Relevant Labs 04/28/24 13:34 Procalcitonin < 0.1 WBC 10.05 10^3/uL (4.4-10.8) 04/29/24 06:00 Procalcitonin < 0.1 ng/mL 04/28/24 13:34 Temperature 37 C Temperature 37.3 C Temperature 37.2 C Pharmacy Antibiotic Activity: Renal function adjustment (Zosyn - see above) Comments: Patient is on Zosyn, day 1, for pneumonia. WBC decreased from 12.01 and no cultures pending for right now.
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
--- NOTE | 2024-04-29 16:26 | CHAPLAIN ---
Eloise came into the ED yesterday after a seizure. She was resting in bed when I visited. She said she's not sure why she has to stay here and that she's been dealing with her seizures from Epilepsy since she was young, and her family has been dealing with it too she said. (She also here being treated for pneumonia, but she didn't mention that.) Eloise said she goes to a neurologist [place] [facility] [place] She had been living in a apartment for in a basement apartment 20 years she said, and recently the new speaker wirer of the home said it was an actual apartment and she had to move. I will continue to visit.
[2024-04-29 18:14] LABS: Troponin I 21 ng/L (<or=51)
[2024-04-30] MEDS: PIPERACILLIN/TAZO 2.25 GM in Normal Saline 50 ML IVPB ×2 (04:13→10:33)
[2024-04-30 04:15] VITALS: BP 100/60; PULSE 60; RESP 14; TEMP 36.6; O2SAT 96
[2024-04-30 06:59] LABS: Abs Immature Grans 0.01 10^3/uL (0.0-0.06); Absolute Basophil Count 0.06 10^3/uL (0.0-0.2); Absolute Eosinophil Count 0.18 10^3/uL (0.0-0.7); Absolute Lymphocyte Count 2.73 10^3/uL (1.2-3.4); Absolute Monocyte Count 0.45 10^3/uL (0.1-0.8); Absolute Neutrophil Count 1.95 10^3/uL (1.2-6.7); Basophils % 1.1 %; Eosinophils % 3.3 %; HCT 36.1 % (36.0-46.0); HGB 11.8 g/dL (11.2-15.7); Immature Grans % 0.2 %; Lymphocytes % 50.7 %; MCHC 32.7 % (32.0-36.0); MCV 98 fL (80-95); MPV 11.9 fL (8.0-11.0); Monocytes % 8.4 %; Neutrophils % 36.3 %; Platelet Count 166 10^3/uL (130-400); RBC 3.69 10^6/uL (3.93-5.22); RDW 13.8 % (11.7-14.6); RDW-SD 49.9 fL; WBC 5.38 10^3/uL (4.4-10.8)
[2024-04-30 07:09] LABS: Anion Gap 8.7 mmol/L (3-11); BUN 7 mg/dL (7-18); CO2 24.3 mmol/L (21.0-32.0); CREATININE 0.7 mg/dL (0.55-1.02); Chloride 110 mmol/L (98-107); Estimated GFR 94.73 (mL/min/1.73m2); Glucose 88 mg/dL (74-106); Potassium 3.6 mmol/L (3.5-5.1); Sodium 143 mmol/L (136-145)
[2024-04-30 07:30] VITALS: BP 99/59; PULSE 55; RESP 14; TEMP 36.4; O2SAT 97
[2024-04-30] MEDS: Normal Saline 1,000 ML 125 ML IV (08:00)
[2024-04-30] MEDS: Multivitamin TAB 1 TAB PO (08:41)
[2024-04-30] MEDS: Thiamine 100 MG TAB PO (08:41)
[2024-04-30] MEDS: Normal Saline Flush 10 ML SYR IVP (08:41)
[2024-04-30] MEDS: Enoxaparin 30 MG/0.3 ML SYR SC (08:41)
[2024-04-30] MEDS: lamoTRIgine 100 MG TAB PO (08:41)
[2024-04-30] MEDS: Folic Acid 1 MG TAB PO (08:42)
[2024-04-30] MEDS: Divalproex 250 MG TABEC 750 MG PO (08:42)
--- NOTE | 2024-04-30 09:15 | W.PM.PROGNOT ---
Date of Service Date of service: 04/30/24 Time of Service: 09:16 Assessment and Plan Assessment and plan (1) Seizure: Start date: 04/28/24 Status: Acute Assessment and plan: on CIWA On depakote and lamictal - no further seizure after Keppra and cerebyx in ED - levels pending (2) Pneumonia: Start date: 04/28/24 Status: Acute Assessment and plan: Teddy XR- RLL pneumonia Continue Zosyn with question of aspiration with recent seizure- Day 3 today Received on dose of ceftriaxone in the ED . Qualifiers: Pneumonia type: aspiration pneumonia Aspiration pneumonia type: due to gastric secretions Laterality: right Lung location: lower lobe of lung Qualified Code(s): J69.0 - Pneumonitis due to inhalation of food and vomit (3) Elevated troponin: Start date: 04/28/24 Status: Acute Assessment and plan: max troponin 98 Resolve will stop trending Most likely d/t demand ischemia with her seizure (4) Alcoholism: Assessment and plan: Vague history as to the last use of alcohol -seizure activity can be from withdrawal. On CIWA protocol with oral Ativan dosing if needed- None given CIWA score - 0 Might be discontinued on 05/01 if no change (5) Tobacco use disorder: Status: Chronic Assessment and plan: NRT ordered PRN (6) Hypotension: Status: Acute Assessment and plan: Improved today - MAP > 65- asymptomatic (7) Discharge planning issues: Status: Acute Assessment and plan: CM to f/u PT consult for D/C safety: recommndation Discussed with Dr. Brito Exam Narrative Exam Narrative: Constitutional The patient is in bed comfortable without acute distress HENMT: Head is atraumatic, normocephalic, no lymphadenopathy. Facial structures with gaunted appearance Eyes: Well aligned, intact ROM Neck: Normal ROM, no meningeal signs Neuro:alert and oriented to self, knows she is at [facility]. No neurological focal deficit Resp: unlabored breathing, RLL crackles Cardio: regular rhythm, S1, S2, no murmur GI: Abdomen is not distended, soft and non tender, bowel sounds are present : Negative Costovertebral angle tenderness, no bladder distension Psych: RASS 0, congruent mood and normal affect. Objective Last Vital Signs Temp 36.4 C L 04/30/24 07:30 Pulse 55 L 04/30/24 07:30 Resp 14 04/30/24 07:30 BP 99/59 L 04/30/24 07:30 Pulse Ox 97 04/30/24 07:30 Laboratory Results - last 24 hr 04/29/24 04/29/24 04/30/24 09:43 17:42 06:23 WBC 5.38 RBC 3.69 L Hgb 11.8 Hct 36.1 MCV 98 H MCH 32.0 MCHC 32.7 RDW 13.8 Plt Count 166 MPV 11.9 H Immature Gran % 0.2 Neutrophils % 36.3 Lymphocytes % 50.7 Monocytes % 8.4 Eosinophils % 3.3 Basophils % 1.1 Nucleated RBC % 0.0 Absolute Neutrophils 1.95 Absolute Lymphocytes 2.73 Absolute Monocytes 0.45 Absolute Eosinophils 0.18 Absolute Basophils 0.06 Sodium 143 Potassium 3.6 Chloride 110 H Carbon Dioxide 24.3 Anion Gap 8.7 BUN 7 Creatinine 0.7 Est GFR (CKD-EPI 2020) 94.73 Glucose 88 Calcium 8.0 L Troponin I 21 MRSA (TEM-PCR) Negative
[2024-04-30 11:02] VITALS: O2SAT 97
--- NOTE | 2024-04-30 11:02 | PT.INIE ---
PT Notes Visit Reasons: Acute Seizure, Elevated Troponins, Pneumonia Physical Therapy Inpatient Initial Evaluation Date: 04/30/2024 Referring Doctor:? Suellen Francois NP PT Orders: PT CONSULT: Safety Consult for D/C Precautions: Fall. Standard. Activity as tolerated..? Seizure-prone. Patient Profile/Admitting Diagnosis:? Eloise is a 68-year-old female who presented to the ED via EMS on 04/28/2024 due to a suspected seizure activity. Patient is admitted for continued monitoring of seizure and management of diagnosis of pneumonia, elevated troponin, alcoholism, and tobacco use disorder. PMHX: All Active Problems (Updated 04/28/24 @ 20:15 by Jeanmarie Lacey) Elevated troponin (Acute) Seizure (Acute) Aspiration pneumonia of right lower lobe (Acute) Seizure disorder (Chronic) Diagnosed at age 8, on two antiseizure medications. follows [facility] [place] Dr. Treviño. stable but with breakthrough seizure 2020 Underweight (Chronic) BMI 17 to 18. Tobacco use disorder (Chronic) From age 14 until present, greater than 50 pack years. 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 Hx of + HPV with nl Pap. 2014. Colpo ECC ? LGSIL. 2020. Pap/HPV. Nl/Neg. Recommended repeat in 2021. Depressive disorder (Acute 07/30/13) Osteoporosis (Acute 01/27/14) 2013 T score -2.3 left hip 2019 R hip osteoporosis. Osteopenia spine + wrist. Medical History Hx of seizure disorder Grand-mal seizures-last one was 01/2023. Last saw Dr. Treviño Summer 2022 per pt Hip fracture, left (01/27/14) 2013 Atrophic vaginitis (02/07/14) Tobacco use several Fx from falls. DEXA -2.3O steoporosis Alcoholism stopped drinking 2017 Surgical History History of total right hip replacement (05/21/23) History of left shoulder replacement History of left hip replacement Arthroplasty of knee (06/07/16) LEFT/DR. HORTON Social History/Home Situation: Lives lone in a private home with no steps to enter.? Has a brother who lives in [place] who is involved with care. Niece is a physical therapist. Equipment Owned/DME: Has emergency alert device.? Patient states that she has canes and crutches at home that she can use.? Subjective: Preferred not to use walker for today's walk. Agreeable to sitting at edge of bed after a short walk from her room to the nurses' station. Denied headache, chest pain, and lightheadedness throughout activity. Objective: General Observation: Supine in bed. IV access through R UE. Low BMI. Mental Status: Alert and oriented as to person, place , and time.? Pain: None reported Vital Signs: Closely monitored by nursing staff ROM: Right Upper Extremity: Shoulder Flexion WFL. Shoulder abduction WFL. Elbow flexion WFL. Wrist flexion WFL. Functional opening and closing of hand WFL. Left Upper Extremity: Shoulder Flexion WFL. Shoulder abduction WFL. Elbow flexion WFL. Wrist flexion WFL. Functional opening and closing of hand WFL. Right Lower Extremity: Hip flexion WFL. Hip abduction WFL. Knee flexion WFL. Ankle dorsiflexion WFL. Ankle plantarflexion WFL. Left Lower Extremity: Hip flexion WFL. Hip abduction WFL. Knee flexion WFL. Ankle dorsiflexion WFL. Ankle plantarflexion WFL. Strength: Right Upper Extremity: Shoulder flexors 4-/5. Shoulder abductors 4-/5. Elbow flexors 4-/5. Elbow extensors 4-/5. Project Geophysicist strong. Left Upper Extremity: Shoulder flexors 4-/5. Shoulder abductors 4-/5. Elbow flexors 4-/5. Elbow extensors 4-/5. Project Geophysicist strong. Right Lower Extremity: Hip flexors 4-/5. Hip abductors 4-/5. Knee flexors 4-/5. Knee extensors 4-/5. Ankle dorsiflexors 4-/5. Ankle plantarflexors 4-/5. Left Lower Extremity: Hip flexors 4-/5. Hip abductors 4-/5. Knee flexors 4-/5. Knee extensors 4-/5. Ankle dorsiflexors 4-/5. Ankle plantarflexors 4-/5. Bed Mobility/Transfers: Rolling independent Supine to sit independent Sit to supine independent Sit to stand supervision Stand to sit supervision Bed to chair supervision Chair to bed supervision Gait: Facilitated safe performance of short in-room ambulation of 40 feet stand by assist only for IV pole management without and assistive device. No LOB. Minimal shortness of breath noted but subsided with rest. Denied headache, chest pain, and lightheadedness throughout activity. Balance: Static Sitting: Normal Dynamic Sitting: Normal Static Standing: Fair Dynamic Standing: Fair Special Tests: Mobility Limitations Standardized Measure [facility]-P[facility] 6 clicks Basic Mobility Inpatient Short Form: Raw Score: 23? CMS Score: 11% deficit? ? ? Informed Consent/Education:? Patient was instructed in purpose of PT consult and plan of care. Agreeable to proceed with established PT POC to achieve personal goals. Assessment: Patient presents with clinical signs and symptoms consistent with current/admitting diagnoses that have resulted to mobility limitations, gait instability, generalized weakness, and overall ADL decline as demonstrated by the following impairment level findings: 1.? Decreased strength to B UE/LE major muscle group 2.? Impaired sitting/standing balance 3.? Impaired activity tolerance Impairments are contributing to the following functional limitations: 1.? Difficulty with ambulation without assistive device 2.? Increased completion time for mobility ADL performance 3.? Increased risk for falls Patient is assessed as a 47883 low complexity based on the following: History: 68-year-old?female with past medical history as indicated above Examination: Demonstrable impairment in strength, balance, and mobility level with underlying impairments and functional limitations as exhibited above as well as deficit score of 11% utilizing the [facility] Mobility Inpatient Short Form Presentation: Stable Decision Makin low complexity Goals: Goals X1 week 1. Stand-Sit independent 2. Bed-Chair independent 3. Chair-Bed independent 4. Independent gait on level surface without device for at least 300 feet without report of pain nor dyspnea 5. Independent with home exercise program 6. Good static and dynamic standing balance/tolerance Plan of Care/Treatment Plan: 1-2x/day, 7 days/week x 1 week. Plan of care has been reviewed with the READING EFFICIENCY COURSE DIRECTOR providing the service under Physical Therapy direction. Initiate Physical Therapy intervention for pain management as needed, strengthening, bed mobility, transfers, gait, stairs, balance training, and use of assistive device. DISCHARGE RECOMMENDATIONS: [] ? Home with no services [] [X] ? Home with services. Needs PT. [] ? Home with outpatient PT [] [] ? SNF for continued rehabilitation [] [] ? Skilled Nursing Care [] [] ? SNF versus LTC based on ability to participate and progress [] TREATMENT CODE/TIME: 97069 x 27 minutes for 1 unit (10:28 and 10:55). Thank you for the opportunity to participate in the care of this patient. Tiffany Conway PT, DPT, CLT [facility] [place], [place]
[2024-04-30 11:16] VITALS: TEMP 36.9
[2024-04-30 11:28] VITALS: BP 96/61; PULSE 67; RESP 14; TEMP 36.8; O2SAT 98
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
--- NOTE | 2024-04-30 13:46 | PTTR_ITS ---
PT Notes Visit Reasons: Acute Seizure, Elevated Troponins, Pneumonia Physical Therapy Inpatient Treatment Note Date: 04/30/2024 Precautions: Fall. Standard. Activity as tolerated..? Seizure-prone. Subjective: Okay with using the front-wheeled walker to walk around [facility] hallway and do stairs. Refused HH PT recommendations. Objective: General Observation: Supine in bed. IV access through R UE. Low BMI. Mental Status: Alert and oriented as to person, place , and time.? Pain: None reported Vital Signs: Closely monitored by nursing staff Bed Mobility/Transfers: Rolling independent Supine to sit independent Sit to supine independent Sit to stand supervision Stand to sit supervision Bed to chair supervision Chair to bed supervision Gait: Facilitated safe performance of short in-room ambulation of 250 feet stand by assist only for IV pole management with front-wheeledd walker. No LOB. Minimal shortness of breath noted but subsided with rest. Denied headache, chest pain, and lightheadedness throughout activity. Stairs: Facilitated safe and correct negotiation of 6 x 4 inch steps and 4 x 6 inch steps while holding onto bilateral rails with step to gait pattern requiring only supervision and minimal verbal cueing for correct technique. Denied headache, chest pain, and lightheadedness throughout activity. Balance: Static Sitting: Normal Dynamic Sitting: Normal Static Standing: Fair Dynamic Standing: Fair Assessment: Performed well with use of FWW on level surfaces and while holding onto B rails on the stairs. No LOB. No SOB. DISCHARGE RECOMMENDATIONS: [] ? Home with no services [] [X] ? Home with services. Needs PT. [] ? Home with outpatient PT [] [] ? SNF for continued rehabilitation [] [] ? [facility] [] [] ? SNF versus LTC based on ability to participate and progress [] TREATMENT CODE/TIME: 87708 x 24 minutes for 2 units (13:46 and 14:07).
--- NOTE | 2024-04-30 15:11 | PDOC.CMDIS ---
Date of service: 04/30/24 Time of Service: 15:12 LACE Index Scoring Tool Questions: Length of Stay (in days): 2 Was the patient admitted via the E.D.?: Yes E.D. Visits: 4 Answers: Total Score: 9 Risk of Readmission: Low Risk Care Management Discharge Plan Reason for Hospitalization: seizure/ aspiration pneumonia Discharge Plan: Eloise is discharged home with new orders for oral antibiotics. Eloise refused HH PT, stated she did not need it. She will follow up with her PCP and continue per the prescribed plan of care. Eloise will transport home driven by her brother. Patient/Family Education Needs: Review of discharge instructions, activity, limitations and f/u plan. Discuss ask me 3. CM reinforced to Eloise the need to lease picker and take abx as ordered and also the need to f/u with PCP. CM notified PCP office of discharge. SDOH Health Related Social Needs: Health related social needs transpo insecurity Health related social needs details Eloise stated that she has a [place] appointment [place] [facility] and doesn't think that [facility] will talk her. CM called RCT. There are no issues with Eloise's account. Health related social needs: transportation insecurity(Z59.82) Health related social needs details: Eloise stated that she has a neurology appointment at [facility], and doesn't think that [facility] will talk her. CM called RCT. There are no issues with Eloise's account.
[2024-05-01 11:34] LABS: Levetiracetam 84.1 mcg/mL
[2024-05-02 14:23] LABS: Lamotrigine 2.1 mcg/mL (3.0-15.0)
== END 2024-04-30 15:16 | disposition home or self-care (01) | DRG 100 ==
LOC: ER 20:40 → MS 21:19
PROVIDERS: Nurse Practitioner Acute Care; Physician Assistant; Admitting Provider Family Medicine; Emergency Provider Registered Nurse Emergency; PCP Nurse Practitioner Family; Visit Provider Family Medicine
DX: G40.409 Other generalized epilepsy and epileptic syndromes, not intractable, without status epilepticus (principal); J69.0 Pneumonitis due to inhalation of food and vomit; I24.89 Other forms of acute ischemic heart disease; Z68.1 Body mass index [BMI] 19.9 or less, adult; F10.20 Alcohol dependence, uncomplicated; I95.9 Hypotension, unspecified; R63.6 Underweight; M81.0 Age-related osteoporosis without current pathological fracture; F32.A Depression, unspecified; F17.210 Nicotine dependence, cigarettes, uncomplicated; R29.6 Repeated falls; Z96.643 Presence of artificial hip joint, bilateral; Z96.612 Presence of left artificial shoulder joint; Z96.652 Presence of left artificial knee joint; T42.6X6A Underdosing of other antiepileptic and sedative-hypnotic drugs, initial encounter
CPT/HCPCS: 00123; 36410; 36415; 80048; 80053; 80175; 80307; 82550; 83690; 84145; 85027; 87641; 93005; 96361; 96365; 96366; 96367; 96375; 97161; 97530; 99285; 70450; 71045; 80164; 80177; 80320; 81003; 81015; 82140; 83605; 83735; 84100; 84443; 84484; 85025; 93010; 99223; 99233; 99239; J0696; J1650; J1953; J2060; J2543; J3411; J3475

== ENCOUNTER 2024-05-24 15:36 | Outpatient (CLI) | payer MEDICARE, MEDICAID, SELFPAY ==
--- NOTE | 2024-05-24 13:15 | DI.RAD_ITS ---
Exam(s) XR HIP RT AP LAT ONLY EXAM: XR HIP RT AP LAT ONLY CLINICAL HISTORY: f/u R MORAIMA. TECHNIQUE: 2D digital imaging was performed. COMPARISON: CR XR HIP RT COMPLETE AP PELVIS from 06/05/2023 FINDINGS: Two views There is stable position alignment of the components of the right hip prosthesis. No fracture or loo sening evident. IMPRESSION: Stable satisfactory appearance DATA REPOSITORY: RADIATION DOSE DELIVERED:
== END 2024-05-24 15:37 | disposition home or self-care (01) ==
LOC: DIORS 15:36
PROVIDERS: PCP Nurse Practitioner Family; Visit Provider Student in an Organized Health Care Education/Training Program
DX: Z96.641 Presence of right artificial hip joint (principal)
CPT/HCPCS: 73502

== ENCOUNTER 2025-01-10 21:01 | Emergency (ER) | payer MEDICARE, MEDICAID, SELFPAY ==
[2025-01-10] VITALS (27 sets, daily range): BP systolic 80–182; BP diastolic 45–101; PULSE 71–101; RESP 13–27; O2SAT 93–99
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
[2025-01-10] MEDS: Ketamine 500 MG/10 ML VIAL (22:01)
--- NOTE | 2025-01-10 22:45 | DI.CT_ITS ---
Exam(s) CT HEAD CERVICAL SPINE WO EXAM: CT HEAD CERVICAL SPINE WO CLINICAL HISTORY: head injury, intoxication. TECHNIQUE: Imaging Protocol: Axial computed tomography images with coronal and sagittal reformatted images were created and reviewed COMPARISON: CT CT HEAD CERV SPINE FACIAL WO from 03/10/[address] HEAD WO from 04/28/2024 FINDINGS: BRAIN: There are no skull fractures nor fluid in the visualized paranasal sinuses. There is no evidence of intracranial hemorrhage, mass effect, or shift of midline structures. There are no extra-axial fluid collections. The ventricles are not enlarged or shifted and there is no blo od within the ventricular system nor within the basal cisterns. There is symmetrical cerebellar atrophy evident, similar to the previous study of April 2024. CERVICAL SPINE: There is no evidence of acute fracture nor listhesis. No significant prevertebral soft tissue swelli ng. There is developmental fusion of C4 and C5 vertebral bodies and chronic advanced disc space narrowing at C5-6 and C6-7 levels. Also at C3-4 level and some degenerative anterolisthesis of C3 upon C4 is again noted. There is no significant facet joint malalignment. No significant osseous lesions evident. IMPRESSION: No acute intracranial findings on this noninfused CT scan of the brain.Symmetrical significant cerebe llar atrophy is again noted. No evidence of cervical spine fracture, malalignment, nor acute compromise of the cervical spinal can al. 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 RADIATION DOSE DELIVERED: 962.56mGy.cm Total DLP DATA REPOSITORY: All CT scans at this facility are submitted to the National Radiology Data Registry (NRDR) Dose Index Registry (DIR) with the [employer] (ACR). RADIATION OPTIMIZATION: All CT scans at this facility use at least one of these dose optimization te chniques: automated exposure control; mA and/or kV adjustment per patient size (includes targeted exa ms where dose is matched to clinical indication); or iterative reconstruction.
[2025-01-10] MEDS: Ketamine 500 MG/10 ML VIAL 50 MG IVP (22:56)
--- NOTE | 2025-01-10 22:58 | DI.VRAD_ITS ---
PROCEDURE INFORMATION: Exam: CT Head Without Contrast Exam date and time: 01/10/2025 10:35 PM Age: 69 years old Clinical indication: Other: Head injury, intoxication TECHNIQUE: Imaging protocol: Computed tomography of the head without contrast. COMPARISON: CT HEAD WO 04/28/2024 2:22 PM FINDINGS: Brain: Mild volume loss No hemorrhage. Unremarkable white matter. No mass effect. Cerebral ventricles: No ventriculomegaly. Paranasal sinuses: Visualized sinuses are unremarkable. No fluid levels. Mastoid air cells: Visualized mastoid air cells are well aerated. Bones: Unremarkable. No acute fracture. Soft tissues: Unremarkable. IMPRESSION: No acute intracranial abnormality. PROCEDURE INFORMATION: Exam: CT Cervical Spine Without Contrast Exam date and time: 01/10/2025 10:35 PM Age: 69 years old Clinical indication: Other: Head injury, intoxication TECHNIQUE: Imaging protocol: Computed tomography of the cervical spine without contrast. COMPARISON: CT HEAD CERV SPINE FACIAL WO 03/10/2024 5:55 PM FINDINGS: Bones: No acute fracture. Loss of cervical lordosis is presumably on a degenerative basis.No severe spinal canal stenosis. No significant neural foraminal narrowing. Lungs: Lung apices are normal. Soft tissues: Unremarkable. IMPRESSION: No acute findings. Dictated and Authenticated by: Silviano Roldan MD. Orderin Kyle Sosa MD
[2025-01-11] VITALS (49 sets, daily range): BP systolic 105–197; BP diastolic 61–95; PULSE 71–100; RESP 12–30; O2SAT 93–98
[2025-01-11] MEDS: OLANZapine 10 MG VIAL 7.5 MG IM (02:32)
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
--- NOTE | 2025-01-11 02:43 | NUR.NOTE ---
Nursing Note: Pt toileted to bedside commode with two nurses and 1 tech. Pt continues to be intermittently belligerent and combative towards staff. MD Clay aware, pt medicated with IM Zyprexa - see OCT. Pt assisted back to bed, connected to continuous monitoring. Side rails up, call churchill within reach.
[2025-01-11 03:07] LABS: Abs Immature Grans 0.01 10^3/uL (0.0-0.06); Absolute Basophil Count 0.06 10^3/uL (0.0-0.2); Absolute Eosinophil Count 0.03 10^3/uL (0.0-0.7); Absolute Lymphocyte Count 2.85 10^3/uL (1.2-3.4); Absolute Neutrophil Count 4.33 10^3/uL (1.2-6.7); Basophils % 0.8 %; Eosinophils % 0.4 %; HGB 16.3 g/dL (11.2-15.7); Immature Grans % 0.1 %; Lymphocytes % 37.1 %; MCH 31.3 pg (27.0-33.0); MCV 92 fL (80-95); MPV 11.2 fL (8.0-11.0); Monocytes % 5.2 %; Neutrophils % 56.4 %; Platelet Count 205 10^3/uL (130-400); RDW 14.7 % (11.7-14.6); WBC 7.68 10^3/uL (4.4-10.8)
[2025-01-11 03:25] LABS: ALT 15 U/L (14-59); AST 27 U/L (15-37); Albumin 3.8 g/dL (3.4-5.0); Alkaline Phosphatase 149 U/L (46-116); Anion Gap 14.6 mmol/L (3-11); BUN 6 mg/dL (7-18); Bilirubin, Total 0.4 mg/dL (0.2-1.0); CO2 26.4 mmol/L (21.0-32.0); CREATININE 0.7 mg/dL (0.55-1.02); Calcium 9.1 mg/dL (8.5-10.1); Chloride 106 mmol/L (98-107); ETHANOL BLOOD 14.5 mg/dL (<10); Estimated GFR 94.15 (mL/min/1.73m2); Glucose 76 mg/dL (74-106); Potassium 4.3 mmol/L (3.5-5.1); Sodium 147 mmol/L (136-145); Total Protein 7.8 g/dL (6.4-8.2)
--- NOTE | 2025-01-11 04:51 | NUR.NOTE ---
Nursing Note: Pt ambulated to bedside commode with 2 RN and 1 ZIGZAG APPLIQUER assistance. Pt unable to stand safely independently. Pt tried to swing at staff when assisting with keeping her upright to appropriately sit on commode. Pt yelling obscenities at staff. Pt toileted and assisted back to bed. Pt connect back to continuous monitoring. Side rails up, call churchill within reach. MD Clay made aware.
[2025-01-11 05:24] LABS: VALPROIC ACID 114.4 ug/mL
== END 2025-01-11 07:24 | disposition home or self-care (01) ==
PROVIDERS: Emergency Provider Student in an Organized Health Care Education/Training Program; PCP Nurse Practitioner Family
DX: S00.12XA Contusion of left eyelid and periocular area, initial encounter (principal); M43.22 Fusion of spine, cervical region; F10.120 Alcohol abuse with intoxication, uncomplicated; F17.210 Nicotine dependence, cigarettes, uncomplicated; W18.39XA Other fall on same level, initial encounter; Y93.01 Activity, walking, marching and hiking; Y92.414 Local residential or business street as the place of occurrence of the external cause
CPT/HCPCS: 00123; 36415; 80053; 96372; 99284; 70450; 72125; 80164; 80320; 85025; J2359

== ENCOUNTER 2025-01-30 18:01 | Inpatient (IN) | payer MEDICARE, MEDICAID, SELFPAY ==
--- NOTE | 2025-01-30 18:00 | RT.EKG_ITS ---
APPROVED REPORT Exam: Resting ECG Reason for Exam: altered mental status Patient Location: E HR:63 bpm ECG Measurements Heart Rate 63 AXIS IL 147 P 69 QRSd 66 QRS 76 QT 395 T 52 QTc 405 Conclusion Sinus rhythm...normal P axis, V-rate 60- 99 Sinus Rhythm. Nochange from prior 04/28/24. WD
[2025-01-30 18:07] VITALS: BP 112/78; PULSE 70; RESP 16; TEMP 36.3; O2SAT 94
--- NOTE | 2025-01-30 18:15 | DI.CT_ITS ---
Exam(s) CT HEAD NECK WO EXAM: CT HEAD NECK WO CLINICAL HISTORY: fall, AMS. TECHNIQUE: Imaging Protocol: Axial computed tomography images with coronal and sagittal reformatted images were created and reviewed COMPARISON: CT CT HEAD CERVICAL SPINE WO from 01/10/2025 FINDINGS: CT Head: Ventricles and Extra axial spaces: Normal in size and morphology for the patient's age. Hemorrhage: None. Cerebral parenchyma: Unremarkable for age. Midline shift: None. Brainstem/Cerebellum: For age. Calvarium: Normal. Visualized Paranasal sinuses/Mastoids: Clear. Soft Tissues: Unremarkable. CT Cervical Spine: Bones: No acute fracture or subluxation. 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 There are severe degenerative changes at C3-4, C5-6 and C6- 7.. There is scoliosis at the cervical thoracic junction. Soft Tissues: Unremarkable. Lung Apices: Clear. IMPRESSION: 1. No acute intracranial process. 2. No acute fracture or subluxation in the cervical spine. The preliminary [facility] report was reviewed. RADIATION DOSE DELIVERED: 1,109.82mGy.cm Total DLP DATA REPOSITORY: All CT scans at this facility are submitted to the National Radiology Data Registry (NRDR) Dose Index Registry (DIR) with the [employer] (ACR). RADIATION OPTIMIZATION: All CT scans at this facility use at least one of these dose optimization techniques: automated exposure control; mA and/or kV adjustment per patient size (includes targeted exams where dose is matched to clinical indication); or iterative reconstruction.
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
[2025-01-30 18:21] VITALS: RESP 18
[2025-01-30 19:04] LABS: Abs Immature Grans 0.01 10^3/uL (0.0-0.06); HCT 42.9 % (36.0-46.0); HGB 14.7 g/dL (11.2-15.7); Immature Grans % 0.2 %; MCH 31.3 pg (27.0-33.0); MCHC 34.3 % (32.0-36.0); MCV 92 fL (80-95); MPV 10.6 fL (8.0-11.0); Platelet Count 284 10^3/uL (130-400); RBC 4.69 10^6/uL (3.93-5.22); RDW 14.8 % (11.7-14.6); RDW-SD 49.9 fL; WBC 5.09 10^3/uL (4.4-10.8)
[2025-01-30 19:30] LABS: ALT 13 U/L (14-59); AST 18 U/L (15-37); Albumin 3.1 g/dL (3.4-5.0); Alkaline Phosphatase 87 U/L (46-116); Anion Gap 9.2 mmol/L (3-11); BUN 12 mg/dL (7-18); Bilirubin, Total 0.4 mg/dL (0.2-1.0); CO2 29.8 mmol/L (21.0-32.0); Calcium 8.2 mg/dL (8.5-10.1); Chloride 102 mmol/L (98-107); Creatine Kinase 194 U/L (26-192); Estimated GFR 80.21 (mL/min/1.73m2); Glucose 81 mg/dL (74-106); Lipase 33 U/L (<78); Magnesium 1.9 mg/dL (1.8-2.4); Potassium 3.1 mmol/L (3.5-5.1); Sodium 141 mmol/L (136-145); TSH (W/Ref FT4) 1.10 uIU/mL (0.36-3.74); Total Protein 6.3 g/dL (6.4-8.2); Troponin I 8 ng/L (<or=51)
--- NOTE | 2025-01-30 20:46 | DI.VRAD_ITS ---
PROCEDURE INFORMATION: Exam: CT Head Without Contrast Exam date and time: 01/30/2025 7:47 PM Age: 69 years old Clinical indication: Injury or trauma; Blunt trauma (contusions or hematomas); Consciousness not specified; Injury date: 01/30/25; Injury details: Fall, AMS TECHNIQUE: Imaging protocol: Computed tomography of the head without contrast. Radiation optimization: All CT scans at this facility use at least one of these dose optimization techniques: automated exposure control; mA and/or kV adjustment per patient size (includes targeted exams where dose is matched to clinical indication); or iterative reconstruction. COMPARISON: CT HEAD CERVICAL SPINE WO 01/10/2025 10:35 PM FINDINGS: Brain: No acute intracranial hemorrhage, mass-effect, midline shift, or extra-axial collection is seen. The medrano white matter differentiation appears preserved. There is symmetric parenchymal volume loss. Cerebral ventricles: The ventricular system and basilar cisterns appear prominent but appropriate in size and configuration given the degree of parenchymal volume loss. Paranasal sinuses: The visualized paranasal sinuses appear well-aerated. Mastoid air cells: The mastoid air cells appear well-aerated. Auditory system: The middle ear cavities appear clear. Orbital cavities: The globes and intraorbital structures appear grossly intact. Bones: The bony calvarium appears intact. No depressed skull fracture is seen. Soft tissues: No gross focal scalp hematoma is seen. IMPRESSION: 1. No acute intracranial hemorrhage or depressed skull fracture. 2. Symmetric parenchymal volume loss. PROCEDURE INFORMATION: Exam: CT Cervical Spine Without Contrast Exam date and time: 01/30/2025 7:47 PM Age: 69 years old Clinical indication: Injury or trauma; Blunt trauma (contusions or hematomas); Consciousness not specified; Injury date: 01/30/25; Injury details: Fall, AMS TECHNIQUE: Imaging protocol: Computed tomography of the cervical spine without contrast. Radiation optimization: All CT scans at this facility use at least one of these dose optimization techniques: automated exposure control; mA and/or kV adjustment per patient size (includes targeted exams where dose is matched to clinical indication); or iterative reconstruction. COMPARISON: No relevant prior studies available. FINDINGS: Bones/joints: No acute cervical fracture or malalignment is seen. There is congenital C4-C5 fusion, as described below. C2-C3: Disc height preserved. Moderate left and severe right-sided facet arthrosis. No central canal narrowing. Mild bilateral foraminal narrowing. C3-C4: Loss of disc height with endplate irregularity, anterior osteophyte formation, posterior osteophytic ridging, and bilateral uncovertebral hypertrophy. Moderate-severe bilateral facet arthrosis. Mild central canal narrowing. Moderate left and severe right-sided foraminal narrowing. C4-C5: Congenital fusion across the disc space, both facet joints, the laminae bilaterally, and spinous processes. No central canal narrowing or neural foraminal narrowing. C5-C6: Loss of disc height with endplate irregularity, anterior osteophyte formation, posterior osteophytic ridging, and bilateral uncovertebral hypertrophy. Mild central canal narrowing. No significant right-sided foraminal narrowing. Moderate-severe left-sided foraminal narrowing. C6-C7: Loss of disc height with endplate irregularity, anterior osteophyte formation, posterior osteophytic ridging, and bilateral uncovertebral hypertrophy. No central canal narrowing. Mild bilateral foraminal narrowing. C7-T1: Disc height preserved. Moderate-severe bilateral facet arthrosis. No central canal narrowing. Mild bilateral foraminal narrowing. Thyroid: The thyroid gland is partially obscured by artifact but appears normal in size. Lungs: The lung apices appear clear. Vasculature: There is atherosclerotic calcification at the carotid bifurcations bilaterally. Soft tissues: Within the limits of the exam, no gross soft tissue fluid collection is seen in the neck. IMPRESSION: 1. No acute cervical fracture or malalignment is seen. 2. Congenital C4-C5 fusion, as described. 3. Degenerative changes, as detailed level by level above. Dictated and Authenticated by: Solo Villaseñor MD. Orderin Carmina Ibrahim MD
[2025-01-30 20:57] LABS: Ammonia < 10 umol/L (11-32)
[2025-01-30 21:03] LABS: Troponin I 8 ng/L (<or=51)
[2025-01-30 21:30] LABS: Salicylate 5.8 mg/dL (<2.8)
[2025-01-30 21:31] LABS: Acetaminophen < 2 ug/mL (10-30)
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
[2025-01-30 23:33] VITALS: BP 102/56; PULSE 57; RESP 16; TEMP 36.5; O2SAT 97
[2025-01-31] VITALS (7 sets, daily range): BP systolic 101–121; BP diastolic 56–81; PULSE 58–69; RESP 16–20; TEMP 36–37.1; O2SAT 94–98
--- NOTE | 2025-01-31 | DI.RAD_ITS ---
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 TECHNIQUE: 2D digital imaging was performed. Five views. COMPARISON: CR XR SHOULDER LT COMPLETE 2+V from 06/18/2022 FINDINGS: BONES: No acute fracture is present. No bony destructive lesion is seen. JOINTS: No dislocation present. Degenerative changes are present at the AC joint and glenohumeral joint. SOFT TISSUE: Normal. IMPRESSION: Degenerative changes. No acute abnormality. DATA REPOSITORY: RADIATION DOSE DELIVERED:
--- NOTE | 2025-01-31 00:03 | W.PC.ACHO ---
Registration Status: REG ER Primary Language: Preferred Language: Luxembourgish ED Information & Data Chief Complaint [id number] 01/30/25 18:30 Triage Note Patient presented with 01/30/25 18:07 history of falling at home sustained injury to the left side of forehead, patient was possible on the floor for about 30mins. Pt denies any alcohol intake today Medical / Surgical History (Last Reviewed 01/30/25 @ 22:49 by Jeanmarie Lacey) Hx of seizure disorder Hip fracture, left (01/27/14) Atrophic vaginitis (02/07/14) Tobacco use Osteoporosis (Last Reviewed 01/30/25 @ 22:49 by Jeanmarie Lacey) History of total right hip replacement (05/21/23) History of left shoulder replacement History of left hip replacement Arthroplasty of knee (06/07/16) Most Recent Vital Signs Temperature 36.5 C 01/30/25 23:33 Temperature Source Oral 01/30/25 23:33 Pulse 57 L 01/30/25 23:33 Respiratory Rate 16 01/30/25 23:33 Respiratory Effort Normal, Non-Labored 01/30/25 18:21 Respiratory Depth Normal 01/30/25 18:21 Respiratory Pattern Normal 01/30/25 18:21 Blood Pressure 102/56 L 01/30/25 23:33 Blood Pressure Mean 71 01/30/25 23:33 Blood Pressure Position Supine 01/30/25 18:07 Pulse Oximetry 97 01/30/25 23:33 Oxygen Delivery Method Room Air 01/30/25 23:33 Oxygen Flow Rate 0 01/30/25 23:33 Allergies No Known Allergies Allergy (Verified 01/30/25 18:13) Precautions Isolation Standard precaution 01/30/25 18:21 IV IV Catheter Type [Left Forearm Peripheral IV ] IV Catheter Gauge [Left 20 Forearm] Diagnostics 01/30/25 01/30/25 01/30/25 Range/Units 23:32 21:18 20:37 WBC (4.4-10.8) 10^3/uL RBC (3.93-5.22) 10^6/uL Hgb (11.2-15.7) g/dL Hct (36.0-46.0) % MCV (80-95) fL MCH (27.0-33.0) pg MCHC (32.0-36.0) % RDW (11.7-14.6) % Plt Count (130-400) 10^3/uL MPV (8.0-11.0) fL Immature Gran % % Neutrophils % % Lymphocytes % % Monocytes % % Eosinophils % % Basophils % % Nucleated RBC % (0.0-0.3) % Absolute Neutrophils (1.2-6.7) 10^3/uL Absolute Lymphocytes (1.2-3.4) 10^3/uL Absolute Monocytes (0.1-0.8) 10^3/uL Absolute Eosinophils (0.0-0.7) 10^3/uL Absolute Basophils (0.0-0.2) 10^3/uL Sodium (136-145) mmol/L Potassium (3.5-5.1) mmol/L Chloride (98-107) mmol/L Carbon Dioxide (21.0-32.0) mmol/L Anion Gap (3-11) mmol/L BUN (7-18) mg/dL Creatinine (0.55-1.02) mg/dL Est GFR (CKD-EPI 2020) (mL/min/1.73m2) Glucose (74-106) mg/dL Calcium (8.5-10.1) mg/dL Magnesium (1.8-2.4) mg/dL Total Bilirubin (0.2-1.0) mg/dL AST (15-37) U/L ALT (14-59) U/L Alkaline Phosphatase (46-116) U/L Ammonia < 10 L (11-32) umol/L Creatine Kinase (26-192) U/L Troponin I Cancelled 8 (<or=51) ng/L Total Protein (6.4-8.2) g/dL Albumin (3.4-5.0) g/dL Lipase (<78) U/L TSH (0.36-3.74) uIU/mL Salicylates 5.8 (<2.8) mg/dL Acetaminophen < 2 (10-30) ug/mL Valproic Acid 138.5 ( - 150) ug/mL Ethyl Alcohol (<10) mg/dL COVID-19 Source Nasal/Nares SARS-CoV-2 (PCR) Pending 01/30/25 01/30/25 Range/Units 19:00 18:40 WBC 5.09 (4.4-10.8) 10^3/uL RBC 4.69 (3.93-5.22) 10^6/uL Hgb 14.7 (11.2-15.7) g/dL Hct 42.9 (36.0-46.0) % MCV 92 (80-95) fL MCH 31.3 (27.0-33.0) pg MCHC 34.3 (32.0-36.0) % RDW 14.8 H (11.7-14.6) % Plt Count 284 (130-400) 10^3/uL MPV 10.6 (8.0-11.0) fL Immature Gran % 0.2 % Neutrophils % 49.7 % Lymphocytes % 41.8 % Monocytes % 6.1 % Eosinophils % 1.2 % Basophils % 1.0 % Nucleated RBC % 0.0 (0.0-0.3) % Absolute Neutrophils 2.53 (1.2-6.7) 10^3/uL Absolute Lymphocytes 2.13 (1.2-3.4) 10^3/uL Absolute Monocytes 0.31 (0.1-0.8) 10^3/uL Absolute Eosinophils 0.06 (0.0-0.7) 10^3/uL Absolute Basophils 0.05 (0.0-0.2) 10^3/uL Sodium 141 (136-145) mmol/L Potassium 3.1 L (3.5-5.1) mmol/L Chloride 102 (98-107) mmol/L Carbon Dioxide 29.8 (21.0-32.0) mmol/L Anion Gap 9.2 (3-11) mmol/L BUN 12 (7-18) mg/dL Creatinine 0.8 (0.55-1.02) mg/dL Est GFR (CKD-EPI 2020) 80.21 (mL/min/1.73m2) Glucose 81 (74-106) mg/dL Calcium 8.2 L (8.5-10.1) mg/dL Magnesium 1.9 (1.8-2.4) mg/dL Total Bilirubin 0.4 (0.2-1.0) mg/dL AST 18 (15-37) U/L ALT 13 L (14-59) U/L Alkaline Phosphatase 87 (46-116) U/L Ammonia (11-32) umol/L Creatine Kinase 194 H (26-192) U/L Troponin I 8 (<or=51) ng/L Total Protein 6.3 L (6.4-8.2) g/dL Albumin 3.1 L (3.4-5.0) g/dL Lipase 33 (<78) U/L TSH 1.10 (0.36-3.74) uIU/mL Salicylates (<2.8) mg/dL Acetaminophen (10-30) ug/mL Valproic Acid 140.2 ( - 150) ug/mL Ethyl Alcohol < 3.0 (<10) mg/dL COVID-19 Source SARS-CoV-2 (PCR) Intake and Output - 24 Hour Total 01/30/25 17:55 thru 01/30/25 18:07 Weight 39.735 kg Falls Risk Assessment History of Falls Admit Due to Fall 01/30/25 18:21 Contributing Factors No Factors 01/30/25 18:21 Ambulatory Aids Independent 01/30/25 18:21 Tubes/Lines None 01/30/25 18:21 Gait Evaluation No gait disturbance 01/30/25 18:21 Fall Total Score 01/30/25 18:21 Level of Risk Moderate Risk 01/30/25 18:21 Problems (Last Reviewed 01/30/25 @ 22:49 by Jeanmarie Lacey) Face lacerations (Acute) Fall (Acute) Serum sodium valproate above therapeutic range (Acute) Altered mental status (Acute) Seizure disorder (Chronic) Tobacco use disorder (Chronic) Depressive disorder (Chronic 07/30/13) v v v v v v v v v Sending and/or Receiving Nurses: Please use comment section below to note any information pertinent to the patient hand-off not included above. Information / Comments: possible fall at home. found self on ground, pushed life alert. Laceration to left forehead above eyebrow. Hx of seizures/alcohol use. States she has not had a drink in several days. A&Ox1, self. Pt endorses it is 1990s and she's at [facility], very forgetful and repetitive. Neuro intact upon exam. Ammonia and trops were negative. Depakote levels downtrending. 20g LFA did a PCR covid swab. still needs a UA Report received from: Ricarda Paez, RN @ [id number]
[2025-01-31 00:10] LABS: COVID-19 PCR Negative (Negative)
[2025-01-31] MEDS: Potassium Chloride 20 MEQ TABCR PO (00:45)
[2025-01-31 07:00] LABS: HCT 40.2 % (36.0-46.0); HGB 13.7 g/dL (11.2-15.7); MCH 31.4 pg (27.0-33.0); MCHC 34.1 % (32.0-36.0); MCV 92 fL (80-95); MPV 11.6 fL (8.0-11.0); Platelet Count 273 10^3/uL (130-400); RBC 4.37 10^6/uL (3.93-5.22); RDW 14.9 % (11.7-14.6); RDW-SD 50.4 fL; WBC 6.54 10^3/uL (4.4-10.8)
[2025-01-31 07:25] LABS: ALT 12 U/L (14-59); AST 15 U/L (15-37); Albumin 2.9 g/dL (3.4-5.0); Alkaline Phosphatase 79 U/L (46-116); Anion Gap 9.6 mmol/L (3-11); BUN 16 mg/dL (7-18); Bilirubin, Total 0.3 mg/dL (0.2-1.0); CO2 28.4 mmol/L (21.0-32.0); Calcium 8.4 mg/dL (8.5-10.1); Chloride 103 mmol/L (98-107); Estimated GFR 97.71 (mL/min/1.73m2); Glucose 68 mg/dL (74-106); Magnesium 2.0 mg/dL (1.8-2.4); Potassium 3.1 mmol/L (3.5-5.1); Sodium 141 mmol/L (136-145); Total Protein 5.9 g/dL (6.4-8.2)
[2025-01-31] MEDS: lamoTRIgine 100 MG TAB PO ×2 (09:10→20:49)
[2025-01-31] MEDS: Potassium Chloride 20 MEQ TABCR 40 MEQ PO (09:10)
[2025-01-31] MEDS: Acetaminophen 500 MG TAB 1000 MG PO ×3 (09:10→20:49)
[2025-01-31] MEDS: Normal Saline Flush 10 ML SYR IVP ×2 (09:13→20:50)
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
--- NOTE | 2025-01-31 15:19 | PHACLINREV_ITS ---
Pharmacy Admission Review Admission Clinical Review Admission Pharmacy Review: (Updated 01/31/25 @ 08:51 by Jeanmarie Lacey) Hypokalemia (Acute) Face lacerations (Acute) Fall (Acute) Serum sodium valproate above therapeutic range (Acute) Altered mental status (Acute) No Known Allergies Allergy (Verified 01/30/25 18:13) Resuscitation Status Full Code Height 5 ft Weight 38.056 kg Comments Comments/Follow Ups: Valproic acid level currently 106.9ug/ml, should be mon itored as well as potassium and BP and HR Pharmacy Admission Review Renal Dosing Renal Dosing: No dose adjustments necessary at this time. Crcl 32.35ml/min BUN 16 mg/dL (7-18) 01/31/25 05:46 Creatinine 0.6 mg/dL (0.55-1.02) 01/31/25 05:46 Medications needing adjustments: Reviewed Anticoagulation Anticoagulation: Hgb 13.7 g/dL (11.2-15.7) 01/31/25 05:46 Hct 40.2 % (36.0-46.0) 01/31/25 05:46 Plt Count 273 10^3/uL (130-400) 01/31/25 05:46 Creatinine 0.6 mg/dL (0.55-1.02) 01/31/25 05:46 DVT Prophylaxis: Reviewed Medications: Enoxaparin Relevant Labs Relevant Labs: Sodium 141 mmol/L (136-145) 01/31/25 05:46 Potassium 3.1 mmol/L (3.5-5.1) L 01/31/25 05:46 Chloride 103 mmol/L (98-107) 01/31/25 05:46 Magnesium 2.0 mg/dL (1.8-2.4) 01/31/25 05:46 Potassium low 3.1, patient received up to 60meq of potassium as of today. Levels need to be monitored Cardiac Review Cardiac Review: Blood Pressure 101/58 Blood Pressure 105/81 Heart rate 58 Heart rate 69 Troponin I Cancelled 01/30/25 21:18 BP, HR, EF%: Reviewed QTc Review QTc: Reviewed List meds needing interventions: Patient not on any medications currently needing intervention. QTc as of 01/30/25 was 405 IV to PO Switch IV Medications: N/A Home Meds Home Med List reviewed: Reviewed (Home medications ordered) Pharmacy Antibiotic Review Relevant Labs: Patient not on any antibiotics Comments Comments/Follow Ups: Valproic acid level currently 106.9ug/ml, should be monitored as well as potassium and BP and HR
--- NOTE | 2025-01-31 15:57 | IN_ITS ---
PT Notes Visit Reasons: Supratherapeutic Depakote level with Delerium Physical Therapy Day Surgery Initial Evaluation Date:01/31/2025 Referring Doctor: Dr Lacey PT Orders: PT CONSULT: Evaluation and treat Precautions: Fall risk, seizure Patient Profile/Admitting Diagnosis: Eloise is a 69-year-old female presented to the ED with altered mental status status post fall at home with laceration to her face/left eyebrow. 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 Patient with elevated valproic acid level and Depakote was held. Patient admitted to MedSur unit for further medical management including right shoulder x-ray on 01/31/2025 showing degenerative changes at AC and GHJ no fractures noted. PMHX: Hypokalemia (Acute) Face lacerations (Acute) Fall (Acute) Serum sodium valproate above therapeutic range (Acute) Altered mental status (Acute) Contusion of face (Acute) Alcohol intoxication (Acute) Trochanteric bursitis, right hip (Acute) Seizure (Acute) Aspiration pneumonia of right lower lobe (Acute) Seizure disorder (Chronic) Diagnosed at age 8, on two antiseizure medications. follows [facility] [place] Dr. Treviño. stable but with breakthrough seizure 2020 Underweight (Chronic) BMI 17 to 18.Tobacco use disorder (Chronic) From age 14 until present, greater than 50 pack years.Falls frequently (Chronic) Pneumonia (Acute 08/21/13) 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 Hx of + HPV with nl Pap. 2014. Colpo ECC ? LGSIL. 2020. Pap/HPV. Nl/Neg. Recommended repeat in 2021.Depressive disorder (Chronic 07/30/13) Osteoporosis (Acute 01/27/14) 2013 T score -2.3 left hip 2019 R hip osteoporosis. Osteopenia spine + wrist. Medical History Hx of seizure disorder Grand-mal seizures-last one was 01/2023. Last saw Dr. Treviño Summer 2022 per ptHip fracture, left (01/27/14) 2013 Atrophic vaginitis (02/07/14) Tobacco use several Fx from falls. DEXA -2.3Osteoporosis Surgical History History of total right hip replacement (05/21/23) History of left shoulder replacement History of left hip replacement Arthroplasty of knee (06/07/16) LEFT/DR. HORTON Social History/Home Situation: Patient resides alone 13 steps with rail to enter patient currently has no services at home she reports being independent Equipment Owned/DME: Patient states she has crutches somewhere Subjective:Pt reports her shoulder hurts. She states she is worried about getting into her apartment with all the stairs and is afraid she may have a seizure on them and . Patient states she is agreeable to participate in evaluation Objective: [] General Observation: cacchetic female older appearing than age. supine in bed with telemetry in place Mental Status: alert and oriented to person , place, able to follow instructions, poor insight into deficits and safety awareness Pain: right shoulder 4/10 ROM: [] Right Upper Extremity: Shoulder flexion 92 degrees abduction 85 degrees, IR unable to reach behind back, ER 60 degrees, elbow wrist and hand WFL Left Upper Extremity: WNL BLE WFL DF to neutral] Strength: [] Right Upper Extremity:shoulder 3-/5 flexion abduction IR with pain, elbow4/5 and hand 5/5 Left Upper Extremity: 5/5 BLE: 3-/5 hips knee 3/5 ankle 3/5 Sensation: intact Bed Mobility/Transfers: [] Supine to sit min A d/t pain right shoulder Sit to stand SBA Stand to sit SBA Bed to chair CGA with FWW Gait: CGA with FWW 60 feet with turns , IR of RLE ,crossing feet with turns slight ataxic gait noted Balance: [] Static Sitting: Good Dynamic Sitting: Fair Static Standing: Fair Dynamic Standing: Fair minus Special Tests: [] Mobility Limitations Standardized Measure [] [facility] AM-PAC 6 clicks Basic Mobility Inpatient Short Form: [] Raw Score: 17 CMS Score: 50.57% Informed Consent/Education: Patient instructed in purpose of PT consult. Assessment: Patient presents with clinical signs and symptoms consistent with current/admitting diagnoses that have resulted to mobility limitations, gait instability, generalized weakness, and impairment of motor control as demo nstrated by the following impairment level findings: 1. Decreased strength to BUE/BLE major muscle groups 2. Impaired standing balance 3. Limitation of joint range of motion in right shoulder 4. pain right shoulder 5. impaired functional activity tolerance 6. impaired judgement/ safety awareness. Impairments are contributing to the following functional limitations: 1. Inability to safely ambulate without assistive device 2. Increase completion time for mobility ADL performance 3. Increased fall risk 4. difficulty perfroming stairs safely without assistance Patient is assessed as a moderate complexity based on the following: History:69-year-old female with impairment level findings, functional limitations, and past medical history as indicated above Examination: Demonstrable impairment in strength, balance, and mobility level with underlying impairments and functional limitations as documented above Presentation: stable/ evolving Decision Making: moderate Goals: 1. Independent bed mobility 2. Independent transfers with least restrictive device 3. Independent ambulation with least restrictive device 150 feet without loss of balance 4. Supervision 13 steps with rail to safely enter and exit home Plan of Care/Treatment Plan: DISCHARGE RECOMMENDATIONS Home with HHPT Pt may need lift assist into home. TREATMENT CODE/TIME: 29396/ [id number] Thank you for the opportunity to participate in the care of this patient. Robina Mata PT [facility]
--- NOTE | 2025-01-31 16:21 | PGE_ITS ---
Date of Service Date of service: 01/31/25 Time of Service: 16:21 Assessment and Plan Assessment and plan (1) Altered mental status: Start date: 01/31/25 Status: Acute Assessment and plan: Remains confused Valproate level 1 06 today will repeat in a.m. Reported to have bubble pack meds but the patient mentioned that she had a bottle of medicines And as below Confirmed occasional drinking (2) Serum sodium valproate above therapeutic range: Start date: 01/31/25 Status: Acute Assessment and plan: Seen at [facility] [place] neurology for seizure management - will try to obtain records today then on subsequent day initiate a neurology consult with Dr. Bakari Thurston and follow-up on levels with patient to return home once stable. Physical therapy (3) Fall: Start date: 01/31/25 Status: Acute Assessment and plan: Admitted status post fall secondary to increased Depakote level and possibly drinking alcohol. And as above (4) Face lacerations: Start date: 01/31/25 Status: Acute Assessment and plan: Continue to monitor with repair in the ED; educated patient on wound management (5) Hypokalemia: Start date: 01/31/25 Status: Acute Assessment and plan: Continue monitoring and supplementation as needed Monitor magnesium if hypokalemic (6) Seizure disorder: Start date: 01/31/25 Status: Chronic Assessment and plan: Hold Depakote and reinitiate once stable and as per point 2 (7) Depressive disorder: Start date: 01/31/25 Status: Chronic Assessment and plan: Continue outpatient medical therapy. 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 No bony destructive lesion is seen. JOINTS: No dislocation present. Degenerative changes are present at the AC joint and glenohumeral joint. SOFT TISSUE: Normal. IMPRESSION: Degenerative changes. No acute abnormality. On scheduled APAP Will continue to monitor (9) Tobacco use disorder: Start date: 01/31/25 Status: Chronic Assessment and plan: Plastics Engineer re: smoking cessation PRN NRT F/u with PCP Low molecular weight heparin inpatient for DVT prophylaxis Cussed with Dr. Lucas Subjective Subjective Patient reports: still having pain (right shoulder pain ), voiding w/o difficulty, bowel movement and other (Patient insisting that she is not having active medicine but has been bottles of medicine given by her pharmacy/becomes irritable when medicine filling records mention); denies blood in stool, nausea, vomiting, shortness of breath or fever Exam Narrative Exam Narrative: 69-year-old female cachectic looking and appearing older than stated age, in no acute distress no focal neurodeficit, irritable mood and affect, alert and oriented x 2, unlabored breathing clear lungs, S1-S2 no murmur abdomen is scaphoid soft nontender, bowel sounds are present no bladder distention, no edema to extremities Objective Last Vital Signs Temp 36.5 C 01/31/25 11:05 Pulse 58 L 01/31/25 11:05 Resp 17 01/31/25 11:05 BP 101/58 L 01/31/25 11:05 Pulse Ox 96 01/31/25 11:05 Laboratory Results - last 24 hr 01/30/25 01/30/25 01/30/25 18:40 19:00 20:37 WBC 5.09 RBC 4.69 Hgb 14.7 Hct 42.9 MCV 92 MCH 31.3 MCHC 34.3 RDW 14.8 H Plt Count 284 MPV 10.6 Immature Gran % 0.2 Neutrophils % 49.7 Lymphocytes % 41.8 Monocytes % 6.1 Eosinophils % 1.2 Basophils % 1.0 Nucleated RBC % 0.0 Absolute Neutrophils 2.53 Absolute Lymphocytes 2.13 Absolute Monocytes 0.31 Absolute Eosinophils 0.06 Absolute Basophils 0.05 Sodium 141 Potassium 3.1 L Chloride 102 Carbon Dioxide 29.8 Anion Gap 9.2 BUN 12 Creatinine 0.8 Est GFR (CKD-EPI 2020) 80.21 Glucose 81 Calcium 8.2 L Magnesium 1.9 Total Bilirubin 0.4 AST 18 ALT 13 L Alkaline Phosphatase 87 Ammonia < 10 L Creatine Kinase 194 H Troponin I 8 8 Total Protein 6.3 L Albumin 3.1 L Lipase 33 TSH 1.10 Salicylates 5.8 Acetaminophen < 2 Valproic Acid 140.2 138.5 Ethyl Alcohol < 3.0 COVID-19 Source SARS-CoV-2 (PCR) 01/30/25 01/30/25 01/31/25 21:18 23:32 05:46 WBC 6.54 RBC 4.37 Hgb 13.7 Hct 40.2 MCV 92 MCH 31.4 MCHC 34.1 RDW 14.9 H Plt Count 273 MPV 11.6 H Immature Gran % Neutrophils % Lymphocytes % Monocytes % Eosinophils % Basophils % Nucleated RBC % Absolute Neutrophils Absolute Lymphocytes Absolute Monocytes Absolute Eosinophils Absolute Basophils Sodium 141 Potassium 3.1 L Chloride 103 Carbon Dioxide 28.4 Anion Gap 9.6 BUN 16 Creatinine 0.6 Est GFR (CKD-EPI 2020) 97.71 Glucose 68 L Calcium 8.4 L Magnesium 2.0 Total Bilirubin 0.3 AST 15 ALT 12 L Alkaline Phosphatase 79 Ammonia Creatine Kinase Troponin I Cancelled Total Protein 5.9 L Albumin 2.9 L Lipase TSH Salicylates Acetaminophen Valproic Acid 106.9 Ethyl Alcohol COVID-19 Source Nasal/Nares SARS-CoV-2 (PCR) Negative PAWSS Have you Been Recently Intoxicated or Drunk Within the Last 30 days?: Yes Have you Ever Experienced Previous Episodes of Alcohol Withdrawal?: No Have you ever Experienced Withdrawal Seizures?: No Have you ever Experienced Delirium Tremens(DT)s?: No Have you ever undergone Alcohol Rehabilitation Treatment (i.e, inpt ot outpatient treatment programs)?: No Have you ever Experienced Blackouts?: Yes Have you ever Combined Alcohol with other Downers within the last 90 days?: No Have you ever Combined Alcohol with any other Substance of Abuse during the last 90 days?: No Positive Blood Alcohol level on Presentation? [PCS.BAL]: No Evidence of Increased Autonomic Activity (i.e. HR>120, tremor, sweating, agitation, nausea)?: No Result: 2 Time Spent with Patient Time Spent with Patient: >50 minutes Time was spent: preparing to see the patient(eg.review tests), obtaining and/or reviewing separately otained hiistory, ordering medications,tests, procedures, referring, communicating with other health clinical care leader, indepentently interpreting results, counseling the patient and care coordination
[2025-01-31 17:11] LABS: Cannabinoids THC Negative (Negative); METHADONE URINE SCREEN Negative (Negative)
[2025-01-31] MEDS: POTASSIUM CHLORIDE 20 MEQ/100 ML BAG 50 MEQ IV_INF ×2 (17:27→21:27)
[2025-02-01 07:02] LABS: Abs Immature Grans 0.01 10^3/uL (0.0-0.06); HCT 40.4 % (36.0-46.0); HGB 13.8 g/dL (11.2-15.7); Immature Grans % 0.2 %; MCH 31.5 pg (27.0-33.0); MCHC 34.2 % (32.0-36.0); MCV 92 fL (80-95); MPV 11.4 fL (8.0-11.0); Platelet Count 255 10^3/uL (130-400); RBC 4.38 10^6/uL (3.93-5.22); RDW 15.2 % (11.7-14.6); RDW-SD 51.6 fL; WBC 5.96 10^3/uL (4.4-10.8)
[2025-02-01 07:16] LABS: Anion Gap 7.2 mmol/L (3-11); BUN 24 mg/dL (7-18); CO2 27.8 mmol/L (21.0-32.0); Calcium 7.8 mg/dL (8.5-10.1); Chloride 104 mmol/L (98-107); Estimated GFR 54.73 (mL/min/1.73m2); Glucose 94 mg/dL (74-106); Magnesium 2.0 mg/dL (1.8-2.4); Potassium 4.4 mmol/L (3.5-5.1); Sodium 139 mmol/L (136-145)
[2025-02-01 07:19] VITALS: BP 105/56; PULSE 59; RESP 16; TEMP 36.7; O2SAT 97
[2025-02-01] MEDS: Acetaminophen 500 MG TAB 1000 MG PO ×2 (10:50→14:40)
[2025-02-01] MEDS: lamoTRIgine 100 MG TAB PO (10:50)
[2025-02-01] MEDS: Normal Saline Flush 10 ML SYR IVP ×2 (10:51→20:32)
[2025-02-01 11:17] VITALS: BP 134/67; PULSE 58; RESP 17; TEMP 36.4; O2SAT 99
[2025-02-01 11:19] LABS: Glucose Negative (Negative)
[2025-02-01 11:25] LABS: WBC 0-2 HPF (0-5)
[2025-02-01 11:26] LABS: C & S Indicated? No
--- NOTE | 2025-02-01 11:44 | PT.INTREAT ---
PT Notes Visit Reasons: Supratherapeutic Depakote level with Delerium Inpatient Physical Therapy Treatment Note [facility] Date: 02/01/2025 PRECAUTIONS: Fall risk, standard, telemetry SUBJECTIVE: Patient stating she cannot find her remote(remote located on table in front of her), OBJECTIVE: Patient presented supine in bed with noted extension of neck and rotation toward left? PAIN: Right shoulder very sore VITALS: ?monitored via telemetry throughout Therapeutic Activities (11973g[]): Direct one-on-one instruction in dynamic activities to improve functional performance. ? BED MOBILITY/TRANSFERS? Rolling L/R: [] Supine-sit: Contact-guard assist with head of bed at 30 degrees? Sit-stand: Min assist secondary to loss of balance to the left ? Stand-sit: Min assist to control descent and cues for hand placement? Bed-commode: Min assist with FWW? Commode?chair: Min assist with FWW Provided skilled cues and instruction on performance and technique throughout. Facilitated safe and correct performance of level surface ambulation covering a distance of 24 feet x 2 using use front wheeled walker with min assist and wheelchair follow for safety. Did not report of any increased pain. Denied headache, chest pain, and lightheadedness throughout activity. Continuous verbal cueing provided for AD management, directional changes, and posture. Deviations: Scissoring pattern slightly ataxic increased drift to the left -Patient requiring tactile cues for unsupported sitting to maintain midline position with noted loss of balance to left. ASSESSMENT:?Patient presents with decline in functional abilities requiring increased assist due to poor motor control/ataxia bilateral lower extremities. Patient with loss of balance to left x 3 throughout session during standing tasks. Patient requiring total care for hygiene management. Nurse Stevenson notified of change in functional abilities from evaluation on prior day. PLAN: 1-2x/day, 7 days/week x 1 week. Plan of care has been reviewed with the WOMEN'S HEALTH CARE NURSE PRACTITIONER providing the service under Physical Therapy direction. Initiate Physical Therapy intervention for strengthening, bed mobility, transfers, gait, stairs, balance training, use of assistive device. TREATMENT CODE/TIME: 86530: [id number] DISCHARGE RECOMMENDATION: HHPT vs SNF
--- NOTE | 2025-02-01 12:06 | PGE_ITS ---
Date of Service Date of service: 02/01/25 Time of Service: 12:06 Assessment and Plan Assessment and plan (1) Altered mental status: Start date: 01/31/25 Status: Acute Assessment and plan: Remains confused in time and somewhat Valproate level 63 today will continue to monitor considering restarting Depakote today Lamictal level ordered and pending - has been frequently low in the past Will to Dr Saravia [place] [facility] [facility] on finding on MRI s/p fall Reported to have bubble pack meds but the patient mentioned that she had a bottle of medicines And as below Confirmed occasional drinking, ETOH level < 3 on 01/30 but 14 on 01/11 Will monitor CIWA Tremors, vomiting ataxia, elation today ETOH w/d can happen 2 to 5 days after ETOH intake - VS seizure activity VS sequelae of fall MRI report pending failed first attempt - will give small 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 -A few scattered hyperintense foci in the white matter consistent with chronic microvascular ischemic disease. (2) Serum sodium valproate above therapeutic range: Start date: 01/31/25 Status: Acute Assessment and plan: Seen [place] [facility] for [place] management - will try to obtain records today then on subsequent day initiate a neurology consult with Dr. Bakari Thurston and follow-up on levels with patient to return home once stable. Ongoing Physical therapy (3) Fall: Start date: 01/31/25 Status: Acute Assessment and plan: Admitted status post fall secondary to increased Depakote level and possibly drinking alcohol. And as above (4) Face lacerations: Start date: 01/31/25 Status: Acute Assessment and plan: Continue to monitor with repair in the ED; educated patient on wound management (5) Hypokalemia: Start date: 01/31/25 Status: Acute Assessment and plan: Continue monitoring and supplementation as needed Monitor magnesium if hypokalemic (6) Seizure disorder: Start date: 01/31/25 Status: Chronic Assessment and plan: Hold Depakote and reinitiate once stable and as per point 2 (7) Depressive disorder: Start date: 01/31/25 Status: Chronic Assessment and plan: Continue outpatient medical therapy. 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 No bony destructive lesion is seen. JOINTS: No dislocation present. Degenerative changes are present at the AC ernestina int and glenohumeral joint. SOFT TISSUE: Normal. IMPRESSION: Degenerative changes. No acute abnormality. On scheduled APAP Will continue to monitor (9) Tobacco use disorder: Start date: 01/31/25 Status: Chronic Assessment and plan: Gill Tender re: smoking cessation PRN NRT F/u with PCP Low molecular weight heparin inpatient for DVT prophylaxis Cussed with Dr. Lucas Subjective Subjective Patient reports: still having pain, voiding w/o difficulty, nausea, vomiting and other (S/p unwitnessed fall, denied head strike , denied prodromal feeling of impending seizure activity); denies tolerating liquids well, tolerating a regular diet, shortness of breath or fever Exam Narrative Exam Narrative: 69-year-old female cachectic looking and appearing older than stated age, haed is non-traumatic, neck with adequate ROM, generalized tremors, ataxia, gaze is slightly disconjugated,PEERLA B -3 in no acute distress, GCS 15 ,NIH negative no focal neurodeficit, irritable to elated mood and affect, alert and oriented x 2, unlabored breathing clear lungs, S1-S2 no murmur abdomen soft nontender, bowel sounds are present no bladder distention, no edema to extremities Objective Last Vital Signs Temp 36.4 C L 02/01/25 11:17 Pulse 58 L 02/01/25 11:17 Resp 17 02/01/25 11:17 BP 134/67 02/01/25 11:17 Pulse Ox 99 02/01/25 11:17 Laboratory Results - last 24 hr 01/31/25 02/01/25 02/01/25 16:40 06: 11:10 WBC 5.96 RBC 4.38 Hgb 13.8 Hct 40.4 MCV 92 MCH 31.5 MCHC 34.2 RDW 15.2 H Plt Count 255 MPV 11.4 H Immature Gran % 0.2 Neutrophils % 39.2 Lymphocytes % 47.8 Monocytes % 10.2 Eosinophils % 1.3 Basophils % 1.3 Nucleated RBC % 0.0 Absolute Neutrophils 2.33 Absolute Lymphocytes 2.85 Absolute Monocytes 0.61 Absolute Eosinophils 0.08 Absolute Basophils 0.08 Sodium 139 Potassium 4.4 D Chloride 104 Carbon Dioxide 27.8 Anion Gap 7.2 BUN 24 H Creatinine 1.1 H Est GFR (CKD-EPI 2020) 54.73 Glucose 94 Calcium 7.8 L Magnesium 2.0 Urine Color Yellow Urine Clarity Clear Urine pH 7.0 Ur Specific [place] 1.010 Urine Protein Negative Urine Ketones Negative Urine Blood Small H Urine Nitrite Negative Urine Bilirubin Negative Urine Urobilinogen 0.2 Ur Leukocyte Esterase Negative Urine RBC 3-5 H Urine WBC 0-2 Ur Epithelial Cells Rare Urine Crystals Negative Urine Bacteria Negative Urine Casts Negative Urine Mucus Negative Ur Culture Indicated? No Urine Glucose Negative Urine Opiates Screen Negative Urine Methadone Screen Negative Ur Barbiturates Screen Negative Valproic Acid 63.4 Ur Tricyclics Screen Negative Ur Amphetamines Screen Negative U Benzodiazepines Scrn Negative Urine Cocaine Screen Negative Ur THC Screen Negative PAWSS Have you Been Recently Intoxicated or Drunk Within the Last 30 days?: Yes Have you Ever Experienced Previous Episodes of Alcohol Withdrawal?: No Have you ever Experienced Withdrawal Seizures?: No Have you ever Experienced Delirium Tremens(DT)s?: No Have you ever undergone Alcohol Rehabilitation Treatment (i.e, inpt ot outpatient treatment programs)?: No Have you ever Experienced Blackouts?: Yes Have you ever Combined Alcohol with other Downers within the last 90 days?: No Have you ever Combined Alcohol with any other Substance of Abuse during the last 90 days?: No Positive Blood Alcohol level on Presentation? [PCS.BAL]: No Evidence of Increased Autonomic Activity (i.e. HR>120, tremor, sweating, agitation, nausea)?: No Result: 2 Time Spent with Patient Time Spent with Patient: >50 minutes Time was spent: preparing to see the patient(eg.review tests), obtaining and/or reviewing separately otained hiistory, ordering medications,tests, procedures, referring, communicating with other health caretaker resort, indepentently interpreting results, counseling the patient and care coordination
[2025-02-01 12:10] VITALS: BP 141/97; PULSE 73; RESP 18; TEMP 36.6; O2SAT 96
--- NOTE | 2025-02-01 12:16 | NUR.NOTE ---
Nursing Note: LM for pt's neice to call back, to notify her of recent fall
[2025-02-01] MEDS: LORazepam 20 MG/10 ML VIAL IVP ×3 (12:23→15:16)
[2025-02-01 13:08] LABS: Ammonia < 10 umol/L (11-32)
[2025-02-01 13:11] LABS: ALT 14 U/L (14-59); AST 18 U/L (15-37); Albumin 3.4 g/dL (3.4-5.0); Alkaline Phosphatase 88 U/L (46-116); Bilirubin, Direct 0.1 mg/dL (0.0-0.2); Bilirubin, Total 0.3 mg/dL (0.2-1.0); Total Protein 6.5 g/dL (6.4-8.2)
[2025-02-01] MEDS: Lactulose 20 GM/30 ML CUP 30 GM PO (14:39)
--- NOTE | 2025-02-01 15:40 | DI.MRI_ITS ---
Exam(s) MR BRAIN WO EXAM: MR BRAIN WO CLINICAL HISTORY: vomiting s/p fall TECHNIQUE: Multiplanar multisequence MRI of the brain was performed. COMPARISON: CT CT HEAD NECK WO from 01/30/2025 FINDINGS: VENTRICLES AND EXTRA AXIAL SPACES: Normal in size and morphology for the patient's age. MIDLINE SHIFT: None. CEREBRAL PARENCHYMA: No focus of restricted diffusion to suggest acute infarct. No space-occupying lesion identified. There are scattered areas of hyperintense signal seen in the white matter on the FLAIR and T2 weighted images most suggestive of chronic microvascular ischemic disease. HEMORRHAGE: None. BRAINSTEM/CEREBELLUM: Normal. CALVARIUM: Normal. VISUALIZED PARANASAL SINUSES/MASTOIDS:Clear. [place]: Normal flow void. PITUITARY GLAND: Unremarkable. OTHER FINDINGS: None. IMPRESSION: 1. No evidence of an acute infarct or acute abnormality. 2. A few scattered hyperintense foci in the white matter consistent with chronic microvascular ischemic disease. DATA REPOSITORY:
[2025-02-01 15:43] VITALS: BP 105/57; PULSE 56; RESP 17; TEMP 36.3; O2SAT 100
--- NOTE | 2025-02-01 16:54 | PDOC.CMPRO ---
Date of service: 02/01/25 Time of Service: 16:54 Care Management Progress Note Progress Note Text Progress Note Text: Eloise was given Lorazepam in preparation for her MRI and was sleeping, when CM arrived. She was accompanied by a Clinical Safety pt Observer, at this time. Eloise fell earlier in the day; CM contacted PT regarding new HH recommendations. Home [facility] PT is recommended, at this time. CM will continue to follow. Discharge Potential Discharge Needs: PT Evaluation and PCP F/U Appt Anticipated Barriers to Discharge: Medical Status Patient/Family Education Needs: Review discharge instructions, discuss Ask Me Three Transportation: Private vehicle Plan: Anticipate, Eloise will return home, once medically ready. She will follow up with her community providers, and continue per her plan of care. She will transport via private vehicle vs RCT. CM will continue to follow. Social Determinants of Health Screening Will the Patient Participate in the Screening?: Unable to obtain
[2025-02-01 20:44] VITALS: BP 100/60; PULSE 57; RESP 16; TEMP 36.4; O2SAT 94
[2025-02-01 23:23] VITALS: BP 100/58; PULSE 65; RESP 16; TEMP 36.2; O2SAT 96
[2025-02-02] MEDS: Lactated Ringers 1,000 ML 100 ML IV ×2 (06:45→16:58)
[2025-02-02 06:50] LABS: Abs Immature Grans 0.02 10^3/uL (0.0-0.06); HCT 40.8 % (36.0-46.0); HGB 13.9 g/dL (11.2-15.7); Immature Grans % 0.3 %; MCH 31.8 pg (27.0-33.0); MCHC 34.1 % (32.0-36.0); MCV 93 fL (80-95); MPV 11.3 fL (8.0-11.0); Platelet Count 226 10^3/uL (130-400); RBC 4.37 10^6/uL (3.93-5.22); RDW 15.6 % (11.7-14.6); RDW-SD 53.8 fL; WBC 6.65 10^3/uL (4.4-10.8)
[2025-02-02 07:47] VITALS: BP 102/63; PULSE 61; RESP 17; TEMP 36.8; O2SAT 96
[2025-02-02 07:49] LABS: Anion Gap 4.2 mmol/L (3-11); BUN 16 mg/dL (7-18); CO2 30.8 mmol/L (21.0-32.0); Calcium 8.5 mg/dL (8.5-10.1); Chloride 104 mmol/L (98-107); Estimated GFR 61.36 (mL/min/1.73m2); Glucose 86 mg/dL (74-106); Potassium 4.2 mmol/L (3.5-5.1); Sodium 139 mmol/L (136-145)
--- NOTE | 2025-02-02 09:48 | W.PM.PROGNOT ---
Date of Service Date of service: 02/02/25 Time of Service: 09:48 Assessment and Plan Assessment and plan (1) Altered mental status: Start date: 01/31/25 Status: Acute Assessment and plan: Remains confused in time and somewhat Valproate level 41 today will continue to monitor considering restarting Depakote on 02/03 Lamictal level pending - has been frequently low in the past Will reach out to Dr Saravia her neurologist at [facility] [place]ne[place] [facility] [place] depending on finding on MRI s/p fall Reported to have bubble pack meds but the patient mentioned that she had a bottle of medicines And as below Confirmed occasional drinking, ETOH level < 3 on 01/30 but 14 on 01/11 Will monitor CIWA- remains at 4 Resolved tremors, vomiting, decreased ataxia, elation s/p benzo for MRI - ETOH w/d can happen 2 to 5 days after ETOH MRI report: -No evidence of an acute infarct or acute abnormality. -A few scattered hyperintense foci in the white matter consistent with chronic microvascular ischemic disease. Considering neuroconsultation when depakote level down to below 50 + sedation resolution- if no improvement (2) Serum sodium valproate above therapeutic range: Start date: 01/31/25 Status: Acute Assessment and plan: Seen at [facility] neurology for seizure management - will try to obtain records And as above Hold Depakote and follow-up on levels with patient to return home once stable. Ongoing Physical therapy (3) Fall: Start date: 01/31/25 Status: Acute Assessment and plan: Admitted status post fall secondary to increased Depakote level and most likely drinking alcohol. And as above (4) Face lacerations: Start date: 01/31/25 Status: Acute Assessment and plan: no complication, continue to monitor with repair in the ED; educated patient on wound management (5) Hypokalemia: Start date: 01/31/25 Status: Acute Assessment and plan: Continue monitoring and supplementation as needed Monitor magnesium if hypokalemic (6) Seizure disorder: Start date: 01/31/25 Status: Chronic Assessment and plan: Hold Depakote and reinitiate once stable and as per point 2 (7) Depressive disorder: Start date: 01/31/25 Status: Chronic Assessment and plan: Continue outpatient medical therapy. 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 No bony destructive lesion is seen. JOINTS: No dislocation present. Degenerative changes are present at the AC joint and glenohumeral joint. SOFT TISSUE: Normal. IMPRESSION: Degenerative changes. No acute abnormality. 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 Lucas Subjective Subjective Patient reports: no new complaints, voiding w/o difficulty and other (asking why she is here ); denies diarrhea, nausea, vomiting, shortness of breath or fever Exam Narrative Exam Narrative: cachectic looking female appearing older than stated age, no generalized tremors, ataxia, or disconjugated gaze in no acute distress, sleepy but arousable , ambulating with PT later in PM no focal neurodeficit, less irritable to elated mood and affect, alert to self , unlabored breathing clear lungs, S1-S2 no murmur abdomen soft nontender, bowel sounds are present no bladder distention, no edema to extremities Objective Last Vital Signs Temp 36.8 C 02/02/25 07:47 Pulse 61 02/02/25 07:47 Resp 17 02/02/25 07:47 BP 102/63 02/02/25 07:47 Pulse Ox 96 02/02/25 07:47 Laboratory Results - last 24 hr 02/01/25 02/01/25 02/02/25 11:10 12:45 06:23 WBC 6.65 RBC 4.37 Hgb 13.9 Hct 40.8 MCV 93 MCH 31.8 MCHC 34.1 RDW 15.6 H Plt Count 226 MPV 11.3 H Immature Gran % 0.3 Neutrophils % 57.4 Lymphocytes % 28.1 Monocytes % 11.7 Eosinophils % 1.4 Basophils % 1.1 Nucleated RBC % 0.0 Absolute Neutrophils 3.82 Absolute Lymphocytes 1.87 Absolute Monocytes 0.78 Absolute Eosinophils 0.09 Absolute Basophils 0.07 Sodium 139 Potassium 4.2 Chloride 104 Carbon Dioxide 30.8 Anion Gap 4.2 BUN 16 Creatinine 1.0 Est GFR (CKD-EPI 2020) 61.36 Glucose 86 Calcium 8.5 Total Bilirubin 0.3 Conjugated Bilirubin 0.1 AST 18 ALT 14 Alkaline Phosphatase 88 Ammonia < 10 L Total Protein 6.5 Albumin 3.4 Urine Color Yellow Urine Clarity Clear Urine pH 7.0 Ur Specific [place] 1.010 Urine Protein Negative Urine Ketones Negative Urine Blood Small H Urine Nitrite Negative Urine Bilirubin Negative Urine Urobilinogen 0.2 Ur Leukocyte Esterase Negative Urine RBC 3-5 H Urine WBC 0-2 Ur Epithelial Cells Rare Urine Crystals Negative Urine Bacteria Negative Urine Casts Negative Urine Mucus Negative Ur Culture Indicated? No Urine Glucose Negative PAWSS Have you Been Recently Intoxicated or Drunk Within the Last 30 days?: Yes Have you Ever Experienced Previous Episodes of Alcohol Withdrawal?: No Have you ever Experienced Withdrawal Seizures?: No Have you ever Experienced Delirium Tremens(DT)s?: No Have you ever undergone Alcohol Rehabilitation Treatment (i.e, inpt ot outpatient treatment programs)?: No Have you ever Experienced Blackouts?: Yes Have you ever Combined Alcohol with other Downers within the last 90 days?: No Have you ever Combined Alcohol with any other Substance of Abuse during the last 90 days?: No Positive Blood Alcohol level on Presentation? [PCS.BAL]: No Evidence of Increased Autonomic Activity (i.e. HR>120, tremor, sweating, agitation, nausea)?: No Result: 2 Time Spent with Patient Time Spent with Patient: >50 minutes Time was spent: preparing to see the patient(eg.review tests), obtaining and/or reviewing separately otained hiistory, ordering medications,tests, procedures, referring, communicating with other health physician locums urgent care, indepentently interpreting results, counseling the patient and care coordination
--- NOTE | 2025-02-02 11:17 | W.NUTCONSULT ---
Date of service: 02/02/25 Time of Service: 11:18 Nutritional Consult ASSESSMENT: received request for nutrition consult regarding low BMI (currently 16.4) Eloise admitted after a fall at home. Being treated for this fall (face lacerations), altered mental status, high levels of serum sodium valproate, hypokalemia. Pt with PMH significant for depression and seizure disorder, underwieght, tobacco use, osteoporosis. Does drink alcohol regularly. Labs: electrolytes wnl. total protein and albumin labs low at beginning of admission but wnl at this time. Weight history shows weight fluctuations between 33.5-42kg over the last 5 years, with usual body weight closer to ~40kg. Ordered for regular diet with normal consistencies - pt with only 2 visible teeth. She has been ordering appropriate textures (mac and cheese, cottage cheese and jello last night). Will change to soft and bite size. Pt seen today - sleepin due to recent dose of ativan, but we did talk yesterday as well. She reported yesterday, living with friends and hinted at irregular meals/inconsistent eating pattern. She has declined ONS drinks this admission - states she does not like things like Ensure. She was willing to try high protein gelatein supplement last night but only tried a couple bites. Met with her nurse today who related speaking to pt's son who is concerned - said she was told by him that Eloise's diet is mainly diet coke and regular alcohol use. NUTRITIONAL DIAGNOSIS: inconsistent intake/inadequate intake related to gradual deconditioning and weakness d/t frequent etoh use, tobacco use, lack of desire community supports as evidenced by patient history yesterday and related conversation with her nurse. INTERVENTION: Will encourage higher protein and kcal dense entrees and sides. Patient not agreeable to supplemental drinks at this time. Could consider liquid protein ordered TID to be administered by nursing to provide ~45g additional protein per day. Will continue to offer supplements at noursishment times between meals in hopes of better acceptance. MONITORING AND EVALUATION: Will monitor weight and intake closely, nutrition-related labs and acceptance of ONS Time Spent in Nutritional Counseling and Treatment: 15 min between 02/01 and 02/02
[2025-02-02 11:36] VITALS: BP 99/64; PULSE 62; RESP 16; TEMP 36.8; O2SAT 95
[2025-02-02] MEDS: Lactulose 20 GM/30 ML CUP 30 GM PO ×2 (14:46→19:31)
[2025-02-02] MEDS: Acetaminophen 500 MG TAB 1000 MG PO ×2 (14:46→19:30)
--- NOTE | 2025-02-02 14:48 | CMPROGNOTE_ITS ---
Date of service: 02/02/25 Time of Service: 14:54 Care Management Progress Note Progress Note Text Progress Note Text: Eloise was lying in bed, when CM arrived. She had been asleep for most of the day, but had woken to voice upon entrance. CM briefly discussed safe discharge planning; At this time, Eloise is agreeable to CM, sending referrals to the [facility]. With previous days of confusion, CM requested a psych consult for a capacity evaluation and a palliative consult. CM will continue to follow. Discharge Potential Discharge Needs: PCP F/U Appt Anticipated Barriers to Discharge: Medical Status Patient/Family Education Needs: Review discharge instructions, discuss Ask Me Three Transportation: Private vehicle Plan: Anticipate, Eloise will return home with services vs attend SNF, once medically ready. CM requested a psych consult for a capacity evaluation and a palliative consult. She will follow up with her community providers, and continue per her plan of care. She will transport via private vehicle vs RCT. CM will continue to follow. Social Determinants of Health Screening Will the Patient Participate in the Screening?: Unable to obtain
--- NOTE | 2025-02-02 15:19 | CHAPLAIN ---
Eloise was in bed when I visited. She asked for help finding her glasses, which we found. She said her brother had visited and said he'd be back but she's not sure he'll be able to. Madyson asked about having some ice cream, which nursing said was okay, but we were out of it. I'll keep checking to see if it's restocked. I explained my role and offered support.
[2025-02-02 15:37] VITALS: BP 107/59; PULSE 69; RESP 16; TEMP 36.9; O2SAT 96
--- NOTE | 2025-02-02 16:10 | PT.INTREAT ---
PT Notes Visit Reasons: Supratherapeutic Depakote level with Delerium Date: 02/02/2025 PRECAUTIONS: Fall risk, standard, telemetry SUBJECTIVE: Pt approached this morning and was not able to wake up due to Adivan, pt re approached in the afternoon and was much more alert and agreeable to participating with therapy session. OBJECTIVE: ? PAIN: pt denies VITALS: monitored via telemetry throughout Therapeutic Activities 99903: Direct one-on-one instruction in dynamic activities to improve functional performance. ? BED MOBILITY/TRANSFERS? Rolling L/R: min A Supine-sit: Contact-guard assist with head of bed at 30 degrees? Sit-stand: Min A ? Stand-sit: Min A ? Bed-recliner: Min A with FWW? Recliner-bed: Min A with FWW Provided skilled cues and instruction on performance and technique throughout. Facilitated safe and correct performance of level surface ambulation covering a distance of 75 feet x 2 using use front wheeled walker with min assist and pole management. Did not report of any increased pain. Deviations: Scissoring pattern slightly ataxic increased drift to the left -Patient requiring tactile cues for unsupported sitting to maintain midline position with noted loss of balance to left. ASSESSMENT:?Pt much more responsive this afternoon compared to this morning. pt improved status brought to nurses attention. pt stayed in bed to relax after session PLAN: 1-2x/day, 7 days/week x 1 week. TREATMENT CODE/TIME: [id number] 25mins (3:45-4:10pm) DISCHARGE RECOMMENDATION: HHPT vs SNF
[2025-02-02] MEDS: lamoTRIgine 100 MG TAB PO (19:30)
[2025-02-02] MEDS: Enoxaparin 40 MG/0.4 ML SYR SC (19:31)
[2025-02-02 19:51] VITALS: BP 120/66; PULSE 62; RESP 19; TEMP 37.1; O2SAT 96
[2025-02-02 22:51] VITALS: BP 120/65; PULSE 60; RESP 19; TEMP 36; O2SAT 96
[2025-02-03 03:53] VITALS: BP 116/74; PULSE 78; RESP 18; TEMP 36.3; O2SAT 95
[2025-02-03 07:28] LABS: Abs Immature Grans 0.02 10^3/uL (0.0-0.06); HCT 42.2 % (36.0-46.0); HGB 14.4 g/dL (11.2-15.7); Immature Grans % 0.3 %; MCH 32.5 pg (27.0-33.0); MCHC 34.1 % (32.0-36.0); MCV 95 fL (80-95); MPV 10.9 fL (8.0-11.0); Platelet Count 216 10^3/uL (130-400); RBC 4.43 10^6/uL (3.93-5.22); RDW 15.9 % (11.7-14.6); RDW-SD 55.8 fL; WBC 6.01 10^3/uL (4.4-10.8)
[2025-02-03 07:34] VITALS: BP 113/66; PULSE 59; RESP 12; TEMP 36.8; O2SAT 98
--- NOTE | 2025-02-03 07:40 | PTTR_ITS ---
PT Notes Visit Reasons: Supratherapeutic Depakote level with Delerium Physical Therapy Inpatient Treatment Note Date: 02/03/2025 PRECAUTIONS: Fall risk. Standard precautions. Activity as tolerated. Impaired safety awareness. SUBJECTIVE: Patient was agreeable to going for a walk before breakfast. Denied headche, chest pain, and lightheadedness throughout. Did report fatigue after walking activity. OBJECTIVE: ? PAIN: None reported VITALS: Monitored via telemetry throughout ? BED MOBILITY/TRANSFERS: Moderate cueing provided for use of B hands as needed for support, movement sequence, AD management, and posture to reduce fall risk and minimize pain report? Sit-stand: contact guard assist with FWW ? Stand-sit:contact guard assist with FWW ? Bed-recliner: contact guard assist with FWW ? Recliner-bed: contact guard assist with FWW GAIT: Patient tolerated 150 + 100 feet of level surface ambulation through [facility] [address] using front-wheeled walker with wheelchair follow requiring contact guard assist. Impaired obstacle negotiation observed. Decreased step height and length. Impaired directional change needing assistance with AD management. ASSESSMENT:? Patient's demonstrated improved sensorium and awareness for today's session with improved ability to follow single-step commands and with improved focus. She continues to require assistance of a caregiver to ensure safety of mobility taks performance. She requires services for continued balance training, strengthening, and functional mobility training. PLAN: Continue with PT POC as initially established for 1-2x/day, 7 days/week x 1 week. DISCHARGE RECOMMENDATION: HHPT vs SNF TREATMENT CODE/TIME: 70939 x 25 minutes for 2 units (7:40-8:05).
[2025-02-03 07:54] LABS: Anion Gap 4.4 mmol/L (3-11); BUN 12 mg/dL (7-18); CO2 30.6 mmol/L (21.0-32.0); Calcium 8.4 mg/dL (8.5-10.1); Chloride 105 mmol/L (98-107); Estimated GFR 69.64 (mL/min/1.73m2); Glucose 87 mg/dL (74-106); Magnesium 1.7 mg/dL (1.8-2.4); Potassium 4.0 mmol/L (3.5-5.1); Sodium 140 mmol/L (136-145)
[2025-02-03] MEDS: Lactulose 20 GM/30 ML CUP 30 GM PO ×3 (08:40→19:18)
[2025-02-03] MEDS: Acetaminophen 500 MG TAB 1000 MG PO ×2 (08:41→14:50)
[2025-02-03] MEDS: lamoTRIgine 100 MG TAB PO ×2 (08:41→19:18)
--- NOTE | 2025-02-03 09:53 | PDOC.CMPRO ---
Date of service: 02/03/25 Time of Service: 13:37 Care Management Progress Note Progress Note Text Progress Note Text: Eloise was lying in her bed, when CM arrived. She is awaiting a telepsych consult. Eloise continues to be confused. If it is determined she has capacity, CM will send the referrals. At the time of this visit, Eloise's brother and [id number] were present in the room; [facility] is attempting to maintain Eloise's living situation by handling her financial responsibilities; However, Eloise states, she may not have money to pay her rent. Per [facility], there are no known HCA/DPOA forms for Eloise. Eloise declines having any of these forms. CM will continue to follow. Discharge Potential Discharge Needs: Consult Consult Services Needed: Other (Psych consult ) and PCP F/U Appt Anticipated Barriers to Discharge: Medical Status and Other (Mental status ) Patient/Family Education Needs: Review discharge instructions, discuss Ask Me Three Transportation: RCT Plan: Anticipate, Eloise will return home with services vs attend SNF, once medically ready. CM requested a psych consult for a capacity evaluation and a palliative consult. She will follow up with her community providers, and continue per her plan of care. She will transport via private vehicle vs RCT. CM will continue to follow. Social Determinants of Health Screening Will the Patient Participate in the Screening?: Unable to obtain
[2025-02-03 11:23] VITALS: BP 126/56; PULSE 65; RESP 14; TEMP 37; O2SAT 97
[2025-02-03] MEDS: Ondansetron 0.8 MG/ML Solution 4 MG PO (12:05)
[2025-02-03 15:08] VITALS: BP 104/67; PULSE 77; RESP 15; TEMP 36.9; O2SAT 96
--- NOTE | 2025-02-03 18:08 | W.PM.PROGNOT ---
Date of Service Date of service: 02/03/25 Time of Service: 18:08 Assessment and Plan Assessment and plan (1) Altered mental status: Start date: 01/31/25 Status: Acute Assessment and plan: Remains confused and not able to make decisions as she is perseveration Valproate level 41 will continue to monitor Restarting Depakote on 02/03 HS Lamictal level still pending - has been frequently low in the past Resolved tremors, vomiting, decreased ataxia, elation s/p benzo for MRI - ETOH w/d can happen 2 to 5 days after ETOH MRI report: -No evidence of an acute infarct or acute abnormality. -A few scattered hyperintense foci in the white matter consistent with chronic microvascular ischemic disease. Neuro-consultation when depakote level down to below 50 + sedation resolution- not improving (2) Serum sodium valproate above therapeutic range: Start date: 01/31/25 Status: Acute Assessment and plan: Seen at [facility] for seizure management - And as above Hold Depakote and follow-up on levels with patient to return home once stable. Ongoing Physical therapy (3) Fall: Start date: 01/31/25 Status: Acute Assessment and plan: Admitted status post fall secondary to increased Depakote level and most likely drinking alcohol. And as above (4) Face lacerations: Start date: 01/31/25 Status: Acute Assessment and plan: no complication, continue to monitor with repair in the ED; educated patient on wound management (5) Hypokalemia: Start date: 01/31/25 Status: Acute Assessment and plan: Continue monitoring and supplementation as needed Monitor magnesium if hypokalemic (6) Seizure disorder: Start date: 01/31/25 Status: Chronic Assessment and plan: Depakote home dose level is therapeutic (7) Depressive disorder: Start date: 01/31/25 Status: Chronic Assessment and plan: Outpatient medical therapy. (8) Right shoulder pain: Status: Acute Assessment and plan: Right shoulder complete 2 view- completed re: c/o pain on s/p fall RN CLINICAL QUALITY IMPRESSION: Degenerative changes. No acute abnormality. Ongoing scheduled APAP Will continue to monitor (9) Tobacco use disorder: Start date: 01/31/25 Status: Chronic Assessment and plan: [employer] re: smoking cessation PRN NRT F/u with PCP Low molecular weight heparin inpatient for DVT prophylaxis Discussed with Dr. Lucas Subjective Subjective Patient reports: no new complaints, feels better, tolerating liquids well, tolerating a regular diet, voiding w/o difficulty, bowel movement and other (asking why she is here ); denies diarrhea, blood in stool, nausea, vomiting, shortness of breath or fever Exam Narrative Exam Narrative: cachectic looking female appearing older than stated age, minimal tremors with agitation , no ataxia, or disconjugated gaze awake and oriented to self , ambulating with PT no focal neurodeficit, less irritable to elated mood and affect, unlabored breathing clear lungs, S1-S2 no murmur abdomen soft nontender, bowel sounds are present no bladder distention, no edema to extremities Psych Speech and Movement: speech clear Mood: angry and irritable mood Affect: labile affect and irritable affect Attitude: not cooperative and guarded Thought Process: flight of ideas, illogical and perseverating Thought Content: compulsions and delusions Insight: poor Judgment: poor Objective Last Vital Signs Temp 36.9 C 02/03/25 15:08 Pulse 77 02/03/25 15:08 Resp 15 02/03/25 15:08 BP 104/67 02/03/25 15:08 Pulse Ox 96 02/03/25 15:08 Laboratory Results - last 24 hr 02/03/25 06:53 WBC 6.01 RBC 4.43 Hgb 14.4 Hct 42.2 MCV 95 MCH 32.5 MCHC 34.1 RDW 15.9 H Plt Count 216 MPV 10.9 Immature Gran % 0.3 Neutrophils % 55.2 Lymphocytes % 33.1 Monocytes % 9.0 Eosinophils % 1.2 Basophils % 1.2 Nucleated RBC % 0.0 Absolute Neutrophils 3.32 Absolute Lymphocytes 1.99 Absolute Monocytes 0.54 Absolute Eosinophils 0.07 Absolute Basophils 0.07 Sodium 140 Potassium 4.0 Chloride 105 Carbon Dioxide 30.6 Anion Gap 4.4 BUN 12 Creatinine 0.9 Est GFR (CKD-EPI 2020) 69.64 Glucose 87 Calcium 8.4 L Magnesium 1.7 L PAWSS Have you Been Recently Intoxicated or Drunk Within the Last 30 days?: Yes Have you Ever Experienced Previous Episodes of Alcohol Withdrawal?: No Have you ever Experienced Withdrawal Seizures?: No Have you ever Experienced Delirium Tremens(DT)s?: No Have you ever undergone Alcohol Rehabilitation Treatment (i.e, inpt ot outpatient treatment programs)?: No Have you ever Experienced Blackouts?: Yes Have you ever Combined Alcohol with other Downers within the last 90 days?: No Have you ever Combined Alcohol with any other Substance of Abuse during the last 90 days?: No Positive Blood Alcohol level on Presentation? [PCS.BAL]: No Evidence of Increased Autonomic Activity (i.e. HR>120, tremor, sweating, agitation, nausea)?: No Result: 2 Time Spent with Patient Time Spent with Patient: >50 minutes Time was spent: preparing to see the patient(eg.review tests), obtaining and/or reviewing separately otained hiistory, ordering medications,tests, procedures, referring, communicating with other health resident care coordinator, indepentently interpreting results, counseling the patient and care coordination
[2025-02-03] MEDS: Divalproex 500 MG TABEC PO (19:18)
[2025-02-03] MEDS: Divalproex 250 MG TABEC PO (19:19)
[2025-02-03] MEDS: Enoxaparin 40 MG/0.4 ML SYR SC (19:20)
[2025-02-03 19:53] VITALS: BP 133/69; PULSE 74; RESP 16; TEMP 36.5; O2SAT 97
[2025-02-03] MEDS: Magnesium Oxide 400 MG TAB 800 MG PO (21:27)
[2025-02-04 00:31] VITALS: BP 114/57; PULSE 71; RESP 18; TEMP 37; O2SAT 96
[2025-02-04] MEDS: LORazepam 20 MG/10 ML VIAL IM (01:45)
[2025-02-04] MEDS: Acetaminophen 500 MG TAB 1000 MG PO ×4 (02:18→19:48)
[2025-02-04 06:56] LABS: Abs Immature Grans 0.01 10^3/uL (0.0-0.06); HCT 40.9 % (36.0-46.0); HGB 13.7 g/dL (11.2-15.7); Immature Grans % 0.2 %; MCH 31.1 pg (27.0-33.0); MCHC 33.5 % (32.0-36.0); MCV 93 fL (80-95); MPV 10.9 fL (8.0-11.0); Platelet Count 204 10^3/uL (130-400); RBC 4.40 10^6/uL (3.93-5.22); RDW 15.9 % (11.7-14.6); RDW-SD 54.1 fL; WBC 5.90 10^3/uL (4.4-10.8)
[2025-02-04 07:13] LABS: Anion Gap 9.5 mmol/L (3-11); BUN 12 mg/dL (7-18); CO2 26.5 mmol/L (21.0-32.0); Calcium 8.3 mg/dL (8.5-10.1); Chloride 104 mmol/L (98-107); Estimated GFR 69.64 (mL/min/1.73m2); Glucose 99 mg/dL (74-106); Magnesium 2.2 mg/dL (1.8-2.4); Potassium 3.8 mmol/L (3.5-5.1); Sodium 140 mmol/L (136-145)
--- NOTE | 2025-02-04 07:40 | PT.INTREAT ---
PT Notes Visit Reasons: Supratherapeutic Depakote level with [facility] Inpatient Treatment Note Date: 02/04/2025 PRECAUTIONS: Fall risk. Standard precautions. Activity as tolerated. Impaired safety awareness. SUBJECTIVE: Patient was agreeable to going for a walk before breakfast second day in a row. Denied headache, chest pain, and lightheadedness throughout. felt slower today though compared to yesterday. OBJECTIVE: ? PAIN: None reported VITALS: Monitored via telemetry throughout ? BED MOBILITY/TRANSFERS: Moderate cueing provided for use of B hands as needed for support, movement sequence, AD management, and posture to reduce fall risk and minimize pain report? Sit-stand: contact guard assist with FWW ? Stand-sit:contact guard assist with FWW ? Bed-recliner: contact guard assist with FWW ? Recliner-bed: contact guard assist with FWW GAIT: Patient tolerated 100 + 100 feet of level surface ambulation through [facility] using front-wheeled walker with wheelchair follow requiring contact guard assist. Appeared shaky at the start. Poor obstacle negotiation on the left side--kept hitting the left front leg Impaired obstacle negotiation observed. Decreased step height and length. Impaired directional change needing assistance with AD management. THERA EX: With hand-held assist on B sides, facilitated sit<>stand x 5 reps with report of fatigue after activity ASSESSMENT:? Stability of walking decreased today with limited awareness noted on alyx L side. Patient's demonstrated improved sensorium and awareness for today's session with improved ability to follow single-step commands and with improved focus. She continues to require assistance of a caregiver to ensure safety of mobility taks performance. She requires services for continued balance training, strengthening, and functional mobility training. PLAN: Continue with PT POC as initially established for 1-2x/day, 7 days/week x 1 week. DISCHARGE RECOMMENDATION: HHPT vs SNF TREATMENT CODE/TIME: 98940 x 20 minutes for 1 unit, 65753 x 10 minutes for 1 unit (7:40-8:10).
[2025-02-04] MEDS: Magnesium Oxide 400 MG TAB 800 MG PO ×2 (08:46→19:49)
[2025-02-04] MEDS: Divalproex 500 MG TABEC PO ×2 (08:47→19:48)
[2025-02-04] MEDS: lamoTRIgine 100 MG TAB PO ×2 (08:47→19:49)
[2025-02-04] MEDS: Lactulose 20 GM/30 ML CUP 30 GM PO ×2 (08:50→14:20)
[2025-02-04] MEDS: Divalproex 250 MG TABEC PO ×2 (08:50→19:48)
--- NOTE | 2025-02-04 09:40 | CMPROGNOTE_ITS ---
Date of service: 02/04/25 Time of Service: 17:49 Care Management Progress Note Progress Note Text Progress Note Text: CM had a family meeting with Slade, today. Slade has expressed his frustration in how long Eloise has not taken care of herself, regardless of his attempts in the past. Per psychiatric consultation, Eloise was deemed to not have capacity for general medical decision making. Despite his frustration, Slade has volunteered to petition for emergency involuntary guardianship over Eloise. Provider wrote an affidavit; CM provided Slade with a copy of 'Petition to Appoint Guardian for an Adult' &'Motion for an Emergency Temporary Guardian for an Adult', as suggested by the Office of Public Guardian's. CM will provide the affidavit the provider completed, to Slade upon next visit. Referrals to [facility], [facility], [facility], [facility], [facility], [facility], [facility], and [facility], were sent. CM will continue to follow, and aid in discharge planning. Discharge Potential Discharge Needs: PCP F/U Appt Anticipated Barriers to Discharge: Medical Status and Other (Guardianship) Patient/Family Education Needs: Review discharge instructions, discuss Ask Me Three Transportation: EMS (Due to Altered Mental Status ) Plan: Anticipate, Eloise will discharge to SNF, once medically ready. CM requested a psych consult which revealed she has no capacity to make own medical decisions and a palliative consult - was completed today. She will follow up with her [facility] providers, and continue per her plan of care. She will transport via EMS due to altered mental status. CM will continue to follow. Social Determinants of Health Screening Will the Patient Participate in the Screening?: Unable to obtain
[2025-02-04 11:13] VITALS: BP 109/65; PULSE 76; RESP 12; TEMP 36.6; O2SAT 97
--- NOTE | 2025-02-04 11:26 | W.TELEPSYCH ---
Date of service: 02/04/25 Time of Service: 11:26 Summary Note PSYCHIATRY CONSULT NOTE: INITIAL EVALUATION Date/Time:?02/04/2025 11:25:17 AM Name:Davi Mata :?1955 Location of the patient:?[facility] IP Consulting Array Clinician:Juan Chew Location of the clinician:?[facility] Length of Consult:?45 minutes SUMMARY 69-year-old female, with history of depressive disorder, current alcohol use, history of poor self-care, with no history of self-harming/suicidal behavior/violent behavior, no past psychiatric hospitalizations, admitted to medicine 01/30 for fall referred to psychiatry for altered mental status, capacity evaluation. When seen, patient cannot tell me anything about her medical care. She says that she had a seizure before coming here but does not know how she got here. She cannot tell me what she has been treated for here in the hospital. She actually says that she has not been seen by any physicians since she has been here and says that no one is telling her anything. She cannot spontaneously tell me what is being recommended. When prompted about SNF placement she does remember this discussion. She says she has been recommended to go there for my health. She cannot tell me anything more about that aside from I am not going. Staff report that this has not been a stable decision, and she has gone back and forth several times between saying she would go and refusing. When discussing the reasons for going she seems to understand that she is a fall risk but clearly over estimates her ability to manage at home. She says she falls whether she gets her depends on catching onto something. She is supposed to be using assistive devices and admits that she does not. She is not supposed to be using the stairs and admits that she does. She appears to have little to no sense of safety or her own limitations and is clearly not safe to discharge home. Patient clearly does not have capacity for general medical decision making, nor does she have capacity to refuse SNF placement. Recommend team identify a family member for primary decision making. It also appears from her mental status examination she may have underlying neurocognitive deficits. It is unclear if this is related to her alcoholism versus unidentified early dementia. Recommend patient be seen by outpatient neurology for neurocognitive testing.Patient has primary neurocognitive disorder. Patient does not appear to be at acute risk to self or others due to psychiatric illness or to require inpatient psychiatric hospitalization. Working Diagnoses:? R4189 Other symptoms and signs involving cognitive functions and awareness Rule Out Diagnoses:?F03.90 Unspecified dementia without behavioral disturbance CPT Codes:?30414 - Psychiatric Diagnostic Evaluation with Medical Services PLAN Disposition:? Discharge type: Patient psychiatrically stable for skilled nursing/memory care placement ? Resource information to be provided by site: information about patient's diagnosis, treatment recommendations, including dosage and side effects of any prescribed medications Capacity: ? Does patient have a surrogate medical decision maker?: Yes ? Specific Medical Decision: Patient does not currently demonstrate decisional capacity to refuse SNF placement because patient does not understand relevant information regarding condition and treatment, does not manipulate information rationally, does not appreciate the situation and its consequences, does not communicate a choice and maintain it over time. Decisional capacity is a unique evaluation of the cognitive process by which a person approaches a unique decision at a specific point in time. Whether or not this patient would have decisional capacity regarding any other particular procedure or care plan would need to be assessed further at the time the decision was actually present. Patient would benefit from involvement of surrogate medical decision maker in medical decision-making. ? General Medical Decision-Making: Patient does not understand the medical reason why they are in the hospital, appears to have baseline cognitive deficits that are likely to affect medical decision making. Please note this evaluation does not comment on patient?s overall competency, which is a legal determination. Patient would benefit from involvement of surrogate medical decision maker in medical decision-making. Observation level ? Psychiatric 1:1 needed??No psych 1:1 needed Work-up:? Pharmacological:? No psychiatric medication recommendations at this time ? Is patient psychotic? - No; Follow up needed while in the hospital??As needed for management of behavior or change in mental status Other:? GENERAL GERIATRIC PRECAUTIONS: frequent re-orientation, family contact when possible, maximize uninterrupted periods of sleep, limit staff changes as feasible. Provide patient with assistive devices ie hearing aids/glasses to reduce confusion and disorientation. ? Dementia/Delirium: AVOID BENZODIAZEPINES, ANTICHOLINERGICS, ANTIHISTAMINES, AND OTHER SEDATING MEDICATIONS, which may PRECIPITATE and worsen delirium ? Parts of this note were dictated using voice recognition software and may contain small irregularities and grammatical errors which are unintentional. ? If questions arise about the psychiatric care of this patient, please call the [facility]?to request a follow-up consult. ?Please do not contact me individually through the EMR chat as I am not?regularly logged on to?this system. The psychiatrist for the follow-up visit may be a different psychiatrist Discussed plan with onsite steam and power superintendent:?Yes - Suellen Francois APRN HISTORY This evaluation was conducted remotely with the assistance of onsite staff via HIPAA-compliant video call. Patient consented to proceed with the telehealth visit. Requested by:?Suellen Francois APRN Sources of information:?Patient, medical record History of Present Illness:? 69-year-old female, living alone, single, retired, with history of depressive disorder, current alcohol use, history of poor self-care, with no history of self-harming/suicidal behavior/violent behavior, no past psychiatric hospitalizations, admitted to medicine 01/30 for fall referred to psychiatry for altered mental status, capacity evaluation. UDS not ordered, Alcohol undetectable. In the hospital, patient has been in behavioral control with no reported issues. Patient presented to the hospital 01/30/2025 and 86 with altered mental status and excessive Depakote levels. She has a history of seizure disorder and alcohol abuse. She also had a possible fall and was not sure what happened. When seen in the ED she had cut on her left adventist. She did not recall hitting her head. She did remember drinking several days prior and has been somewhat unsteady on her feet since then. She pressed her life alert today. She was home alone at the time and was not oriented. She thought it was the and was not answering questions appropriately. Patient was medically admitted for further management. Medical progress note from yesterday indicates that she remains confused, perseverating, and lacks capacity to make decisions. Depakote level has come down to 41 and restarted on 626. Lamictal level was still pending. There is no clear mention of psychiatric consult. Care management note indicates that telepsych is for capacity. It appears she may be recommended for home health services versus SNF. bending roll hand indicated that she has had SNF discussed and hasnt been able to make a stable decision.. On psychiatric evaluation, patient is unreliable, organized, cooperative, alert, pleasant, unable to give clear history. She is immediately confused. She says she cant tell me why she is here. She says she is treated for epilepsy. I asked why she had to come to the hospital and she says it wasnt good. She doesn't know why she was brought her. She says the MD littlejohn told her anything and she says she hasnt seen an MD the whole time she has been here. She has no idea how long she has been here. She admits her memory is lousy. I asked what is being recommended and she doesn't know. She doesnt know if she is close to going home. She doesn't know what is being recommended regarding disposition.. I asked directly if anyone has discussed SNf placement. She remembers discussion for my own health. She can tell me she has no 24/7 help, and the risk is falling and dying. She says its not something anyone can stop. She seems to feel falling is inevitable. She cant tell me how she would prevent falling at home. If you can catch hold of something maybe.' She says she has stairs and she isnt supposed to be sometimes I do stairs. She has a walker and she admits she doesn't use it. She doesn't seem to have full understanding of risk and overestimates her ability to get around safely. I asked her risks of not going to SNF and she says I cant afford it.. Collateral Contacted No-- no acute safety issues identified. PSYCHIATRIC REVIEW OF SYSTEMS (symptoms in past two weeks) Pertinent Positives:?confusion Pertinent Negatives:?no depressed mood/no anhedonia/no hopelessness/no insomnia/no irritability/no aggressive behavior/no agitation/no command hallucinations/no anxiety/no panic attacks/no impulsivity PSYCHIATRIC HISTORY Past Psychiatric Diagnoses/Problems:?depressive disorder Psychiatric Treatment:?Hospitalizations:?no past psychiatric hospitalizations ???Other Past treatment:?none ???Current treatment:?no reported current psychiatric treatment Drug/Alcohol History ???Current excessive drug/alcohol use:?alcohol ???Past excessive drug/alcohol use:?none ???Drug/alcohol use comment:?Treatment:?unknown ???Withdrawal symptoms:?unknown ???UDS results:?UDS not ordered ???BAL results:?undetectable ???Active withdrawal Protocol:? Stressors:?neurocognitive dysfunction Trauma:?unknown Family Psychiatric History:?unknown HEALTH HISTORY Medical Problems:? seizure disorder Is patient linked with PCP??yes Psychiatric and other clinically relevant medications:?depakote, lamictal Allergies/Adverse Medication Reactions:?NKDA Physical Findings:?no clinically significant changes in vital signs, no clinically significant abnormal lab values, Depakote level on admit = 138. Likely not taking correctly DEMOGRAPHICS/SOCIAL HISTORY Gender:?female Living Situation:?living alone Relationship Status:?single Education:?unknown Employment:?retired Social Support Network:?supportive social network of family or friends Legal History:?unknown Special Considerations:?none RISK EVALUATION Suicidality/self-injury:?no history of suicidal/self-harming behavior Primary Suicide Screening (PSS-3) 1. In the past two weeks, have you felt down, depressed, or hopeless??NO 2. In the past two weeks, have you had thoughts of killing yourself??NO 3. In your lifetime, have you ever attempted to kill yourself??NO 3a. Within the past 6 months??NO ESS-6 Secondary Screen ( If #2 is yes or #3a is yes within the past 6 months, then complete secondary screen) 1. Positive on PSS-3 questions 2 & 3 ? active suicidal ideation with a past attempt??Screen not applicable 2. Have you been thinking about how you might kill yourself??Screen not applicable 3. Have you had some intention of acting on your thoughts??Screen not applicable 4. Lifetime psychiatric hospitalization??Screen not applicable 5. Has drinking or substance abuse ever been a problem for you??Screen not applicable 6. Current irritability, agitation, or aggression??Screen not applicable PSS-3/ESS-6 Secondary Screen Scoring:?Low Risk-PSS3 screen negative PSS-3/ESS-6 Scoring Interpretation Legend PSS-3 screen incomplete [Blank PSS-3 questions #2 OR #3a] PSS-3 screen unable to assess [Unable to Assess responses on PSS-3 questions #2 AND #3a] Mild [No current attempt AND No suicide plan or intent AND Score (0-2)] Moderate [No current attempt AND Active suicidal ideation with plan or intent (not both) OR Score (3-4)] Severe [Current attempt OR Suicide plan and intent OR Score (5-6)] HI/Violence/Property Destruction:?no history of violent/aggressive behavior Access to Firearms:?none Grave disability/Poor self-care:?yes poor self-care Psychosis:?No Protective Factors:?identifies reasons for living; future orientation High Utilization Criteria:?none Signs of Secondary Gain:?none MENTAL STATUS EXAM Appearance and Attire:? Normal, Good eye contact, Well groomed Psychomotor agitation:? No abnormality Attitude and behavior:? Cooperative Speech:? No abnormality Mood:? Euthymic Affect:? Full range of affect Thought Process:? Linear, Logical, Coherent Thought content:? No abnormality Perception:? No hallucinations Intelligence:? Average Abstraction:? Language:? Orientation:? Oriented to person, Disoriented to place, Disoriented to time, Disoriented to situation, in my room. one of the places. She shannan tell us name of hospital, shannan tell me 2026 month is January. Shannan tell me day of week or date. Sensorium:? Normal Knowledge:? Severe impairment, President she doesnt know. Memory:? Impaired to Immediate recall, Can spell world forwards, Cannot spell world backwards, Cannot count backwards by 3s, paco/pow/table 2/3 immediate....0/3 at 3 minute. WORLD/WORLW, [id number]--18 Insight:? Severe impairment Judgment:? Severe impairment SUMMARY RISK ASSESSMENT Current Suicide Risk Elevated??PSS-3/ESS-6 Scoring: Low Risk-PSS3 screen negative? Current Violence Risk Elevated??No Issues with ability to care for self.?Yes SAFE-T Risk Factors Suicidal Behavior:? ??History of prior suicide attempts ??Aborted suicide attempt ??History of prior SI ??Self-injurious behavior Current/Past Psychiatric Disorders:? ?Mood disorders ??Psychotic Disorders ??History of inpatient hospitalization ??ADHD ??TBI ??PTSD ??Cluster B personality disorders ??Conduct disorders ??Medical comorbidity ??Recent onset of illness Current/Past Substance Use:? ? Active ETOH/Opiates/Other Substance abuse ??History of ETOH/Opiates/Other Substance abuse ??Active withdrawal or risk of withdrawal from ETOH/Opiate Devine Symptoms:? ??Anhedonia ??Impulsivity ??Hopelessness ??Anxiety/Panic ??Global insomnia (difficulty falling asleep, maintaining sleep, or falling back to sleep) ??Command Hallucinations Family History Risk Factors:? ??Suicide Attempts ??Psychiatric disorders requiring hospitalization ??Suicidal Behavior Precipitants/Stressors/Interpersonal/Triggers:? ??Events leading to humiliation, shame, or despair ??Family turmoil/chaos ??Chronic physical pain or other acute medical problems ??Perceived burden on others ??Ongoing medical illness ??History of physical or sexual abuse ??Legal problems ??Intoxication ??Social isolation ??Inadequate social support Treatment:? ??Medication management ??Therapy ??Satisfied with current treatment ??Recent discharge from a psychiatric hospital ??Recent change in provider or treatment ??Access to firearms/ammunition Protective Factors Internal:? ??Ability to cope with stress ? Identifies reasons for living ??Frustration tolerance ??Episcopalian beliefs ??Fear of or the actual act of killing self External:? ??Cultural factors against suicide ??Beloved pets ??Engaged in work or school ??Spiritual and/or moral attitudes against suicide ? Supportive social network of family or friends ??Responsibility to children/others ??Positive therapeutic relationships Juan Amin, , [facility]
--- NOTE | 2025-02-04 12:45 | W.PM.PROGNOT ---
Date of Service Date of service: 02/04/25 Time of Service: 12:45 Assessment and Plan Assessment and plan (1) Altered mental status: Start date: 02/04/25 Status: Acute Assessment and plan: Remains confused and not able to make decisions as she is perseverating Valproate level 41 will continue to monitor Restarted Depakote on 02/03 HS Lamictal level still pending - has been frequently low in the past Resolved tremors, vomiting, decreased ataxia, elation s/p benzo for MRI - ETOH w/d can happen 2 to 5 days after ETOH MRI report: -No evidence of an acute infarct or acute abnormality. -A few scattered hyperintense foci in the white matter consistent with chronic microvascular ischemic disease. Wope-Nozco-aeiclwgwnazj ordered and pending Psych consultation with Dr. Bee: Patient has no capacity, not safe to be discharged home-underlying dementia with clear cognitive impairment might be due to Warnicke Korsakoff in the setting of chronic EtOH-initiate oral thiamine daily low IV access for high-dose IV thiamine -Recommends no further benzodiazepine for agitation or delirium. Seroquel 12.5 mg po low-dose is recommended due to patient frailty. -Brother seeking emergency guardianship I will not initiate a as needed order at this time as patient was slightly sedated when I saw her after receiving lorazepam for agitation overnight. If agitation nursing to call on-call provider to get Seroquel (2) Serum sodium valproate above therapeutic range: Start date: 02/04/25 Status: Acute Assessment and plan: Seen at [facility] neurology for seizure management -with Dr. Saravia And as above ongoing monitoring of level 02/04- Depakote home dose resumed on 02/03 and follow-up on levels with patient to be discharged once stable. Ongoing Physical therapy (3) Fall: Start date: 02/04/25 Status: Acute Assessment and plan: Admitted status post fall secondary to increased Depakote level and most likely drinking alcohol. And as above (4) Face lacerations: Start date: 02/04/25 Status: Acute Assessment and plan: no complication, continue to monitor with repair in the ED; educated patient on wound management (5) Hypokalemia: Start date: 02/04/25 Status: Acute Assessment and plan: Resolved (6) Seizure disorder: Start date: 01/31/25 Status: Chronic Assessment and plan: Depakote and Lamictal home dose level is therapeutic (7) Depressive disorder: Start date: 01/31/25 Status: Chronic Assessment and plan: Continue outpatient medical therapy. 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 No acute abnormality. Ongoing scheduled APAP no further complaints Will continue to monitor (9) Tobacco use disorder: Start date: 01/31/25 Status: Chronic Assessment and plan: PRN NRT F/u with PCP Low molecular weight heparin inpatient for DVT prophylaxis Discussed with Dr. Brito Subjective Subjective Patient reports: no new complaints, feels better, tolerating liquids well, tolerating a regular diet, voiding w/o difficulty, bowel movement and other (asking why she is here ); denies diarrhea, blood in stool, nausea, vomiting, shortness of breath or fever Exam Narrative Exam Narrative: cachectic looking female appearing older than stated age, minimal tremors with agitation ,awake and oriented to self, irritable during trial for new mentation but not aggressive ,no focal neurodeficit, unlabored breathing clear lungs, S1-S2 no murmur abdomen soft nontender, bowel sounds are present no edema to extremities Psych Speech and Movement: speech clear Affect: irritable affect Thought Process: perseverating Insight: poor Judgment: poor Objective Last Vital Signs Temp 36.6 C 02/04/25 11:13 Pulse 76 02/04/25 11:13 Resp 12 02/04/25 11:13 BP 109/65 02/04/25 11:13 Pulse Ox 97 02/04/25 11:13 Laboratory Results - last 24 hr 02/04/25 06:44 WBC 5.90 RBC 4.40 Hgb 13.7 Hct 40.9 MCV 93 MCH 31.1 MCHC 33.5 RDW 15.9 H Plt Count 204 MPV 10.9 Immature Gran % 0.2 Neutrophils % 44.5 Lymphocytes % 42.7 Monocytes % 9.5 Eosinophils % 1.2 Basophils % 1.9 Nucleated RBC % 0.0 Absolute Neutrophils 2.63 Absolute Lymphocytes 2.52 Absolute Monocytes 0.56 Absolute Eosinophils 0.07 Absolute Basophils 0.11 Sodium 140 Potassium 3.8 Chloride 104 Carbon Dioxide 26.5 Anion Gap 9.5 BUN 12 Creatinine 0.9 Est GFR (CKD-EPI 2021) 69.64 Glucose 99 Calcium 8.3 L Magnesium 2.2 Valproic Acid 69.3 PAWSS Have you Been Recently Intoxicated or Drunk Within the Last 30 days?: Yes Have you Ever Experienced Previous Episodes of Alcohol Withdrawal?: No Have you ever Experienced Withdrawal Seizures?: No Have you ever Experienced Delirium Tremens(DT)s?: No Have you ever undergone Alcohol Rehabilitation Treatment (i.e, inpt ot outpatient treatment programs)?: No Have you ever Experienced Blackouts?: Yes Have you ever Combined Alcohol with other Downers within the last 90 days?: No Have you ever Combined Alcohol with any other Substance of Abuse during the last 90 days?: No Positive Blood Alcohol level on Presentation? [PCS.BAL]: No Evidence of Increased Autonomic Activity (i.e. HR>120, tremor, sweating, agitation, nausea)?: No Result: 2 Time Spent with Patient Time Spent with Patient: >50 minutes Time was spent: preparing to see the patient(eg.review tests), obtaining and/or reviewing separately otained hiistory, ordering medications,tests, procedures, referring, communicating with other health pediatric care coordinator, indepentently interpreting results, counseling the patient and care coordination
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
[2025-02-04] MEDS: Thiamine 100 MG TAB PO (14:19)
--- NOTE | 2025-02-04 14:24 | PT.INTREAT ---
PT Notes Visit Reasons: Supratherapeutic Depakote level with [facility] In[facility] Physical Therapy Treatment Note [facility] Date: 02/04/25 SUBJECTIVE: Eloise agreeable to go for a walk, and do exercise but not sure if she is allowed. Wants to be clear that she will not be sharing pizza with her brother! OBJECTIVE: []? PAIN: none VITALS: ?monitored by nsg. Therapeutic activity: ([id number]) functional transfers, and mobility BED MOBILITY/TRANSFERS? Rolling L/R: I Supine-sit:S ? Sit-stand: S? Stand-sit: S? ? ? she ambulated with CGA and FWW x ~200'. Cues for proper hand hold assist on walker as she tended to forget to hang onto it with both UE. ? Provided skilled cues and instruction on performance and technique throughout. For safety. ? Standing unsupported with NBOS 2x40 sec. close SBA.? ASSESSMENT:? poor safety awareness. forgot to use walker inside room, had a tendency to furniture surf, reaching for objects. She seemed shaky at beginning of session, but once she got going this subsided. No LOB or fatigue noted during session. Pleasantly confused. PLAN: will continue to work on her strength and functional mobility following PT POC. TREATMENT CODE/TIME: 20 min [id number]
[2025-02-04] MEDS: Enoxaparin 40 MG/0.4 ML SYR SC (19:48)
[2025-02-04 19:50] VITALS: BP 117/73; PULSE 71; RESP 18; TEMP 37; O2SAT 97
[2025-02-04] MEDS: Haloperidol 5 MG/ML VIAL 2 MG IM (20:26)
[2025-02-05] MEDS: LORazepam 20 MG/10 ML VIAL IM (01:25)
[2025-02-05 07:35] VITALS: BP 89/45; PULSE 58; RESP 14; TEMP 36.4; O2SAT 98
--- NOTE | 2025-02-05 07:51 | PT.INTREAT ---
PT Notes Visit Reasons: Supratherapeutic Depakote level with [facility] Physical Therapy Inpatient Treatment Note Date: 02/05/2025 PRECAUTIONS: Fall risk. Standard precautions. Activity as tolerated. Impaired safety awareness. SUBJECTIVE: Patient was agreeable to going for a walk before breakfast third day in a row. Was asking Nurse Edelmira and Nurse student to answer the ringing phone she thought was hers. Denied headache, chest pain, and lightheadedness throughout. Hungry for breakfast. OBJECTIVE: ? PAIN: None reported VITALS: Monitored via telemetry throughout ? BED MOBILITY/TRANSFERS: Moderate cueing provided for use of B hands as needed for support, movement sequence, AD management, and posture to reduce fall risk and minimize pain report? Sit-stand: stand by assist with FWW ? Stand-sit: stand by assist with FWW ? Bed-recliner: stand by assist with FWW ? Recliner-bed: stand by assist with FWW ? GAIT: Patient tolerated 300 + 150 feet of level surface ambulation through [facility] hallway using front-wheeled walker with wheelchair follow requiring stand by assist, no wheelchair follow needed. Remains in need of moderate verbal cueing to safely negotiate objects on her L side --kept hitting the left front leg with objects in hallways. Decreased step height and length. Directional change improving although patient needed to slow down to safely turn. THERA EX: With hand-held assist on B sides, facilitated sit<>stand x 5 reps with report of fatigue after activity Bilateral heel raises while holding onto FWW x 10 ASSESSMENT:? Regained stability of walking today with improving awareness noted on the L side, more able to manage AD to avoid obstacles with less cueing. Attention and focus improving but still gets distracted with multiple stimuli. She continues to require assistance of a caregiver to ensure safety of mobility task performance. She requires services for continued balance training, strengthening, and functional mobility training. PLAN: Continue with PT POC as initially established for 1-2x/day, 7 days/week x 1 week. DISCHARGE RECOMMENDATION: HHPT vs SNF TREATMENT CODE/TIME: 73024 x 20 minutes for 2 units, 48781 x 12 minutes for 1 unit (7:51-8:33).
[2025-02-05] MEDS: Magnesium Oxide 400 MG TAB 800 MG PO ×2 (08:46→19:28)
[2025-02-05] MEDS: Divalproex 250 MG TABEC PO ×2 (08:46→19:28)
[2025-02-05] MEDS: Lactulose 20 GM/30 ML CUP 30 GM PO (08:46)
[2025-02-05] MEDS: lamoTRIgine 100 MG TAB PO ×2 (08:46→19:29)
[2025-02-05] MEDS: Divalproex 500 MG TABEC PO ×2 (08:46→19:28)
[2025-02-05] MEDS: Acetaminophen 500 MG TAB 1000 MG PO ×3 (08:46→19:29)
[2025-02-05] MEDS: Thiamine 100 MG TAB PO (08:46)
[2025-02-05 12:00] VITALS: BP 89/49; PULSE 72; RESP 15; TEMP 37.3; O2SAT 98
--- NOTE | 2025-02-05 12:10 | PGE_ITS ---
Date of Service Date of service: 02/05/25 Time of Service: 12:10 Assessment and Plan Assessment and plan (1) Altered mental status: Status: Acute Assessment and plan: acute delirium with sundowning noted. Will initiate 4 mg apriprazole daily, per pharmacy recommendation as it seems to have the lowest risk for patients at risk of seizures than olanzapine and Seroquel which can lower seizure threshold. She is s/p Psychiatric consultation to determine capacity. She was found to be lacking capacity for medical decision making today. Her brother, Slade is working to obtaining guardianship over her. During her visit, ACP was discussed briefly. She stated that she would want Slade to make decisions for her if she was in need of a surrogate decision maker. She does not have capacity so [facility] paperwork cannot be done at this time. She remains confused. Dr. Amin, psychiatrist recommends f/u with neurology as he suspects neuocognitive disorder. (2) Serum sodium valproate above therapeutic range: Status: Acute Assessment and plan: Followed by [facility] neurology for seizure management. home dose resumed at 02/03 (3) Fall: Status: Acute Assessment and plan: Admitted status post fall secondary to increased Depakote level and suspected to be drinking alcohol. She has frequent falls at home. Fall precautions PT consultation (4) Face lacerations: Status: Acute Assessment and plan: No complication, repaired in the ED with surgical glue (5) Hypokalemia: Start date: 01/31/25 Status: Acute Assessment and plan: Repleted and normalized (6) Seizure disorder: Start date: 01/31/25 Status: Chronic Assessment and plan: Continue home medications (7) Depressive disorder: Start date: 01/31/25 Status: Chronic Assessment and plan: Continue home medications (8) Right shoulder pain: Status: Acute Assessment and plan: X-ray of the shoulder completed on January 31 shows no acute abnormality, degenerative changes are present in the AC joint and glenohumeral joint Scheduled acetaminophen 3 times daily PT consulted (9) Tobacco use disorder: Start date: 01/31/25 Status: Chronic Assessment and plan: Nicotine supplementation as needed (10) Advanced care planning/counseling discussion: Status: Acute Assessment and plan: Reviewed but unable to officially document HCA/COLST due to lack of capacity. She states she would want to be DNR/DNI. She states she would want Slade to be her HCA. Slade currently seeking guardianship. (11) Palliative care encounter: Status: Acute Assessment and plan: Palliative consulted Will continue following Subjective Subjective Patient reports: tolerating liquids well, tolerating a regular diet, diarrhea and afebrile Interval history since last seen: No behavioral disturbances since receiving Haldol and lorazepam. Hemodynami ursula has been stable no new complaints voiced Exam Const General: cooperative and disheveled Nutritional Appearance: cachectic Orientation: awake Limitations: altered mental status [facility] Head: normocephalic and atraumatic Mouth: mucous membranes dry Eyes Conjunctivae: normal conjunctivae Sclera: normal sclerae Neck Neck: trachea midline and supple Resp Auscultation: clear to auscultation bilaterally, no rales, no rhonchi and no wheezes Cardio Rate: regular rate and not tachycardic Rhythm: regular rhythm GI Palpation: soft, not firm, no guarding, no masses, not rigid and nontender Auscultation: normal bowel sounds Skin General skin exam: no rashes or lesions noted Neuro General: patient alert, patient awake and tone normal Cognition: abnormal cognition Extrem General: no edema Psych Appearance: grossly normal Objective Last Vital Signs Temp 37.3 C 02/05/25 12:00 Pulse 72 02/05/25 12:00 Resp 15 02/05/25 12:00 BP 89/49 L 02/05/25 12:00 Pulse Ox 98 02/05/25 12:00 Laboratory Results - last 24 hr 02/01/25 02/05/25 12:45 06:30 Valproic Acid 88.4 Lamotrigine 20.8 PAWSS Have you Been Recently Intoxicated or Drunk Within the Last 30 days?: Yes Have you Ever Experienced Previous Episodes of Alcohol Withdrawal?: No Have you ever Experienced Withdrawal Seizures?: No Have you ever Experienced Delirium Tremens(DT)s?: No Have you ever undergone Alcohol Rehabilitation Treatment (i.e, inpt ot outpatient treatment programs)?: No Have you ever Experienced Blackouts?: Yes Have you ever Combined Alcohol with other Downers within the last 90 days?: No Have you ever Combined Alcohol with any other Substance of Abuse during the last 90 days?: No Positive Blood Alcohol level on Presentation? [PCS.BAL]: No Evidence of Increased Autonomic Activity (i.e. HR>120, tremor, sweating, agitation, nausea)?: No Result: 2 Time Spent with Patient Time Spent with Patient: 35-49 minutes Time was spent: preparing to see the patient(eg.review tests), obtaining and/or reviewing separately otained hiistory, ordering medications,tests, procedures, indepentently interpreting results and counseling the patient
[2025-02-05 15:50] VITALS: BP 94/45; PULSE 74; RESP 14; TEMP 37.5; O2SAT 98
[2025-02-05 19:21] VITALS: BP 98/55; PULSE 74; RESP 18; TEMP 37.4; O2SAT 97
[2025-02-05] MEDS: Enoxaparin 40 MG/0.4 ML SYR SC (19:29)
[2025-02-06] MEDS: Thiamine 100 MG TAB PO (08:14)
[2025-02-06] MEDS: lamoTRIgine 100 MG TAB PO ×2 (08:15→19:42)
[2025-02-06] MEDS: Acetaminophen 500 MG TAB 1000 MG PO ×2 (08:15→19:41)
[2025-02-06] MEDS: Divalproex 250 MG TABEC PO ×2 (08:15→19:41)
[2025-02-06] MEDS: Divalproex 500 MG TABEC PO ×2 (08:15→19:41)
--- NOTE | 2025-02-06 09:08 | PTTR_ITS ---
PT Notes Visit Reasons: Supratherapeutic Depakote level with [facility] Physical Therapy Inpatient Treatment Note Date: 02/06/2025 PRECAUTIONS: Fall risk. Standard precautions. Activity as tolerated. Impaired safety awareness. SUBJECTIVE: Pants on under lacy. Patient said she did not sleep well last night. Complained about her R shoulder and L knee arthritis acting up. Agreed to working with PT today. OBJECTIVE: ? General Observation:? Shaky today. Pushing back a lot in standing. Emilys th rown into her garbage bin. Banana peel dumped into her uneaten bowl of oatmeal.? ?? PAIN: Pain in R shoulder and L knee VITALS: Monitored via telemetry throughout ? BED MOBILITY/TRANSFERS: Moderate cueing provided for use of B hands as needed for support, movement sequence, AD management, and posture to reduce fall risk and minimize pain report? Sit-stand: minimal assist with FWW ? Stand-sit: minimal assist with FWW ? Bed-recliner: minimal assist with FWW ? Recliner-bed: minimal assist with FWW ? GAIT: Patient tolerated 300 + 250 feet of level surface ambulation through [employer] [address] using front-wheeled walker with wheelchair follow requiring stand by assist, no wheelchair follow needed. Remains in need of moderate verbal cueing to safely negotiate objects on her L side --kept hitting the left front leg with objects in hallways. Decreased step height and length. Directional change improving although patient needed to slow down to safely turn. THERA EX: With hand-held pushing off arm rests, facilitated sit<>stand x 5 reps with minimal assist to back as patient had tendency to push back Trunk flexion while seated at edge of bed x 10 ASSESSMENT:? Tremors increased notably today with increased puhing backward from sit>stand needing minimal assist from PT to prevent a fall. Cognitively muddled today compared to yesterday but answers/responses have been appropriate. Able to follow single-step commands. Patient continues to require the assistance of another for safety and the use of a FWW. Remains impaired with L side obstacle negotiation using FWW needing moderate cueing for AD management for safety. PLAN: Continue with PT POC as initially established for 1-2x/day, 7 days/week x 1 week. Progress strength, mobility, and balance as tolerated. DISCHARGE RECOMMENDATION: Short-term SNF vs HH PT TREATMENT CODE/TIME: 84949 x 25 minutes for 2 units, 19553 x 15 minutes for 1 unit (09:08-09:48).
--- NOTE | 2025-02-06 12:57 | PGE_ITS ---
Date of Service Date of service: 02/06/25 Time of Service: 12:57 Assessment and Plan Assessment and plan (1) Altered mental status: Status: Acute Assessment and plan: acute delirium with sundowning noted. seems to be responding well to 4 mg apriprazole daily, per pharmacy recommendation as it seems to have the lowest risk for patients at risk of seizures than olanzapine and Seroquel which can lower seizure threshold. adjust as needed She is s/p Psychiatric consultation to determine capacity. She was found to be lacking capacity for medical decision making today. Her brother, Slade is working to obtaining guardianship over her. During her visit, ACP was discussed briefly. She stated that she would want Slade to make decisions for her if she was in need of a surrogate decision maker. She does not have capacity so HCA paperwork cannot be done at this time. She remains confused. Dr. Amin, psychiatrist recommends f/u with neurology as he suspects neuocognitive disorder. (2) Serum sodium valproate above therapeutic range: Status: Acute Assessment and plan: Followed by [facility] [place] [place] neurology for seizure management. home dose resumed at 02/03 (3) Fall: Status: Acute Assessment and plan: Admitted status post fall thought secondary to increased Depakote level and suspected to be drinking alcohol. She has frequent falls at home. Fall precautions PT consultation (4) Face lacerations: Status: Acute Assessment and plan: No complication, repaired in the ED with surgical glue (5) Hypokalemia: Start date: 01/31/25 Status: Acute Assessment and plan: Repleted and normalized (6) Seizure disorder: Start date: 01/31/25 Status: Chronic Assessment and plan: Continue home medications (7) Depressive disorder: Start date: 01/31/25 Status: Chronic Assessment and plan: Continue home medications (8) Right shoulder pain: Status: Acute Assessment and plan: X-ray of the shoulder completed on January 31 shows no acute abnormality, degenerative changes are present in the AC joint and glenohumeral joint Scheduled acetaminophen 3 times daily PT consulted (9) Tobacco use disorder: Start date: 01/31/25 Status: Chronic Assessment and plan: Nicotine supplementation as needed (10) Advanced care planning/counseling discussion: Status: Acute Assessment and plan: Reviewed but unable to officially document HCA/COLST due to lack of capacity. She states she would want to be DNR/DNI. She states she would want Slade to be her HCA. Slade currently seeking guardianship. (11) Palliative care encounter: Status: Acute Assessment and plan: Palliative consulted will need placement case management following discussed with Dr Brito Subjective Subjective Patient reports: no new complaints, tolerating liquids well, tolerating a regular diet and afebrile Interval history since last seen: patient frequently pacing and wanting to wander, staff taking her for frequent walks, no further behavioral disturbances. Exam Const General: cooperative and disheveled Orientation: awake Limitations: altered mental status HENOR Head: normocephalic and atraumatic Mouth: mucous membranes dry Eyes Conjunctivae: normal conjunctivae Sclera: normal sclerae Neck Neck: trachea midline and supple Resp Auscultation: clear to auscultation bilaterally, no rales, no rhonchi and no wheezes Cardio Rate: regular rate and not tachycardic Rhythm: regular rhythm GI Palpation: soft Skin General skin exam: no rashes or lesions noted Neuro General: patient alert, patient awake and tone normal Cognition: abnormal cognition Extrem General: no edema Psych Appearance: grossly normal Objective Last Vital Signs Temp 37.4 C 02/05/25 19:21 Pulse 74 02/05/25 19:21 Resp 18 02/05/25 19:21 BP 98/55 L 02/05/25 19:21 Pulse Ox 97 02/05/25 19:21 PAWSS Have you Been Recently Intoxicated or Drunk Within the Last 30 days?: Yes Have you Ever Experienced Previous Episodes of Alcohol Withdrawal?: No Have you ever Experienced Withdrawal Seizures?: No Have you ever Experienced Delirium Tremens(DT)s?: No Have you ever undergone Alcohol Rehabilitation Treatment (i.e, inpt ot outpatient treatment programs)?: No Have you ever Experienced Blackouts?: Yes Have you ever Combined Alcohol with other Downers within the last 90 days?: No Have you ever Combined Alcohol with any other Substance of Abuse during the last 90 days?: No Positive Blood Alcohol level on Presentation? [PCS.BAL]: No Evidence of Increased Autonomic Activity (i.e. HR>120, tremor, sweating, agitation, nausea)?: No Result: 2 Time Spent with Patient Time Spent with Patient: 35-49 minutes Time was spent: preparing to see the patient(eg.review tests), obtaining and/or reviewing separately otained hiistory, ordering medications,tests, procedures, indepentently interpreting results and counseling the patient
[2025-02-06] MEDS: Magnesium Oxide 400 MG TAB 800 MG PO (19:41)
[2025-02-06] MEDS: Normal Saline Flush 10 ML SYR IVP (19:42)
[2025-02-06] MEDS: Enoxaparin 40 MG/0.4 ML SYR SC (19:42)
[2025-02-06 19:50] VITALS: BP 153/61; PULSE 78; RESP 16; TEMP 36.4; O2SAT 98
[2025-02-07] MEDS: LORazepam 2 MG/1 ML Oral Concentrate 1 MG PO (00:35)
--- NOTE | 2025-02-07 08:22 | CMPROGNOTE_ITS ---
Date of service: 02/07/25 Time of Service: 08:23 Care Management Progress Note Progress Note Text Progress Note Text: CM provided Slade with the affidavit, signed by the provider; Slade will petition for guardianship with [facility], today. CM sent a COA referral to aid with longterm mediaid application, and provided the family with this application. Per Elida (Slade's ), she will update this development writer with the status of guardianship, as new information arises. CM will continue to follow. Discharge Potential Discharge Needs: PCP F/U Appt Anticipated Barriers to Discharge: Medical Status and Other (Guardianship ) Patient/Family Education Needs: Review discharge instructions, discuss Ask Me Three Transportation: EMS (Due to Altered Mental Status) Plan: Anticipate, Eloise will discharge to SNF, once medically ready. CM requested a psych consult which revealed she has no capacity to make own medical decisions and a palliative consult - was completed. She will follow up with community providers, and continue per her plan of care. She will transport via EMS due to altered mental status. CM will continue to follow. Social Determinants of Health Screening Will the Patient Participate in the Screening?: Unable to obtain
[2025-02-07] MEDS: Thiamine 100 MG TAB PO (08:53)
[2025-02-07] MEDS: Magnesium Oxide 400 MG TAB 800 MG PO ×2 (08:53→19:48)
[2025-02-07] MEDS: Divalproex 500 MG TABEC PO ×2 (08:53→19:48)
[2025-02-07] MEDS: Divalproex 250 MG TABEC PO ×2 (08:53→19:48)
[2025-02-07] MEDS: Acetaminophen 500 MG TAB 1000 MG PO ×3 (08:53→19:49)
[2025-02-07] MEDS: lamoTRIgine 100 MG TAB PO ×2 (08:53→19:49)
--- NOTE | 2025-02-07 10:21 | PTTR_ITS ---
PT Notes Visit Reasons: [facility] Inpatient Treatment Note Date: 02/07/2025 PRECAUTIONS: Fall risk. Standard precautions. Activity as tolerated. Impaired safety awareness. SUBJECTIVE: Pt reports she has to find a way to buy her parents home. She is concerned about where everyone is going to live OBJECTIVE: ? General Observation:?Difficult to attend to task, easily distracted. Shaky today. Pushing back a lot in standing. PAIN: Pain in R shoulder VITALS: Monitored via telemetry throughout ? BED MOBILITY/TRANSFERS: Moderate cueing provided for use of B hands as needed for support, movement sequence, AD management, and posture to reduce fall risk and minimize pain report? Sit-stand: minimal assist with FWW ? Stand-sit: minimal assist with FWW ? Bed-recliner: minimal assist with FWW ? Recliner-bed: minimal assist with FWW ? GAIT: Patient tolerated 75 feet of level surface ambulation through [facility] hallway using front-wheeled walker with wheelchair follow requiring stand by assist, Remains in need of moderate verbal cueing to safely negotiate objects on her L side --kept hitting the left front leg with objects in hallways. Decreased step height and length. Directional change improving although patient needed to slow down to safely turn. ASSESSMENT:? Patient continues to demonstrate tremors and shakiness with standing tasks and loss of balance posteriorly with poor righting reactions noted. 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 Difficulty managing obstacles on the left remains with patient requiring min assist and continuous cues to avoid objects. PLAN: Continue with PT POC as initially established for 1-2x/day, 7 days/week x 1 week. Progress strength, mobility, and balance as tolerated. DISCHARGE RECOMMENDATION: Short-term SNF vs PT TREATMENT CODE/TIME: 34198/[id number]
[2025-02-07 11:08] VITALS: BP 103/64; PULSE 74; RESP 18; TEMP 36.6; O2SAT 98
--- NOTE | 2025-02-07 11:57 | W.NUTRFU ---
Date of service: 02/07/25 Time of Service: 11:57 Nutrition Note NOTE: follow up with pt. - po intake somewhat erratic - continuing to have nursing deliver trays for assistance/encouragement for po intake. ONS offered at 2pm and 7pm between meals to contribute to energy/protein intake. weights are inconsistent - last weight taken on 02/05 differed by by about 8kg from 02/03 weight. Would recommend daily weights if possible. Nutrition related labs looking good. Calcium was 8.3 02/04 - would recommend vitamin D lab or just prophylactic vitamin D at 1,000IU per day as she may be at risk for deficiency. Will continue to follow pt and support her po inatake with regular meals and ONS at nourishment times. Time Spent in Nutritional Counseling and Treatment: 5 min
--- NOTE | 2025-02-07 14:37 | INPN_ITS ---
PT Notes Visit Reasons: Supratherapeutic Depakote level with [facility] Inpatient Physical Therapy Progress Note Date: 02/07/2025 Dates of Service: 01/31/2025 - 02/07/2025 PRECAUTIONS: Fall risk, impaired mentation/confusion SUBJECTIVE: Patient reports she cannot find her dog she is very distraught and hopeful the dog will return. OBJECTIVE PAIN: Right shoulder it hurts BED MOBILITY/TRANSFERS Rolling L/R: Independent Supine-sit: Supervision to min assist depending on patient's level of alertness Sit-supine: Supervision with cues Sit-stand: Min assist due to retropulsion Stand-sit: Min assist due to retropulsion Bed-Chair: Min assist FWW Chair-bed: Min assist with FWW GAIT Assistive Device: FWW Weight bearing: As tolerated Assist: Min assist Distance: 150-300 feet Deviation: Intermittent scissoring, drift to the left difficulty managing obstacles on left retropulsive VITALS: Monitored by nursing STAIRS: Not appropriate due to cognitive status ASSESSMENT: Patient presents with clinical signs and symptoms consistent with current/admitting diagnoses that have resulted to mobility limitations, gait instability, generalized weakness, and impairment of motor control as demonstrated by the following impairment level findings: 1. Decreased strength to BUE/BLE major muscle groups 2. Impaired standing balance 3. Limitation of joint range of motion in right shoulder 4. pain right shoulder 5. impaired functional activity tolerance 6. impaired judgement/ safety awareness. 7. Altered mentation Impairments are contributing to the following functional limitations: 1. Inability to safely ambulate without assistive device 2. Increase completion time for mobility ADL performance 3. Increased fall risk 4. difficulty performing stairs safely without assistance Patient is assessed as a moderate complexity based on the following: History:69-year-old female with impairment level findings, functional limitations, and past medical history as indicated above Examination: Demonstrable impairment in strength, balance, and mobility level with underlying impairments and functional limitations as documented above Presentation: stable/ evolving Decision Making: moderate Goals: 1. Independent bed mobility (not met Supervision) 2. Independent transfers with least restrictive device ( not met CG/min A with FWW) 3. Independent ambulation with least restrictive device 150 feet without loss of balance ( Not Met min A 150-300 feet with FWW) 4. Supervision 13 steps with rail to safely enter and exit home Not met PLAN OF CARE/TREATMENT PLAN: 1-2x/day, 7 days/ week x 1 week Plan of care has been reviewed with the CRYPTOGRAPHY TEACHER providing the service under Physical therapy direction. Initiate physical therapy intervention for strengthening, bed mobility, transfers, gait, stairs, balance training, use of assistive device. DISCHARGE RECOMMENDATIONS: SNF versus long-term care due to cognitive impairment TREATMENT CODE/TIME: 11662/2:05 PM?2:19 PM
--- NOTE | 2025-02-07 15:25 | W.PM.PROGNOT ---
Date of Service Date of service: 02/07/25 Time of Service: 15:25 Assessment and Plan Assessment and plan (1) Altered mental status: Status: Acute Assessment and plan: acute delirium with sundowning noted. Responding well to 4 mg apriprazole daily She is s/p Psychiatric consultation to determine capacity. She was found to be lacking capacity for medical decision making today. Her brother, Slade is working to obtaining guardianship over her. It's my understanding papers were signed and went to the court today for emergency guardianship. She remains confused. (2) Serum sodium valproate above therapeutic range: Status: Resolved Assessment and plan: Followed by [facility] [place] neurology for seizure management. Resumed (3) Fall: Status: Acute Assessment and plan: Admitted status post fall thought secondary to increased Depakote level and suspected to be drinking alcohol. She has frequent falls at home. Fall precautions PT consultation (4) Face lacerations: Status: Acute Assessment and plan: No complication, repaired in the ED with surgical glue (5) Hypokalemia: Start date: 01/31/25 Status: Resolved Assessment and plan: Repleted and normalized (6) Seizure disorder: Start date: 01/31/25 Status: Chronic Assessment and plan: Continue home medications (7) Depressive disorder: Start date: 01/31/25 Status: Chronic Assessment and plan: Continue home medications (8) Right shoulder pain: Status: Acute Assessment and plan: X-ray of the shoulder completed on January 31 shows no acute abnormality, degenerative changes are present in the AC joint and glenohumeral joint Scheduled acetaminophen 3 times daily PT consulted (9) Tobacco use disorder: Start date: 01/31/25 Status: Chronic Assessment and plan: Nicotine supplementation as needed (10) Advanced care planning/counseling discussion: Status: Acute Assessment and plan: Reviewed but unable to officially document HCA/COLST due to lack of capacity. She states she would want to be DNR/DNI. She states she would want Slade to be her HCA. Slade currently seeking guardianship. (11) Palliative care encounter: Status: Acute Assessment and plan: Palliative consulted will need placement case management following discussed with Dr Brito Subjective Subjective Patient reports: tolerating liquids well, tolerating a regular diet, voiding w/o difficulty and bowel movement Interval history since last seen: Unable to verbalize - appears comfortable Exam Const General: cooperative and disheveled Orientation: awake Limitations: altered mental status [facility] Head: normocephalic and atraumatic Mouth: mucous membranes dry Eyes Conjunctivae: normal conjunctivae Sclera: normal sclerae Neck Neck: trachea midline and supple Resp Auscultation: clear to auscultation bilaterally, no rales, no rhonchi and no wheezes Cardio Rate: regular rate and not tachycardic Rhythm: regular rhythm GI Palpation: soft Skin General skin exam: no rashes or lesions noted Neuro General: patient alert, patient awake and tone normal Cognition: abnormal cognition Extrem General: no edema Psych Appearance: grossly normal Objective Last Vital Signs Temp 36.6 C 02/07/25 11:08 Pulse 74 02/07/25 11:08 Resp 18 02/07/25 11:08 BP 103/64 02/07/25 11:08 Pulse Ox 98 02/07/25 11:08 PAWSS Have you Been Recently Intoxicated or Drunk Within the Last 30 days?: Yes Have you Ever Experienced Previous Episodes of Alcohol Withdrawal?: No Have you ever Experienced Withdrawal Seizures?: No Have you ever Experienced Delirium Tremens(DT)s?: No Have you ever undergone Alcohol Rehabilitation Treatment (i.e, inpt ot outpatient treatment programs)?: No Have you ever Experienced Blackouts?: Yes Have you ever Combined Alcohol with other Downers within the last 90 days?: No Have you ever Combined Alcohol with any other Substance of Abuse during the last 90 days?: No Positive Blood Alcohol level on Presentation? [PCS.BAL]: No Evidence of Increased Autonomic Activity (i.e. HR>120, tremor, sweating, agitation, nausea)?: No Result: 2 Time Spent with Patient Time Spent with Patient: 35-49 minutes Time was spent: preparing to see the patient(eg.review tests), ordering medications,tests, procedures, referring, communicating with other health overnight caregiver, indepentently interpreting results, counseling the patient and care coordination
[2025-02-07] MEDS: Enoxaparin 40 MG/0.4 ML SYR SC (20:00)
[2025-02-07] MEDS: LORazepam 1 MG TAB PO (21:21)
[2025-02-08 06:30] LABS: Abs Immature Grans 0.02 10^3/uL (0.0-0.06); HCT 36.3 % (36.0-46.0); HGB 12.4 g/dL (11.2-15.7); Immature Grans % 0.3 %; MCH 32.0 pg (27.0-33.0); MCHC 34.2 % (32.0-36.0); MCV 94 fL (80-95); MPV 10.7 fL (8.0-11.0); Platelet Count 194 10^3/uL (130-400); RBC 3.88 10^6/uL (3.93-5.22); RDW 16.5 % (11.7-14.6); RDW-SD 56.2 fL; WBC 6.65 10^3/uL (4.4-10.8)
[2025-02-08 07:06] LABS: Anion Gap 6.9 mmol/L (3-11); BUN 16 mg/dL (7-18); CO2 28.1 mmol/L (21.0-32.0); Calcium 8.4 mg/dL (8.5-10.1); Chloride 104 mmol/L (98-107); Estimated GFR 94.15 (mL/min/1.73m2); Glucose 94 mg/dL (74-106); Magnesium 2.7 mg/dL (1.8-2.4); Potassium 4.2 mmol/L (3.5-5.1); Sodium 139 mmol/L (136-145)
[2025-02-08] MEDS: Thiamine 100 MG TAB PO (08:55)
[2025-02-08] MEDS: lamoTRIgine 100 MG TAB PO ×2 (08:55→19:14)
[2025-02-08] MEDS: Divalproex 250 MG TABEC PO ×2 (08:56→19:14)
[2025-02-08] MEDS: Divalproex 500 MG TABEC PO ×2 (08:56→19:14)
[2025-02-08] MEDS: Acetaminophen 500 MG TAB 1000 MG PO ×2 (08:56→19:14)
[2025-02-08] MEDS: Magnesium Oxide 400 MG TAB 800 MG PO ×2 (08:56→19:13)
--- NOTE | 2025-02-08 10:32 | PTTR_ITS ---
PT Notes Visit Reasons: Supratherapeutic Depakote level with [facility] Physical Therapy Inpatient Treatment Note Date: 02/08/2025 PRECAUTIONS: Fall risk. Standard precautions. Activity as tolerated. Impaired safety awareness. SUBJECTIVE: Patient reports she just got here to the hospital today and thinks she will be here for 3 days Pt reporting she has to find her things. (Unable to specify) OBJECTIVE: ? General Observation: Patient presented sitting in chair using busy blanket. Patient remains confused and difficult to attend to task, easily distracted. pm Sesssion: Pt presented fully clothed sitting in her chair drinking cocoa. Pt disoriented to place, time and situation. PAIN: Denied pain VITALS: Monitored via telemetry throughout ? BED MOBILITY/TRANSFERS: Moderate cueing provided for use of B hands as needed for support, movement sequence, AD management, and posture to reduce fall risk and minimize pain report? Sit-stand: Contact-guard assist with FWW ? Stand-sit: Contact-guard assist with FWW ? Bed-recliner: Contact-guard assist with FWW ? Recliner-bed: Contact-guard assist with FWW ? GAIT: Patient tolerated 200 feet of level surface ambulation through [employer] hallway using front-wheeled walker with wheelchair follow requiring stand by assist, as fatigued she required moderate verbal cueing to safely negotiate objects on her L side --kept hitting the left front leg with objects in hallways. Decreased step height and length. Directional change improving although patient needed to slow down to safely turn. PM Session: facilitating ambulation without AD short distances x 6 within room CGA pt intermittently touching reaching out for external support. ASSESSMENT:? Patient with no posterior loss of balance during transition sit to and from stand. No tremors/shakiness noted throughout session. During ambulation as patient fatigued noted increased drift to the left and difficulty managing obstacles on left. In PM, pt with increased confusion restlessness, wandering difficult to redirect. Pt able to ambulate with CGA without FWW with intermittent external support. Pt remains at risk for falls d/t impulsivity, poor safety awareness and balance deficits. PLAN: Continue with PT POC as initially established for 1-2x/day, 7 days/week x 1 week. Progress strength, mobility, and balance as tolerated. DISCHARGE RECOMMENDATION: Short-term SNF vs LTC TREATMENT CODE/TIME: am session:[id number] pm session 14813: [id number]
--- NOTE | 2025-02-08 12:09 | W.PM.PROGNOT ---
Date of Service Date of service: 02/08/25 Time of Service: 12:09 Assessment and Plan Assessment and plan (1) Altered mental status: Status: Acute Assessment and plan: acute delirium with sundowning noted. Responding well to 4 mg apriprazole daily - unchanged She is s/p Psychiatric consultation to determine capacity. She was found to be lacking capacity for medical decision making today. Her brother, Slade is working to obtaining guardianship over her. - Continues to be pending She remains confused. (2) Serum sodium valproate above therapeutic range: Status: Resolved Assessment and plan: Followed by [facility] neurology for seizure management. Resumed (3) Fall: Status: Acute Assessment and plan: Admitted status post fall thought secondary to increased Depakote level and suspected to be drinking alcohol. She has frequent falls at home. Fall precautions PT consultation (4) Face lacerations: Status: Acute Assessment and plan: No complication, repaired in the ED with surgical glue (5) Hypokalemia: Start date: 01/31/25 Status: Resolved Assessment and plan: Repleted and normalized (6) Seizure disorder: Start date: 01/31/25 Status: Chronic Assessment and plan: Continue home medications (7) Depressive disorder: Start date: 01/31/25 Status: Chronic Assessment and plan: Continue home medications (8) Right shoulder pain: Status: Acute Assessment and plan: X-ray of the shoulder completed on January 31 shows no acute abnormality, degenerative changes are present in the AC joint and glenohumeral joint Scheduled acetaminophen 3 times daily PT consulted (9) Tobacco use disorder: Start date: 01/31/25 Status: Chronic Assessment and plan: Nicotine supplementation as needed (10) Advanced care planning/counseling discussion: Status: Acute Assessment and plan: Reviewed but unable to officially document HCA/COLST due to lack of capacity. She states she would want to be DNR/DNI. She states she would want Slade to be her HCA. Slade currently seeking guardianship. (11) Palliative care encounter: Status: Acute Assessment and plan: Palliative consulted will need placement - referrals out case management following discussed with Dr Brito Subjective Subjective Interval history since last seen: Patient unable to have a conversation or have any meaningful input to her care. Son continuing to secure guardianship. SNF referrals out. Exam Const General: cooperative and disheveled Orientation: awake Limitations: altered mental status HENMT Head: normocephalic and atraumatic Mouth: mucous membranes dry Eyes Conjunctivae: normal conjunctivae Sclera: normal sclerae Neck Neck: trachea midline and supple Resp Auscultation: clear to auscultation bilaterally, no rales, no rhonchi and no wheezes Cardio Rate: regular rate and not tachycardic Rhythm: regular rhythm GI Palpation: soft Skin General skin exam: no rashes or lesions noted Neuro General: patient alert, patient awake and tone normal Cognition: abnormal cognition Extrem General: no edema Psych Appearance: grossly normal Objective Last Vital Signs Temp 36.6 C 02/07/25 11:08 Pulse 74 02/07/25 11:08 Resp 18 02/07/25 11:08 BP 103/64 02/07/25 11:08 Pulse Ox 98 02/07/25 11:08 Laboratory Results - last 24 hr 02/08/25 06:23 WBC 6.65 RBC 3.88 L Hgb 12.4 Hct 36.3 MCV 94 MCH 32.0 MCHC 34.2 RDW 16.5 H Plt Count 194 MPV 10.7 Immature Gran % 0.3 Neutrophils % 24.3 Lymphocytes % 62.1 Monocytes % 10.2 Eosinophils % 2.0 Basophils % 1.1 Nucleated RBC % 0.3 Absolute Neutrophils 1.62 Absolute Lymphocytes 4.13 H Absolute Monocytes 0.68 Absolute Eosinophils 0.13 Absolute Basophils 0.07 Sodium 139 Potassium 4.2 Chloride 104 Carbon Dioxide 28.1 Anion Gap 6.9 BUN 16 Creatinine 0.7 Est GFR (CKD-EPI 2020) 94.15 Glucose 94 Calcium 8.4 L Magnesium 2.7 H PAWSS Have you Been Recently Intoxicated or Drunk Within the Last 30 days?: Yes Have you Ever Experienced Previous Episodes of Alcohol Withdrawal?: No Have you ever Experienced Withdrawal Seizures?: No Have you ever Experienced Delirium Tremens(DT)s?: No Have you ever undergone Alcohol Rehabilitation Treatment (i.e, inpt ot outpatient treatment programs)?: No Have you ever Experienced Blackouts?: Yes Have you ever Combined Alcohol with other Downers within the last 90 days?: No Have you ever Combined Alcohol with any other Substance of Abuse during the last 90 days?: No Positive Blood Alcohol level on Presentation? [PCS.BAL]: No Evidence of Increased Autonomic Activity (i.e. HR>120, tremor, sweating, agitation, nausea)?: No Result: 2 Time Spent with Patient Time Spent with Patient: 25-34 minutes Time was spent: preparing to see the patient(eg.review tests), ordering medications,tests, procedures, referring, communicating with other health director of health care marketing, indepentently interpreting results, counseling the patient and care coordination
--- NOTE | 2025-02-08 16:12 | PDOC.CMPRO ---
Date of service: 02/08/25 Time of Service: 16:12 Care Management Progress Note Progress Note Text Progress Note Text: CM contacted Slade to receive an update. He confirms that he has petitioned for guardianship and is providing the probate court with paperwork as they request it. CM reached out to the rehab facilities, to review the referral; No bed offers at this time. CM will continue to follow. Discharge Potential Discharge Needs: PCP F/U Appt Anticipated Barriers to Discharge: Medical Status and Other (Guardianship ) Patient/Family Education Needs: Review discharge instructions, discuss Ask Me Three Transportation: EMS (Due to altered mental status ) Plan: Anticipate, Eloise will discharge to SNF, once medically ready. CM requested a psych consult which revealed she has no capacity to make own medical decisions and a palliative consult - was completed. She will follow up with community providers, and continue per her plan of care. At this time, her brother Slade is filing for Emergency guardianship and a petroleum refining equipment operator medicaid application is being completed. She will transport via EMS due to altered mental status. CM will continue to follow. Social Determinants of Health Screening Will the Patient Participate in the Screening?: Unable to obtain
[2025-02-08 17:42] VITALS: BP 118/70; PULSE 85; O2SAT 96
[2025-02-08] MEDS: Normal Saline Flush 10 ML SYR IVP (19:13)
[2025-02-08] MEDS: Enoxaparin 40 MG/0.4 ML SYR SC (19:13)
[2025-02-08] MEDS: LORazepam 1 MG TAB PO (19:13)
[2025-02-09 00:36] VITALS: BP 105/59; PULSE 86; RESP 18; TEMP 36.7; O2SAT 95
[2025-02-09 07:33] VITALS: BP 95/69; PULSE 80; RESP 16; TEMP 36.7; O2SAT 96
[2025-02-09] MEDS: Divalproex 250 MG TABEC PO ×2 (08:08→20:48)
[2025-02-09] MEDS: lamoTRIgine 100 MG TAB PO ×2 (08:09→20:48)
[2025-02-09] MEDS: Divalproex 500 MG TABEC PO ×2 (08:09→20:48)
[2025-02-09] MEDS: Acetaminophen 500 MG TAB 1000 MG PO ×3 (08:09→20:48)
[2025-02-09] MEDS: Magnesium Oxide 400 MG TAB 800 MG PO ×2 (08:09→20:48)
[2025-02-09 08:16] VITALS: BP 96/51
[2025-02-09] MEDS: Thiamine 100 MG TAB PO (08:19)
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
--- NOTE | 2025-02-09 11:45 | PDOC.CMPRO ---
Documented by User: Fidelina Linda 02/09/25 13:01 Date of service: 02/09/25 Time of Service: 11:51 Care Management Progress Note Progress Note Text Progress Note Text: Slade contacted CM this morning and stated the petition for guardianship has been denied by the court due to lack of information. CM consulted with Andrea Wallis from the Risk department regarding releasing information as well as next steps, considering the provider stated that she does not have capacity, but the court has denied the petition for guardianship. CM coordinated a family meeting with Slade, his , CM, CM living manager and Risk Andrea. Andrea stated that per the legal team, records can be released by the hospital to provide to the court Discharge Transportation: EMS (Due to altered mental status ) Plan: Anticipate, Eloise will discharge to SNF, once medically ready. CM requested a psych consult which revealed she has no capacity to make own medical decisions and a palliative consult - was completed. She will follow up with community providers, and continue per her plan of care. At this time, her brother Slade is filing for Emergency guardianship and a care home medicaid application is being completed. She will transport via EMS due to altered mental status. CM will continue to follow. Social Determinants of Health Screening Will the Patient Participate in the Screening?: Unable to obtain Documented by User: Shannon Buckley 02/09/25 13:17 Care Management Progress Note Progress Note Text Progress Note Text: Slade contacted CM this morning and stated the petition for guardianship has been denied by the court due to lack of information. JEANNE consulted with Andrea Wallis from the Risk department regarding releasing information as well as next steps, considering the provider stated that she does not have capacity, but the court has denied the petition for guardianship. JEANNE coordinated a family meeting with Slade, his , JEANNE, CM living manager and Risk Andrea. Andrea stated that per the legal team, records can be released by the hospital to provide to the court; she provided the documentation from the MEDICAL TECHNICIAN and the psychiatrist, which Slade will present to the court. Slade considered bringing Eloise to her home, but after speaking to her, Slade stated that she is agreeable to going to SNF still. CM contacted [facility], who offered Eloise a bed for tomorrow. She agreed to accept this bed offer; CM informed the provider and will coordinate transportation. Slade stated that he will continue to pursue guardianship, and is working on the middle or intermediate school principal MARZENA application, which he will submit. CM will continue to follow. Discharge Potential Discharge Needs: PCP F/U Appt Anticipated Barriers to Discharge: Bed availability Patient/Family Education Needs: Review discharge instructions, discuss Ask Me Three
--- NOTE | 2025-02-09 11:45 | PDOC.CMDIS ---
Date of service: 02/10/25 Time of Service: 08:54 LACE Index Scoring Tool Questions: Length of Stay (in days): 7 - 13 (11) Was the patient admitted via the E.D.?: Yes E.D. Visits: 2 Answers: Total Score: 10 Risk of Readmission: High Risk Care Management Discharge Plan Reason for Hospitalization: Supratherapeutic Depakote level with Delerium Discharge Plan: Eloise [facility]. She will follow up with community providers, and continue per her plan of care. [employer] June has initiated the correction MARZENA application. She will transport via EMS due to altered mental status. Slade will meet her at [facility] with clothes. Patient/Family Education Needs: Review of discharge instructions, activity, limitations and plan of care. Discuss Ask Me Three. Services Needed at Discharge: Residential Facility SDOH Health Related Social Needs: Health related social needs lonely/isolated Health related social needs details Eloise stated that she [place] [facility] and doesn't think that [facility] will talk her. JEANNE called [facility]. There are no issues with Eloise's account.
[2025-02-09] MEDS: Nicotine 21 MG/24 HR PATCH TD (15:19)
--- NOTE | 2025-02-09 15:51 | PTTR_ITS ---
PT Notes Visit Reasons: Supratherapeutic Depakote level with Delerium Physical Therapy Inpatient Treatment Note Date: 02/09/2025 PRECAUTIONS: Fall risk. Standard precautions. Activity as tolerated. Impaired safety awareness. SUBJECTIVE: Patient reports she can't seem to find her shoes. OBJECTIVE: ? General Observation: Patient presented sitting in chair coloring Patient remains confused and difficult to attend to task, easily distracted. PAIN: Denied pain VITALS: Monitored via telemetry throughout ? BED MOBILITY/TRANSFERS: Moderate cueing provided for use of B hands as needed for support, movement sequence, AD management, and posture to reduce fall risk and minimize pain report? Sit-stand: Contact-guard assist with FWW pt with increase posterior weight shift requiring assist to shift FWW forward to increase anterior weight shift? Stand-sit: Contact-guard assist with FWW ? Bed-recliner: Contact-guard assist with FWW ? Recliner-bed: Contact-guard assist with FWW ? GAIT: Patient tolerated 200 feet [facility]-wheeled walker with wheelchair follow requiring CG/min assist, as fatigued she required moderate verbal cueing to safely negotiate objects on her L side --kept hitting the left front leg with objects in hallways. Decreased step height and length. Directional change improving although patient needed to slow down to safely turn. ASSESSMENT:? Pt with return of posterior weight shift and difficulty with object management on the left this session. Pt very concerned and difficult to redirect from inability to locate her shoes. She was able to don her jeans with min A to get legs into proper pantleg then able to pull up and secure zipper and belt. PLAN: Continue with PT POC as initially established for 1-2x/day, 7 days/week x 1 week. Progress strength, mobility, and balance as tolerated. DISCHARGE RECOMMENDATION: SNF/LTC TREATMENT CODE/TIME: am session:[id number]
--- NOTE | 2025-02-09 17:37 | W.PM.PROGNOT ---
Date of Service Date of service: 02/09/25 Time of Service: 17:37 Assessment and Plan Assessment and plan (1) Altered mental status: Status: Acute Assessment and plan: acute delirium with sundowning noted. Responding well to 4 mg apriprazole daily - unchanged She remains confused, but pleasant (2) Serum sodium valproate above therapeutic range: Status: Resolved Assessment and plan: Followed by [facility] neurology for seizure management. Resumed (3) Fall: Status: Acute Assessment and plan: Admitted status post fall thought secondary to increased Depakote level and suspected to be drinking alcohol. She has frequent falls at home. Fall precautions PT consultation (4) Face lacerations: Status: Acute Assessment and plan: No complication, repaired in the ED with surgical glue, healing well. (5) Seizure disorder: Start date: 01/31/25 Status: Chronic Assessment and plan: Continue home medications (6) Depressive disorder: Start date: 01/31/25 Status: Chronic Assessment and plan: Continue home medications (7) Right shoulder pain: Status: Acute Assessment and plan: Continue scheduled acetaminophen 3 times daily PT consulted (8) Tobacco use disorder: Start date: 01/31/25 Status: Chronic Assessment and plan: Nicotine supplementation as needed (9) Advanced care planning/counseling discussion: Status: Acute Assessment and plan: Reviewed but unable to officially document HCA/[facility]ST due to lack of capacity. She states she would want to be DNR/DNI. She states she would want [facility] to be her [facility]. (10) Palliative care encounter: Status: Acute Assessment and plan: Palliative consulted Accepted at [facility] case management following discussed with Dr Lucas Subjective Subjective Interval history since last seen: Patient unable to have a conversation or have any meaningful input to her care. Guardianship denied. Accepted at [facility] for 02/10. Exam Const General: cooperative and disheveled Orientation: awake Limitations: altered mental status [facility] Head: normocephalic and atraumatic Mouth: mucous membranes dry Eyes Conjunctivae: normal conjunctivae Sclera: normal sclerae Neck Neck: trachea midline and supple Resp Auscultation: clear to auscultation bilaterally, no rales, no rhonchi and no wheezes Cardio Rate: regular rate and not tachycardic Rhythm: regular rhythm GI Palpation: soft Skin General skin exam: no rashes or lesions noted Neuro General: patient alert, patient awake and tone normal Cognition: abnormal cognition Extrem General: no edema Psych Appearance: grossly normal Objective Last Vital Signs Temp 36.7 C 02/09/25 07:33 Pulse 80 02/09/25 07:33 Resp 16 02/09/25 07:33 BP 96/51 L 02/09/25 08:16 Pulse Ox 96 02/09/25 07:33 PAWSS Have you Been Recently Intoxicated or Drunk Within the Last 30 days?: Yes Have you Ever Experienced Previous Episodes of Alcohol Withdrawal?: No Have you ever Experienced Withdrawal Seizures?: No Have you ever Experienced Delirium Tremens(DT)s?: No Have you ever undergone Alcohol Rehabilitation Treatment (i.e, inpt ot outpatient treatment programs)?: No Have you ever Experienced Blackouts?: Yes Have you ever Combined Alcohol with other Downers within the last 90 days?: No Have you ever Combined Alcohol with any other Substance of Abuse during the last 90 days?: No Positive Blood Alcohol level on Presentation? [PCS.BAL]: No Evidence of Increased Autonomic Activity (i.e. HR>120, tremor, sweating, agitation, nausea)?: No Result: 2 Time Spent with Patient Time Spent with Patient: <25 minutes Time was spent: preparing to see the patient(eg.review tests), ordering medications,tests, procedures, referring, communicating with other health family member caretaker, indepentently interpreting results, counseling the patient and care coordination
[2025-02-09] MEDS: LORazepam 1 MG TAB PO (20:48)
[2025-02-09] MEDS: Enoxaparin 40 MG/0.4 ML SYR SC (20:49)
[2025-02-09 21:29] VITALS: BP 122/77; PULSE 77; RESP 20; TEMP 37.1; O2SAT 98
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
[2025-02-10] MEDS: Acetaminophen 500 MG TAB 1000 MG PO (07:37)
[2025-02-10] MEDS: Thiamine 100 MG TAB PO (07:37)
[2025-02-10] MEDS: Divalproex 250 MG TABEC PO (07:37)
[2025-02-10] MEDS: Divalproex 500 MG TABEC PO (07:37)
[2025-02-10] MEDS: lamoTRIgine 100 MG TAB PO (07:37)
[2025-02-10] MEDS: Magnesium Oxide 400 MG TAB 800 MG PO (07:37)
[2025-02-10 07:41] VITALS: BP 92/62; PULSE 85; RESP 20; TEMP 36.5; O2SAT 96
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
== END 2025-02-10 09:14 | disposition skilled nursing facility (03) | DRG 918 ==
LOC: ER 01-31 00:05 → MS 01-31 00:08
PROVIDERS: Nurse Practitioner Family; Admitting Provider Family Medicine; Emergency Provider Emergency Medicine Emergency Medical Services; PCP Nurse Practitioner Family; Responsible Provider Nurse Practitioner Acute Care; Visit Provider Family Medicine
DX: R41.0 Disorientation, unspecified (principal); T42.6X1A Poisoning by other antiepileptic and sedative-hypnotic drugs, accidental (unintentional), initial encounter; E46 Unspecified protein-calorie malnutrition; Z68.1 Body mass index [BMI] 19.9 or less, adult; G40.909 Epilepsy, unspecified, not intractable, without status epilepticus; F17.210 Nicotine dependence, cigarettes, uncomplicated; F32.A Depression, unspecified; M81.0 Age-related osteoporosis without current pathological fracture; R29.6 Repeated falls; E87.6 Hypokalemia; E58 Dietary calcium deficiency; Z79.899 Other long term (current) drug therapy; M70.61 Trochanteric bursitis, right hip; Z96.643 Presence of artificial hip joint, bilateral; Z96.612 Presence of left artificial shoulder joint; Z96.652 Presence of left artificial knee joint; F10.10 Alcohol abuse, uncomplicated; W19.XXXA Unspecified fall, initial encounter; S01.81XA Laceration without foreign body of other part of head, initial encounter; M25.511 Pain in right shoulder; G89.11 Acute pain due to trauma; R25.1 Tremor, unspecified; R27.0 Ataxia, unspecified; R11.10 Vomiting, unspecified
CPT/HCPCS: 00123; 36415; 80048; 80053; 80076; 80175; 80307; 82550; 83690; 85027; 87635; 93005; 97110; 97162; 97530; 99285; J1650; 70450; 70490; 70551; 73030; 80164; 80320; 80329; 81003; 81015; 82140; 83735; 84443; 84484; 85025; 93010; 99223; 99231; 99232; 99233; 99238; J1630; J2060; J3480; J3490; J8597